=== PATIENT | male | born 1940 | race Caucasian/White ===

== ENCOUNTER → 2018-08-10 08:47 | Outpatient (CLI) | payer MEDICARE, OTHER, SELFPAY ==
[2018-08-10 10:27] LABS: Hematocrit 44.3 % (40-54); Hemoglobin 14.5 g/dl (13.0-16.5); Mean Corp Hgb Conc 32.7 g/gl (32-36); Mean Corpuscular Hgb 30.7 pg (27.0-32.0); Mean Corpuscular Volume 93.9 fL (80-94); Mean Platelet Vol. 11.6 fl (6.2-12.0); Platelet Count 255 K/mm3 (150-450); RBC Distribution Width CV 13.2 % (11.6-14.6); RBC Distribution Width SD 45.5 fl (35.1-43.9); Red Blood Count 4.72 M/mm3 (4.6-6.2); White Blood Count 6.3 K/mm3 (4.4-11.0)
[2018-08-10 10:29] LABS: Scan Indicated on CBC? Y/N NO
[2018-08-10 10:49] LABS: ALB/GLOB Ratio 1.2 RATIO (0.9-2.4); AST(SGOT) 23 U/L (15-37); Alanine Aminotransfer ALT/SGPT 35 U/L (16-61); Albumin, Serum 3.8 g/dL (3.2-5.0); Alkaline Phosphatase 99 U/L (45-117); Anion Gap 7 (5-15); BUN 13 mg/dL (7-18); BUN/Creat Ratio 12.7 RATIO (10-20); Calcium,Total 8.6 mg/dL (8.5-10.1); Chloride 107 mmol/L (98-107); Cholesterol 107 mg/dL (200); Creatinine, Serum 1.02 mg/dL (0.70-1.30); EST Glomerular Filtration Rate 75 mL/min (>60); Est Glom Filt Rate - Afr Amer 91 mL/min (>60); Globulin 3.3 g/dL (2.2-4.2); Glucose 85 mg/dL (74-106); High Density Lipoprotein 38 mg/dL; PSA,Total- Diagnostic 6.04 ng/mL (0.0-4.0); Protein, Total 7.1 g/dL (6.4-8.2); Sodium Level 140 mmol/L (136-145); Triglycerides 98 mg/dL; Very Low Density Lipoprotein 20 mg/dL (5-40)
== END ==
PROVIDERS: Family Provider Family Medicine; PCP Family Medicine; Visit Provider Family Medicine
DX: I10 Essential (primary) hypertension (principal); E78.00 Pure hypercholesterolemia, unspecified; N40.1 Benign prostatic hyperplasia with lower urinary tract symptoms
CPT/HCPCS: 36415; 80053; 80061; 84153; 85027

== ENCOUNTER → 2019-02-16 10:47 | Outpatient (CLI) | payer MEDICARE, OTHER, SELFPAY ==
[2019-02-16 13:13] LABS: Thyroid Stim Hormone (TSH) 3.48 uIU/mL (0.358-3.74)
[2019-02-16 13:20] LABS: Vitamin D,25 Hydroxy 32.5 ng/mL (29.95-100.01)
== END ==
PROVIDERS: Family Provider Family Medicine; PCP Family Medicine; Referring Provider Family Medicine; Visit Provider Family Medicine
DX: E55.9 Vitamin D deficiency, unspecified (principal); R94.6 Abnormal results of thyroid function studies
CPT/HCPCS: 36415; 82306; 84439; 84443

== ENCOUNTER → 2019-08-17 09:41 | Outpatient (CLI) | payer MEDICARE, OTHER, SELFPAY ==
[2019-08-17 12:47] LABS: T4 Free Direct 0.94 ng/dL (0.76-1.46); Thyroid Stim Hormone (TSH) 4.65 uIU/mL (0.358-3.74)
[2019-08-17 13:00] LABS: Vitamin D,25 Hydroxy 50.6 ng/mL (29.95-100.01)
== END ==
PROVIDERS: Family Provider Family Medicine; PCP Family Medicine; Referring Provider Family Medicine; Visit Provider Family Medicine
DX: R79.89 Other specified abnormal findings of blood chemistry (principal); E55.9 Vitamin D deficiency, unspecified; I10 Essential (primary) hypertension
CPT/HCPCS: 36415; 82306; 84439; 84443

== ENCOUNTER → 2020-05-08 09:05 | Outpatient (CLI) | payer MEDICARE, OTHER, SELFPAY ==
[2020-05-08 13:23] LABS: Vitamin D,25 Hydroxy 70.6 ng/mL
[2020-05-08 13:32] LABS: Microalbumin,Random Urine 18.2 mg/L (NO RANGE EST.)
[2020-05-08 13:44] LABS: ALB/GLOB Ratio 1.1 RATIO (0.9-2.4); AST(SGOT) 23 U/L (15-37); Alanine Aminotransfer ALT/SGPT 24 U/L (16-61); Albumin, Serum 3.9 g/dL (3.2-5.0); Alkaline Phosphatase 90 U/L (45-117); Anion Gap 7 (5-15); BUN 12 mg/dL (7-18); BUN/Creat Ratio 13.6 RATIO (10-20); Calcium,Total 8.5 mg/dL (8.5-10.1); Chloride 106 mmol/L (98-107); Cholesterol 130 mg/dL (200); Creatinine, Serum 0.88 mg/dL (0.70-1.30); EST Glomerular Filtration Rate 88 mL/min (>60); Est Glom Filt Rate - Afr Amer 106 mL/min (>60); Globulin 3.4 g/dL (2.2-4.2); Glucose 101 mg/dL (74-106); High Density Lipoprotein 44 mg/dL; Potassium 3.8 mmol/L (3.5-5.1); Protein, Total 7.3 g/dL (6.4-8.2); Sodium Level 138 mmol/L (136-145); Thyroid Stim Hormone (TSH) 3.42 uIU/mL (0.358-3.74); Triglycerides 107 mg/dL; Very Low Density Lipoprotein 21 mg/dL (5-40)
== END ==
PROVIDERS: PCP Family Medicine; Visit Provider Family Medicine
DX: I10 Essential (primary) hypertension (principal); R79.89 Other specified abnormal findings of blood chemistry; E55.9 Vitamin D deficiency, unspecified; N40.1 Benign prostatic hyperplasia with lower urinary tract symptoms
CPT/HCPCS: 36415; 80053; 80061; 82043; 82306; 84153; 84443

== ENCOUNTER → 2020-07-17 11:35 | Outpatient (CLI) | payer MEDICARE, OTHER, SELFPAY ==
[2020-07-17 16:04] LABS: Anion Gap 6 (5-15); BUN 15 mg/dL (7-18); BUN/Creat Ratio 15.4 RATIO (10-20); Chloride 106 mmol/L (98-107); Creatinine, Serum 0.97 mg/dL (0.70-1.30); EST Glomerular Filtration Rate 79 mL/min (>60); Est Glom Filt Rate - Afr Amer 95 mL/min (>60); Glucose 89 mg/dL (74-106); Sodium Level 137 mmol/L (136-145); Thyroid Stim Hormone (TSH) 1.88 uIU/mL (0.358-3.74)
== END ==
PROVIDERS: PCP Family Medicine; Referring Provider Family Medicine; Visit Provider Family Medicine
DX: I10 Essential (primary) hypertension (principal); E03.9 Hypothyroidism, unspecified
CPT/HCPCS: 36415; 80048; 84443

== ENCOUNTER → 2020-08-03 08:40 | Outpatient (CLI) | payer MEDICARE, OTHER, SELFPAY ==
--- NOTE | 2020-08-03 08:47 | CDU_ITS ---
Reason For Study: Blurry vision Rt. Velocities/BP Lt. Velocities/BP Prox CCA 79.9/10.8 cm/sec. Prox CCA 67.4/16.3 cm/sec. Mid CCA 66.9/17.3 cm/sec. Mid CCA 68.3/17.3 cm/sec. Dist CCA 56.4/16.8 cm/sec. Dist CCA 54.1/13.5 cm/sec. Prox ICA 41.9/14.5 cm/sec. Prox ICA 42.1/13.5 cm/sec. Mid ICA 78.7/30.5 cm/sec. Mid ICA 64.1/17.9 cm/sec. Dist ICA 83.4/31.5 cm/sec. Dist ICA 59.7/19 cm/sec. Rt. ICA/CCA = 1.25. Lt. ICA/CCA = 0.95. Prox ECA 66.3/12.4 cm/sec. Prox ECA 92.7/14.6 cm/sec. Rt. Vert. 50.4/14.5 cm/sec. Lt. Vert. 27/6.9 cm/sec. Right Extracranial There is homogeneous, smooth atherosclerotic plaque noted in the right common carotid artery. There is homogeneous, smooth atherosclerotic plaque noted in the right internal carotid artery. There is intimal thickening but no significant atherosclerotic plaque noted in the right external carotid artery. Antegrade flow is noted in the right vertebral artery. Left Extracranial There is homogeneous, smooth atherosclerotic plaque noted in the left common carotid artery. There is homogeneous, smooth atherosclerotic plaque noted in the left internal carotid artery. There is intimal thickening but no significant atherosclerotic plaque noted in the left external carotid artery. Antegrade flow is noted in the left vertebral artery. Procedure Carotid Duplex 72460. This is a Carotid Duplex examination using B-mode, color flow and specral Doppler. Exam performed in department. Interpretation Summary Mild (<50%) stenosis right extracranial internal carotid. Mild (<50%) stenosis left extracranial internal carotid. Flow within the vertebral arteries is antegrade bilaterally. Ordering Physician: Liban Camacho Referring Physician: Liban Camacho Performed By: Tootie Velásquez RVT
== END ==
PROVIDERS: PCP Family Medicine; Referring Provider Family Medicine; Visit Provider Family Medicine
DX: H53.8 Other visual disturbances (principal); R42 Dizziness and giddiness
CPT/HCPCS: 93880

== ENCOUNTER 2021-05-23 11:34 | Day surgery (SDC) | payer MEDICARE, OTHER, SELFPAY ==
--- NOTE | 2021-05-18 09:21 | EKG12_ITS ---
Test Reason : PREOP Blood Pressure : / mmHG Vent. Rate : 065 BPM Atrial Rate : 065 BPM P-R Int : 198 ms QRS Dur : 098 ms QT Int : 428 ms P-R-T Axes : 017 -36 028 degrees QTc Int : 445 ms Normal sinus rhythm Left axis deviation Abnormal ECG Confirmed by DIMITRI ALEXANDER, KODY ([id number]), aircraft engine specialist SHANE SAGE ([id number]) on 05/21/2021 9:49:30 AM Referred By: Salvador Solitario Confirmed By:OCTAVIO MOSLEY MD
[2021-05-18 10:25] LABS: Hematocrit 43.9 % (40-54); Hemoglobin 14.4 g/dL (13.0-16.5); Mean Corp Hgb Conc 32.8 g/dL (32-36); Mean Corpuscular Hgb 30.7 pg (27.0-32.0); Mean Corpuscular Volume 93.6 fL (80-94); Mean Platelet Vol. 11.2 fl (6.2-12.0); Platelet Count 281 K/mm3 (150-450); RBC Distribution Width CV 12.8 % (11.6-14.6); RBC Distribution Width SD 44.1 fl (35.1-43.9); Red Blood Count 4.69 M/mm3 (4.6-6.2); White Blood Count 7.9 K/mm3 (4.4-11.0)
[2021-05-18 10:37] LABS: International Normalized Ratio 1.2; Prothrombin Time (Protime)PT. 14.1 SECONDS (11.7-14.9)
[2021-05-18 10:38] LABS: Partial Thromboplast Time 32.6 Seconds (24.1-36.2)
[2021-05-18 11:03] LABS: AST(SGOT) 21 U/L (15-37); Alanine Aminotransfer ALT/SGPT 25 U/L (16-61); Albumin, Serum 3.8 g/dL (3.2-5.0); Alkaline Phosphatase 89 U/L (45-117); Anion Gap 8 (5-15); BUN 19 mg/dL (7-18); BUN/Creat Ratio 15.4 RATIO (10-20); Bilirubin, Direct 0.25 mg/dL (0.00-0.30); Calcium,Total 8.7 mg/dL (8.5-10.1); Chloride 107 mmol/L (98-107); Creatinine, Serum 1.23 mg/dL (0.70-1.30); EST Glomerular Filtration Rate 60 mL/min (>60); Est Glom Filt Rate - Afr Amer 72 mL/min (>60); Globulin 3.1 g/dL (2.2-4.2); Glucose 87 mg/dL (74-106); Potassium 3.7 mmol/L (3.5-5.1); Protein, Total 6.9 g/dL (6.4-8.2); Sodium Level 141 mmol/L (136-145); Thyroid Stim Hormone (TSH) 0.92 uIU/mL (0.358-3.74)
[2021-05-23] VITALS (10 sets, daily range): BP systolic 124–153; BP diastolic 70–86; PULSE 65–92; RESP 16–18; TEMP 35.8–36.4; O2SAT 92–98; BMI 31.4
--- NOTE | 2021-05-23 | PROS_PTH ---
PATIENT: Teri VERDIN [place] [facility] [id number] AGE/SX: 81/M ROOM: RE05/23/[address]: Dr. Salvador Solitario MD : 1940 BED: DIS: 05/24/2021 SPEC #: [id number] RECD: 05/23/21 14:56 STATUS: DANUTA HUGHES #: [id number] JENNIFER: 05/23/21 00:[address]: Salvador Solitario DEPT: SURGICAL PATHOLOGY RECD BY: Joe Hammonds ENTERED: 05/24/21 13:29 SP TYPE: TURP OTHR DR: Dr. Rashid Camacho MD Tissues: Prostate, NOS Procedures: Surgery Specimen Level IV HEADER OPERATION: Cysto, TUR prostate, Olymp[employer] PRE-OP DIAGNOSIS: BPH TISSUE SUBMITTED: Prostate tissue MICROSCOPIC DIAGNOSIS Prostate, transurethral resection: Benign nodular hyperplasia, glandular and stromal types. Chronic inflammation. AM:thanh 05/25/2021 MICROSCOPIC DESCRIPTION Slides are reviewed. GROSS DESCRIPTION Received is one container labeled with the patient's name and designated prostate tissue. The specimen consists of multiple irregular fragments of pink-ring, rubbery, soft tissue that in aggregate weigh 22 gm and measure in aggregate 6 x 6 x 2 cm. Molder Helper portions are submitted in ten cassettes. / AM:thanh 05/24/21 TC:3 CPT: 61387
[2021-05-23] MEDS: Lactated Ringers 1,000 ML 100 ML IV ×2 (12:20→14:39)
[2021-05-23] MEDS: Cefazolin 2 GM in 0.9% Normal Saline 100 ML IV (13:27)
--- NOTE | 2021-05-23 13:28 | HP.PCM_ITS ---
HPI - General HPI Narrative Teri VERDIN, is a 81 M who presents for transurethral resection of the prostate he has a very large obstructive prostate. [facility] Medical History (Updated 05/23/21 @ 13:[address] Salvador Solitario MD) Degenerative disc disease Easy bruising Former smoker High cholesterol History of cataract History of echocardiogram Hypertension Prostate disease TIA (transient ischemic attack) Wears dentures Wears glasses Wears hearing aid Home Medications aspirin 81 mg PO DAILY 05/17/21 [History Last Taken Unknown] atorvastatin 20 mg PO QHS 05/17/21 [History Last Taken Unknown] cholecalciferol (vitamin D3) [Vitamin D3] 50 mcg PO DAILY 05/17/21 [History Last Taken Unknown] levothyroxine 75 mcg PO DAILY 05/17/21 [History Last Taken Unknown] lisinopril 20 mg PO BID 05/17/21 [History Last Taken Unknown] vitamin E 200 unit PO DAILY 05/17/21 [History Last Taken Unknown] ciprofloxacin HCl [Cipro] 500 mg PO BID #14 tab 05/23/21 [Rx Last Taken Unknown] Allergy/AdvReac Type Severity Reaction Status Date / Time No Known Allergies Allergy Verified 05/17/21 09:47 Surgical History (Updated 05/17/21 @ 10:08 by Danya Callaway) History of transurethral resection of prostate Social History Smoking Status: Former smoker ROS Constitutional Constitutional: Denies chills, fever(s) or malaise Eyes Eyes: Denies blurry vision or change in vision ENT HEENT: Reports none Cardiovascular Cardiovascular: Denies chest pain or palpitations Respiratory/Chest Respiratory/Chest: Denies cough or shortness of breath with exertion Gastrointestinal Gastrointestinal: Denies abdominal pain, constipation or diarrhea Musculoskeletal Musculoskeletal: Denies back pain, joint stiffness or joint swelling Integumentary Integumentary: Denies dry skin, jaundice, lesions or rash Neurologic Neurologic: Denies confusion, syncope or weakness Psychiatric Psychiatric: Reports none; Denies anxiety or depression Endocrine Endocrinology: Denies excessive sweating, fatigue or flushing Hematologic/Lymphatic Hematologic/Lymphatic: Denies anemia, easy bleeding or easy bruising Vital Signs Vital Signs Vital Signs: 05/23/21 12:13 Temperature 97.1 F L Temperature Source Temporal Pulse Rate 82 Respiratory Rate 16 Respiratory Pattern Normal Blood Pressure 153/83 H Blood Pressure Mean 106 Blood Pressure Source Monitor Blood Pressure Position Semi-Fowlers Blood Pressure Location Left Arm Pulse Ox 97 Oxygen Delivery Method Room Air Weight Weight: 97.8 kg Body Mass Index (BMI) 31.4 Physical Exam Const alert and oriented x3 General Appearance: cooperative HEENT normocephalic, head/scalp atraumatic, EAC's normal and TM's normal bilaterally Eyes PERRL and EOMs intact bilaterally Pupil: sluggish Neck no lymphadenopathy, supple and no JVD General: trachea midline Lymph Lymphatic: no lymphadenopathy noted, lymphedema and lymphadenopathy Resp normal respiratory effort, normal air movement and clear to auscultation bilaterally Cardio regular rate, regular rhythm and peripheral pulses 2+ throughout GI soft to palpation, non-tender and non-distended Extremity normal capillary refill and no clubbing, cyanosis or edema General Extremity: no tenderness to palpation of joints or extremities Skin no rashes or lesions noted General Skin Exam: turgor normal Lesions: no lesions Rashes: no rashes Neuro CN's II-XII intact bilaterally Speech: speech normal Motor Exam: strength 5/5 throughout; Negative for general weakness Psych thought process normal, cooperative and affect normal Appearance: appropriate Results Lab / Micro Data Result Diagrams: 05/18/21 09:32 05/18/21 09:32 Assessment & Plan Assessment/Plan (1) BPH with obstruction/lower urinary tract symptoms: PLAN: Plan to proceed with a TURP
--- NOTE | 2021-05-23 13:29 | PCM.DC ---
Discharge Instructions Diet Discharge Diet: No restrictions Activity Discharge Activity: Return to Normal Activity and May Not Drive (while taking narcotic pain medications.) Dressing / Incision Call your doctor if you observe: Fever of 101 or Higher Follow Up Care Please Follow Up With: Salvador Solitario MD When: Call [phone] for an appointment Test Results: Test results from this visit will be discussed in further detail at your follow-up appointment, if applicable. Discharge Plan Admission Primary Reason for Your Visit: turp Attending Provider: Salvador Solitario Primary Care Provider: Liban Camacho Discharge Orders/Prescriptions Prescriptions: New ciprofloxacin HCl [Cipro] 500 mg tablet 500 mg PO BID Qty: 14 RF: 0 Continued vitamin E 200 unit Capsule 200 unit PO DAILY RF: 0 atorvastatin 20 mg tablet 20 mg PO QHS RF: 0 lisinopril 20 mg Tablet 20 mg PO BID RF: 0 levothyroxine 75 mcg tablet 75 mcg PO DAILY RF: 0 cholecalciferol (vitamin D3) [Vitamin D3] 50 mcg (2,000 unit) Capsule 50 mcg PO DAILY RF: 0 Held aspirin 81 mg Tablet 81 mg PO DAILY RF: 0 Hold Instructions: Resume on 06/06/21. Discontinued tamsulosin 0.4 mg capsule 0.4 mg PO QHS RF: 0 finasteride 5 mg tablet 5 mg PO QHS RF: 0 Referrals / Follow Up: Liban Camacho MD [Primary Care Provider] - Salvador Solitario MD [STAFF PHYSICIAN] - Disposition Disposition (needs filled in before D/C Order can be placed): Home, Self Care
--- NOTE | 2021-05-23 14:24 | OP.PCM_ITS ---
Report of Operation Date of Procedure: 05/23/21 Pre-Operative Diagnosis: BPH with obstruction Post-Operative Diagnosis: Same Surgery/Procedure Performed:: Transurethral section of prostate Description of Surgical Findings:: In the preoperative setting I discussed with the patient how the surgery would be done with expect afterwards. We discussed how a prostate resection is done and we discussed the risk of the surgery including, bleeding, infection, retrograde ejaculation, changes with ejaculation or intercourse,. We discussed the possibility that the resection of the prostate may not alleviate his urinary symptoms. We discussed the small risk of developing scar tissue along the urethral channel and strictures. We also discussed the chance of the prostate could grow back and he may need further surgery or treatment in the future for prostate problems. Patient was taken back to the operating room, timeout procedure was performed, he was identified and marked and placed on the operating room table. He underwent general anesthesia. He was placed in dorsolithotomy position. Penis and testicles were prepped and draped in usual sterile fashion. Went into the bladder using the visual obturator with a resectoscope. Once inside the bladder identified the right and left ureteral orifice. I then identified the prostate and the anatomy of the prostate. I marked out the area of the sphincter and the verumontanum was identified. I then proceeded with the prostate resection first resected the median lobe. And then resected the right lobe of the prostate. Then to resect the left lobe of the prostate. I then resected the apical tissue of the prostate. Made sure that there was no injury to the sphincter or the verumontanum was still intact. At the end of the resection all the chips were Ellik out of the bladder. I then identified the left and right ureteral orifice and these were confirmed to be in good position and effluxing and not injured. The resectoscope was removed, a 22 Citizen [place] catheter was placed into the bladder on continuous irrigation. And the urine was fairly light pink color and draining normally. He was taken back to the PACU in good condition. Surgeon: Salvador Solitario Type of Anesthesia: General Drains: 22 [place] three-way catheter Admit VTE Documentation VTE Present on Admission: No VTE Mechan Device Prophylaxis: SCD's
[2021-05-23] MEDS: 0.9% Normal Saline 1,000 ML 150 ML IV (20:08)
[2021-05-23] MEDS: Ciprofloxacin 400 MG/200 ML BAG 200 MG IV (22:45)
[2021-05-23] MEDS: Atorvastatin Calcium 20 MG Tablet PO (22:51)
[2021-05-23] MEDS: Lisinopril 20 MG Tablet PO (22:51)
[2021-05-24 00:55] VITALS: BMI 31.4
[2021-05-24 01:52] VITALS: PULSE 61; RESP 18; TEMP 36.6; O2SAT 95
[2021-05-24] MEDS: 0.9% Normal Saline 1,000 ML 150 ML IV (04:04)
[2021-05-24 04:05] VITALS: BMI 31.4
[2021-05-24 04:09] VITALS: BP 120/64; PULSE 58; RESP 18; TEMP 36.4; O2SAT 96
[2021-05-24] MEDS: Levothyroxine 75 MCG Tablet PO (04:14)
[2021-05-24 08:08] VITALS: BMI 31.4
[2021-05-24] MEDS: Ciprofloxacin 400 MG/200 ML BAG 200 MG IV (08:24)
[2021-05-24] MEDS: Cholecalciferol (VIT D3) 25 MCG TABLET (1,000 UNITS) 50 MCG PO (08:27)
[2021-05-24] MEDS: Lisinopril 20 MG Tablet PO (08:28)
[2021-05-24 08:39] VITALS: BP 130/74; PULSE 64; RESP 18; TEMP 36.6
== END 2021-05-24 10:00 | disposition home or self-care (01) ==
LOC: SDC 11:35 → AC 11:37 → MS3 05-24 09:19
PROVIDERS: Anesthesiology; PCP Family Medicine; Referring Provider Urology; Visit Provider Urology
PROC: (CPT 52601; principal; 2021-05-23 13:35)
DX: N40.1 Benign prostatic hyperplasia with lower urinary tract symptoms (principal); N13.8 Other obstructive and reflux uropathy; R35.0 Frequency of micturition; R35.1 Nocturia; R39.12 Poor urinary stream; R31.21 Asymptomatic microscopic hematuria; I10 Essential (primary) hypertension; E78.00 Pure hypercholesterolemia, unspecified; R23.3 Spontaneous ecchymoses; Z79.82 Long term (current) use of aspirin; Z79.899 Other long term (current) drug therapy; Z87.891 Personal history of nicotine dependence; Z86.73 Personal history of transient ischemic attack (TIA), and cerebral infarction without residual deficits
CPT/HCPCS: 00914; 52601; 36415; 80048; 80076; 84443; 85027; 85610; 85730; 88305; 93005; 99251; J7030; J7120; G0463; J0744; J2405

== ENCOUNTER → 2021-09-25 10:47 | Outpatient (CLI) | payer MEDICARE, OTHER, SELFPAY ==
[2021-09-25 12:56] LABS: Anion Gap 9 (5-15); BUN 11 mg/dL (7-18); BUN/Creat Ratio 12.7 RATIO (10-20); Calcium,Total 8.8 mg/dL (8.5-10.1); Chloride 104 mmol/L (98-107); Cholesterol 122 mg/dL (200); Creatinine, Serum 0.86 mg/dL (0.70-1.30); EST Glomerular Filtration Rate 90 mL/min (>60); Est Glom Filt Rate - Afr Amer 109 mL/min (>60); Glucose 90 mg/dL (74-106); High Density Lipoprotein 39 mg/dL; Potassium 4.1 mmol/L (3.5-5.1); Sodium Level 136 mmol/L (136-145); Thyroid Stim Hormone (TSH) 1.77 uIU/mL (0.358-3.74); Triglycerides 157 mg/dL; Very Low Density Lipoprotein 31 mg/dL (5-40)
== END ==
PROVIDERS: PCP Family Medicine; Referring Provider Family Medicine; Visit Provider Family Medicine
DX: I10 Essential (primary) hypertension (principal)
CPT/HCPCS: 36415; 80048; 80061; 84443

== ENCOUNTER → 2022-03-25 | Outpatient (CLI) | payer MEDICARE, OTHER, SELFPAY ==
--- NOTE | 2022-03-25 15:52 | STRESSREP ---
Stress Test Report Exercise myocardial perfusion stress test. 82-year-old man with a history of shortness of breath. Stress protocol: Resting KG demonstrates normal sinus rhythm with a rate of 58 bpm normal intervals are noted resting blood pressure is 150/80 mmHg. The patient exercised according to the regular Len protocol for total duration of 4 minutes. The maximum heart rate attained was 154 bpm which was 114% of max impact at heart rate the maximum workload was 7 metabolic equivalents. At rest there were no ST or T wave changes noted to suggest ischemia and at peak exercise upsloping ST changes were noted which did not meet the criteria for ischemia. No clinical angina was noted the test was terminated due to dyspnea. The peak blood pressure was 180/92 mmHg which was normal response to exercise. Myocardial perfusion protocol. 14.3 mCi of technetium 99m sestamibi was injected at rest. The patient exercised according to regular Len protocol for 4 minutes and at peak exercise 44.7 mCi of technetium 99m sestamibi was injected stress images were obtained stress and rest images were reconstructed in comparing the short axis vertical long and horizontal long axis. Gated images were also obtained per Perfusion SPECT analysis: Review of the stress images demonstrate normal cardiac silhouette size. There is a medium size defect noted involving the inferolateral segment on the stress images. The rest of the sears appear to be normally perfused. The resting images demonstrate mild improvement suggesting a mild amount of inferolateral ischemia at this moderate workload. A previous basal inferior infarct cannot be completely excluded. Gated SPECT analysis: The gated ejection fraction is noted to be 65%. Conclusion: Abnormal exercise myocardial perfusion stress test at a moderate workload. Inferolateral ischemia noted. Preserved ejection fraction.
== END | disposition home or self-care (01) ==
LOC: CVS 06:58
PROVIDERS: PCP Family Medicine; Referring Provider Family Medicine; Visit Provider Family Medicine
DX: R94.39 Abnormal result of other cardiovascular function study (principal); R06.02 Shortness of breath; R68.89 Other general symptoms and signs
CPT/HCPCS: 78452; 93017; A9500; A4216

== ENCOUNTER → 2022-04-03 | Outpatient (CLI) | payer MEDICARE, OTHER, SELFPAY ==
--- NOTE | 2022-04-03 14:41 | RAD_ITS ---
STUDY: X-RAY CHEST REASON FOR EXAM: Male, 82 years old. Technologist Notes pt states sob on and off, abnormal stress test, having heart cath placed in 5 days cad TECHNIQUE: XR Chest 2 Views COMPARISON: Prior comparison studies are not available for review at this time. FINDINGS: There is no demonstrated pleural abnormality. Normal size heart. Normal mediastinum and uziel. Normal visualized pulmonary arteries. There is atherosclerotic calcification of the aortic arch with tortuosity. There are diffuse degenerative changes of the visualized thoracic spine. There is degenerative osteoarthritis of the bilateral shoulders. There is no demonstrated abnormality of the visualized soft tissue structures of the upper abdomen. RAD/Chest PA and Lateral IMPRESSION: There are no acute findings. Electronically Signed: Misael Edgar MD at 17:30 EDT ,
[2022-04-03 17:11] LABS: Absolute Lymphocyte Count 1.93 X10^3/uL (0.83-4.51); Absolute Neutrophil Count 3.9 X10^3/uL (2.0-7.7); Basophil# 0.07 X10^3/uL; Eosinophil# 0.34 X10^3/uL; Eosinophils% 4.9 % (0-5); Hematocrit 44.5 % (40-54); Hemoglobin 14.5 g/dL (13.0-16.5); Lymphocyte # 1.93 X10^3/ul (0.83-4.51); Mean Corp Hgb Conc 32.6 g/dL (32-36); Mean Corpuscular Hgb 30.5 pg (27.0-32.0); Mean Corpuscular Volume 93.7 fL (80-94); Mean Platelet Vol. 11.8 fl (6.2-12.0); Monocyte# 0.67 X10^3/uL; Monocyte% 9.7 % (0-10); NRBC Flagged by Analyzer 0 % (0-5); Neutrophil # 3.87 X10^3/uL (2.7-7.7); Neutrophil % 56.1 % (47-70); Platelet Count 253 K/mm3 (150-450); Red Blood Count 4.75 M/mm3 (4.6-6.2); White Blood Count 6.9 K/mm3 (4.4-11.0)
[2022-04-03 17:35] LABS: Anion Gap 7 (5-15); BUN 16 mg/dL (7-18); BUN/Creat Ratio 17.4 RATIO (10-20); Calcium,Total 8.5 mg/dL (8.5-10.1); Chloride 106 mmol/L (98-107); Creatinine, Serum 0.92 mg/dL (0.70-1.30); EST Glomerular Filtration Rate 83 mL/min (>60); Est Glom Filt Rate - Afr Amer 101 mL/min (>60); Glucose 85 mg/dL (74-106); Potassium 3.9 mmol/L (3.5-5.1); Sodium Level 139 mmol/L (136-145)
== END | disposition home or self-care (01) ==
LOC: RAD 14:27
PROVIDERS: PCP Family Medicine; Referring Provider Internal Medicine Cardiovascular Disease; Visit Provider Internal Medicine Cardiovascular Disease
DX: R94.39 Abnormal result of other cardiovascular function study (principal); I10 Essential (primary) hypertension; E78.5 Hyperlipidemia, unspecified
CPT/HCPCS: 36415; 71046; 80048; 85025

== ENCOUNTER 2022-04-08 12:55 | Observation (INO) | payer MEDICARE, OTHER, SELFPAY ==
[2022-04-05 08:22] VITALS: BMI 32.1
[2022-04-08] VITALS (12 sets, daily range): BP systolic 115–157; BP diastolic 68–89; PULSE 53–74; RESP 14–20; TEMP 35.9–36.8; O2SAT 94–100
--- NOTE | 2022-04-08 11:44 | CL.D_ITS ---
Patient Name: Teri VERDIN Study Date: 04/08/2022 Performing: Rishi Cisneros MD Ht: 70.07 inches 178 cm : 1940 Wt: 224.87 lbs 102 kg Age: 82 Gender: male BSA: 2.2 PROCEDURE(S) PERFORMED DC01-(14961)LHC/COR/LV CLINICAL PROFILE AND INDICATIONS Indications: Suspected CAD Heart Failure: None Stress/Imaging Date: 03/25/22Stress Test with SPECT MPI: Positive Low Risk CONCLUSIONS Moderately severe disease noted involving the mid left anterior descending artery involving a septal fourdrinier machine tender. Moderate disease in the circumflex artery. Mild disease noted in the right coronary art gumaro RECOMMENDATIONS Referred for immediate PCI DESCRIPTION OF PROCEDURE The patient arrived to the procedure lab. The risks and benefits of the procedure as well as a full d escription of our services here and current unavailability of surgical backup were fully explained to the patient and/or their significant other prior to the catheterization. The Timeout was completed, verifying the correct patient and procedure. The patient's procedural site was prepped and draped in the usual fashion. Local anesthetic was given subcutaneously to right radial region with Lidocaine 2% . Local anesthetic was given subcutaneously to right groin region with Lidocaine 2%. Using a modified Seldinger technique, arterial access was obtained via the right radial artery, a 6Fr sheath was inse rted., arterial access was obtained via the right femoral artery, a 5Fr sheath was inserted. Left Co ronary Artery selective angiography was performed in multiple views using a 6 Fr. JL4 catheter. Right Coronary Artery selective angiography was then performed in multiple views using a 6 Fr. JR 4 catheter. Left Ventriculography was performed in ALEJO projection using a 6 Fr. Pigtail catheter. LV to AO pullback pressures were then recorded. CORONARY ANGIOGRAPHY DOMINANCE: Right Dominant LEFT HEART ASSESSMENT Left Ventricular Ejection Fraction: by LV Gram 60 % Normal LV wall motion Normal Left Ventricular systolic function LEFT MAIN: Mild calcification, No significant disease noted LEFT ANTERIOR DESCENDING ARTERY: MID LAD: 75 % Stenosis DIAGONAL 1: Proximal - Mild luminal irregularities CIRCUMFLEX ARTERY: Moderate luminal irregularities up to 50% RIGHT CORONARY ARTERY: Mild luminal irregularities less than 30% COMPLICATIONS PROCEDURE MEDICATIONS Fentanyl 50 mcg IV Versed 1 mg IV Baby Aspirin (81mg) 1 Tabs PO 04/08/2022 09:13:32 Brilinta 180 mg PO @ 04/08/2022 11:30:31 Heparin given IA 04/08/2022 10:54:03 Verapamil 2.5mg, Ntg 100mcgs, 3000 units of Heparin given IA 04/08/2022 10:54:03 SUMMARY OF HEMODYNAMIC DATA Time AIR REST ECG 09:25:28 Art 136/70 (95) 10:43:38 AO 97/69 (83) SA 11:06:34 AO 107/65 (82) 11:11:54 LV 125/14, 24 11:31:32 LV 129/13, 23 11:31:38 LV 124/16, 26 11:32:14 LVp 135/10, 28 11:32:23 AOp 138/62 (99) 11:32:28 Signed By Rishi Cisneros MD On 04/08/2022 11:43:41 Rishi Cisneros MD
--- NOTE | 2022-04-08 12:37 | PCIREPORT_ITS ---
PCI Cardiac Cath Report PCI Report: PCI report 1 successful PCI of mid LAD 75% with predilatation followed by placement of kiley g-eluting stent 3 x 18 mmDES/Orsiro-Mercer, postdilated with NC Emerge balloon NC balloon post stent 0% and maintenance of pre and post FIORELLA-3 flow 2. Selective right common femoral artery angiography 3. Hemostasis will be maintained with manual pressure. Consent; Risk and benefit of the procedure explained in detail to the patient elected to proceed informed consent obtained Preprocedure diagnosis; 82-year-old patient underwent cardiac catheterization today by his primary medical pathology teacher Dr. Cisneros Angiographic films reviewed noted patient had moderately severe disease in involving the mid LAD as well as the septal cut off sawyer He had a moderate disease in the circumflex mild disease noted in the right coronary with LV function preserved. LV systolic function is preserved. Interventional equipment; 1 6 Jordanian JL 4 guide catheter 2. 0.014 run-through extra floppy 180 cm straight wire 3. 0.035 x 150 cm angle Glidewire 4. 0.035 to 60 cm J exchange wire 5. Drug-eluting stent 3 x 18 mm/RUSS-Orsiro Mercer 6. 3.5 x 12 mm NC balloon Anticoagulation use in the Tier Lift Truck Operator; Patient was given aspirin Brilinta 180 mg He was given heparin total of 7000 units of heparin. Procedure in detail; Under fluoroscopic guidance we will proceed with 6 Jordanian JR4 guide advanced ascending aorta cannulated the left main without difficulty Angiographic view for intervention obtained in KAZAKH and ALEJO cranial and caudal views Then we proceed with a guide wire which is run-through guide across the lesion in the mid LAD without difficulty This is followed by balloon dilatation using 2 x 12 mm balloon followed by placement of the drug-eluting stent and followed by postdilatation with excellent result and no complication in the Tier Lift Truck Operator. Selective angiographic view of right common femoral artery obtained. Hemostasis will be maintained with manual pressure once ACT level is acceptable less than 170 this will be done here in the Tier Lift Truck Operator area. Recommendation; 1. Patient to continue on DAPT with Brilinta 90 mg twice daily in addition to low-dose aspirin 2. Patient to follow-up with the primary medical pathology teacher Dr. Cisneros for continuation of cardiac care 3. Patient is scheduled to undergo cardiac rehab phase 1 program. Finding in the Tier Lift Truck Operator has been discussed with the family daughter and as well as the patient Nirav Pyle MD,FACC,[facility]
--- NOTE | 2022-04-08 13:00 | EKG12_ITS ---
Test Reason : AM EKG Blood Pressure : / mmHG Vent. Rate : 058 BPM Atrial Rate : 058 BPM P-R Int : 228 ms QRS Dur : 092 ms QT Int : 480 ms P-R-T Axes : 047 -38 035 degrees QTc Int : 471 ms Sinus bradycardia with 1st degree A-V block Left axis deviation Abnormal ECG Confirmed by LEELEE ALEXANDER, JAZMÍN ([id number]), advertising editor SHANE SAGE ([id number]) on 04/10/2022 8:55:03 AM Referred By: Rishi Cisneros Confirmed By:JAZMÍN MCKOY MD
--- NOTE | 2022-04-08 15:34 | CRPHASE1_ITS ---
Patient Communication PHII Cardiac Rehab Discussed with Patient:: Yes Guide to Cardiac Rehab Given to Patient:: Yes Cardiac Rehab Facility Choice List Given to Patient:: Yes - may want [facility] Choice [facility] CR PHII:: Communication Given to CR Choice Program Other:: Communication Given to CR Parasitologist:: Nirav Pyle Refer Phase II Cardiac Rehab:: Yes Sessions:: 36 sessions - 3 days/wk, 12 weeks Cardiac Rehabilitation Info Cardiac Rehabilitation Program Information: Cardiac Rehabilitation is important for patients like you who are recovering from a heart problem. Cardiac rehabilitation programs are recognized as integral to the continued care of the patient with coronary heart disease. The cardiac rehabilitation program is designed to optimize a patient's physical, psychological, and social functioning. Health acute care certified nursing assistant work in cardiac rehabilitation programs and assist you with getting the treatme nts you need to get stronger and healthier - like exercise, healthy eating habits, and medications. Cardiac rehabilitation has been show to help people with heart problems live longer and have better life enjoyment than people who do not go to cardiac rehabilitation. Please contact the Cardiac Rehabilitation Program at [facility] at in two weeks if you have not heard from them.
--- NOTE | 2022-04-08 15:35 | CRPH1.INSTRU ---
General Education CAD and cardiac anatomy and function:: Patient communicates acknowledgment Explanation of diagnoses and procedures:: Patient communicates acknowledgment Sign/Symptoms of MA:: Patient communicates acknowledgment Antiplatelet therapy: Patient communicates acknowledgment Smoking Patient Nicotine/Smoking Risk Factors Are:: Non-smoker Recommendations Include:: Previous smoker; encourage continued cessation Dyslipidemia Patient Dyslipidemia Risk Factors Are:: Total Cholesterol, Triglycerides, HDL, LDL Recommendations Include:: Lipid profile provided, Reviewed NCEP/ATP guidelines, Therapeutic Lifestyle Change dietary guidelines Dyslipidemia Response Code:: Patient communicates acknowledgment Overweight/Obesity Patient Overweight/Obesity Risk Factors Are:: Obesity - > or = 30 Recommendations Include:: Weight loss of 5-10%, Reduced calorie diet, Exercise 5-7 times/week Overweight/Obesity:: Patient communicates acknowledgment Hypertension Recommendations Include:: Maintain BP <130/85, DASH dietary guidelines, Decrease/maintain normal body weight, Moderation of ETOH Hypertension:: Patient communicates acknowledgment Diabetes Patient Diabetes Risk Factors Are:: No documented hx of diabetes Metabolic Syndrome Patient Metabolic Syndrome Risk Factors Are [3 of 5]:: Fasting blood sugar > 100 mg/dL, Waist circumference > 35 [female] or 40 [male], High triglyceride >150, Hypertension, Low HDL <40 [male] or < 50 [female] Recommendations Include:: Reinforce compliance to risk factor modifications Metabolic Syndrome Response Code:: Patient communicates acknowledgment Sedentary Patient Sedentary Risk Factors Are:: Lack of regular exercise Recommendations Include:: Aerobic exercise 5-7 times/week for 20-30 minutes continuously, Benefits of regular exercise, Discussed home walking program, Monitored Outpatient Cardiac Rehab Sedentary Response Code:: Patient communicates acknowledgment Stress Recommendations Include:: Identification of stressors, and assessment of coping skills, Stress management techniques Stress Response Code:: Patient communicates acknowledgment
[2022-04-08] MEDS: 0.9% Normal Saline 1,000 ML 75 ML IV (16:58)
[2022-04-08] MEDS: Atorvastatin Calcium 20 MG Tablet PO (20:47)
[2022-04-08] MEDS: Lisinopril 20 MG Tablet PO (20:47)
[2022-04-09 03:00] VITALS: PULSE 52
[2022-04-09 03:23] VITALS: BP 136/63; PULSE 62; RESP 18; TEMP 36.4; O2SAT 96
[2022-04-09] MEDS: Levothyroxine 75 MCG Tablet PO (05:17)
[2022-04-09 06:46] LABS: Hemoglobin 14.4 g/dL (13.0-16.5); Mean Corpuscular Hgb 30.6 pg (27.0-32.0); Mean Corpuscular Volume 95.5 fL (80-94); Mean Platelet Vol. 11.3 fl (6.2-12.0); Platelet Count 240 K/mm3 (150-450); RBC Distribution Width SD 45.5 fl (35.1-43.9); Red Blood Count 4.71 M/mm3 (4.6-6.2); White Blood Count 8.9 K/mm3 (4.4-11.0)
[2022-04-09 07:13] LABS: ALB/GLOB Ratio 1.1 RATIO (0.9-2.4); AST(SGOT) 24 U/L (15-37); Alanine Aminotransfer ALT/SGPT 27 U/L (16-61); Albumin, Serum 3.5 g/dL (3.2-5.0); Alkaline Phosphatase 86 U/L (45-117); Anion Gap 7 (5-15); BUN 16 mg/dL (7-18); BUN/Creat Ratio 17.3 RATIO (10-20); Calcium,Total 8.5 mg/dL (8.5-10.1); Chloride 108 mmol/L (98-107); Creatinine, Serum 0.92 mg/dL (0.70-1.30); EST Glomerular Filtration Rate 83 mL/min (>60); Est Glom Filt Rate - Afr Amer 101 mL/min (>60); Estimated Creatinine Clearance 62.82 ml/min; Globulin 3.1 g/dL (2.2-4.2); Glucose 83 mg/dL (74-106); Potassium 3.8 mmol/L (3.5-5.1); Protein, Total 6.6 g/dL (6.4-8.2); Sodium Level 138 mmol/L (136-145)
[2022-04-09 07:26] VITALS: O2SAT 96
--- NOTE | 2022-04-09 09:04 | PCM.PN.CARD ---
Subjective Subjective Seen and evaluated. Appears to be doing quite well. No complaints. Objective Data Vital Signs: Vital Signs Temp Pulse Resp BP Pulse Ox 97.5 F L 62 18 136/63 H 96 04/09/22 03:23 04/09/22 03:23 04/09/22 03:23 04/09/22 03:23 04/09/22 07:26 Oxygen Delivery Method Room Air Weight: 224 lb Body Mass Index (BMI) 32.1 Intake & Output: Intake and Output for Last 24 Hours 04/07/22 04/08/22 04/09/22 23:59 23:59 23:59 Intake Total 400 / 450 670 / 670 Output Total 450 / 450 Balance -50 / 0 670 / 670 Lab / Micro Data Result Diagrams: 04/09/22 05:35 04/09/22 05:35 Labs: Laboratory Results - last 24 hr 04/09/22 05:35: WBC 8.9, RBC 4.71, Hgb 14.4, Hct 45.0, MCV 95.5 H, MCH 30.6, MCHC 32.0, RDW Std Deviation 45.5 H, RDW Coeff of Sherin 13.0, Plt Count 240, MPV 11.3 04/09/22 05:35: Sodium 138, Potassium 3.8, Chloride 108 H, Carbon Dioxide 23.0, Anion Gap 7, BUN 16, Creatinine 0.92, Estim Creat Clear Calc 62.82, Est GFR (MDRD) Af Amer 101, Est GFR (MDRD) Non-Af 83, BUN/Creatinine Ratio 17.3, Glucose 83, Calcium 8.5, Total Bilirubin 1.20 H, AST 24, ALT 27, Alkaline Phosphatase 86, Total Protein 6.6, Albumin 3.5, Globulin 3.1, Albumin/Globulin Ratio 1.1 Cardiology Labs/Tests 04/09/22 05:35: WBC 8.9, RBC 4.71, Hgb 14.4, Hct 45.0, MCV 95.5 H, MCH 30.6, MCHC 32.0, Plt Count 240, MPV 11.3 04/09/22 05:35: Sodium 138, Potassium 3.8, Chloride 108 H, Carbon Dioxide 23.0, Anion Gap 7, BUN 16, Creatinine 0.92, Est GFR (MDRD) Af Amer 101, Est GFR (MDRD) Non-Af 83, BUN/Creatinine Ratio 17.3, Glucose 83, Calcium 8.5, Total Bilirubin 1.20 H Rhythm: EKG: ECHO: Stress Test: Cardiac Cath: PCI: CT Surgery: Holter monitor: EPS: PPM: CXR: Chest CT Scan: Physical Exam Const alert, oriented x3 and no apparent distress General Appearance: cooperative HEENT hearing grossly normal bilaterally Head and Scalp: atraumatic Eyes EOMs intact bilaterally Neck General: normal visual inspection Chest inspection of chest normal and palpation of chest normal Resp normal respiratory effort Auscultation: clear to auscultation bilaterally Cardio regular rate, regular rhythm, S1 normal heart sound and S2 normal heart sound Jugular Venous Distention: JVD GI normal to inspection, nondistended, normoactive bowel sounds Extremity normal capillary refill and no pedal edema Peripheral Pulses: Yes pulses 2+ throughout and femoral pulses present Skin no rashes or lesions noted Neuro oriented x3 and CN's II-XII intact bilaterally Psych Appearance: grossly normal and appropriate Assessment & Plan Assessment/Plan (1) History of coronary artery stent placement: PLAN: The patient is status post angioplasty and stenting of the mid left anterior descending artery with good results. The plan is to continue him on the current medical therapy and for him to start cardiac rehabilitation. He will be followed up in the office. Plan is for discharge later today.
--- NOTE | 2022-04-09 09:07 | PCM.DC ---
Discharge Instructions Follow Up Care Test Results: Test results from this visit will be discussed in further detail at your follow-up appointment, if applicable. Discharge Plan Admission Admit Date/Time: 04/08/22 12:55 Attending Provider: Rishi Cisneros Primary Care Provider: Liban Camacho Discharge Orders/Prescriptions Prescriptions: New Brilinta 90 mg Tablet 90 mg PO BID Qty: 180 RF: 3 Continued nitroglycerin 0.3 mg tablet, sublingual 0.3 mg sublingual Q5-15M PRN (Reason: chest pain) RF: 0 fluticasone propionate 50 mcg/actuation spray,suspension 2 spray intranasal DAILY RF: 0 vitamin E 200 unit Capsule 200 unit PO DAILY RF: 0 atorvastatin 20 mg tablet 20 mg PO QHS RF: 0 lisinopril 20 mg Tablet 20 mg PO BID RF: 0 levothyroxine 75 mcg tablet 75 mcg PO DAILY RF: 0 aspirin 81 mg Tablet 81 mg PO DAILY RF: 0 Hold Instructions: Resume on 06/06/21. cholecalciferol (vitamin D3) [Vitamin D3] 50 mcg (2,000 unit) Capsule 50 mcg PO DAILY RF: 0 Referrals / Follow Up: Liban Camacho MD [Primary Care Provider] - Disposition Disposition (needs filled in before D/C Order can be placed): Home, Self Care
--- NOTE | 2022-04-09 09:27 | CASEMGMT ---
Addendum entered by Tootie Hutchins 04/09/22 09:28: Per Kevin [facility] pharmacist, pt's monthly cost for Brilinta is $47 and month free card to be applied. Pt updated on all, voices understanding. Mine ARRIAGA CM Original Note: Pt to be sent home on Brilinta at discharge and med e-scribed to [facility] retail pharmacy. Call to [facility] and they will call this BART JONES back with coverage/co-pay and then apply Brilinta month free trial card. Mine ARRIAGA CM
--- NOTE | 2022-04-09 10:00 | EKG12_ITS ---
Test Reason : Blood Pressure : / mmHG Vent. Rate : 058 BPM Atrial Rate : 058 BPM P-R Int : 232 ms QRS Dur : 092 ms QT Int : 474 ms P-R-T Axes : 054 -40 005 degrees QTc Int : 465 ms Sinus bradycardia with 1st degree A-V block Left axis deviation Abnormal ECG Confirmed by LEELEE ALEXANDER, JAZMÍN ([id number]), editorial intern SHANE SAGE ([id number]) on 04/10/2022 8:55:55 AM Referred By: Rishi Cisneros Confirmed By:JAZMÍN MCKOY MD
[2022-04-09 10:03] VITALS: BP 134/74; PULSE 67; RESP 16; TEMP 36.1; O2SAT 94
[2022-04-09] MEDS: Lisinopril 20 MG Tablet PO (10:09)
[2022-04-09] MEDS: TICAGRELOR 90 MG TABLET PO (10:09)
[2022-04-09] MEDS: Aspirin E.C. 81 MG Tablet PO (10:09)
--- NOTE | 2022-04-09 10:43 | PHA.DC.MC ---
Pharmacy Service has performed discharge medication reconciliation and counseling for this patient. 1. TICAGRELOR 90MG PO BID The patient's discharge medication list was reviewed for discrepancies and discrepancies were resolved. Home Medications aspirin 81 mg PO DAILY 05/17/21 atorvastatin 20 mg PO QHS 05/17/21 cholecalciferol (vitamin D3) [Vitamin D3] 50 mcg PO DAILY 05/17/21 levothyroxine 75 mcg PO DAILY 05/17/21 lisinopril 20 mg PO BID 05/17/21 vitamin E 200 unit PO DAILY 05/17/21 fluticasone propionate 50 mcg/actuation nasal spray,suspension 2 spray INTRANASAL DAILY 03/29/22 nitroglycerin 0.3 mg sublingual tablet 0.3 mg SUBLINGUAL Q5-15M PRN tab 04/03/22 ticagrelor [Brilinta] 90 mg PO BID #180 tab 04/09/22 The patient was counseled on the following discharge medications and changes in medications for homegoing were reviewed. The Reason for Use, instructions for use, and potential side effects were reviewed for all new medications. The patient's questions regarding all of their medications were answered. The patient was able to verbally demonstrate an understanding of their discharge medications.
== END 2022-04-09 09:07 | disposition home or self-care (01) ==
LOC: PCU 15:33
PROVIDERS: Internal Medicine Interventional Cardiology; Admitting Provider Internal Medicine Cardiovascular Disease; PCP Family Medicine; Referring Provider Internal Medicine Cardiovascular Disease; Visit Provider Internal Medicine Cardiovascular Disease
DX: I25.10 Atherosclerotic heart disease of native coronary artery without angina pectoris (principal); I10 Essential (primary) hypertension; E78.5 Hyperlipidemia, unspecified; Z79.899 Other long term (current) drug therapy; Z79.82 Long term (current) use of aspirin; Z79.890 Hormone replacement therapy; E03.9 Hypothyroidism, unspecified; Z79.51 Long term (current) use of inhaled steroids; Z87.891 Personal history of nicotine dependence; N40.1 Benign prostatic hyperplasia with lower urinary tract symptoms; N13.8 Other obstructive and reflux uropathy; E66.9 Obesity, unspecified; R94.39 Abnormal result of other cardiovascular function study
CPT/HCPCS: 36415; 80053; 85027; 92928; 93005; 93458; 96360; 96361; 99152; 99153; 99218; C1874; J7030; Q9967; C1725; C1769; C1887; C1894; C9600; G0378

== ENCOUNTER → 2022-05-20 | Outpatient (CLI) | payer MEDICARE, OTHER, SELFPAY ==
[2022-05-20 11:41] LABS: Absolute Neutrophil Count 5.1 X10^3/uL (2.0-7.7); Basophil# 0.05 X10^3/uL; Basophil% 0.7 % (0-1); Eosinophil# 0.21 X10^3/uL; Eosinophils% 2.9 % (0-5); Hematocrit 44.3 % (40-54); Hemoglobin 14.8 g/dL (13.0-16.5); Lymphocyte % 17.7 % (19-41); Mean Corp Hgb Conc 33.4 g/dL (32-36); Mean Corpuscular Hgb 30.9 pg (27.0-32.0); Mean Corpuscular Volume 92.5 fL (80-94); Mean Platelet Vol. 10.6 fl (6.2-12.0); Monocyte# 0.67 X10^3/uL; Monocyte% 9.1 % (0-10); NRBC Flagged by Analyzer 0 % (0-5); Neutrophil # 5.08 X10^3/uL (2.7-7.7); Neutrophil % 69.1 % (47-70); Platelet Count 260 K/mm3 (150-450); RBC Distribution Width SD 43.7 fl (35.1-43.9); Red Blood Count 4.79 M/mm3 (4.6-6.2); White Blood Count 7.4 K/mm3 (4.4-11.0)
[2022-05-20 12:18] LABS: Anion Gap 5 (5-15); BNP,B-Type NATRIURETIC PEPTIDE 43.5 pg/mL (0-100); BUN 12 mg/dL (7-18); BUN/Creat Ratio 11.8 RATIO (10-20); Calcium,Total 8.9 mg/dL (8.5-10.1); Chloride 108 mmol/L (98-107); Creatinine, Serum 1.02 mg/dL (0.70-1.30); EST Glomerular Filtration Rate 74 mL/min (>60); Est Glom Filt Rate - Afr Amer 90 mL/min (>60); Glucose 95 mg/dL (74-106); Potassium 3.7 mmol/L (3.5-5.1); Sodium Level 139 mmol/L (136-145)
== END | disposition home or self-care (01) ==
LOC: LAB 11:10
PROVIDERS: PCP Family Medicine; Visit Provider Nurse Practitioner Gerontology
DX: R06.00 Dyspnea, unspecified (principal); R53.83 Other fatigue
CPT/HCPCS: 36415; 80048; 83880; 85025

== ENCOUNTER → 2022-09-30 | Outpatient (CLI) | payer MEDICARE, OTHER, SELFPAY ==
[2022-09-30 12:17] LABS: Hematocrit 46.6 % (40-54); Hemoglobin 15.2 g/dL (13.0-16.5); Mean Corp Hgb Conc 32.6 g/dL (32-36); Mean Corpuscular Hgb 30.4 pg (27.0-32.0); Mean Corpuscular Volume 93.2 fL (80-94); Mean Platelet Vol. 11.4 fl (6.2-12.0); Platelet Count 309 K/mm3 (150-450); RBC Distribution Width CV 13.1 % (11.6-14.6); RBC Distribution Width SD 44.5 fl (35.1-43.9); White Blood Count 8.8 K/mm3 (4.4-11.0)
[2022-09-30 12:55] LABS: ALB/GLOB Ratio 1.2 RATIO (0.9-2.4); AST(SGOT) 27 U/L (15-37); Alanine Aminotransfer ALT/SGPT 30 U/L (16-61); Albumin, Serum 3.7 g/dL (3.2-5.0); Alkaline Phosphatase 108 U/L (45-117); Anion Gap 6 (5-15); BUN 13 mg/dL (7-18); BUN/Creat Ratio 12.1 RATIO (10-20); Calcium,Total 8.6 mg/dL (8.5-10.1); Chloride 107 mmol/L (98-107); Cholesterol 130 mg/dL (200); Creatinine, Serum 1.07 mg/dL (0.70-1.30); EST Glomerular Filtration Rate 70 mL/min (>60); Est Glom Filt Rate - Afr Amer 85 mL/min (>60); Glucose 93 mg/dL (74-106); High Density Lipoprotein 41 mg/dL; Potassium 4.1 mmol/L (3.5-5.1); Protein, Total 6.7 g/dL (6.4-8.2); Sodium Level 139 mmol/L (136-145); Thyroid Stim Hormone (TSH) 1.81 uIU/mL (0.358-3.74); Triglycerides 158 mg/dL; Very Low Density Lipoprotein 32 mg/dL (5-40)
[2022-09-30 12:57] LABS: Vitamin D,25 Hydroxy 42.6 ng/mL
== END | disposition home or self-care (01) ==
LOC: MFPLAB 10:12
PROVIDERS: PCP Family Medicine; Visit Provider Family Medicine
DX: I25.10 Atherosclerotic heart disease of native coronary artery without angina pectoris (principal); E55.9 Vitamin D deficiency, unspecified; E03.9 Hypothyroidism, unspecified
CPT/HCPCS: 36415; 80053; 80061; 82306; 84439; 84443; 85027

== ENCOUNTER → 2023-10-02 | Outpatient (CLI) | payer MEDICARE, OTHER, SELFPAY ==
[2023-10-02 12:30] LABS: Vitamin D,25 Hydroxy 67.3 ng/mL
[2023-10-02 12:40] LABS: Anion Gap 5 (5-15); BUN 16 mg/dL (7-18); BUN/Creat Ratio 15.1 RATIO (10-20); Calcium,Total 8.9 mg/dL (8.5-10.1); Chloride 102 mmol/L (98-107); Creatinine, Serum 1.06 mg/dL (0.70-1.30); EST Glomerular Filtration Rate 71 mL/min (>60); Est Glom Filt Rate - Afr Amer 86 mL/min (>60); Glucose 93 mg/dL (74-106); Potassium 3.6 mmol/L (3.5-5.1); Sodium Level 133 mmol/L (136-145); T4 Free Direct 1.16 ng/dL (0.76-1.46); Thyroid Stim Hormone (TSH) 1.78 uIU/mL (0.358-3.74)
== END | disposition home or self-care (01) ==
LOC: MFPLAB 09:57
PROVIDERS: PCP Family Medicine; Visit Provider Family Medicine
DX: E55.9 Vitamin D deficiency, unspecified (principal); E03.9 Hypothyroidism, unspecified; I10 Essential (primary) hypertension
CPT/HCPCS: 36415; 80048; 82306; 84439; 84443

== ENCOUNTER 2024-01-04 10:48 | Emergency (ER) | payer MEDICARE, OTHER, SELFPAY ==
[2024-01-04 10:48] VITALS: BP 158/89; PULSE 74; RESP 14; TEMP 36.5; O2SAT 100; BMI 31.7
[2024-01-04] MEDS: Morphine 4 MG/ML Syringe IV (11:22)
[2024-01-04] MEDS: Ondansetron 4 MG/2 ML Vial IV (11:22)
--- NOTE | 2024-01-04 11:26 | ED.VIS.BACK ---
HPI History of Present Illness Chief Complaint: Back Detail of Chief Complaint: Back pain radiating posteriorly with numbness right lower extremity Informant: patient Onset/Context/Timing Onset: Weeks Context: Sudden Onset Injury: - (Not applicable) Timing: Continuous and Waxes and wanes Quality: Dull Location: Lumbar, Buttock and Right Leg Current Severity: Mild Maximum Severity: Severe Worsened by: improves with Movement and Bending Relieved by: Nothing Associated Symptoms Associated Symptoms: Numbness, Tingling, Radiation to Left Leg and - (Patient had dental work November and December. Patient states he had root canal done. There was no infection.); Negative for Fever, Abdominal Pain, Dysuria, Unable to Ambulate, Unable to Transfer, Urinary Retention, Urinary Incontinence, Constipation or Fecal Incontinence Narrative Narrative: Patient is an elderly 83-year-old male with history of degenerative disc disease who presents with low back pain that radiates to his right buttocks posteriorly down his entire right lower extremity with numbness in his toes. He denies foot drop. He has not walked up and down any steps recently. This started several weeks ago. He denies bowel bladder dysfunction. Denies saddle paresthesia or anesthesia. He denies fever, chills night sweats. He does report increased pain with movement. He reports difficulty ambulating because of pain. There is no history of trauma. He denies dysuria, frequency, urgency or hematuria. He denies flank pain. He denies history of renal or ureterolithiasis. He denies joint swelling. 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 Degenerative disc disease Easy bruising Essential hypertension Former smoker History of cataract Hypothyroidism Obesity Prostate disease TIA (transient ischemic attack) Wears dentures Wears glasses Wears hearing aid Home Medications aspirin 81 mg tablet 81 mg PO DAILY heart 05/17/21 [History Last Taken 04/08/22] cholecalciferol (vitamin D3) 50 mcg (2,000 unit) capsule (Vitamin D3) 50 mcg PO DAILY supplement 05/17/21 [History Last Taken Unknown] levothyroxine 75 mcg tablet 75 mcg PO DAILY thyroid 05/17/21 [History Last Taken 04/08/22] vitamin E 200 unit capsule 200 unit PO DAILY supplement 05/17/21 [History Last Taken Unknown] nitroglycerin 0.3 mg sublingual tablet 0.3 mg sublingual Q5-15M PRN chest pain 04/03/22 [History Last Taken Unknown] fluticasone propionate 50 mcg/actuation nasal spray,suspension 2 spray intranasal DAILY PRN allergy symptoms 08/05/22 [History Last Taken Unknown] lisinopril 20 mg tablet 20 mg PO BID bp 08/05/22 [History Last Taken Unknown] hydrochlorothiazide 25 mg tablet 25 mg PO DAILY #90 tabs 11/17/23 [Rx Last Taken Unknown] amlodipine 5 mg tablet mg 01/04/24 [History Last Taken 01/04/24] fenofibrate nanocrystallized 145 mg tablet mg PO 01/04/24 [History Last Taken 01/04/24] hydrocodone-acetaminophen 5-325mg 5mg-325mg 1 tab PO Q6H PRN PRN Pain 3 days #10 TABLETS 01/04/24 [Rx Last Taken Unknown] prednisone 20 mg tablet 60 mg (3 x 20 mg) PO DAILY #15 TABLETS 01/04/24 [Rx Last Taken Unknown] Allergy/AdvReac Type Severity Reaction Status Date / Time No Known Allergies Allergy Verified 01/04/24 10:49 Family History Mother Hypertension Father Alzheimer's disease Brother Lung cancer Brother Hypertension Pacemaker Sister Hypertension Sister Hypertension Sister Hypertension Surgical History History of bilateral cataract extraction (2011) History of coronary artery stent placement (04/08/22) History of tonsillectomy History of transurethral resection of prostate Social History (Updated 01/04/24 @ 11:[address] Igor Anderson MD) household members: spouse Smoking Status: Former smoker alcohol intake: never substance use type: does not use caffeine: No ROS ROS ED Constitutional Constitutional ED: Denies chills, fever(s), subjective or sweats Eyes Eyes: Denies blurry vision, change in vision or diplopia ENT ENT ED: Denies ear pain or rhinorrhea Cardiovascular Cardiovascular: Denies chest pain, orthopnea, palpitations or paroxysmal nocturnal dyspnea Respiratory/Chest Respiratory/Chest: Denies dyspnea, dyspnea on exertion, orthopnea or paroxysmal nocturnal dyspnea Gastrointestinal Gastrointestinal: Reports abdominal pain; Denies nausea or vomiting Genitourinary Genitourinary ED: Denies dysuria, hematuria or urinary frequency Musculoskeletal Musculoskeletal: Reports back pain; Denies arthralgias, myalgias or neck pain Integumentary Denies rash Neurologic Neurologic: Reports paresthesias; Denies headache(s) or weakness Psychiatric Psychiatric: Denies anxiety or depression Endocrine Endocrinology: Denies cold intolerance or heat intolerance Hematologic/Lymphatic Hematologic/Lymphatic: Denies easy bleeding or easy bruising EXAM Physical Exam Const Vital Signs: 01/04/24 10:48 Temperature 97.7 F L Temperature Source Temporal Pulse Rate 74 Respiratory Rate 14 Blood Pressure 158/89 H Blood Pressure Mean 112 Pulse Ox 100 Oxygen Delivery Method Room Air Positive well nourished and well developed Constitutional Narrative: Patient appears uncomfortable. General Appearance ED: well developed; Negative for NAD or pallor HEENT Reports moist mucous membranes HEENT Narrative: Head is atraumatic normocephalic. Ears normal. Nares patent. Eyes PERRL and EOMs intact bilaterally General Eye ED: Negative for pale conjunctiva or scleral icterus Neck no lymphadenopathy, supple and no JVD Resp normal respiratory effort and clear to auscultation bilaterally Cardio regular rate, regular rhythm, S1 normal heart sound, S2 normal heart sound and no murmurs GI normal to inspection, nondistended, normoactive bowel sounds, soft to palpation, non-tender, non-distended and no masses GI Narrative: There was no palpable or pulsatile mass. There is no abdominal bruit. Narrative: There is no inguinal lymphadenopathy. Back/Spine normal to inspection and no thoracic nor lumbar tenderness General Back: Negative for CVA tenderness Cervical Spine: Negative for cervical spine tenderness Thoracic Spine / Upper Back: paraspinal muscle tenderness Lumbar Spine / Lower Back: straight leg raise positive right at 40 degrees; Negative for ROM limited Extremity normal to inspection and no clubbing, cyanosis or edema Extremity Narrative: DP and PT pulse are 2+ and symmetric. Neuro oriented x3 and No no sensory deficits noted Neuro Narrative: Patient has abnormal sensation L5-S1 dermatome. Ankle reflex is diminished compared to the left and the patellar reflexes. EHL is intact. Gait was observed and normal. He is able to walk on his heels and toes. He is able to perform 1 legged squat right and left. He does have pain center that radiates down his leg at 30 degrees. He has increased pain with bowstring test. Negative crossover test. Sensorium / Orientation: alert Motor Exam: strength 5/5 throughout Deep Tendon Reflexes: Rt Patellar (L4): 3+, Lt Patellar (L4): 3+, Rt Ankle (S1): 1+ and Lt Ankle (S1): 3+ Deep Tendon Reflexes Back: Rt Patellar (L4): 3+, Lt Patellar (L4): 3+, Rt Ankle (S1): 1+ and Lt Ankle (S1): 3+ Plantar Reflex: Downgoing: bilateral (There is no clonus noted.) Psych mental status grossly normal Skin no rashes or lesions noted and no wounds General Skin Exam: Negative for jaundice or pallor MDM MDM MDM Narrative Medical decision making narrative: Patient having recent dental work will obtain blood work to assess for infection. He does not have point tenderness to palpation over the lumbar region nor is he on anticoagulant to suggest a spontaneous epidural hematoma. Suspect patient has sciatica. He does have diminished deep tendon reflex at the ankle. Left white count is elevated or inflammatory markers are significantly elevated will perform MRI to assess for possible infection otherwise will treat symptomatically and refer to orthospine for outpatient follow-up. Review of records indicates patient is not on an anticoagulant. History & Record Review Additional record(s) reviewed:: Prior ED visit and Prior labs Lab Data Attestation: I reviewed the patient's lab results. Lab results narrative: CBC is normal. Basic metabolic panel reveals slight elevation of glucose of 114. Sed rate is normal, 2. With symptoms 2 weeks no point tenderness no white count or elevated ESR doubt infectious cause. Labs: Laboratory Results - last 24 hr 01/04/24 11:20 WBC 6.8 RBC 4.70 Hgb 14.5 Hct 42.4 MCV 90.2 MCH 30.9 MCHC 34.2 RDW Std Deviation 41.8 RDW Coeff of Sherin 12.7 Plt Count 334 MPV 10.2 Immature Gran % (Auto) 0.600 Neut % (Auto) 66.0 Lymph % (Auto) 20.9 Faulkner % (Auto) 9.0 Eos % (Auto) 2.2 Baso % (Auto) 1.3 H Absolute Neuts (auto) 4.5 Absolute Lymphs (auto) 1.42 Nucleated RBC % 0 ESR 2 Sodium 133 L Potassium 3.7 Chloride 103 Carbon Dioxide 26.0 Anion Gap 4 L BUN 17 Creatinine 1.12 Estim Creat Clear Calc 58.26 Est GFR (MDRD) Af Amer 80 Est GFR (MDRD) Non-Af 66 BUN/Creatinine Ratio 15.2 Glucose 114 H Calcium 8.9 Management Discussion w/another healthcare provider: [employer] (Spoke with Dr. Hull who is on-call for spine. Agrees with treatment plan. He would like patient to call office tomorrow and will get attempt to get him in tomorrow otherwise early this coming week.) Discharge Plan Triage Chief Complaint: Back ED Provider: Igor Anderson Dx/Rx/DC Orders Clinical Impression: Hyperlipidemia, Hypothyroidism, Atherosclerotic heart disease of [place] coronary artery without angina pectoris, Low back pain with right-sided sciatica, Essential hypertension, Decreased right ankle reflex, Obesity Instructions: ED Sciatica Prescriptions: New hydrocodone-acetaminophen [hydrocodone-acetaminophen] 5-325 mg tablet 1 tab PO Q6H PRN PRN (Reason: Pain) 3 Days Qty: 10 0RF prednisone 20 mg tablet 60 mg PO DAILY Qty: 15 0RF No Action nitroglycerin 0.3 mg tablet, sublingual 0.3 mg sublingual Q5-15M PRN (Reason: chest pain) fluticasone propionate 50 mcg/actuation spray,suspension 2 spray intranasal DAILY PRN (Reason: allergy symptoms) Rx Instructions: administer into each nostril lisinopril 20 mg tablet 20 mg PO BID vitamin E 200 unit Capsule 200 unit PO DAILY levothyroxine 75 mcg tablet 75 mcg PO DAILY aspirin 81 mg Tablet 81 mg PO DAILY Hold Instructions: Resume on 06/06/21. cholecalciferol (vitamin D3) [Vitamin D3] 50 mcg (2,000 unit) Capsule 50 mcg PO DAILY amlodipine 5 mg tablet Patient Comments: TAKE 1 TABLET BY MOUTH ONCE DAILY fenofibrate nanocrystallized 145 mg tablet PO Patient Comments: TAKE 1 TABLET BY MOUTH ONCE DAILY hydrochlorothiazide 25 mg tablet 25 mg PO DAILY Qty: 90 3RF Primary Care Provider: Liban Camacho Referrals: Liban Camacho MD [Primary Care Provider] - Qasim Hull DO [Med Staff - Active Staff] - As soon as possible Disposition Disposition: Home, Self Care
[2024-01-04 11:43] LABS: Absolute Lymphocyte Count 1.42 X10^3/uL (0.83-4.51); Absolute Neutrophil Count 4.5 X10^3/uL (2.0-7.7); Basophil# 0.09 X10^3/uL; Basophil% 1.3 % (0-1); Eosinophil# 0.15 X10^3/uL; Eosinophils% 2.2 % (0-5); Hematocrit 42.4 % (40-54); Hemoglobin 14.5 g/dL (13.0-16.5); Lymphocyte # 1.42 X10^3/ul (0.83-4.51); Lymphocyte % 20.9 % (19-41); Mean Corp Hgb Conc 34.2 g/dL (32-36); Mean Corpuscular Hgb 30.9 pg (27.0-32.0); Mean Corpuscular Volume 90.2 fL (80-94); Mean Platelet Vol. 10.2 fl (6.2-12.0); Monocyte# 0.61 X10^3/uL; NRBC Flagged by Analyzer 0 % (0-5); Neutrophil # 4.47 X10^3/uL (2.7-7.7); Platelet Count 334 K/mm3 (150-450); RBC Distribution Width CV 12.7 % (11.6-14.6); RBC Distribution Width SD 41.8 fl (35.1-43.9); White Blood Count 6.8 K/mm3 (4.4-11.0)
[2024-01-04 11:49] LABS: Anion Gap 4 (5-15); BUN 17 mg/dL (7-18); BUN/Creat Ratio 15.2 RATIO (10-20); Calcium,Total 8.9 mg/dL (8.5-10.1); Chloride 103 mmol/L (98-107); Creatinine, Serum 1.12 mg/dL (0.70-1.30); EST Glomerular Filtration Rate 66 mL/min (>60); Est Glom Filt Rate - Afr Amer 80 mL/min (>60); Estimated Creatinine Clearance 58.26 ml/min; Glucose 114 mg/dL (74-106); Potassium 3.7 mmol/L (3.5-5.1); Sodium Level 133 mmol/L (136-145)
[2024-01-04 11:54] LABS: Erythrocyte Sedimentation Rate 2 mm/hr (0-20)
[2024-01-04 12:33] VITALS: BP 129/77; PULSE 62; RESP 15; TEMP 36.4; O2SAT 98
== END 2024-01-04 13:11 | disposition home or self-care (01) ==
PROVIDERS: Emergency Provider Emergency Medicine; PCP Family Medicine; Visit Provider Emergency Medicine
DX: E78.5 Hyperlipidemia, unspecified (principal); E03.9 Hypothyroidism, unspecified; I25.10 Atherosclerotic heart disease of native coronary artery without angina pectoris; M54.41 Lumbago with sciatica, right side; I10 Essential (primary) hypertension; E66.9 Obesity, unspecified; Z79.82 Long term (current) use of aspirin; Z79.899 Other long term (current) drug therapy; Z86.73 Personal history of transient ischemic attack (TIA), and cerebral infarction without residual deficits; Z87.891 Personal history of nicotine dependence
CPT/HCPCS: 80048; 85025; 85652; 96374; 96375; 99283; A4216; J2405

== ENCOUNTER 2024-03-01 05:24 | Inpatient (IN) | payer MEDICARE, OTHER, SELFPAY ==
--- NOTE | 2024-02-24 12:02 | EKG12_ITS ---
Test Reason : PRE-OP Blood Pressure : / mmHG Vent. Rate : 071 BPM Atrial Rate : 071 BPM P-R Int : 228 ms QRS Dur : 094 ms QT Int : 410 ms P-R-T Axes : 052 -44 027 degrees QTc Int : 445 ms Sinus rhythm with 1st degree A-V block Left axis deviation Abnormal ECG Confirmed by DIMITRI ALEXANDER, KODY ([id number]), research editor SHANE SAGE ([id number]) on 03/01/2024 1:30:18 PM Referred By: Iraj Tucker Confirmed By:OCTAVIO MOSLEY MD
[2024-02-24 13:25] LABS: Anion Gap 5 (5-15); BUN 16 mg/dL (7-18); Calcium,Total 8.8 mg/dL (8.5-10.1); Chloride 108 mmol/L (98-107); Creatinine, Serum 1.14 mg/dL (0.70-1.30); EST Glomerular Filtration Rate 65 mL/min (>60); Est Glom Filt Rate - Afr Amer 79 mL/min (>60); Glucose 86 mg/dL (74-106); Potassium 3.9 mmol/L (3.5-5.1); Sodium Level 138 mmol/L (136-145)
[2024-02-24 13:45] LABS: Magnesium 2.3 mg/dL (1.6-2.6); Thyroid Stim Hormone (TSH) 2.26 uIU/mL (0.358-3.74)
[2024-02-24 14:04] LABS: HIV - WCH Non-Reactive (Nonreactive); Hepatitis B Surface Antibody Non-Reactive; Hepatitis C Antibody Non-Reactive (Nonreactive)
[2024-02-25 06:09] LABS: Hepatitis A AB, Total Positive (Negative)
[2024-03-01] VITALS (13 sets, daily range): BP systolic 99–138; BP diastolic 46–83; PULSE 84–108; RESP 16–18; TEMP 36.1–36.7; O2SAT 90–100; BMI 31.9
[2024-03-01] MEDS: Acetaminophen 500 MG Tablet 1000 MG PO ×3 (06:14→22:00)
[2024-03-01] MEDS: Lactated Ringers 1,000 ML 15 ML IV ×4 (06:23→14:26)
[2024-03-01] MEDS: Magnesium 1 GM over 15 mins IV (06:24)
--- NOTE | 2024-03-01 06:30 | RAD_ITS ---
PROCEDURE: Anterior and posterior fusion at the L2-L5 level. DATE OF EXAMINATION: March 01, 2024. INDICATION: Male, 84 years old. Lumbar fusion. FLUOROSCOPY TIME (if supplied): (2 minutes and 46 seconds) minutes/seconds. 104 mGy. 18 images were submitted. RAD/Lumbar Spine 2 or 3 Views IMPRESSION: Intraoperative imaging provided for L2-L5 posterior fusion and prosthetic disc placement. Electronically Signed: Alejandro Domingo MD at 13:25 EDT ,
[2024-03-01 06:33] LABS: Bedside Glucose 74 mg/dL (74-106)
--- NOTE | 2024-03-01 07:18 | PCM.HP.BLA ---
History and Physical Date of Admission: 03/01/24 MR#: [id number] Acct: [id number] Name: Teri VERDIN Rep #: [id number] : 1940 Provider: Dr. Iraj Tucker MD Age/Sex: 84/M [place] [facility] [place]: Signed Intake Vital Signs 02/10/2414:59 Height 5 ft 10 in Intake Visit Reasons: lumbar spine Accompanied by: , daughter Allergies [id number]-[id number] Reductase Inhibitor Allergy (Severe, Verified 02/25/24 12:45) Pain in joints Medications cholecalciferol (vitamin D3) 50 mcg (2,000 unit) capsule (Vitamin D3) 50 mcg PO DAILY supplement 05/17/21 [History Confirmed 02/25/24] levothyroxine 75 mcg tablet 75 mcg PO DAILY thyroid 05/17/21 [History Confirmed 02/25/24] vitamin E 200 unit capsule 200 unit PO DAILY supplement 05/17/21 [History Confirmed 02/25/24] fluticasone propionate 50 mcg/actuation nasal spray,suspension 2 spray intranasal DAILY PRN allergy symptoms 08/05/22 [History Confirmed 02/25/24] lisinopril 20 mg tablet 20 mg PO BID bp 08/05/22 [History Confirmed 02/25/24] amlodipine 5 mg tablet 5 mg PO DAILY BP 01/04/24 [History Confirmed 02/25/24] fenofibrate nanocrystallized 145 mg tablet 145 mg PO DAILY CHOLESTEROL 01/04/24 [History Confirmed 02/25/24] hydrocodone-acetaminophen 5-325mg 5mg-325mg 1 tab PO Q6H PRN PRN Pain 3 days #10 TABLETS 01/04/24 [Rx Confirmed 02/25/24] coenzyme Q10 100 mg capsule 100 mg PO DAILY SUPPLEMENT 01/13/24 [History Confirmed 02/25/24] acetaminophen 650 mg tablet,extended release (8 Hour Pain Reliever) 1,300 mg PO Q8H PRN pain 02/23/24 [History Confirmed 02/25/24] aspirin 81 mg capsule 81 mg PO DAILY BLOOD THINNER 02/23/24 [History Confirmed 02/25/24] PFSH Medical History Arthritis Atherosclerotic heart disease of [place] coronary artery without angina pectoris Back pain BPH with obstruction/lower urinary tract symptoms Cardiology follow-up encounter Degenerative disc disease Easy bruising Essential hypertension Former smoker High cholesterol History of cataract History of pain when walking History of steroid therapy History of stress test Hypothyroidism Loss of hearing Obesity Prostate disease Thyroid disease TIA (transient ischemic attack) Wears dentures Wears glasses Wears hearing aid Surgical History History of bilateral cataract extraction (2011) History of cardiac catheterization History of coronary artery stent placement (04/08/22) History of tonsillectomy History of transurethral resection of prostate Family History Mother HypertensionFather Alzheimer's diseaseBrother Lung cancerBrother Hypertension PacemakerSister HypertensionSister HypertensionSister Hypertension Social History household members: spouse Smoking Status: Former smoker alcohol intake: never substance use type: does not use caffeine: No HPI lumbar spine Details: This documentation accurately reflects the service provided and the decisions made by me, Dr. Iraj Tucker MD 02/25/24 1242. Part of today?s visit was documented by Anu MENDOZA , acting as scribe. Teri VERDIN is a 84 year old M here today for a Pre-0p. D.O.S 03/01/24 Procedure he is getting done is a Anterior and Posterior L2-L5 Fusion. Patient signed the Surgery Consent and was given the drinks and soap. Patient states his pain is about the same from last visit. Patient did stop his low dose aspirin on 02/21/24. Main continues to have severe low back pain radiating down to right lower extremity. His epidural injection last month did not seem to give him relief. Following is his previous history. 02/12/24: Teri VERDIN is a 84 year old M here today for Lumbar spine. Patient states that he saw Dr Petit yesterday and then a month ago and that is when they did the Epidural injection. Patient states after the injection he was numb from the sides down for about 2 hours and he wasn't able to leave Dr Petit office until he was able to move and walk. Patient states that the injection didn't help his back pain. Patient is taking Hydrocodone. Patient isn't using ice or heat. Patient states the pain is about the same. Patient states the numbness and tingling are about the same. Patient states his toes are still numb. Main continues to have low back pain right buttock pain and radiation of pain into the lateral thigh and lateral leg on the right side. He denies any left-sided symptoms. He underwent epidural injection about a month ago but this did not give him any relief beyond a day or 2. He says that her back pain and buttock pain are worse than the leg pain. He says that he is no longer able to do the activities that he routinely did in the past and his symptoms are affecting his quality of life. Following his his previous history. 01/13/24: Teri VERDIN is a 83 year old M here today for lumbar spine pain. Patient rates his pain as 10/10 today. He states the lumbar spine pain as been bothering him for over a month now. Patient denies any specific injury that caused the pain to start. Patient does get pain, numbness and tingling down the right leg into his calf and foot and toes. He does note he has recently noticed his left toes have been a little numb as well. Patient states everything makes his pain worse. Patient was seen in [facility] ER on January 03. Patient was then referred to [facility] where he did have an MRI done. Patient was prescribed hydrocodone-acetaminophen as well as Prednisone. Patient states these pain medications have not given him much relief. He states he has had some back problems when he was in his 40s but most of the pain was in the front of the legs. He denies any physical therapy or injections at all. Leonard is here for second opinion after seeing Dr. Hull. He was given an opinion of surgical intervention, which the patient did not feel keen on pursuing with. He says that he has had on and off low back pain for many years but this significantly worsened about 6 weeks ago. He says that he did not have any obvious injury but he was cutting wood which he normally does about 6 weeks ago which seem to aggravate his pain. His pain starts in the right paraspinal region in the buttock region going into the posterolateral thigh posterior lateral leg and down into the dorsum of the foot into the second to the fourth toes. He denies any left-sided symptoms. He is unable to walk even short distances such as half a block as he has to find a place to sit down. He has not had any recent physical therapy or epidural injections. He did have oral prednisone in the ER which did not seem to give him persistent relief. Ortho Exam General General: Yes no acute distress Neurologic: Yes alert and Yes oriented x3 Spine SPINE TESTING CERVICAL THORACIC LUMBAR Musculoskeletal Strength 0=absent - 5=normal Details: Examination of the back shows midline and right paraspinal tenderness. Neurologic evaluation of lower extremity shows 5 x 5 power in all muscle except for left ankle dorsiflexion which is graded 4+ today. Passive straight leg raise test is positive on the right. Coding Level of Care Code Off vis,est,level 3 Diagnoses Spinal stenosis of lumbar region with neurogenic claudication M48.062 Spondylolisthesis, lumbar region M43.16 Lumbar disc disease with radiculopathy M51.16 Time Spent (min) 25 Assessment and Plan Assessment and Plan (1) Spinal stenosis of lumbar region with neurogenic claudication: Status: Acute (2) Spondylolisthesis, lumbar region: Status: Acute (3) Lumbar disc disease with radiculopathy: Status: Acute Plan I again reviewed his x-rays and his MRI done last recently. 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 He also has L4-5 right paracentral disc herniation with inferior migration going near the L5 foramen. I explained to him the imaging findings in detail. Explained to him that his longstanding low back pain as well as claudication is arising from the significant stenosis at L3-4 L4-5 which is complicated by the instability at L3-4. His more recent 2-month right lower extremity severe radicular pain is likely from the acute disc herniation with inferior migration at L4-5 on the right. I explained to him options of treatment which include continued nonoperative treat measures versus surgery. Over the last 2 months he says that he has not gotten any significant relief from the nonsurgical treatment including 1 epidural injection. His symptoms are affecting his quality of life. He has severe difficulty walking even short distances now. He says that his axial back and buttock pain is worse than the leg pain. He wishes to move forward surgical intervention. Surgical options were discussed in detail. L2-5 anterior and posterior fusion with direct and indirect decompression was discussed in detail. All risk benefits and alternatives were discussed in detail. The risks include but are not limited to infection, bleeding, injury to nerves and vessels, foot drop, persistent pain, persistent radiculopathy, persistent weakness and numbness, DVT, pulmonary embolism, pneumonia, atelectasis, cardiopulmonary event, pseudoarthrosis, hardware failure, adjacent segment degeneration, need for further surgery. Patient's age, medical comorbidities make him a high risk for surgery. He is however fairly active for his age and would like to return to his baseline activity level. Patient was in agreement. Consent was signed.
[2024-03-01] MEDS: Cefazolin 2 GM in 0.9% Normal Saline (100mL Bag) 100 ML IV ×2 (07:30→16:12)
[2024-03-01] MEDS: Ropivacaine 0.5% 30 ML Vial (13:11)
--- NOTE | 2024-03-01 13:27 | OP.PCM_ITS ---
Report of Operation Date of Procedure: 03/01/24 Description of Surgical Findings:: Preoperative diagnosis: [] spondylolisthesis, [] disc degeneration with foraminal stenosis Postoperative diagnosis: Same Name of procedures [] oblique lumbar interbody fusion (OLIF), minimally invasive [] sided approach, lateral decubitus: ? [] anterolateral spinal fusion 81047 ? [] anterolateral fusion 69841/51 ? [] Insertion of cage 73270 ? [] Insertion of cage 18933/51 ? Bone graft aspirate vertebral body ? Allograft cancellous chips Attending Surgeon: Dr. Iraj Tucker Co-surgeon: [] Estimated blood loss: [] mL Anesthesia: General Complications: None Indications: Patient is a []-year-old pleasant []who has had a long history of low back pain and []. Xrays & MRI revealed []. After undergoing a prolonged period of nonoperative treatment, the patient elected to undergo surgical decompression & fusion. All surgical options were discussed with the patient including anterior and posterior approaches. All risks and benefits associated with the procedure were explained to the patient. The risks include but are not limited to infection, bleeding, injury to nerves and vessels including major vessels like IVC and aorta, persistent paresthesia, persistent pain, dural tear, need for further procedures, adjacent segment degeneration, pseudoarthrosis, hardware failure, retrograde ejaculation, paralytic ileus, etc. Procedure: The patient was identified in the preoperative holding suite using Unique patient identifiers. Skin was marked, consent was reviewed, and all questions were answered. The patient was then brought back to the operative room. A surgical timeout was performed to make sure correct procedure was being done on the correct patient and all operative room staff were on the same page. General endotracheal anesthesia was then given to the patient. Talamantes catheter was inserted. The patient was then carefully positioned in [] lateral decubitus position with the [] side up on a regular OR table. Axillary roll was placed and all bony prominences were well- padded. Hip positioners were placed in the posterior buttocks and anterior sternal area. The surgical area was prepped and draped in usual fashion. Preoperative antibiotic was injected IV as preoperative antibiotic. A final timeout was then again done just before starting the procedure. A 2 inch incision oblique was taken in the [] lower quadrant of the abdomen 2 fingerbreadths away from the iliac crest and the lower ribs. Sharp dissection with Bovie was carried out up to the fascia covering the external oblique. The external oblique, internal oblique and transversus abdominis muscles were split along the muscle fibers and retroperitoneal space was entered. Sponge sticks were utilized to move the bowel and peritoneum deq-nf-inw-way and psoas muscle was exposed staying within the retroperitoneal plane. [employer] retractor system was positioned and the retractor blade was applied onto the psoas. The interval between psoas and [] was developed and appropriate retractors were placed. Once adequate interval was cleared, a disc space was identified and a marker x-ray was taken. This identified the [] disc level. The prepsoas interval was then traced inferiorly. Annulotomy was done with a long handled knife. Pituitary was used to remove disc material. Curettes were used to prepare the endplates. Disc space spreaders were utilized to distract and increase the disc height. Near complete discectomy was performed. Trials of serially increasing sizes were used. A Jamshidi needle was used to aspirate bone marrow from the vertebral body and this aspirate was mixed with the allograft bone chips. A Depuy [place] cage of size of the 18 x [] mm with 15 degrees lordosis was packed with corticocancellous allograft bone chips mixed with bone marrow aspirate. This was inserted into the [] disc space. The retractors were then repositioned to expose the [] disc and the procedure was repeated with complete discectomy and endplate preparation. Smaller disc distractors were also used to bluntly perform a contralateral annulotomy at the [] levels. Cage size was 18 x [] mm at []. AP and lateral C-arm pictures were taken to confirm good position of the cage. Some bone chips were also packed around the cages. Screw with washer was placed into the lower [] body with a washer partially covering the cage at[]. Hemostasis was confirmed. The retractor blades were removed. Closure was done in layers with a continuous strand of # 1 Vicryl in all muscle layers. 2-0 Vicryl was used for subcutaneous tissue and 4-0 for Monocryl for the skin. Steri-Strips were applied and 4 x 4 gauze and Tegaderm were applied.
--- NOTE | 2024-03-01 13:27 | PCM.OPRPT ---
Report of Operation Date of Procedure: 03/01/24 Description of Surgical Findings:: Preoperative diagnosis: L3-4 spondylolisthesis, L2-5 disc degeneration, stenosis with neurogenic claudication, radiculopathy Postoperative diagnosis: Same Name of procedures L2-5 oblique lumbar interbody fusion (OLIF), minimally invasive left sided approach, lateral decubitus: ? L2-3 anterolateral spinal fusion 39318 ? L3-4 anterolateral fusion 34600/51 . L4-5 anterolateral fusion 02439/51 ? L2-3 insertion of cage 08536 ? L3-4 insertion of cage 21980/51 . L3-4 insertion of cage 65675/51 ? Bone graft aspirate left iliac crest, separate incision ? Allograft cancellous chips Attending Surgeon: Dr. Iraj Tucker Estimated blood loss: 100 mL for entire surgery Anesthesia: General Complications: None Indications: Patient is a 84-year-old pleasant gentleman who has had a long history of low back pain and difficulty walking distances, now severely worsened with right lower extremity severe radicular pain and worsening neurogenic claudication. Xrays & MRI revealed L3-4 spondylolisthesis with dynamic instability, L2-5 disc degeneration with stenosis. After undergoing a prolonged period of nonoperative treatment, the patient elected to undergo surgical decompression & fusion. All surgical options were discussed with the patient including anterior and posterior approaches. All risks and benefits associated with the procedure were explained to the patient. The risks include but are not limited to infection, bleeding, injury to nerves and vessels including major vessels like IVC and aorta, persistent paresthesia, persistent pain, dural tear, need for further procedures, adjacent segment degeneration, pseudoarthrosis, hardware failure, retrograde ejaculation, paralytic ileus, etc. Procedure: The patient was identified in the preoperative holding suite using Unique patient identifiers. Skin was marked, consent was reviewed, and all questions were answered. The patient was then brought back to the operative room. A surgical timeout was performed to make sure correct procedure was being done on the correct patient and all operative room staff were on the same page. General endotracheal anesthesia was then given to the patient. Talamantes catheter was inserted. The patient was then carefully positioned in right lateral decubitus position with the left side up on a regular OR table. Axillary roll was placed and all bony prominences were well- padded. Hip positioners were placed in the posterior buttocks and anterior sternal area. The surgical area was prepped and draped in usual fashion. Preoperative antibiotic was injected IV as preoperative antibiotic. A final timeout was then again done just before starting the procedure. A 2 inch incision oblique was taken in the left lower quadrant of the abdomen 2 fingerbreadths away from the iliac crest and the lower ribs. Sharp dissection with Bovie was carried out up to the fascia covering the external oblique. The external oblique, internal oblique and transversus abdominis muscles were split along the muscle fibers and retroperitoneal space was entered. Sponge sticks were utilized to move the bowel and peritoneum mjt-xb-cph-way and psoas muscle was exposed staying within the retroperitoneal plane. Pictorious retractor system was positioned and the retractor blade was applied onto the psoas. The interval between psoas and midline structures was developed and appropriate retractors were placed. Once adequate interval was cleared, a disc space was identified and a marker x-ray was taken. This identified the L3-4 disc level. The prepsoas interval was then traced inferiorly to expose the L4-5 disc. Annulotomy was done with a long handled knife starting at L4-5. Pituitary was used to remove disc material. Curettes were used to prepare the endplates. Disc space spreaders were utilized to distract and increase the disc height. Near complete discectomy was performed. Trials of serially increasing sizes were used. A Jamshidi needle was used to aspirate bone marrow from the left iliac crest through a separate incision and this aspirate was mixed with the allograft bone chips. A Depuy [place] cage of size of the 18 x 55 x 14 mm with 15 degrees lordosis was packed with corticocancellous allograft bone chips mixed with bone marrow aspirate. This was inserted into the L4-5 disc space. The retractors were then repositioned to expose the L3-4 and L2-3 disc and the procedure was repeated with complete discectomy and endplate preparation. Smaller disc distractors were also used to bluntly perform a contralateral annulotomy at all the levels. Cage size was 18 x 55 x 14 mm at L3-4 and 18 x 55 x 12 mm at L2-3. AP and lateral C-arm pictures were taken to confirm good position of the cage. Some bone chips were also packed around the cages. Screw with washer was placed into the lower L4 body with a washer partially covering the cage at L4-5. Hemostasis was confirmed. The retractor blades were removed. Closure was done in layers with a continuous strand of # 1 Vicryl in all muscle layers. 2-0 Vicryl was used for subcutaneous tissue and 4-0 for Monocryl for the skin. Steri-Strips were applied and 4 x 4 gauze and Tegaderm were applied. Admit VTE Documentation VTE Mechan Device Prophylaxis: SCD's Procedures Musculoskeletal 20xxx-29xxx: Other Procedure See Report
--- NOTE | 2024-03-01 13:42 | OP.PCM_ITS ---
Report of Operation Date of Procedure: 03/01/24 Description of Surgical Findings:: Preoperative diagnosis: L3-4 spondylolisthesis, L2-5 disc degeneration, stenosis with neurogenic claudication Postoperative diagnosis: Same Name of procedures: L2-5 posterior percutaneous pedicle screw instrumented fusion, cement augmentation, prone: ? L2-3 posterior spinal fusion 34523 ? L2-5 posterior pedicle screw instrumentation 20588 ? L3-4 posterior fusion 79322/51 ? L4-5 posterior fusion 51 ? Allograft cancellous chips Attending Surgeon: Dr. Iraj Tucker Asst surgeon: Dr. Jeremias Wilkes Estimated blood loss: 100 mL (total for entire case) Anesthesia: General Complications: None Description of procedure: After the anterior procedure was complete, the patient was then turned supine. The patient was then transferred to Sam table in prone position. Back was prepped and draped in usual fashion. C-arm AP view was then taken. C-arm was positioned in a way that L2 was centralized and superior endplate of was parallel to the beam. Spinous process was centered between the pedicles. Midline was marked with skin marker and lateral borders of the pedicles were also marked. Skin marker was also utilized to dena transversely across the middle of the pedicles at L2. 2 transverse paramedian incisions of 1 inch were placed. The fascia was incised vertically. Finger dissection was utilized to palpate the transverse process and facet joint. Viper Prime screws with towers were inserted and docked onto the transverse processes. This was then slowly moved medially to reach the superior articular process of L2. This was then confirmed on C-arm and then a mallet was utilized to drive the trocar into the pedicle going up to the medial wall of the pedicle on AP view. This was performed both sides. C-arm lateral view confirmed that the tip of the trocar was in the vertebral body, and the screw was advanced into the pedicle and vertebral body. This was repeated similarly at L4 and L5 bilaterally. Screw sizes were 7 x 55 mm at all levels. Decision was made to perform cement augmentation as the purchase of the screws was not satisfactory. Cement was mixed and [employer] screw instrumentation system was utilized to place cannulas into the cannulated portion of the screws and inject cement under fluoroscopy. About 1 to 2 cc per pedicle was injected and confirmed on C-arm to be in good position without any obvious extravasation. 100 mm precontoured titanium 5.5 mm lordotic daren on Both sides were then passed through the screw extensions and reduced down to the screws with the help of Depuy Viper instrumentation system on both sides. AP and lateral view of the C-arm showed good positioning of the screws and cages. Final tightening with the torque screwdriver was then completed. Abi was utilized to roughen the facet joint at L2-5 on the left side. Cancellous allograft bone chips mixed with bone marrow aspirate were then placed over this decorticated area. Hemostasis was achieved. Closure was done in layers with 0 Vicryls for the fascia, 2-0 Vicryls for the subcutaneous tissue, and Monocryl for the skin. Dermabond was applied. Dressings were applied covered with Tegaderm. The patient was then turned supine onto a hospital bed. The patient was extubated and taken to PACU in stable condition. The patient tolerated the procedure well and no complications occurred. Depuy [place] cage & Viper Prime minimally invasive pedicle screw instrumentation system was utilized in this case. No dural tear was identified intraoperatively. I was present for the entirety of the case and performed the surgery. Admit VTE Documentation VTE Mechan Device Prophylaxis: SCD's Procedures Musculoskeletal 20xxx-29xxx: Other Procedure See Report
--- NOTE | 2024-03-01 15:13 | PCM.CONS.GEN ---
Assessment & Plan Assessment/Plan (1) Spondylolisthesis, lumbar region: (2) Spinal stenosis of lumbar region with neurogenic claudication: (3) Lumbar disc disease with radiculopathy: (4) Low back pain: QUALIFIERS: Back pain laterality: unspecified Chronicity: unspecified Sciatica presence: unspecified whether sciatica present Qualified Code(s): M54.50 - Low back pain, unspecified (5) Hyperlipidemia: QUALIFIERS: Hyperlipidemia type: unspecified Qualified Code(s): E78.5 - Hyperlipidemia, unspecified (6) History of coronary artery stent placement: (7) Essential hypertension: (8) Hypothyroidism: QUALIFIERS: Hypothyroidism type: unspecified Qualified Code(s): E03.9 - Hypothyroidism, unspecified PLAN: Plan 1. History of spinal stenosis with spondylolisthesis of lumbar region with neurogenic claudication and degenerative disc disease with osteoarthritis who recently underwent anterior and posterior L2-L5 fusion by Dr. Iraj Tucker of ortho-spine with patient postoperative day #0 with hospitalist service consulted for postoperative medical management - Noted. Continue supportive care. Leukocytosis of 20.1 likely due to acute stress response from recent surgery but will check UA C&S. 2. Essential hypertension - Resume current management plus give as needed IV hydralazine for systolic blood pressure greater than 160 mmHg. 3. Hyperlipidemia; with listed intolerance to statins causing pain in joints - Check lipid profile. 4. Hypothyroidism - Resume Synthroid and check TSH. 5. Obesity; with BMI of 32 this admission - Weight loss will be recommended. 6. CAD; status post stent (2021) - Noted. 7. History of BPH; status post TURP - Noted. 8. DVT prophylaxis - As per ortho-spine team. Total time: Approximately 35 minutes. HPI Consult Data Date of Consult: 03/01/24 HPI Narrative Reason for Consultation: Medical management HPI Narrative: Teri VERDIN, is a 84 M with a past medical history of essential hypertension, hyperlipidemia, hypothyroidism, obesity; with BMI of 32 this admission, coronary artery disease; status post stent (2021), history of BPH; status post TURP and history of spinal stenosis with spondylolisthesis of lumbar region with neurogenic claudication and degenerative disc disease with osteoarthritis who recently underwent anterior and posterior L2-L5 fusion by Dr. Iraj Tucker of ortho-spine with patient postoperative day #0 with hospitalist service consulted for postoperative medical management. Patient appears clinically stable and he denies new complaints with pain that is not currently well controlled but he has since been treated with IV morphine. He denies associated fever, chills, nausea or vomiting. His family was present at the bedside and helped to augment the history. Thank you for allowing us to participate in the care of your patient. [facility] Medical History Arthritis Atherosclerotic heart disease of [place] coronary artery without angina pectoris Back pain BPH with obstruction/lower urinary tract symptoms Cardiology follow-up encounter Degenerative disc disease Easy bruising Essential hypertension Former smoker High cholesterol History of cataract History of pain when walking History of steroid therapy History of stress test Hypothyroidism Loss of hearing Obesity Prostate disease Thyroid disease TIA (transient ischemic attack) Wears dentures Wears glasses Wears hearing aid Home Medications cholecalciferol (vitamin D3) 50 mcg (2,000 unit) capsule (Vitamin D3) 50 mcg PO DAILY supplement 05/17/21 [History Last Taken 02/29/24] levothyroxine 75 mcg tablet 75 mcg PO DAILY thyroid 05/17/21 [History Last Taken 03/01/24 04:00] vitamin E 200 unit capsule 200 unit PO DAILY supplement 05/17/21 [History Last Taken 02/29/24 08:00] fluticasone propionate 50 mcg/actuation nasal spray,suspension 2 spray intranasal DAILY PRN allergy symptoms 08/05/22 [History Last Taken 02/29/24 22:00] lisinopril 20 mg tablet 20 mg PO BID bp 08/05/22 [History Last Taken 03/01/24 04:00] amlodipine 5 mg tablet 5 mg PO DAILY BP 01/04/24 [History Last Taken 03/01/24 04:00] fenofibrate nanocrystallized 145 mg tablet 145 mg PO DAILY CHOLESTEROL 01/04/24 [History Last Taken 02/29/24 22:00] hydrocodone-acetaminophen 5-325mg 5mg-325mg 1 tab PO Q6H PRN PRN Pain 3 days #10 TABLETS 01/04/24 [Rx Last Taken 02/29/24 21:00] coenzyme Q10 100 mg capsule 100 mg PO DAILY SUPPLEMENT 01/13/24 [History Last Taken 02/29/24 20:04] acetaminophen 650 mg tablet,extended release (8 Hour Pain Reliever) 1,300 mg PO Q8H PRN pain 02/23/24 [History Last Taken 02/29/24 23:02] aspirin 81 mg capsule 81 mg PO DAILY BLOOD THINNER 02/23/24 [History Last Taken 02/21/24] Allergy/AdvReac Type Severity Reaction Status Date / Time [id number] Reductase Allergy Severe Pain in Verified 03/01/24 06:01 Inhibitor joints Family History Mother Hypertension Father Alzheimer's disease Brother Lung cancer Brother Hypertension Pacemaker Sister Hypertension Sister Hypertension Sister Hypertension Surgical History History of bilateral cataract extraction (2011) History of cardiac catheterization History of coronary artery stent placement (04/08/22) History of tonsillectomy History of transurethral resection of prostate Social History household members: spouse Smoking Status: Former smoker alcohol intake: never substance use type: does not use caffeine: No ROS ROS Narrative Review of systems: General: Patient denies fevers or chills. HENT: Denies headache, denies stuffy nose, denies sore throat EYES: Denies changes in vision or discharge from eyes. Resp: Denies cough, denies shortness of breath Cardiac: Denies chest pain, palpitations or heart racing. GI: Denies abdominal pain, denies changes in bowel, denies nausea or vomiting. : Denies changes in urination Extremity: Denies swelling Musculoskeletal: Feels somewhat generally weak and unwell with persistent back pain as per HPI. Neuro: Patient denies headache, paresthesias or focal neurologic weakness. Heme: Denies any bleeding or bruising Skin: Denies rashes Psychiatric: No complaints voiced related uncontrolled depression or anxiety. Endocrine: No polyuria, polydipsia or polyphagia. The rest of the 14 point ROS was negative except for positives in HPI. Physical Exam Const alert, oriented x3, no apparent distress, average body habitus and healthy appearing General Appearance: cooperative HEENT normocephalic, head/scalp atraumatic, hearing grossly normal bilaterally and moist oral mucous membranes Eyes PERRL and EOMs intact bilaterally Neck no lymphadenopathy and supple Resp normal respiratory effort, no retractions, no use of accessory muscles and clear to auscultation bilaterally Cardio regular rate and regular rhythm GI normal to inspection, nondistended, normoactive bowel sounds, soft to palpation, non-tender and non-distended Extremity normal to inspection Skin Skin Narrative: Patient has no evidence of rash, jaundice or abscess. Neuro oriented x3, CN's II-XII intact bilaterally, moves all extremities, no focal motor deficits and no sensory deficits noted Sensorium / Orientation: awake, alert, oriented to person, oriented to place and oriented to time Speech: speech normal Psych affect normal Medical Records Data Attestation: I reviewed the patient's medical records Lab / Micro Data Attestation: I reviewed the patient's lab results. 03/01/24 16:28 03/01/24 16:28 Labs: Laboratory Results - last 24 hr 03/01/24 06:00: POC Glucose 74 Imaging Radiology Impression Lumbar Spine X-Ray 03/01/24 06:30 IMPRESSION: Intraoperative imaging provided for L2-L5 posterior fusion and prosthetic disc placement. Electronically Signed: Alejandro Domingo MD at 13:25 EDT , Charges/Coding Visit Charges Office Visits / Consults: 23160 IP Consult L2
[2024-03-01] MEDS: Morphine 2 MG/ML Syringe IV (15:50)
[2024-03-01 16:39] LABS: Absolute Lymphocyte Count 0.79 X10^3/uL (0.83-4.51); Absolute Neutrophil Count 18.1 X10^3/uL (2.0-7.7); Basophil# 0.03 X10^3/uL; Basophil% 0.1 % (0-1); Eosinophil# 0.02 X10^3/uL; Eosinophils% 0.1 % (0-5); Hematocrit 40.8 % (40-54); Hemoglobin 13.2 g/dL (13.0-16.5); Lymphocyte # 0.79 X10^3/ul (0.83-4.51); Lymphocyte % 3.9 % (19-41); Mean Corp Hgb Conc 32.4 g/dL (32-36); Mean Corpuscular Hgb 31.4 pg (27.0-32.0); Mean Corpuscular Volume 96.9 fL (80-94); Mean Platelet Vol. 9.9 fl (6.2-12.0); Monocyte# 1.08 X10^3/uL; Monocyte% 5.4 % (0-10); NRBC Flagged by Analyzer 0 % (0-5); Neutrophil # 18.05 X10^3/uL (2.7-7.7); Neutrophil % 89.8 % (47-70); Platelet Count 345 K/mm3 (150-450); RBC Distribution Width CV 13.3 % (11.6-14.6); RBC Distribution Width SD 47.8 fl (35.1-43.9); Red Blood Count 4.21 M/mm3 (4.6-6.2); White Blood Count 20.1 K/mm3 (4.4-11.0)
[2024-03-01 17:01] LABS: Anion Gap 12 (5-15); BUN 20 mg/dL (7-18); BUN/Creat Ratio 12.1 RATIO (10-20); Calcium,Total 8.5 mg/dL (8.5-10.1); Chloride 105 mmol/L (98-107); Creatinine, Serum 1.65 mg/dL (0.70-1.30); EST Glomerular Filtration Rate 42 mL/min (>60); Est Glom Filt Rate - Afr Amer 51 mL/min (>60); Estimated Creatinine Clearance 37.83 ml/min; Glucose 206 mg/dL (74-106); Potassium 3.9 mmol/L (3.5-5.1); Sodium Level 137 mmol/L (136-145)
[2024-03-01 17:26] LABS: Thyroid Stim Hormone (TSH) 2.97 uIU/mL (0.358-3.74)
[2024-03-01] MEDS: Methocarbamol 500 MG Tablet 1000 MG PO ×2 (17:33→22:00)
[2024-03-01] MEDS: Ketorolac 15 MG/ML Vial IV (17:33)
[2024-03-01] MEDS: Senna/Docusate Sodium 1 Tablet 2 TABLET PO (22:00)
[2024-03-01] MEDS: Lisinopril 20 MG Tablet PO (22:00)
[2024-03-02] MEDS: Cefazolin 2 GM in 0.9% Normal Saline (100mL Bag) 100 ML IV (00:18)
[2024-03-02] MEDS: Ketorolac 15 MG/ML Vial IV ×2 (00:19→06:14)
[2024-03-02 02:36] VITALS: BP 120/75; PULSE 91; RESP 18; TEMP 36.8; O2SAT 94
[2024-03-02 03:07] LABS: Color, Urine Yellow (Yellow); Glucose, Dipstick Normal (Normal); Ketone-Dipstick 15 mg/dl (Negative); Leukocyte Esterase-Dipstick 500 /ul (Negative); Nitrite-Dipstick Negative (Negative); Occult Blood-Urine 250 /ul (Negative); Protein-Dipstick 30 mg/dl (Negative); Specific Gravity, Urine 1.025 (1.002-1.030); Urine Bilirubin Dipstick Negative (Negative); Urine Clarity Clear (Clear); Urine Urobilinogen Normal (Normal)
[2024-03-02 03:36] LABS: Bacteria 4+ /hpf (None Seen); Fine Granular Cast- Urine 5-10 SEEN /lpf (0-5); Hyaline Cast 10-25 SEEN /lpf (0-5); Mucous, Urine 1+ /hpf (<or=2+); Red Blood Cells-Urine 25-50 SEEN /hpf (0-5); Squamous Epithelial Cells - UA 10-25 SEEN /hpf (0-5); White Blood Cells 50-100 SEEN /hpf (0-5)
[2024-03-02 06:10] VITALS: BP 120/71; PULSE 89; RESP 16; TEMP 36.3; O2SAT 94
[2024-03-02] MEDS: Levothyroxine 75 MCG Tablet PO (06:14)
[2024-03-02] MEDS: Acetaminophen 500 MG Tablet 1000 MG PO ×3 (06:14→22:04)
[2024-03-02 06:22] LABS: Hematocrit 34.8 % (40-54); Hemoglobin 11.2 g/dL (13.0-16.5); Mean Corp Hgb Conc 32.2 g/dL (32-36); Mean Corpuscular Hgb 31.3 pg (27.0-32.0); Mean Corpuscular Volume 97.2 fL (80-94); Mean Platelet Vol. 10.8 fl (6.2-12.0); Platelet Count 271 K/mm3 (150-450); RBC Distribution Width CV 13.9 % (11.6-14.6); RBC Distribution Width SD 49.5 fl (35.1-43.9); Red Blood Count 3.58 M/mm3 (4.6-6.2); White Blood Count 11.4 K/mm3 (4.4-11.0)
[2024-03-02 06:53] LABS: Anion Gap 9 (5-15); BUN 28 mg/dL (7-18); BUN/Creat Ratio 14.7 RATIO (10-20); Calcium,Total 8.2 mg/dL (8.5-10.1); Chloride 103 mmol/L (98-107); Cholesterol 148 mg/dL (200); Creatinine, Serum 1.91 mg/dL (0.70-1.30); EST Glomerular Filtration Rate 36 mL/min (>60); Est Glom Filt Rate - Afr Amer 43 mL/min (>60); Estimated Creatinine Clearance 32.68 ml/min; Glucose 126 mg/dL (74-106); High Density Lipoprotein 36 mg/dL; Potassium 4.5 mmol/L (3.5-5.1); Sodium Level 134 mmol/L (136-145); Triglycerides 141 mg/dL; Very Low Density Lipoprotein 28 mg/dL (5-40)
--- NOTE | 2024-03-02 07:32 | PCM.PN.HOSP ---
Reason for Visit Reason for Visit: Diagnoses Hypothyroidism, unspecified (03/01/24) Hyperlipidemia, unspecified (03/01/24) Hypo-osmolality and hyponatremia (03/01/24) Essential (primary) hypertension (03/01/24) Spondylolisthesis, lumbar region (03/01/24) Spinal stenosis, lumbar region with neurogenic claudication (03/01/24) Intervertebral disc disorders with radiculopathy, lumbar region (03/01/24) Low back pain, unspecified (03/01/24) Encounter for other preprocedural examination (03/01/24) Presence of coronary angioplasty implant and graft (03/01/24) Subjective Subjective Patient is an 84-year-old gentleman who underwent anterior and posterior L2-L5 fusion by Dr. Iraj Tucker on 03/01/2024. The hospitalist service was consulted to assist with management of patient medical comorbidities Objective Data Objective Data Vital Signs: Vital Signs Temp Pulse Resp BP Pulse Ox O2 Del Method O2 Flow Rate 97.3 F L 89 16 120/71 94 Room Air 1 03/02/24 06:10 03/02/24 06:10 03/02/24 06:10 03/02/24 06:10 03/02/24 06:10 03/02/24 06:10 03/01/24 21:55 Oxygen Flow Rate (L/min) 1 Oxygen Delivery Method Room Air Weight: 98.248 kg Body Mass Index (BMI) 31.9 Intake & Output: Intake and Output for Last 24 Hours 02/29/24 03/01/24 03/02/24 23:59 23:59 23:59 Intake Total 3722 / 4122 1010 / 1010 Output Total 300 / 300 250 / 250 Balance 3422 / 3822 760 / 760 Lab / Micro Data 03/02/24 05:27 03/02/24 05:27 Labs: Laboratory Results - last 24 hr 03/01/24 16:28: WBC 20.1 H, RBC 4.21 L, Hgb 13.2, Hct 40.8, MCV 96.9 H, MCH 31.4, MCHC 32.4, RDW Std Deviation 47.8 H, RDW Coeff of Sherin 13.3, Plt Count 345, MPV 9.9, Immature Gran % (Auto) 0.700, Neut % (Auto) 89.8 H, Lymph % (Auto) 3.9 L, [place] % (Auto) 5.4, Eos % (Auto) 0.1, Baso % (Auto) 0.1, Absolute Neuts (auto) 18.1 H, Absolute Lymphs (auto) 0.79 L, Nucleated RBC % 0, Sodium 137, Potassium 3.9, Chloride 105, Carbon Dioxide 20.0 L, Anion Gap 12, BUN 20 H, Creatinine 1.65 H, Estim Creat Clear Calc 37.83, Est GFR (MDRD) Af Amer 51 L, Est GFR (MDRD) Non-Af 42 L, BUN/Creatinine Ratio 12.1, Glucose 206 H, Calcium 8.5, TSH 2.97 03/02/24 03:00: Urine Color Yellow, Urine Clarity Clear, Urine pH 5.0, Ur Specific [place] 1.025, Urine Protein 30 H, Urine Glucose (UA) Normal, Urine Ketones 15 H, Urine Occult Blood 250 H, Urine Nitrite Negative, Urine Bilirubin Negative, Urine Urobilinogen Normal, Ur Leukocyte Esterase 500 H, Urine RBC 25-50 SEEN, Urine WBC 50-100 SEEN, Ur Squamous Epith Cells 10-25 SEEN, Urine Bacteria 4+, Hyaline Casts 10-25 SEEN, Fine Granular Casts 5-10 SEEN, Urine Mucus 1+ 03/02/24 05:27: WBC 11.4 H, RBC 3.58 L, Hgb 11.2 L, Hct 34.8 L, MCV 97.2 H, MCH 31.3, MCHC 32.2, RDW Std Deviation 49.5 H, RDW Coeff of Sherin 13.9, Plt Count 271, MPV 10.8, Sodium 134 L, Potassium 4.5, Chloride 103, Carbon Dioxide 22.0, Anion Gap 9, BUN 28 H, Creatinine 1.91 H, Estim Creat Clear Calc 32.68, Est GFR (MDRD) Af Amer 43 L, Est GFR (MDRD) Non-Af 36 L, BUN/Creatinine Ratio 14.7, Glucose 126 H, Calcium 8.2 L, Triglycerides 141, Cholesterol 148, LDL Cholesterol 84, VLDL Cholesterol 28, HDL Cholesterol 36 L Micro: Microbiology 02/24/24 12:26 Swab (Method) Nasal Screen MRSA/MSSA - Final Radiography Diagnostic Testing: Radiology Impression Lumbar Spine X-Ray 04/29/24 06:30 IMPRESSION: Intraoperative imaging provided for L2-L5 posterior fusion and prosthetic disc placement. Electronically Signed: Alejandro Domingo MD at 13:25 EDT , Physical Exam Narrative GENERAL: cooperative HEENT: Atraumatic; normocephalic EYES; Anicteric, Normal Conjunctiva NECK; supple, normal thyroid, RESPIRATORY: Diminished to auscultation CARDIOVASCULAR: Regular S1 S2, GI: soft, normoactive bowel sounds, : No Renal angle tenderness; EXTREMITIES: No edema, no clubbing, MUSCULOSKELETAL: no muscle wasting NEURO: Awake; no lateralizing signs. SKIN: No Rash PSYCH; Flat affect Assessment & Plan Assessment/Plan (1) Spondylolisthesis, lumbar region: PLAN: Plan Patient is an 84-year-old gentleman who underwent anterior and posterior L2-L5 fusion by Dr. Iraj Tucker on 03/01/2024. The hospitalist service was consulted to assist with management of patient medical comorbidities 1. Status post anterior and posterior L2-L5 fusion -by Dr. Iraj Tucker on 03/01/2024. Postoperative orders regarding pain management PT OT deferred to primary service 2. Hypertension - Blood pressure controlled, home medications except for lisinopril continued with dose adjustment as needed 3. Hypothyroidism - Patient is on levothyroxine home dose continued 4. Coronary artery disease ? With previous PCI patient is on aspirin 5. Class I obesity with BMI of 32 ? Weight loss advised 6. Dyslipidemia ? Per history patient apparently did not tolerate statins in the past 7. Acute urinary retention ? Patient was straight cathed x 1 subsequently started on Flomax 9. Acute kidney injury ? Creatinine from 02/24/2024 was 1.14, creatinine on admission was 1.65 did go up to 1.91 started on IV fluids subsequent monitoring of electrolytes ordered. Also discontinue potential nephrotoxic medications including lisinopril 10. Anemia - Secondary to chronic disorder monitoring H&H and transfuse if patient becomes symptomatic or hemoglobin falls below 7 11. DVT prophylaxis ? Will defer to primary Time spent in the patient's overall evaluation,decision-making process, review of diagnostic data, adjustment of management, discussion with other providers, nursing nursing and ancillary staff involved in patient's care documentation, 50 Minutes Charges/Coding Visit Charges Inpatient E&M: 70136 Subs Hosp L3
[2024-03-02 08:17] VITALS: BP 123/70; PULSE 68; RESP 18; TEMP 36.8; O2SAT 93
[2024-03-02] MEDS: 0.9% Normal Saline (1000mL) 1,000 ML 150 ML IV ×2 (10:12→17:48)
[2024-03-02] MEDS: Cholecalciferol (VIT D3) 25 MCG TABLET (1,000 UNITS) 50 MCG PO (10:14)
[2024-03-02] MEDS: Methocarbamol 500 MG Tablet 1000 MG PO ×4 (10:14→22:04)
[2024-03-02] MEDS: Senna/Docusate Sodium 1 Tablet 2 TABLET PO ×2 (10:15→22:04)
[2024-03-02] MEDS: Vitamin E 400 UNITS Capsule PO (10:15)
[2024-03-02] MEDS: amLODIPine 5 MG Tablet PO (10:16)
[2024-03-02] MEDS: oxyCODONE 5 MG Tablet PO ×3 (10:29→22:04)
--- NOTE | 2024-03-02 10:39 | PN.ORTHO_ITS ---
Subjective Subjective Postop day 1 status post L2-5 fusion. Patient in bed. Pain decently controlled. Complains of back pain. Denies any abdominal or leg pain. Preoperative leg symptoms are resolved. No flatus yet. Had 1 straight cath blue line trimmer. Not voided yet. Not seen PT yet. Attempted standing at bedside last night. Objective Data Objective Data Vital Signs: Vital Signs Temp Pulse Resp BP Pulse Ox O2 Del Method O2 Flow Rate 98.2 F 68 18 123/70 H 93 Room Air 1 03/02/24 08:17 03/02/24 08:17 03/02/24 08:17 03/02/24 08:17 03/02/24 08:17 03/02/24 08:19 03/01/24 21:55 Oxygen Flow Rate (L/min) 1 Oxygen Delivery Method Room Air Weight: 216 lb 9.6 oz Body Mass Index (BMI) 31.9 Intake & Output: Intake and Output for Last 24 Hours 02/29/24 03/01/24 03/02/24 23:59 23:59 23:59 Intake Total 3722 / 4122 1010 / 1010 Output Total 300 / 300 250 / 250 Balance 3422 / 3822 760 / 760 Lab / Micro Data 03/02/24 05:27 03/02/24 05:27 Labs: Laboratory Results - last 24 hr 03/01/24 16:28: WBC 20.1 H, RBC 4.21 L, Hgb 13.2, Hct 40.8, MCV 96.9 H, MCH 31.4, MCHC 32.4, RDW Std Deviation 47.8 H, RDW Coeff of Sherin 13.3, Plt Count 345, MPV 9.9, Immature Gran % (Auto) 0.700, Neut % (Auto) 89.8 H, Lymph % (Auto) 3.9 L, [place] % (Auto) 5.4, Eos % (Auto) 0.1, Baso % (Auto) 0.1, Absolute Neuts (auto) 18.1 H, Absolute Lymphs (auto) 0.79 L, Nucleated RBC % 0, Sodium 137, Potassium 3.9, Chloride 105, Carbon Dioxide 20.0 L, Anion Gap 12, BUN 20 H, Creatinine 1.65 H, Estim Creat Clear Calc 37.83, Est GFR (MDRD) Af Amer 51 L, Est GFR (MDRD) Non-Af 42 L, BUN/Creatinine Ratio 12.1, Glucose 206 H, Calcium 8.5, TSH 2.97 03/02/24 03:00: Urine Color Yellow, Urine Clarity Clear, Urine pH 5.0, Ur Specific [place] 1.025, Urine Protein 30 H, Urine Glucose (UA) Normal, Urine Ketones 15 H, Urine Occult Blood 250 H, Urine Nitrite Negative, Urine Bilirubin Negative, Urine Urobilinogen Normal, Ur Leukocyte Esterase 500 H, Urine RBC 25- 50 SEEN, Urine WBC 50-100 SEEN, Ur Squamous Epith Cells 10-25 SEEN, Urine Bacteria 4+, Hyaline Casts 10-25 SEEN, Fine Granular Casts 5-10 SEEN, Urine Mucus 1+ 03/02/24 05:27: WBC 11.4 H, RBC 3.58 L, Hgb 11.2 L, Hct 34.8 L, MCV 97.2 H, MCH 31.3, MCHC 32.2, RDW Std Deviation 49.5 H, RDW Coeff of Sherin 13.9, Plt Count 271, MPV 10.8, Sodium 134 L, Potassium 4.5, Chloride 103, Carbon Dioxide 22.0, Anion Gap 9, BUN 28 H, Creatinine 1.91 H, Estim Creat Clear Calc 32.68, Est GFR (MDRD) Af Amer 43 L, Est GFR (MDRD) Non-Af 36 L, BUN/Creatinine Ratio 14.7, Glucose 126 H, Calcium 8.2 L, Triglycerides 141, Cholesterol 148, LDL Cholesterol 84, VLDL Cholesterol 28, HDL Cholesterol 36 L Micro: Microbiology 02/24/24 12:26 Swab (Method) Nasal Screen MRSA/MSSA - Final Radiography Diagnostic Testing: Radiology Impression Lumbar Spine X-Ray 03/01/24 06:30 IMPRESSION: Intraoperative imaging provided for L2-L5 posterior fusion and prosthetic disc placement. Electronically Signed: Alejandro Domingo MD at 13:25 EDT , Physical Exam Narrative Dressing CDI. Neurologically stable, baseline right foot weakness. Assessment & Plan Assessment/Plan (1) Status post lumbar spinal fusion: PLAN: Plan Postop day 1 status post L2-5 fusion. PT OT mobilization. Clear diet until passes flatus. Encourage multiple times out of bed mobility. Will obtain upright x-rays today. Discharge pending PT OT and bowel mobility.
--- NOTE | 2024-03-02 10:40 | RAD_ITS ---
STUDY: X-RAY - LUMBAR SPINE REASON FOR EXAM: Male, 84 years old. s/p lumbar fusion -- pls do upright AP Lat TECHNIQUE: 2 view(s) of the lumbar spine were obtained. COMPARISON: Comparison is made with prior study dated January 13, 2024. FINDINGS: The patient is status post interpedicular screw and daren fixation at the L2-L3 L3-L4 and L4-L5 levels with prosthetic disc placement. RAD/Lumbar Spine 2 or 3 Views IMPRESSION: Status post interpedicular screw and daren fixation at the L2-L3, L3-L4 and L4-L5 levels. Electronically Signed: Alejandro Domingo MD at 12:40 EDT ,
--- NOTE | 2024-03-02 11:25 | CASEMGMT ---
BART JONES Assessment: Face to Face with pt for initial transition planning/care coordination assessment. RN ROBERT introduced self and role at [facility], pt voices understanding and consents to assessment. Pt laying in bed in no distress, pt sitting at bedside. Pt agreeable to answer questions with in the room. Pt is A&O x4 and answers all questions appropriately at this time. Care providers, pharmacy, and demographics verified/updated. Admitting Dx: S/P Lumbar Fusion PCP: Janice Specialists: Freddie Tucker; Blayne, Logistics Solution Manager Preferred Pharmacy: [facility] Insurance: Medicare Primary, [place] secondary Prescription Benefit: yes LNOK: Val - , Tosin Ge - daughter Living Arrangements: Pt lives with in a ranch house with 2 steps to enter with no hand rails. Independent with ADLs and IADLs. Pt denies concerns with going home. Transportation: Pt drives self and denies concerns with transportation. Pt able to drive until pt can drive self again. DME: Shower bench HHC/SNF: Denies Hx of. Pt states no concerns with going home at time of dc. Pt states no further concerns/needs. CM to follow. Advised pt to ask CM if any further question/concerns/needs arise, voices understanding. Pt Goal: Home Plan: TBD pending therapy edwin Esparza RN, CM
[2024-03-02 13:54] VITALS: BP 129/60; PULSE 71; RESP 18; TEMP 36.7; O2SAT 93
[2024-03-02] MEDS: Bisacodyl 5 MG Tablet PO (14:04)
[2024-03-02] MEDS: 0.9% Saline Lock 10 ML Syringe IV (14:05)
--- NOTE | 2024-03-02 15:50 | CASEMGMT ---
Faxed order for [facility]FO to [facility]. Provided pt with a copy of order and instructed to call [facility] to schedule an appointment. Added to discharge plan. Pt verbalized understanding. Provided pt with verbal list of local in network providers for [facility], pt selected [facility].
[2024-03-02 17:39] VITALS: BP 125/72; PULSE 78; RESP 18; TEMP 36.1; O2SAT 94
[2024-03-02 21:55] VITALS: BP 134/76; PULSE 86; RESP 18; TEMP 37.1; O2SAT 94
[2024-03-03] MEDS: 0.9% Normal Saline (1000mL) 1,000 ML 150 ML IV ×2 (00:15→06:20)
[2024-03-03] MEDS: Morphine 2 MG/ML Syringe IV (00:33)
[2024-03-03 04:25] VITALS: BP 126/79; PULSE 88; RESP 20; TEMP 36.6; O2SAT 93
[2024-03-03] MEDS: oxyCODONE 5 MG Tablet PO (04:34)
[2024-03-03] MEDS: Levothyroxine 75 MCG Tablet PO (06:20)
[2024-03-03] MEDS: Acetaminophen 500 MG Tablet 1000 MG PO ×2 (06:20→13:26)
[2024-03-03 06:38] LABS: Absolute Lymphocyte Count 0.64 X10^3/uL (0.83-4.51); Absolute Neutrophil Count 10.5 X10^3/uL (2.0-7.7); Basophil# 0.01 X10^3/uL; Basophil% 0.1 % (0-1); Hemoglobin 10.7 g/dL (13.0-16.5); Lymphocyte # 0.64 X10^3/ul (0.83-4.51); Lymphocyte % 5.3 % (19-41); Mean Corp Hgb Conc 32.4 g/dL (32-36); Mean Corpuscular Hgb 31.4 pg (27.0-32.0); Mean Corpuscular Volume 96.8 fL (80-94); Monocyte# 0.87 X10^3/uL; Monocyte% 7.2 % (0-10); NRBC Flagged by Analyzer 0 % (0-5); Platelet Count 222 K/mm3 (150-450); RBC Distribution Width SD 49.6 fl (35.1-43.9); Red Blood Count 3.41 M/mm3 (4.6-6.2); White Blood Count 12.1 K/mm3 (4.4-11.0)
[2024-03-03 07:06] LABS: Anion Gap 5 (5-15); BUN 28 mg/dL (7-18); BUN/Creat Ratio 23.7 RATIO (10-20); Calcium,Total 8.3 mg/dL (8.5-10.1); Chloride 102 mmol/L (98-107); Creatinine, Serum 1.18 mg/dL (0.70-1.30); EST Glomerular Filtration Rate 62 mL/min (>60); Est Glom Filt Rate - Afr Amer 75 mL/min (>60); Glucose 109 mg/dL (74-106); Magnesium 2.3 mg/dL (1.6-2.6); Phosphorus 2.1 mg/dL (2.5-4.9); Sodium Level 131 mmol/L (136-145)
--- NOTE | 2024-03-03 07:45 | PN.HOSP_ITS ---
Reason for Visit Reason for Visit: Diagnoses Hypothyroidism, unspecified (03/01/24) Hyperlipidemia, unspecified (03/01/24) Hypo-osmolality and hyponatremia (03/01/24) Essential (primary) hypertension (03/01/24) Spondylolisthesis, lumbar region (03/01/24) Spinal stenosis, lumbar region with neurogenic claudication (03/01/24) Intervertebral disc disorders with radiculopathy, lumbar region (03/01/24) Low back pain, unspecified (03/01/24) Encounter for other preprocedural examination (03/01/24) Presence of coronary angioplasty implant and graft (03/01/24) Arthrodesis status (03/01/24) Subjective Subjective Patient seen had a relatively uneventful night. Objective Data Objective Data Vital Signs: Vital Signs Temp Pulse Resp BP Pulse Ox O2 Del Method O2 Flow Rate 97.8 F 88 20 H 126/79 H 93 Nasal Cannula 2 03/03/24 04:25 03/03/24 04:25 03/03/24 04:25 03/03/24 04:25 03/03/24 04:25 03/03/24 04:38 03/03/24 04:38 Oxygen Flow Rate (L/min) 2 Oxygen Delivery Method Nasal Cannula Weight: 98.248 kg Body Mass Index (BMI) 31.9 Intake & Output: Intake and Output for Last 24 Hours 03/01/24 03/02/24 03/03/24 23:59 23:59 23:59 Intake Total 3722 / 4122 3194.75 / 3194.75 2680.0 / 2680.0 Output Total 300 / 300 550 / 550 350 / 350 Balance 3422 / 3822 2644.75 / 2644.75 2330.0 / 2330.0 Lab / Micro Data 03/03/24 05:56 03/03/24 05:56 Labs: Laboratory Results - last 24 hr 03/03/24 05:56: WBC 12.1 H, RBC 3.41 L, Hgb 10.7 L, Hct 33.0 L, MCV 96.8 H, MCH 31.4, MCHC 32.4, RDW Std Deviation 49.6 H, RDW Coeff of Sherin 14.0, Plt Count 222, MPV 11.0, Immature Gran % (Auto) 0.400, Neut % (Auto) 87.0 H, Lymph % (Auto) 5.3 L, [place] % (Auto) 7.2, Eos % (Auto) 0.0, Baso % (Auto) 0.1, Absolute Neuts (auto) 10.5 H, Absolute Lymphs (auto) 0.64 L, Nucleated RBC % 0, Sodium 131 L, Potassium 4.0, Chloride 102, Carbon Dioxide 24.0, Anion Gap 5, BUN 28 H, Creatinine 1.18, Estim Creat Clear Calc 52.90, Est GFR (MDRD) Af Amer 75, Est GFR (MDRD) Non-Af 62, BUN/Creatinine Ratio 23.7 H, Glucose 109 H, Calcium 8.3 L, Phosphorus 2.1 L, Magnesium 2.3 Micro: Microbiology 02/24/24 12:26 Swab (Method) Nasal Screen MRSA/MSSA - Final Radiography Diagnostic Testing: Radiology Impression Lumbar Spine X-Ray 03/02/24 10:40 IMPRESSION: Status post interpedicular screw and daren fixation at the L2-L3, L3-L4 and L4-L5 levels. Electronically Signed: Alejandro Domingo MD at 12:40 EDT , Physical Exam Narrative GENERAL: cooperative HEENT: Atraumatic; normocephalic EYES; Anicteric, Normal Conjunctiva NECK; supple, normal thyroid, RESPIRATORY: Diminished to auscultation CARDIOVASCULAR: Regular S1 S2, GI: soft, normoactive bowel sounds, : No Renal angle tenderness; EXTREMITIES: No edema, no clubbing, MUSCULOSKELETAL: no muscle wasting NEURO: Awake; no lateralizing signs. SKIN: No Rash PSYCH; Flat affect Assessment & Plan Assessment/Plan (1) Spondylolisthesis, lumbar region: PLAN: Plan Patient is an 84-year-old gentleman who underwent anterior and posterior L2-L5 fusion by Dr. Iraj Tucker on 03/01/2024. The hospitalist service was consulted to assist with management of patient medical comorbidities 1. Status post anterior and posterior L2-L5 fusion -by Dr. Iraj Tucker on 03/01/2024. Postoperative orders regarding pain management PT OT deferred to primary service ? 03/03/2024 patient pain remains controlled 2. Hypertension - Blood pressure controlled, home medications except for lisinopril continued with dose adjustment as needed 3. Hypothyroidism - Patient is on levothyroxine home dose continued 4. Coronary artery disease ? With previous PCI patient is on aspirin 5. Class I obesity with BMI of 32 ? Weight loss advised 6. Dyslipidemia ? Per history patient apparently did not tolerate statins in the past 7. Acute urinary retention ? Patient was straight cathed x 1 subsequently started on Flomax 9. Acute kidney injury ? Creatinine from 02/24/2024 was 1.14, creatinine on admission was 1.65 did go up to 1.91 started on IV fluids subsequent monitoring of electrolytes ordered. Also discontinue potential nephrotoxic medications including lisinopril 10. Anemia - Secondary to chronic disorder monitoring H&H and transfuse if patient becomes symptomatic or hemoglobin falls below 7 11. DVT prophylaxis ? Will defer to primary Time spent in the patient's overall evaluation,decision-making process, review of diagnostic data, adjustment of management, discussion with other providers, nursing nursing and ancillary staff involved in patient's care documentation, 35 Minutes Charges/Coding Visit Charges Inpatient E&M: 32894 Subs Hosp L2
[2024-03-03] MEDS: Senna/Docusate Sodium 1 Tablet 2 TABLET PO (08:21)
[2024-03-03] MEDS: Morphine 4 MG/ML Syringe IV (08:21)
[2024-03-03] MEDS: Methocarbamol 500 MG Tablet 1000 MG PO ×2 (08:23→13:26)
[2024-03-03] MEDS: Cholecalciferol (VIT D3) 25 MCG TABLET (1,000 UNITS) 50 MCG PO (08:23)
[2024-03-03] MEDS: Vitamin E 400 UNITS Capsule PO (08:23)
[2024-03-03] MEDS: amLODIPine 5 MG Tablet PO (08:23)
[2024-03-03] MEDS: Bisacodyl 5 MG Tablet PO (08:27)
[2024-03-03 09:03] VITALS: O2SAT 91
--- NOTE | 2024-03-03 09:28 | PN.ORTHO_ITS ---
Subjective Subjective Postop day 2 status post L2-5 fusion. Patient had bad. Pain well-controlled. Mentions that had significant pain th rough the night but was better than first night. Passed flatus and tolerated solid breakfast this morning. Preoperative radicular symptoms have resolved, with residual numbness and weakness in the right foot. Objective Data Objective Data Vital Signs: Vital Signs Temp Pulse Resp BP Pulse Ox O2 Del Method O2 Flow Rate 97.8 F 88 20 H 126/79 H 93 Nasal Cannula 2 03/03/24 04:25 03/03/24 04:25 03/03/24 04:25 03/03/24 04:25 03/03/24 04:25 03/03/24 08:11 03/03/24 08:11 Oxygen Flow Rate (L/min) 2 Oxygen Delivery Method Nasal Cannula Weight: 216 lb 9.6 oz Body Mass Index (BMI) 31.9 Intake & Output: Intake and Output for Last 24 Hours 03/01/24 03/02/24 03/03/24 23:59 23:59 23:59 Intake Total 3722 / 4122 3194.75 / 3194.75 2680.0 / 2680.0 Output Total 300 / 300 550 / 550 350 / 350 Balance 3422 / 3822 2644.75 / 2644.75 2330.0 / 2330.0 Lab / Micro Data 03/03/24 05:56 03/03/24 05:56 Labs: Laboratory Results - last 24 hr 03/03/24 05:56: WBC 12.1 H, RBC 3.41 L, Hgb 10.7 L, Hct 33.0 L, MCV 96.8 H, MCH 31.4, MCHC 32.4, RDW Std Deviation 49.6 H, RDW Coeff of Sherin 14.0, Plt Count 222, MPV 11.0, Immature Gran % (Auto) 0.400, Neut % (Auto) 87.0 H, Lymph % (Auto) 5.3 L, [place] % (Auto) 7.2, Eos % (Auto) 0.0, Baso % (Auto) 0.1, Absolute Neuts (auto) 10.5 H, Absolute Lymphs (auto) 0.64 L, Nucleated RBC % 0, Sodium 131 L, Potassium 4.0, Chloride 102, Carbon Dioxide 24.0, Anion Gap 5, BUN 28 H, Creatinine 1.18, Estim Creat Clear Calc 52.90, Est GFR (MDRD) Af Amer 75, Est GFR (MDRD) Non-Af 62, BUN/Creatinine Ratio 23.7 H, Glucose 109 H, Calcium 8.3 L, Phosphorus 2.1 L, Magnesium 2.3 Micro: Microbiology 02/24/24 12:26 Swab (Method) Nasal Screen MRSA/MSSA - Final Radiography Diagnostic Testing: Radiology Impression Lumbar Spine X-Ray 03/02/24 10:40 IMPRESSION: Status post interpedicular screw and daren fixation at the L2-L3, L3-L4 and L4-L5 levels. Electronically Signed: Alejandro Domingo MD at 12:40 EDT , Physical Exam Narrative Dressing?CDI. Abdomen soft, nontender. Neurologic evaluation lower extremity shows 5 x 5 power in all muscle groups, except right EHL and right ankle dorsiflexion which are both grade 1/2. Denies any paresthesias. Sensory exam shows only mild numbness in the right L5 dermatome compared to other dermatomes and other side. Assessment & Plan Assessment/Plan (1) Status post lumbar spinal fusion: PLAN: Plan Postop day 2 status post L2-5 fusion. Spoke at length yesterday with patient and family, and also this morning with the patient regarding the right foot weakness. He had some baseline weakness in the right foot, but this has now been worse to grade 1 or 2 in both ankle dorsiflexion and EHL. Due to this right foot drop, I recommended foot drop splint, preferably dynamic if possible. Prescription for this was made. Foot drop splint will help with safety to avoid tripping. Encouraged active attempts at ankle and toe dorsiflexion frequently. May benefit from electrical stimulation or other modalities by PT. For the weakness, I would recommend observation. I will continue to keep fol low-up for this. Patient is now passing gas and tolerating solid diet. Okay to discharge home today. Patient will see me back in 2 weeks follow-up.
[2024-03-03 10:00] VITALS: BP 102/62; PULSE 88; RESP 15; TEMP 36.6; O2SAT 93
--- NOTE | 2024-03-03 12:43 | CASEMGMT ---
Addendum entered by Isaiah Miranda 03/03/24 13:21: Per Dr Tucker, pt does not need any OP therapy scheduled at this time unless [facility] therapy recommends HHC after evaluating pt. Otherwise, Dr Tucker states he will set up OP therapy @ the 2-week f/u appt. BART JONES spoke w/Payton in therapy who states no HHC or OP therapy recommended by [facility]ION[facility] Ying, at this time. BART JONES to room. and another family member @ bedside. They were made aware of above. They voice understanding and deny having any discharge needs/concerns. Original Note: BART JONES NOTE: FWW taken fro [employer] supply and provided to pt. Consignment form signed by pt, original given to pt, and copy sent to [employer] along w/script for FWW via [employer]. Rah LEHMAN RN, CM
[2024-03-03 12:55] VITALS: BP 113/63; PULSE 87; RESP 18; TEMP 36.7; O2SAT 93
--- NOTE | 2024-03-03 14:38 | PHA.DC.MR.R ---
Pharmacy [facility] Med Reconciliation Pharmacy Service has performed discharge medication reconciliation for this patient. Medication education papers prepared, patient discharged when counseling was attempted. The patient's discharge medication list was reviewed for discrepancies and discrepancies were resolved. Medications at Discharge Home Medications cholecalciferol (vitamin D3) 50 mcg (2,000 unit) capsule (Vitamin D3) 50 mcg PO DAILY supplement 05/17/21 levothyroxine 75 mcg tablet 75 mcg PO DAILY thyroid 05/17/21 vitamin E 200 unit capsule 200 unit PO DAILY supplement 05/17/21 fluticasone propionate 50 mcg/actuation nasal spray,suspension 2 spray intranasal DAILY PRN allergy symptoms 08/05/22 lisinopril 20 mg tablet 20 mg PO BID bp 08/05/22 amlodipine 5 mg tablet 5 mg PO DAILY BP 01/04/24 fenofibrate nanocrystallized 145 mg tablet 145 mg PO DAILY CHOLESTEROL 01/04/24 coenzyme Q10 100 mg capsule 100 mg PO DAILY SUPPLEMENT 01/13/24 aspirin 81 mg capsule 81 mg PO DAILY BLOOD THINNER 02/23/24 acetaminophen 500 mg tablet 500 mg PO Q6H 7 days #28 tabs 03/03/24 bisacodyl 5 mg tablet,delayed release 5 mg PO DAILY PRN constipation 2 days #2 tabs 03/03/24 methocarbamol 500 mg tablet 1,000 mg (2 x 500 mg) PO Q8H PRN pain/spasms 7 days #42 tabs 03/03/24 oxycodone 5 mg tablet 2.5 - 5 mg (0.5 - 1 x 5 mg) PO Q6H PRN pain 7 days #28 tabs 03/03/24 sennosides 8.6 mg-docusate sodium 50 mg tablet (Stool Softener-Stimulant Laxative) 2 tab PO BID PRN constipation 7 days #28 tabs 03/03/24
== END 2024-03-03 13:30 | disposition home or self-care (01) | DRG 454 ==
LOC: ACINP 05:25 → MS3 14:34
PROVIDERS: Anesthesiology; Internal Medicine; Admitting Provider Orthopaedic Surgery Orthopaedic Surgery of the Spine; PCP Family Medicine; Referring Provider Orthopaedic Surgery Orthopaedic Surgery of the Spine; Visit Provider Internal Medicine
PROC: 0SG10A0 Fusion of 2 or more Lumbar Vertebral Joints with Interbody Fusion Device, Anterior Approach, Anterior Column, Open Approach (ICD-10-PCS; principal; 2024-03-01 07:00)
DX: M43.16 Spondylolisthesis, lumbar region (principal); N17.9 Acute kidney failure, unspecified; D63.8 Anemia in other chronic diseases classified elsewhere; E03.9 Hypothyroidism, unspecified; I10 Essential (primary) hypertension; M48.062 Spinal stenosis, lumbar region with neurogenic claudication; I25.10 Atherosclerotic heart disease of native coronary artery without angina pectoris; E78.00 Pure hypercholesterolemia, unspecified; M51.16 Intervertebral disc disorders with radiculopathy, lumbar region; M21.371 Foot drop, right foot; Z68.32 Body mass index [BMI] 32.0-32.9, adult; X58.XXXA Exposure to other specified factors, initial encounter; E66.9 Obesity, unspecified; R33.8 Other retention of urine; Z95.5 Presence of coronary angioplasty implant and graft; Z79.82 Long term (current) use of aspirin; Z79.899 Other long term (current) drug therapy; Z86.73 Personal history of transient ischemic attack (TIA), and cerebral infarction without residual deficits; Z87.891 Personal history of nicotine dependence
CPT/HCPCS: 36415; 72100; 76000; 80048; 80061; 81001; 82962; 83735; 84100; 84443; 85025; 85027; 86703; 86706; 86708; 86803; 87081; 93005; 94668; 97162; 97166; 97530; C1713; J7030; J7120; A4216; J2405; J3475

== ENCOUNTER → 2024-09-13 | Outpatient (CLI) | payer MEDICARE, OTHER, SELFPAY ==
--- NOTE | 2024-09-13 14:13 | MRI_ITS ---
STUDY: MRI LUMBAR SPINE WITHOUT CONTRAST REASON FOR EXAM: Male, 84 years old. Right partial foot drop TECHNIQUE: Standardized fat and water weighted pulse sequences were obtained in the sagittal and axial planes. COMPARISON: Lumbar spine radiographs 09/03/2024. FINDINGS: T10-T11: (Sagittal only). Normal endplates. Normal disc height and morphology. Normal central canal and the partially included portions of the bilateral intervertebral neuroforamina. T11-T12: (Sagittal only). Normal endplates. Normal disc height. Mild ventral extradural defect due to posterior bulging annulus. Normal central canal and bilateral intervertebral neuroforamina. T12-L1: Normal endplates. Normal disc height, hydration and morphology. Normal bilateral facet joints. Normal central canal and bilateral lateral recesses. Normal bilateral intervertebral neural foramina. Normal lumbar lordosis. There is no substantial scoliosis. Normal conus medullaris that terminates at the lower T12 vertebral body level. L1-2: Normal endplates. Normal disc height, hydration and morphology. Normal bilateral facet joints. Normal central canal and bilateral lateral recesses. Normal bilateral intervertebral neural foramina. Small bilateral renal cysts are visible at this level. L2-3: Disc implant inside the disc space. Old central compression fracture of the upper L3 vertebral body. L2 pedicular screws causing signal distortion artifacts on the facet joints. No significant facet arthropathy. Normal central canal and bilateral lateral recesses. Normal bilateral intervertebral neuroforamina. L3-4: Disc implant inside the disc space. L4 pedicular screws and daren causing signal distortion artifacts on the facet joints. No significant facet arthropathy. Moderate central canal stenosis with an AP canal diameter of 7 mm. Mild stenosis of the bilateral lateral recesses. Mild stenosis of the bilateral intervertebral neuroforamina. L4-5: Disc implant inside the disc space. Pedicular screws and daren causing signal distortion artifacts. No significant facet arthropathy. Normal central canal and bilateral lateral recesses. Mild stenosis of right intervertebral neuroforamen. Normal left intervertebral neuroforamen. L5-S1: Normal endplates. Pronounced disc space height narrowing. Mild asymmetric degenerative facet arthropathy. Normal central canal and bilateral lateral recesses. Right L5 pedicular screw causing signal obliteration of the right intervertebral neuroforamen. Mild stenosis of the left intervertebral neuroforamen. Normal visualized sacral ala. Normal visualized paraspinous soft tissue structures. MRI/Spine Lumbar (Routine) IMPRESSION: 1. Moderate central canal stenosis at L3-L4 disc space level with an AP canal diameter 7 mm, mild stenosis of the bilateral lateral recesses and mild stenosis of the bilateral intervertebral neuroforamina. 2. Mild stenosis of the right L4-L5 intervertebral neuroforamen. 3. Mild stenosis of the left L5-S1 intervertebral neuroforamen and right L5 pedicular screw causing signal obliteration of the right L5-S1 intervertebral neuroforamen. 4. No MRI evidence of lumbar extruded disc fragment. Electronically Signed: Werner Velasco MD at 13:58 EST ,
== END | disposition home or self-care (01) ==
PROVIDERS: PCP Family Medicine; Referring Provider Orthopaedic Surgery Orthopaedic Surgery of the Spine; Visit Provider Orthopaedic Surgery Orthopaedic Surgery of the Spine
DX: M21.371 Foot drop, right foot (principal)
CPT/HCPCS: 72148

== ENCOUNTER → 2024-10-20 | Outpatient (CLI) | payer MEDICARE, OTHER, SELFPAY ==
[2024-10-20 10:15] LABS: Hematocrit 44.9 % (40-54); Hemoglobin 14.1 g/dL (13.0-16.5); Mean Corp Hgb Conc 31.4 g/dL (32-36); Mean Corpuscular Hgb 29.8 pg (27.0-32.0); Mean Corpuscular Volume 94.9 fL (80-94); Mean Platelet Vol. 11.6 fl (6.2-12.0); Platelet Count 347 K/mm3 (150-450); RBC Distribution Width CV 13.1 % (11.6-14.6); Red Blood Count 4.73 M/mm3 (4.6-6.2); White Blood Count 6.3 K/mm3 (4.4-11.0)
[2024-10-20 11:15] LABS: ALB/GLOB Ratio 1.1 RATIO (0.9-2.4); AST(SGOT) 23 U/L (15-37); Alanine Aminotransfer ALT/SGPT 25 U/L (16-61); Albumin, Serum 3.9 g/dL (3.2-5.0); Alkaline Phosphatase 80 U/L (45-117); Anion Gap 5 (5-15); BUN 17 mg/dL (7-18); Calcium,Total 8.8 mg/dL (8.5-10.1); Chloride 108 mmol/L (98-107); Cholesterol 175 mg/dL (200); Creatinine, Serum 1.21 mg/dL (0.70-1.30); EST Glomerular Filtration Rate 61 mL/min (>60); Est Glom Filt Rate - Afr Amer 73 mL/min (>60); Globulin 3.4 g/dL (2.2-4.2); Glucose 88 mg/dL (74-106); High Density Lipoprotein 52 mg/dL; Protein, Total 7.3 g/dL (6.4-8.2); Sodium Level 139 mmol/L (136-145); Triglycerides 83 mg/dL; Very Low Density Lipoprotein 17 mg/dL (5-40)
== END | disposition home or self-care (01) ==
LOC: MFPLAB 09:02
PROVIDERS: PCP Family Medicine; Referring Provider Family Medicine; Visit Provider Family Medicine
DX: E78.00 Pure hypercholesterolemia, unspecified (principal); I10 Essential (primary) hypertension; E03.9 Hypothyroidism, unspecified; E55.9 Vitamin D deficiency, unspecified
CPT/HCPCS: 36415; 80053; 80061; 82306; 84443; 85027

== ENCOUNTER → 2024-12-02 | Outpatient (CLI) | payer MEDICARE, OTHER, SELFPAY ==
--- NOTE | 2024-12-02 13:21 | CT_ITS ---
PROCEDURE: SPINE LUMBAR WITHOUT CONTRAST REASON FOR EXAM: Right leg pain. Prior low back surgery. TECHNIQUE: Lumbar spine CT without contrast. COMPARISON: None. FINDINGS: Vertebrae: Prior vertebroplasty of the L2 and L4 lumbar vertebrae. Alignment: No spondylolisthesis. L1-2: Vertebroplasty of the L2 vertebra with minimal loss of height of the superior endplate. L2-3: Vertebroplasty of the L2 vertebrae. The patient is status post fusion with inter pedicular screw fixation. Prosthetic disc is placed. L3-4: Status post prosthetic disc placement. Facet joint osteoarthritis and hypertrophy. Moderate degree of bilateral neural foraminal stenosis worse on the right side. L4-5: Prior intrapedicular screw fixation and daren fixation. Prostatic disc. Prior vertebroplasty. Bilateral neural foraminal stenosis. L5-S1: Prior fusion. Prior vertebroplasty. Prosthetic disc placement. Sacrum: Visualized upper sacrum and SI joints are unremarkable. Atherosclerotic calcification of the abdominal aorta. CT/Spine Lumbar without Contrast IMPRESSION: Prior fusion at the L2-L3, L4-L5 and L5-S1 levels with prosthetic disc placemen t. Vertebroplasty at the L2-L4 and L5 bilateral neural foraminal stenosis at the L3-L4 and L4-L5 level. One or more dose reduction techniques were used (e.g., Automated exposure contr ol, adjustment of the mA and/or kV according to patient size, use of iterative reconstruction technique). Reading Location: [place] [id number]
== END | disposition home or self-care (01) ==
PROVIDERS: PCP Family Medicine; Referring Provider Orthopaedic Surgery Orthopaedic Surgery of the Spine; Visit Provider Orthopaedic Surgery Orthopaedic Surgery of the Spine
DX: M21.371 Foot drop, right foot (principal); M48.062 Spinal stenosis, lumbar region with neurogenic claudication; Z98.1 Arthrodesis status
CPT/HCPCS: 72131

== ENCOUNTER 2024-12-08 13:50 | Observation (INO) | payer MEDICARE, OTHER, SELFPAY ==
--- NOTE | 2024-11-29 16:12 | PAT.ANE_ITS ---
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
--- NOTE | 2024-11-29 16:12 | PAT.ANESEVAL ---
Pre-Assessment Diagnosis/Proposed Procedure Planned Operative Procedure(s): LUMBAR LAMINECTOMY DECOMPRESSION RIGHT L4-5 Anesthesia History Anesthesia History - systems support officer: Anesthesia History - systems support officer Hx Hospitalization No 11/29/24 11:26 Any Problems With Anesthesia No 11/29/24 11:26 Cholinesterase deficiency No 11/29/24 11:26 You/Your Family Experience No 11/29/24 11:26 fever (hyperthermia) with Relationship Recent Exposure to Contagious No 03/01/24 06:07 Disease Does patient have nerve No 11/29/24 11:26 stimulator Patient instructed to have device shut off --Does patient have Pacemaker or ICD? When Was Last Pacemaker Check QUESTION #4 FULL TEXT: You/Your Family Experience fever (hyperthermia) with Anesthesia Last Oral Intake Last Oral intake: Last Oral Intake NPO since Meds taken in AM with sips of water? Meds patient instructed to take am of surgery PONV PONV - systems support officer: PONV - systems support officer Female No 11/29/24 11:26 HX of Motion Sickness No 11/29/24 11:26 HX of N/V After Surgery No 11/29/24 11:26 Non-Smoker Yes 11/29/24 11:26 Duration of Surgery greater Yes 11/29/24 11:26 than 60 minutes Number of Risk Factors 2 11/29/24 11:26 PONV Score Moderate Risk 11/29/24 11:26 Height & Weight Height & Weight: Anesthesia: Height & Weight Height 5 ft 9 in 05/10/24 09:20 Respiratory Assessment Respiratory Assessment - systems support officer: Respiratory Tract Infection Hx - systems support officer Hx Respiratory Tract Infection No 11/29/24 11:26 STOP Sleep Apnea STOP Sleep Apnea - systems support officer: STOP Sleep Apnea - systems support officer Hx Hypertension Yes: CONTROLLED WITH MEDS 11/29/24 11:26 Hx Sleep Apnea No 11/29/24 11:26 CPAP BIPAP Do you snore loudly (louder No 11/29/24 11:26 than talking or can be heard Do you often feel tired/ No 11/29/24 11:26 fatigued/ sleepy during daytime? Has anyone observed you stop No 11/29/24 11:26 breathing during sleep? STOP Results Negative 11/29/24 11:26 QUESTION #5 FULL TEXT : Do you snore loudly (louder than talking or can be heard through closed doors)? Tobacco Use History Tobacco Use History - systems support officer: Tobacco Use History - systems support officer Tobacco Use Smoking Status Former smoker 11/29/24 11:26 Hx Tobacco Use No 11/29/24 11:26 Years Smoking Packs Smoked per Day Smoking Cessation Date was No - quit smoking greater 11/29/24 11:26 within the last 15 years than 15 years ago Hx Smoking Cessation Date 05/17/06 11/29/24 11:26 Hx Smoking Cessation No 11/29/24 11:26 Counseling Hematologic Medial History Hematologic Hx - systems support officer: Hematologic Medical Hx - rn clinical documentation Hx of Blood Transfusion No 11/29/24 11:26 Hx of Transfusion in last 3 No 11/29/24 11:26 Months Date of Last Transfusion (if within last 3 months) Ever experience any problems No 11/29/24 11:26 with transfusion(s)? Specify any problems Hx of Preganancy in last 3 N/A 11/29/24 11:26 Months Nurse Filling Out Transfusion DSCHRIBER 11/29/24 11:26 & Questions: Date: 11/29/24 11/29/24 11:26 Time: 11:28 11/29/24 11:26 Patient unable to answer at this time (ie. confused, unrespo /Reproduction History /Reproductive History - systems support officer: /Reproductive Hx- systems support officer Hx Now No 11/29/24 11:26 Gestational Age (in weeks): EDC: Hx Hx Para Hx Section SAB No 11/29/24 11:26 PFSH Medical History (Updated 11/29/24 @ 11:34 by Carin Tamayo) Thyroid disease Arthritis High cholesterol Back pain History of pain when walking History of stress test Cardiology follow-up encounter Atherosclerotic heart disease of [place] coronary artery without angina pectoris Obesity Hypothyroidism Essential hypertension BPH with obstruction/lower urinary tract symptoms Wears hearing aid Wears glasses Wears dentures Prostate disease Easy bruising Degenerative disc disease Former smoker History of cataract Home Medications ?Medication ?Instructions ?Recorded ?Last Taken ?Type cholecalciferol (vitamin D3) 50 50 mcg PO DAILY supplement 05/17/21 02/29/24 History mcg (2,000 unit) capsule (Vitamin D3) levothyroxine 75 mcg tablet 75 mcg PO DAILY thyroid 05/17/21 03/01/24 04:00 History vitamin E 200 unit capsule 200 unit PO DAILY supplement 05/17/21 02/29/24 08:00 History fluticasone propionate 50 2 spray intranasal DAILY PRN 08/05/22 02/29/24 22:00 History mcg/actuation nasal allergy symptoms spray,suspension lisinopril 20 mg tablet 20 mg PO BID bp 08/05/22 03/01/24 04:00 History amlodipine 5 mg tablet 5 mg PO DAILY BP 01/04/24 03/01/24 04:00 History fenofibrate nanocrystallized 145 145 mg PO DAILY CHOLESTEROL 01/04/24 02/29/24 22:00 History mg tablet coenzyme Q10 100 mg capsule 100 mg PO DAILY SUPPLEMENT 01/13/24 02/29/24 20:04 History aspirin 81 mg capsule 81 mg PO DAILY BLOOD THINNER 02/23/24 02/21/24 History Allergy/AdvReac Type Severity Reaction Status Date / Time [id number] Reductase Allergy Severe Pain in Verified 11/29/24 11:22 Inhibitor joints Family History Mother Hypertension Father Alzheimer's disease Brother Lung cancer Brother Hypertension Pacemaker Sister Hypertension Sister Hypertension Sister Hypertension Surgical History (Updated 11/29/24 @ 11:34 by Carin Tamayo) History of lumbar fusion History of cardiac catheterization History of coronary artery stent placement (04/08/22) History of bilateral cataract extraction (2011) History of tonsillectomy History of transurethral resection of prostate Social History household members: spouse Smoking Status: Former smoker alcohol intake: never substance use type: does not use caffeine: No Audit: Pertinent Findings Pertinent Findings EKG Perinent findings: NSR with first degree A-V block Stress test pertinent findings: infero-lateral ischemia with preserved EF Heart catheterization pertinent findings: moderate LAD disease. Stent placed in 2021. Consult pertinent findings: No apparent new symptoms Recommendation Anesthesia Recommendation Anesthesia recommendation: OPTIMIZED for anesthesia
[2024-12-01 12:50] LABS: HIV - WCH Non-Reactive (Nonreactive); Hepatitis B Surface Antibody Non-Reactive; Hepatitis C Antibody Non-Reactive (Nonreactive)
[2024-12-01 21:37] LABS: Magnesium 2.5 mg/dL (1.6-2.6)
[2024-12-02 06:34] LABS: Hepatitis A AB, Total Positive (Negative)
[2024-12-08] VITALS (12 sets, daily range): BP systolic 110–141; BP diastolic 57–78; PULSE 52–69; RESP 13–18; TEMP 36.2–37.1; O2SAT 92–100; BMI 32.2
--- NOTE | 2024-12-08 09:58 | PCM.PRE.AN2 ---
ASA Classification* ASA Classification ASA Classification: 3 Assessment & Plan Anesthesia* Anesthesia Assessment Anesthesia Assessment: Discussed sedation and/or anesthesia options, risks, benefits, and alternatives with patient/parents/legal guardian/POA. Questions invited. The patient/parents/legal guardian/POA seems to understand and agrees to proceed with anesthesia plan. Reviewed the physical assessment, medical history, allergy history and patient home medications list prior to surgery/procedure/anesthetic and documented any changes. Performed airway and anesthesia risk assessments. Anesthesia Type Anesthesia Type: General Anesthesia Focused Assessment* Airway Assessment Mouth opens: >3 cm Mallampati Score: II Focused Labs Anesthesia Preop lab: CBC WBC 6.3 K/mm3 (4.4-11.0) 10/20/24 09:04 10/20/24 RBC 4.73 M/mm3 (4.6-6.2) 10/20/24 09:04 10/20/24 Hgb 14.1 g/dL (13.0-16.5) 10/20/24 09:04 10/20/24 Hct 44.9 % (40-54) 10/20/24 09:04 10/20/24 Plt Count 347 K/mm3 (150-450) 10/20/24 09:04 10/20/24 CHEMISTRY Potassium 4.0 mmol/L (3.5-5.1) 10/20/24 09:04 10/20/24 Sodium 139 mmol/L (136-145) 10/20/24 09:04 10/20/24 Magnesium 2.5 mg/dL (1.6-2.6) 12/01/24 11:28 12/01/24 Phosphorus 2.1 mg/dL (2.5-4.9) L 03/03/24 05:56 03/03/24 BUN 17 mg/dL (7-18) 10/20/24 09:04 10/20/24 Creatinine 1.21 mg/dL (0.70-1.30) 10/20/24 09:04 10/20/24 Glucose 88 mg/dL (74-106) 10/20/24 09:04 10/20/24 POC Glucose 74 mg/dL (74-106) 03/01/24 06:00 03/01/24 TSH 3.080 uIU/mL (0.358-3.740) 10/20/24 09:04 10/20/24 COAG PT 14.1 SECONDS (11.7-14.9) 05/18/21 09:32 05/18/21 Pre-Assessment Diagnosis/Proposed Procedure Planned Operative Procedure(s): LUMBAR LAMINECTOMY DECOMPRESSION RIGHT L4-5 Anesthesia History 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 When Was Last Pacemaker Check QUESTION #4 FULL TEXT: You/Your Family Experience fever (hyperthermia) with Anesthesia Last Oral Intake Last Oral intake: Last Oral Intake NPO since Meds taken in AM with sips of water? 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 Has anyone observed you stop No 11/29/24 11:26 breathing during sleep? STOP Results Negative 11/29/24 11:26 QUESTION #5 FULL TEXT : Do you snore loudly (louder than talking or can be heard through closed doors)? 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 Specify any problems Hx of Preganancy in last 3 N/A 11/29/24 11:26 Months Nurse Filling Out Transfusion DSCHRIBER 11/29/24 11:26 & Questions: Date: 11/29/24 11/29/24 11:26 Time: 11:28 11/29/24 11:26 Patient unable to answer at this time (ie. 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 Hx Now No 11/29/24 11:26 Gestational Age (in weeks): EDC: Hx Hx Para Hx Section SAB No 11/29/24 11:26 Active Medications Active Medications: Current Medications Generic Name Dose Route Start Last Admin Trade Name Freq PRN Reason Stop Dose Admin Acetaminophen 1,000 mg 12/08/24 12:30 Acetaminophen 500 Mg Tablet PO 12/08/24 12:31 X1 ONE Cefazolin Sodium 2 gm/ N/A 20 mls @ 400 mls/hr 12/08/24 12:30 IV 12/08/24 12:32 PREOP ONE Tranexamic Acid 1,000 mg/ 110 mls @ 440 mls/hr 12/08/24 12:30 Sodium Chloride IV 12/08/24 12:44 X1 ONE Tranexamic Acid 1,000 mg/ 110 mls @ 440 mls/hr 12/08/24 12:30 Sodium Chloride IV 12/08/24 12:44 X1 ONE Magnesium Sulfate 1 gm/ 102 mls @ 408 mls/hr 12/08/24 12:30 Dextrose IV 12/08/24 12:44 X1 ONE Insulin Human Lispro 1 - 6 unit 12/08/24 12:30 Insulin Lispro 100 Unit/Ml Insuln.Pen SC 12/08/24 18:00 Q4H PRN PRN BG>/= 180, SEE PROTOCOL Protocol PFSH Medical History Thyroid disease Arthritis High cholesterol Back pain History of pain when walking History of stress test Cardiology follow-up encounter Atherosclerotic heart disease of [place] coronary artery without angina pectoris Obesity Hypothyroidism Essential hypertension BPH with obstruction/lower urinary tract symptoms Wears hearing aid Wears glasses Wears dentures Prostate disease Easy bruising Degenerative disc disease Former smoker History of cataract Home Medications ?Medication ?Instructions ?Recorded ?Last Taken ?Type cholecalciferol (vitamin D3) 50 50 mcg PO DAILY supplement 05/17/21 02/29/24 History mcg (2,000 unit) capsule (Vitamin D3) levothyroxine 75 mcg tablet 75 mcg PO DAILY thyroid 05/17/21 03/01/24 04:00 History vitamin E 200 unit capsule 200 unit PO DAILY supplement 05/17/21 02/29/24 08:00 History fluticasone propionate 50 2 spray intranasal DAILY PRN 08/05/22 02/29/24 22:00 History mcg/actuation nasal allergy symptoms spray,suspension lisinopril 20 mg tablet 20 mg PO BID bp 08/05/22 03/01/24 04:00 History amlodipine 5 mg tablet 5 mg PO DAILY BP 01/04/24 03/01/24 04:00 History fenofibrate nanocrystallized 145 145 mg PO DAILY CHOLESTEROL 01/04/24 02/29/24 22:00 History mg tablet coenzyme Q10 100 mg capsule 100 mg PO DAILY SUPPLEMENT 01/13/24 02/29/24 20:04 History aspirin 81 mg capsule 81 mg PO DAILY BLOOD THINNER 02/23/24 02/21/24 History Allergy/AdvReac Type Severity Reaction Status Date / Time [id number] Reductase Allergy Severe Pain in Verified 12/01/24 10:23 Inhibitor joints Family History Mother Hypertension Father Alzheimer's disease Brother Lung cancer Brother Hypertension Pacemaker Sister Hypertension Sister Hypertension Sister Hypertension Surgical History History of lumbar fusion History of cardiac catheterization History of coronary artery stent placement (04/08/22) History of bilateral cataract extraction (2011) History of tonsillectomy History of transurethral resection of prostate Social History household members: spouse Smoking Status: Former smoker alcohol intake: never substance use type: does not use caffeine: No Review of Systems (Anesthesia) ROS Narrative System reviewed and no additional complaints, except as documented.
[2024-12-08] MEDS: Acetaminophen 500 MG Tablet 1000 MG PO (10:25)
[2024-12-08] MEDS: 0.9% Normal Saline (1000mL) 1,000 ML 15 ML IV (10:25)
[2024-12-08] MEDS: Magnesium 1 GM over 15 mins IV (10:25)
--- NOTE | 2024-12-08 10:54 | PCM.HP.BLA ---
History and Physical Date of Admission: 12/08/24 MR#: [id number] Acct: [id number] Name: Teri VERDIN Rep #: [id number] : 1940 Provider: Dr. Iraj Tucker MD Age/Sex: 84/M Location: [facility] [place] Status: Signed Intake Vital Signs 05/10/2409:20 12/01/2509:22 Height 5 ft 9 in 5 ft 9 in Weight: 220 lb 4 oz BMI 32.5 Intake Visit Reasons: lumbar spine Chief Complaint: Lumbar spine pre-op Accompanied by: and Daughter Is patient in pain?: Yes Pain scale (1-10): 1 Allergies Fothxka-CAH-TtB Reductase Inhibitor Allergy (Severe, Verified 12/01/24 10:23) Pain in joints Medications ?Medication ?Instructions ?Recorded ?Confirmed ?Type cholecalciferol (vitamin D3) 50 50 mcg PO DAILY supplement 05/17/21 12/01/24 History mcg (2,000 unit) capsule (Vitamin D3) levothyroxine 75 mcg tablet 75 mcg PO DAILY thyroid 05/17/21 12/01/24 History vitamin E 200 unit capsule 200 unit PO DAILY supplement 05/17/21 12/01/24 History fluticasone propionate 50 2 spray intranasal DAILY PRN 08/05/22 12/01/24 History mcg/actuation nasal allergy symptoms spray,suspension lisinopril 20 mg tablet 20 mg PO BID bp 08/05/22 12/01/24 History amlodipine 5 mg tablet 5 mg PO DAILY BP 01/04/24 12/01/24 History fenofibrate nanocrystallized 145 145 mg PO DAILY CHOLESTEROL 01/04/24 12/01/24 History mg tablet coenzyme Q10 100 mg capsule 100 mg PO DAILY SUPPLEMENT 01/13/24 12/01/24 History aspirin 81 mg capsule 81 mg PO DAILY BLOOD THINNER 02/23/24 12/01/24 History Have you fallen in the past year?: No PFSH Medical History Thyroid disease Arthritis High cholesterol Back pain History of pain when walking History of stress test Cardiology follow-up encounter Atherosclerotic heart disease of [place] coronary artery without angina pectoris Obesity Hypothyroidism Essential hypertension BPH with obstruction/lower urinary tract symptoms Wears hearing aid Wears glasses Wears dentures Prostate disease Easy bruising Degenerative disc disease Former smoker History of cataract Surgical History History of lumbar fusion History of cardiac catheterization History of coronary artery stent placement (04/08/22) History of bilateral cataract extraction (2011) History of tonsillectomy History of transurethral resection of prostate Family History Mother HypertensionFather Alzheimer's diseaseBrother Lung cancerBrother Hypertension PacemakerSister HypertensionSister HypertensionSister Hypertension Social History household members: spouse Smoking Status: Former smoker alcohol intake: never substance use type: does not use caffeine: No HPI lumbar spine Details: This documentation accurately reflects the service provided and the decisions made by me, Dr. Iraj Tucker MD 12/01/24 1020. Part of today?s visit was documented by Kesha Han ATC, acting as scribe. Teir VERDIN is a 84 year old M here today for pre-op lumbar laminectomy decompression right L4-5 DOS 12/08/2024. Patient rates his pain a /10. Patient states his pain and symptoms have not changed since he was last seen. Patient denies any recent injections. Patient takes baby aspirin for a prior stent placement. No other blood thinners. HPI from 09/24/24: Teri VERDIN is a 84 year old M here today for MRI review of his lumbar spine. He denies any changes. He is still having swelling in the right leg. He continues to use his cane to ambulate. HPI from 09/03/24: Teri VERDIN is a 84 year old M here today for 6 month s/p L2-5 posterior percutaneous pedicle screw instrumented fusion, cement augmentation, prone DOS 03/01/2024. Patient states he is feeling good. Patient states he has pain but its a different pain. Patient does have numbness and pain in his right foot that goes up to his knee and some times he has it is his hip. Right foot is still swollen he thinks its a little worse. Patient right leg is also swollen. Patient hasn't been using the foot drop splint. Patient is still walking with a cane. Says that his right foot strength at improved. He does a home exercise program at home. Ortho Exam General General: Yes no acute distress Neurologic: Yes alert and Yes oriented x3 Spine SPINE TESTING CERVICAL THORACIC LUMBAR Musculoskeletal Strength 0=absent - 5=normal Details: Examination of the back and belly show incisions well-healed 4 paramedian. Neurologic exam of the lower extremity shows 5 x 5 power normal shows except for right ankle tibialis anterior is grade 4-, EHL is grade 1, peroneals is grade 4-, gastrosoleus is 5 x 5. Lower extremity edema, appears equal. Patient says that he is not able to move the toes on his right foot. Normal sensations across all dermatomes. Coding Level of Care Code Off vis,est,level 4 Diagnoses Right foot drop M21.371 Status post lumbar spinal fusion Z98.1 Lumbar radiculopathy M54.16 Time Spent (min) 35 Assessment and Plan Assessment and Plan (1) Right foot drop: Status: Acute (2) Status post lumbar spinal fusion: Status: Acute (3) Lumbar radiculopathy: Status: Acute Orders: Orders Spine Lumbar without Contrast Today M21.371 - Foot drop, right foot, M48.062 - Spinal stenosis, lumbar region with neurogenic claudication, Z98.1 - Arthrodesis status Plan Again reviewed prior imaging today with the patient. The MRI shows stable L2-5 fusion. Stenosis at the operative levels is much improved from preoperative MRI. Residual right lateral recess stenosis at L4-5 noticed, which is improved from preoperative MRI. Again discussed treatment options with the patient. Continue nonoperative treat measures versus surgical laminotomy decompression of the right L5 nerve are discussed again. Patient feels that he is plateaued and continues to have tingling numbness that worsens with walking. I recommend L4-5 right laminotomy and lateral recess decompression of the right L5 nerve root. Recommended that the patient will get a lumbar spine CT scan prior to his surgery next week. Discussed laminotomy procedure in detail and restrictions after. Reviewed the benefits and risks of surgery. Risks of surgery include bleeding, infection, pneumonia, DVT, pulmonary embolism, atelectasis, gait abnormality, persistent pain, stretch injuries, chance for future surgeries. Patient understands and agrees to proceed with surgery. Discussed post surgery restrictions such as no bending, lifting, or twisting. Answered all questions that he had today in preparation for surgery. Consent was signed. Patient is in agreement.
--- NOTE | 2024-12-08 11:15 | RAD_ITS ---
PROCEDURE: Fluoroscopy less than 1 hour REASON FOR EXAM: Laminectomy, posterior decompression TECHNIQUE: Single fluoroscopic image was submitted. Fluoroscopy time was 3.1 seconds. Peak skin radiation dose was 2.2 mGy. COMPARISON: 12/02/2024 FINDINGS: See impression RAD/Spine 1 View Any Level IMPRESSION: Posterior spinal fusion hardware at L2, L4 and L5 with superimposed vertebropla sty changes. Multilevel disc spacers are present. Reading Location: [facility]
[2024-12-08] MEDS: Cefazolin 2 GM in Syringe 10 ML IV ×2 (11:50→21:02)
[2024-12-08] MEDS: TRANEXAMIC ACID 1,000 MG in 0.9% Normal Saline (100mL Bag) 100 ML 440 MG IV ×2 (11:51→13:15)
[2024-12-08 12:06] LABS: Bedside Glucose 67 mg/dL (74-106)
[2024-12-08] MEDS: Dexamethasone IV Preserv Free 10 MG/ML VIAL OPERA.SITE (13:07)
[2024-12-08] MEDS: Ropivacaine 0.5% 30 ML Vial (13:25)
--- NOTE | 2024-12-08 14:04 | PCM.OPRPT ---
Procedures Musculoskeletal [id number]: Other Procedure See Report Operative Report (Standard) Operative Information Date of Procedure: 12/08/24 Pre-Operative Diagnosis: L4-5 right lateral recess stenosis, prior fusion Post-Operative Diagnosis: Same Surgery/Procedure Performed: L4-5 right hemilaminectomy, facetectomy firestopper technician: Yes Talent Development Coordinator: Keyanna Hendricks Tasks completed by anesthesiologist assistant certified: Closing, Removing tissue, Hemostasis: Electrocautery and Retracting Type of Anesthesia: General RN Documented Start/Stop Times: Operation Date: 12/08/24 12:15 Case Time Into Pre-Op 12/08/24 10:04 Out of Pre-Op 12/08/24 11:44 Anesthesia Start 12/08/24 11:49 Into Room 12/08/24 11:49 Procedure Start 12/08/24 12:13 Procedure End 12/08/24 13:45 Anesthesia End 12/08/24 13:50 Out of Room 12/08/24 13:50 Procedure Start Time: 12:13 Procedure Stop Time: 13:45 Select all DRAINS/GRAFTS/IMPLANTS that apply: None Estimated Blood Loss: 30 cc Specimen collected: No Description of surgery: Preoperative diagnosis: L4-5 right lateral recess stenosis, right partial foot drop Postoperative diagnosis: Same Name of procedure: L4-5 right hemilaminectomy, facetectomy CPT 38102 Attending Surgeon: Dr. Iraj Tucker Estimated blood loss: 30 mL Anesthesia: General Indications: Patient is a 84-year-old gentleman who is 9 months status post L2-5 fusion with Right partial foot drop which improved initially but has now plateaued. Weakness and numbness seem to increase with walking. Imaging showed L2-5 fusion stable with right L4-5 lateral recess stenosis. All options of treatment were discussed which included continued nonoperative treatment measures like rest physical therapy. After prolonged nonsurgical treatment, patient requested surgical intervention for laminectomy. All risks and benefits associated with the procedure were explained to the patient. The risks include but are not limited to infection, bleeding, injury to nerves and vessels, persistent paresthesia, incidental dural tear, recurrent disc herniation, spinal instability and need for fusion or other procedures in future, persistent pain, persistent weakness and numbness, etc. Procedure: The patient was identified in the preoperative holding suite using Unique patient identifiers. Skin was marked, consent was reviewed, and all questions were answered. The patient was then brought back to the operative room. A surgical timeout was performed to make sure correct procedure was being done on the correct patient and all operative room staff were on the same page. General endotracheal anesthesia was then given to the patient. The patient was then turned prone onto a Sam table over a Stanislav frame. The back was prepped and draped in usual fashion. Preoperative antibiotic was given. A final timeout was then again done just before starting the procedure. An incision was then carried out approximately 1 inch length in the midline using the prior paramedian incisional scar for guidance for the level. Bovie was utilized to dissect through the subcutaneous tissue up to the fascia. The fascia was bovied at the spinous process. Subperiosteal dissection was carried out along the right side of the spinous process and the lamina. Lateral edge of the pars was also identified. A Sirena was then placed under the inferior edge of the lamina and a C-arm lateral view was repeated. The level was confirmed to be the L4-5 interspace. A Thomason retractor of appropriate depth was then placed to provide retraction throughout the remainder of the surgery.[employer] bone scalpel was then utilized to first create a score along the area of the hemilaminectomy. The bone scalpel was then advanced to perform the cuts along this score. The lamina and medial inferior articular process was then removed with the help of Brian. The flavum was utilized to protect the dura and superior articular process was carefully from the flavum. Partial medial facetectomy was performed to provide adequate lateral recess decompression. Superior portion of L5 lamina was also removed with help of Jl to expose the right L5 nerve root going into the foramen. All of the flavum was eventually removed. A wide decompression to expose the right L5 nerve root all the way starting from its shoulder to mid foraminal region was well decompressed and the nerve root was found to be free of any tenderness. Irrisept was kept in the wound for 1 minute and then rinsed with saline. 10 mg of preservative-free dexamethasone was then sprinkled over the dura and traversing nerve roots bilaterally. A small piece of Gelfoam was then placed over the bony window. Bur was utilized to decorticate right facet joints at L3-4 and L4-5 and morselized pieces of autologous lamina and facet were placed on these decorticated facet joints. Posterior instrumentation was not exposed. The Thomason retractor was then removed. And closure was done in layers, 0 Vicryl for the deep fascia, 2-0 Vicryl for subcutaneous tissue, and 4-0 Monocryl for the skin. The deep fascial layer was closed in a watertight fashion with interrupted 0 Vicryl augmented with strata fix. The skin closure was done with matty. Mepilex dressing was then placed over the wound covered with Tegaderm. The patient was then turned supine onto a hospital bed. The patient was extubated and taken to PACU in stable condition. The patient tolerated the procedure well and no complications occurred. Estimated blood loss for the entire surgery was 30 mL. No instrumentation was utilized in this case. No dural tear occurred in this case. I was present for the entirety of the case and performed the surgery myself. Surgical Findings: See operative note Complications Complications: No
--- NOTE | 2024-12-08 14:28 | PCM.POST.ANE ---
Anesthesia: Postop Eval I Current Vital Signs Temperature: 97.8 F Pulse Rate: 61 Blood Pressure: 121/57 Respiratory Rate: 16 Pulse Ox: 97 Oxygen Delivery Method: Nasal Cannula Oxygen Flow Rate (L/min): 4 Assessment Airway patent: Yes Spontaneous unlabored respirations: Yes nausea: No Vomiting: No Anesthesia Complication: No Fluid Hydration Crystalloid volume administer (ml): 500 Total IV fluid infused: 500 Progress Note Anesthesia document: Postop Eval 1 completed: Yes
--- NOTE | 2024-12-08 14:29 | PCM.POSTANE2 ---
Anesthesia Postop Eval I Sum Postop Eval Completion status Anesthesia document: Postop Eval 1 completed: Yes Anesthesia Postop Eval I Summary Anesthesia Postop Eval I Summary: Anesthesia Postop Eval I: Assessment Summary Airway patent Yes 12/08/24 14:29 Spontaneous unlabored Yes 12/08/24 14:29 respirations Mental status nausea No 12/08/24 14:29 Vomiting No 12/08/24 14:29 Anesthesia Postop Eval I: Fluid Summary Crystalloid volume administer 500 12/08/24 14:29 (ml) Colloids volume administered ( ml) Blood Product volume administered (ml) Total IV fluid infused 500 12/08/24 14:29 Anesthesia Postop Eval I: Summary Notes Anesthesia Complication No 12/08/24 14:29 Anesthesia Complication Comment: Post-operative progress note Anesthesia: Postop Eval II Evaluation Mental status: Awake Pain Level: 3 nausea: No Vomiting: No
--- NOTE | 2024-12-08 17:41 | PCM.PN.HOSP ---
Reason for Visit Reason for Visit: Diagnoses Encounter for other preprocedural examination (12/08/24) Subjective Subjective 84-year-old male history of hypertension, coronary artery disease with PCI, hypothyroidism presented [facility] 12/08/2024 for L4-5 right hemilaminectomy and facetectomy with Dr. Tucker. Hospitalist consulted for postop medical management. Patient evaluated at bedside with family members present, overall feeling well with no chest pain or shortness of breath, no nausea and is eating without difficulty, no difficulty swallowing. No new or acute complaints Objective Data Objective Data Vital Signs: Vital Signs Temp Pulse Resp BP Pulse Ox O2 Del Method O2 Flow Rate 98.7 F 54 L 18 130/77 H 100 Nasal Cannula 4 12/08/24 15:39 12/08/24 15:39 12/08/24 15:39 12/08/24 15:39 12/08/24 15:39 12/08/24 15:39 12/08/24 15:39 Oxygen Flow Rate (L/min) 4 Oxygen Delivery Method Nasal Cannula Weight: 99 kg Body Mass Index (BMI) 32.2 Intake & Output: Intake and Output for Last 24 Hours 12/06/24 12/07/24 12/08/24 23:59 23:59 23:59 Intake Total 1342 / 1342 Balance 1342 / 1342 Lab / Micro Data Labs: Laboratory Results - last 24 hr 12/08/24 10:24: POC Glucose 67 L Micro: Microbiology 12/01/24 11:27 Swab (Method) Nasal Screen MRSA/MSSA - Final Physical Exam Narrative General: Alert, no apparent distress HEENT: Atraumatic, normocephalic Eyes: extraocular movements grossly intact Neck: Supple Respiratory: normal respiratory effort GI: nondistended Extremities: Moving all extremities Neuro: No overt focal neurological deficits Psych: Cooperative Assessment & Plan Assessment/Plan (1) Essential hypertension: PLAN: Plan #Hypertension -Patient to resume his lisinopril and amlodipine #Hypothyroidism -Continue Synthroid #CAD -w/ hx of PCI -Continue aspirin when cleared to do so by primary -Continue fenofibrate -Not on statin due to pain in joints # 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 Tucker 12/08/24 -PT/OT -Management per primary #DVT ppx: At the discretion of primary Any Lindsay MD Time spent in the patient's overall evaluation, decision-making process, review of diagnostic data, adjustment of management, discussion with other providers, nursing and ancillary staff involved in patient's care documentation, 22 Minutes Charges/Coding Visit Charges Office Visits / Consults: 94741 OV L3 Est 20min
[2024-12-08] MEDS: HYDROcodone Bitartrate/Apap 5/325 Tablet PO (17:56)
[2024-12-08] MEDS: Methocarbamol 500 MG Tablet 1000 MG PO ×2 (17:58→21:06)
[2024-12-08] MEDS: 0.9% Saline Lock 10 ML Syringe IV (21:03)
[2024-12-08] MEDS: Ketorolac 15 MG/ML Vial IV (21:04)
[2024-12-08] MEDS: Senna/Docusate Sodium 1 Tablet 2 TABLET PO (21:05)
[2024-12-08] MEDS: Lisinopril 20 MG Tablet PO (21:05)
[2024-12-09 02:55] VITALS: BP 125/74; PULSE 61; RESP 20; TEMP 36.5; O2SAT 93
[2024-12-09 03:20] VITALS: BMI 32.2
[2024-12-09] MEDS: 0.9% Saline Lock 10 ML Syringe IV ×2 (03:24→06:26)
[2024-12-09] MEDS: Cefazolin 2 GM in Syringe 10 ML IV (03:25)
[2024-12-09 06:02] VITALS: BMI 32.2
[2024-12-09 06:03] VITALS: BP 116/74; PULSE 62; RESP 18; TEMP 36.5; O2SAT 94
[2024-12-09] MEDS: Levothyroxine 75 MCG Tablet PO (06:07)
[2024-12-09] MEDS: Ketorolac 15 MG/ML Vial IV (06:24)
[2024-12-09 06:56] LABS: Hematocrit 38.7 % (40-54); Hemoglobin 12.5 g/dL (13.0-16.5); Mean Corp Hgb Conc 32.3 g/dL (32-36); Mean Corpuscular Hgb 29.8 pg (27.0-32.0); Mean Corpuscular Volume 92.4 fL (80-94); Mean Platelet Vol. 11.2 fl (6.2-12.0); Platelet Count 306 K/mm3 (150-450); RBC Distribution Width CV 13.3 % (11.6-14.6); Red Blood Count 4.19 M/mm3 (4.6-6.2); White Blood Count 9.5 K/mm3 (4.4-11.0)
[2024-12-09 07:40] LABS: Anion Gap 8 (5-15); BUN 21 mg/dL (7-18); BUN/Creat Ratio 14.1 RATIO (10-20); Calcium,Total 8.7 mg/dL (8.5-10.1); Chloride 105 mmol/L (98-107); Creatinine, Serum 1.49 mg/dL (0.70-1.30); EST Glomerular Filtration Rate 48 mL/min (>60); Est Glom Filt Rate - Afr Amer 58 mL/min (>60); Estimated Creatinine Clearance 42.05 ml/min; Glucose 127 mg/dL (74-106); Potassium 4.4 mmol/L (3.5-5.1); Sodium Level 136 mmol/L (136-145)
--- NOTE | 2024-12-09 07:57 | PCM.PN.ORT ---
Subjective Subjective Patient is postop day 1 L4-5 right laminectomy. He is doing well postoperatively with his pain well-managed. Says that he has been up multiple times to walk as well as to go to the bathroom. seen with Dr. Tucker. Objective Data Objective Data Vital Signs: Vital Signs Temp Pulse Resp BP Pulse Ox O2 Del Method O2 Flow Rate 97.7 F L 62 18 116/74 94 Room Air 4 12/09/24 06:03 12/09/24 06:03 12/09/24 06:03 12/09/24 06:03 12/09/24 06:03 12/09/24 06:03 12/08/24 15:39 Oxygen Flow Rate (L/min) 4 Oxygen Delivery Method Room Air Weight: 218 lb 4.122 oz Body Mass Index (BMI) 32.2 Intake & Output: Intake and Output for Last 24 Hours 12/07/24 12/08/24 12/09/24 23:59 23:59 23:59 Intake Total 2061 Balance 2061 Lab / Micro Data 12/09/24 05:56 12/09/24 05:56 Labs: Laboratory Results - last 24 hr 12/08/24 10:24: POC Glucose 67 L 12/09/24 05:56: WBC 9.5, RBC 4.19 L, Hgb 12.5 L, Hct 38.7 L, MCV 92.4, MCH 29.8, MCHC 32.3, RDW Std Deviation 45.0 H, RDW Coeff of Sherin 13.3, Plt Count 306, MPV 11.2, Sodium 136, Potassium 4.4, Chloride 105, Carbon Dioxide 23.0, Anion Gap 8, BUN 21 H, Creatinine 1.49 H, Estim Creat Clear Calc 42.05, Est GFR (MDRD) Af Amer 58 L, Est GFR (MDRD) Non-Af 48 L, BUN/Creatinine Ratio 14.1, Glucose 127 H, Calcium 8.7 Micro: Microbiology 12/01/24 11:27 Swab (Method) Nasal Screen MRSA/MSSA - Final Radiography Diagnostic Testing: Radiology Impression Spine X-Ray 12/08/24 11:15 IMPRESSION: Posterior spinal fusion hardware at L2, L4 and L5 with superimposed vertebroplasty changes. Multilevel disc spacers are present. Reading Location: [facility] Physical Exam Narrative Neurological exam of the lower extremities shows 5 x 5 power normal shows except for right ankle tibialis anterior is grade 4-, EHL is grade 1, peroneals is grade 4-. Physical exam and of the back shows midline surgical incision covered with silver foam dressing. Const alert, oriented x3 and no apparent distress Assessment & Plan Assessment/Plan (1) Status post laminectomy: PLAN: Plan Patient is postop day 1 L4-5 right laminectomy. He has been up and has walked multiple times. Continues to have right sided foot drop. Cleared by PT/OT. Ready for home discharge. Home meds include hydrocodone/acetaminophen, methocarbamol, and senna. Follow up in clinic in 2 weeks.
[2024-12-09 08:09] VITALS: BP 134/88; PULSE 66; RESP 16; TEMP 36.4; O2SAT 99
[2024-12-09] MEDS: Fenofibrate 145 MG Tablet PO (08:25)
[2024-12-09] MEDS: Methocarbamol 500 MG Tablet 1000 MG PO ×2 (10:09→13:14)
[2024-12-09] MEDS: amLODIPine 5 MG Tablet PO (10:09)
[2024-12-09] MEDS: Meloxicam 15 MG Tablet PO (10:09)
[2024-12-09] MEDS: Lisinopril 20 MG Tablet PO (10:10)
[2024-12-09] MEDS: Senna/Docusate Sodium 1 Tablet 2 TABLET PO (10:10)
[2024-12-09 10:20] VITALS: O2SAT 95
--- NOTE | 2024-12-09 12:08 | CASEMGMT ---
BART JONES Assessment: Face to Face with pt for initial transition planning/care coordination assessment. BART JONES introduced self and role at [facility], pt voices understanding and consents to assessment. Pt is A&O x4 and answers all questions appropriately at this time. Pt sitting up in chair in no distress. came into room during assessment. Care providers, pharmacy, and demographics verified/updated. Admitting Dx:lumbar laminectomy Strata Score: 1 PCP:Janice Specialists:Garrett, ortho; Blayne, cardio; Kassi,uro Preferred Pharmacy: [facility] Retail Insurance: [employer] Insurance Prescription Benefit: yes LNOK: [place], ; Tosin Ge, dtr Living Arrangements: Pt lives with in a single story home with 2 steps to enter with a rail. Pt reports he was I prior to surgery and denies concerns at home. Transportation: Pt drives self and denies concerns with transportation. Pt family will transport him until he can drive again. DME:ext tub bench, cane, FWW, raised toilet seat HHC/SNF: Denies hx of Pt states no concerns with going home at time of dc. Pt states no further concerns/needs. CM to follow. Advised pt to ask CM if any further questions/concerns/needs arise, voices understanding. Pt Goal: Home Plan: Home Melquiades ARRIAGA CM
[2024-12-09 12:16] VITALS: BP 111/62; PULSE 61; RESP 18; TEMP 36.5; O2SAT 97
[2024-12-09 12:19] VITALS: BMI 32.2
--- NOTE | 2024-12-09 13:10 | PN_ITS ---
Subjective Subjective Patient seen and examined. He was sitting comfortably in his chair. He felt well and had no active complaints. Review of systems otherwise negative. He has remained hemodynamically stable. Creatinine is 1.49 today. Baseline on 10/20/2024 was 1.2. Objective Data Objective Data Vital Signs: Vital Signs Temp Pulse Resp BP Pulse Ox O2 Del Method O2 Flow Rate 97.7 F L 61 18 111/62 97 Room Air 4 12/09/24 12:16 12/09/24 12:16 12/09/24 12:16 12/09/24 12:16 12/09/24 12:16 12/09/24 12:16 12/08/24 15:39 Oxygen Flow Rate (L/min) 4 Oxygen Delivery Method Room Air Weight: 218 lb 4.122 oz Body Mass Index (BMI) 32.2 Intake & Output: Intake and Output for Last 24 Hours 12/07/24 12/08/24 12/09/24 23:59 23:59 23:59 Intake Total 2061 20 / 20 Output Total 700 / 700 Balance 2061 -680 / -680 Lab / Micro Data 12/09/24 05:56 12/09/24 05:56 Labs: Laboratory Results - last 24 hr 12/09/24 05:56: WBC 9.5, RBC 4.19 L, Hgb 12.5 L, Hct 38.7 L, MCV 92.4, MCH 29.8, MCHC 32.3, RDW Std Deviation 45.0 H, RDW Coeff of Sherin 13.3, Plt Count 306, MPV 11.2, Sodium 136, Potassium 4.4, Chloride 105, Carbon Dioxide 23.0, Anion Gap 8, BUN 21 H, Creatinine 1.49 H, Estim Creat Clear Calc 42.05, Est GFR (MDRD) Af Amer 58 L, Est GFR (MDRD) Non-Af 48 L, BUN/Creatinine Ratio 14.1, Glucose 127 H, Calcium 8.7 Micro: Microbiology 12/01/24 11:27 Swab (Method) Nasal Screen MRSA/MSSA - Final Radiography Diagnostic Testing: Radiology Impression Spine X-Ray 12/08/24 11:15 IMPRESSION: Posterior spinal fusion hardware at L2, L4 and L5 with superimposed vertebroplasty changes. Multilevel disc spacers are present. Reading Location: [facility] Physical Exam Const alert, oriented x3, no apparent distress and well nourished General Appearance: cooperative and well developed HEENT normocephalic, head/scalp atraumatic, moist oral mucous membranes and oropharynx normal Eyes PERRL and EOMs intact bilaterally Neck no lymphadenopathy and supple Lymph Lymphatic: no lymphadenopathy noted and no lymphedema noted Resp normal respiratory effort, normal air movement and clear to auscultation bilaterally Cardio regular rate, regular rhythm, S1 normal heart sound, S2 normal heart sound and no murmurs GI normal to inspection, nondistended, normoactive bowel sounds, soft to palpation, non-tender and non-distended Extremity normal capillary refill, no clubbing, cyanosis or edema and no calf tenderness General Extremity: no tenderness to palpation of joints or extremities Skin Skin Narrative: Intact dressing over lower spine at site of surgery. Neuro CN's II-XII intact bilaterally, no focal motor deficits and no sensory deficits noted Motor Exam: strength 5/5 throughout and general weakness Psych thought process normal, cooperative and affect normal Appearance: appropriate Assessment & Plan Assessment/Plan (1) Status post laminectomy: PLAN: Plan #Hypertension: On lisinopril and amlodipine #CAD s/p PCI: On aspirin. This was held prior to surgery and to resume when okay with primary service. On fenofibrate. #Hypothyroidism: On Synthroid #Spinal stenosis s/p laminectomy and facetectomy * Had L4-L5 hemilaminectomy and facetectomy by Dr. Del Cid * Management as per orthopedic surgery. PT OT on board. * Incentive spirometry. Fall precautions. * DVT prophylaxis: As per primary service. Charges/Coding Visit Charges Inpatient E&M: 01890 Subs Hosp L2
[2024-12-09 15:35] VITALS: BP 120/72; PULSE 59; RESP 18; TEMP 36.4; O2SAT 95
== END 2024-12-09 15:59 | disposition home or self-care (01) ==
LOC: MS3 17:43 → SDC 12-09 09:41 → MS3 12-09 09:41
PROVIDERS: Student in an Organized Health Care Education/Training Program; Admitting Provider Orthopaedic Surgery Orthopaedic Surgery of the Spine; PCP Family Medicine; Referring Provider Orthopaedic Surgery Orthopaedic Surgery of the Spine; Visit Provider Orthopaedic Surgery Orthopaedic Surgery of the Spine
PROC: (CPT 63030; principal; 2024-12-08 11:45)
DX: M48.061 Spinal stenosis, lumbar region without neurogenic claudication (principal); E78.00 Pure hypercholesterolemia, unspecified; I10 Essential (primary) hypertension; M54.16 Radiculopathy, lumbar region; I25.10 Atherosclerotic heart disease of native coronary artery without angina pectoris; Z79.82 Long term (current) use of aspirin; Z87.891 Personal history of nicotine dependence; Z98.1 Arthrodesis status; Z79.899 Other long term (current) drug therapy; E03.9 Hypothyroidism, unspecified; Z79.890 Hormone replacement therapy; M21.371 Foot drop, right foot
CPT/HCPCS: 63047; 00630; 36415; 72020; 76000; 80048; 82962; 83735; 85027; 86703; 86706; 86708; 86803; 86850; 86900; 86901; 87081; 94668; 96374; 96375; 96376; 97162; 97530; 99221; A4216; G0378; J2405; J3475

== ENCOUNTER 2025-06-27 13:39 | Inpatient (IN) | payer MEDICARE, OTHER, SELFPAY ==
[2025-06-27] VITALS (13 sets, daily range): BP systolic 129–153; BP diastolic 73–91; PULSE 63–75; RESP 14–23; TEMP 36.4–36.9; O2SAT 91–95; BMI 31.6; BMI 31.3
--- NOTE | 2025-06-27 14:42 | RAD_ITS ---
PROCEDURE: CHEST 1 VIEW (PORTABLE) 06/27/2025 REASON FOR EXAM: CHEST PAIN TECHNIQUE: Frontal view of the chest. COMPARISON: Chest x-ray study dated 04/03/2022. FINDINGS: Hardware: None Heart: Heart size and configuration within normal limits. Mediastinum: Mediastinal silhouette is unremarkable. Trachea is midline. Arteriosclerotic vascular disease of the aorta is noted. Pulmonary vasculature is within normal limits. Lungs: Lungs are expanded and clear without evidence of atelectasis, consolidation, effusion, pneumothorax or pneumonia. Bones: Diffuse osteopenia of the bony thorax is noted. Arthritic changes are seen involving both shoulders. Degenerative changes of the thoracic spine are noted. Other: Soft tissues are grossly unremarkable. RAD/Chest 1 View (Portable) IMPRESSION: No acute cardiopulmonary process is identified radiographically. Reading Location: [id number]
--- NOTE | 2025-06-27 14:42 | EKG12_ITS ---
Test Reason : EKG CHANGES Blood Pressure : */* mmHG Vent. Rate : 71 BPM Atrial Rate : 71 BPM P-R Int : 238 ms QRS Dur : 94 ms QT Int : 442 ms P-R-T Axes : 41 -43 -6 degrees QTcB Int : 480 ms Sinus rhythm with 1st degree A-V block Left axis deviation Nonspecific T wave abnormality QTcB >= 480 msec Abnormal ECG Confirmed by NIHARIKA MARQUES ([id number]), food expeditor SHANE SAGE ([id number]) on 06/28/2025 1:05:46 PM Referred By: Confirmed By: NIHARIKA MARQUES
--- NOTE | 2025-06-27 14:48 | EDS_ITS ---
HPI History of Present Illness Chief Complaint: Syncope Informant: patient, spouse/S.O. and family Narrative Narrative: Presents to the ED from cardiology office with new EKG findings. History of coronary disease stenting April 2022 to the mid LAD followed by Dr. Cisneros. Reports since noted exertional dyspnea dizziness and nausea. No chest tightness. Friday similar symptoms however in the garden where he had a syncopal episode. He has been feeling symptomatic throughout the weekend. No cough. No recent travel surgery or immobilizations. No history of PE or DVT. He takes baby aspirin at night none taken today. Hypertension hyperlipidemia. Denies diabetes. Remote tobacco. Similar symptoms that led to his cath and stent. Secondary to this he was referred down the ED. No stress test since his heart cath. No additional cath since his original cath. Prior similar symptoms: Yes PFSH PFSH Medical History Thyroid disease Arthritis High cholesterol Back pain History of pain when walking History of stress test Cardiology follow-up encounter Atherosclerotic heart disease of mechoopda coronary artery without angina pectoris Obesity Hypothyroidism Essential hypertension BPH with obstruction/lower urinary tract symptoms Wears hearing aid Wears glasses Wears dentures Prostate disease Easy bruising Degenerative disc disease Former smoker History of cataract Home Medications ?Medication ?Instructions ?Recorded ?Last Taken ?Type cholecalciferol (vitamin D3) 50 50 mcg PO DAILY supple ment 05/17/21 06/27/25 History mcg (2,000 unit) capsule (Vitamin D3) levothyroxine 75 mcg tablet 75 mcg PO DAILY thyroid 06/26/25 History vitamin E 200 unit capsule 200 unit PO DAILY supplemen t 05/17/21 06/27/25 History fluticasone propionate 50 2 spray intranasal DAILY PRN 08/05/22 12/07/24 History mcg/actuation nasal allergy symptoms spray,suspension lisinopril 20 mg tablet 20 mg PO BID bp 08/05/22 History amlodipine 5 mg tablet 5 mg PO DAILY BP 01/04/24 History fenofibrate nanocrystallized 145 145 mg PO DAILY ROSY STEROL 01/04/24 06/26/25 History mg tablet coenzyme Q10 100 mg capsule 100 mg PO DAILY SUPPLEMENT 01/13/24 06/27/25 History aspirin 81 mg capsule 81 mg PO DAILY BLOOD THINNER 02/23/24 06/26/25 History Allergy/AdvReac Type Severity Reaction Status Date / Time [id number] Reductase Allergy Severe Pain in Verified 06/27/25 12:48 Inhibitor joints Family History Mother Hypertension Father Alzheimer's disease Brother Lung cancer Brother Hypertension Pacemaker Sister Hypertension Sister Hypertension Sister Hypertension Surgical History History of lumbar fusion History of cardiac catheterization History of coronary artery stent placement (04/08/22) History of bilateral cataract extraction (2011) History of tonsillectomy History of transurethral resection of prostate Social History household members: spouse Smoking Status: Former smoker alcohol intake: never substance use type: does not use caffeine: No ROS ROS ED Constitutional Constitutional ED: Denies chills, fever(s) or sweats ENT ENT ED: Denies sore throat Cardiovascular Cardiovascular: Denies chest pain, leg edema, palpitations or racing heartbeat Respiratory/Chest Respiratory/Chest: Reports dyspnea, dyspnea on exertion and other Details: Dizzy ; Denies cough Gastrointestinal Gastrointestinal: Denies abdominal pain, diarrhea, nausea or vomiting Genitourinary Genitourinary ED: Denies dysuria, hematuria or urinary frequency Musculoskeletal Musculoskeletal: Denies back pain, extremity pain or neck pain Integumentary Denies rash or wounds Neurologic Neurologic: Denies headache(s), paresthesias or weakness EXAM Physical Exam Const Vital Signs: 06/27/25 13:40 06/27/25 14:39 06/27/25 14:42 Temperature 97.8 F Temperature Source Temporal Pulse Rate 66 64 Respiratory Rate 20 H 22 H Respiratory Effort Blood Pressure 134/91 H 133/90 H Blood Pressure Mean 105 104 Pulse Ox 94 95 Oxygen Delivery Method Room Air Room Air Room Air 06/27/25 14:45 06/27/25 15:00 06/27/25 16:00 Temperature Temperature Source Pulse Rate 69 63 Respiratory Rate 16 14 Respiratory Effort Short of Breath Blood Pressure 130/73 H 135/82 H Blood Pressure Mean 92 99 Pulse Ox 94 93 Oxygen Delivery Method Room Air Room Air 06/27/25 17:00 06/27/25 18:00 06/27/25 18:58 Temperature Temperature Source Pulse Rate 66 69 63 Respiratory Rate 21 H 16 23 H Respiratory Effort Blood Pressure 129/83 H 143/82 H 143/83 H Blood Pressure Mean 98 102 103 Pulse Ox 91 93 94 Oxygen Delivery Method Room Air Room Air Room Air Positive well nourished and well developed General Appearance ED: well developed and NAD HEENT Reports moist mucous membranes normocephalic and atraumatic Eyes General Eye ED: Yes normal appearance of both eyes Neck full ROM Chest Wall Chest: Negative for tenderness Resp normal respiratory effort and normal air movement Effort and Inspection: symmetric chest movement; Negative for respiratory distress Cardio regular rate, regular rhythm and no murmurs Peripheral Pulses: pulses 2+ throughout GI normal to inspection, nondistended, normoactive bowel sounds and non-tender Palpation: Negative for guarding or rebound tenderness present Extremity normal to inspection Extremity Narrative: Minimal lower extremity edema. General Extremety ED: Yes edema; Negative for tenderness General Extremity: edema Neuro oriented x3 and no sensory deficits noted Sensorium / Orientation: awake and alert Skin no rashes or lesions noted and no wounds MDM MDM MDM Narrative Medical decision making narrative: Interventions / MDM: Differential diagnosis: Bilateral pulmonary embolism, hypoxia, history of coronary disease. Diagnosis considered but do not suspect: N/A My EKG interpretation: Sinus rate of 71, no ST changes. T wave versions V1-V4 along with inferior leads III and aVF. Compared to February 2024 new changes. Imaging independently reviewed and interpreted by myself: 1 view chest x-ray: No acute process. CT angiogram chest: Bilateral pulmonary embolism right greater than left. External documents reviewed: N/A Test considered but not ordered:N/A ED course: Patient exertional symptoms no EKG changes similar to his symptoms that led to his stenting in 2021. Aspirin ordered cardiac workup. With exertional dyspnea I will add a D-dimer. 1644: Chest x-ray 1 view negative. Initial troponin 48. D-dimer 3.27. Patient sent for CT angiogram of the chest. 1899: Repeat troponin down to 36. My interpretation of CT of the Concern for bilateral PEs right greater than left. No clear heart strain. Awaiting final read from radiology. Exertional symptoms with syncopal episode Friday. He ambulated apartment when he returned he dropped on 85%. With rest oxygen comes up. Started on heparin drip. Awaiting final read and will discuss with medicine team for admission. 192: Discussed with radiologist bilateral PE reports mild strain with ratio. Heparin drip was started and running. Will discuss with hospitalist for admission. Re-evaluation: stable Disposition discussed with patient/family/significant other: Patient and family Case discussed with consulting clinician: Hospitalist This note was generated with Roll[employer] software. It may contain incorrect words, spelling, and punctuation that were not noted in checking the note before signing. Lab Data Attestation: I reviewed the patient's lab results. Labs: Laboratory Results - last 24 hr 06/27/25 06/27/25 14:58 16:55 WBC 8.3 RBC 4.65 Hgb 14.3 Hct 42.7 MCV 91.8 MCH 30.8 MCHC 33.5 RDW Std Deviation 44.9 H RDW Coeff of Sherin 13.3 Plt Count 284 MPV 10.7 Immature Gran % (Auto) 0.700 Neut % (Auto) 70.0 Lymph % (Auto) 19.0 [place] % (Auto) 8.3 Eos % (Auto) 1.3 Baso % (Auto) 0.7 Absolute Neuts (auto) 5.8 Absolute Lymphs (auto) 1.58 Nucleated RBC % 0 PT 13.8 INR 1.0 APTT 31.3 D-Dimer Quant (PE/DVT) 3.27 H* Sodium 138 Potassium 4.4 Chloride 104 Carbon Dioxide 21.8 Anion Gap 12 BUN 14 Creatinine 1.18 Estim Creat Clear Calc 51.64 Est GFR (MDRD) Non-Af 60 BUN/Creatinine Ratio 11.8 Glucose 90 Calcium 9.2 Troponin T High Sens 48 H Troponin T Hi Sens 2 Hr 36 H Radiography Diagnostic Testing: Clinical Impression(s) from Imaging Studies Chest X-Ray 06/27/25 14:42 IMPRESSION: No acute cardiopulmonary process is identified radiographically. Reading Location: [id number] Chest CTA 06/27/25 16:45 IMPRESSION: 1. Extensive bilateral central pulmonary emboli. Associated right heart strain. 2. No pulmonary consolidation/edema or pleural effusions. Moderate emphysema. 3. Ancillary findings as described above. Findings communicated via telephone with provider Taiwo Lauren 06/27/2025 at 6:20 p.m. RADIO REPAIRER. Reading Location: [facility] Discharge Plan Triage Chief Complaint: Syncope ED Provider: Taiwo Lauren Dx/Rx/DC Orders Clinical Impression: Pulmonary embolism, bilateral, Hypoxia, Syncope, History of CAD (coronary artery disease) Prescriptions: No Action fluticasone propionate 50 mcg/actuation spray,suspension 2 spray intranasal DAILY PRN (Reason: allergy symptoms) Rx Instructions: administer into each nostril lisinopril 20 mg tablet 20 mg PO BID coenzyme Q10 100 mg capsule 100 mg PO DAILY vitamin E 200 unit Capsule 200 unit PO DAILY levothyroxine 75 mcg tablet 75 mcg PO DAILY cholecalciferol (vitamin D3) [Vitamin D3] 50 mcg (2,000 unit) Capsule 50 mcg PO DAILY aspirin 81 mg capsule 81 mg PO DAILY amlodipine 5 mg tablet 5 mg PO DAILY Patient Comments: TAKE 1 TABLET BY MOUTH ONCE DAILY fenofibrate nanocrystallized 145 mg tablet 145 mg PO DAILY Patient Comments: TAKE 1 TABLET BY MOUTH ONCE DAILY Primary Care Provider: Rashid Camacho Referrals: Rashid Camacho MD [Primary Care Provider] - Print Language: Khmer Disposition Disposition: Acute Care Hospital [facility] [place]
[2025-06-27 15:20] LABS: Hematocrit 42.7 % (40-54); Hemoglobin 14.3 g/dL (13.0-16.5); Immature Granulocytes Count 0.060 X10^3/uL (0.0-0.0); Mean Corp Hgb Conc 33.5 g/dL (32-36); Mean Corpuscular Volume 91.8 fL (80-94); Mean Platelet Vol. 10.7 fl (6.2-12.0); NRBC Flagged by Analyzer 0 % (0-5); Platelet Count 284 K/mm3 (150-450); RBC Distribution Width CV 13.3 % (11.6-14.6); RBC Distribution Width SD 44.9 fl (35.1-43.9); Red Blood Count 4.65 M/mm3 (4.6-6.2); White Blood Count 8.3 K/mm3 (4.4-11.0)
[2025-06-27 15:49] LABS: Troponin T High Sensitivity 48 ng/L (<=22)
[2025-06-27 15:52] LABS: Prothrombin Time (Protime)PT. 13.8 SECONDS (11.7-14.9)
[2025-06-27 15:53] LABS: Partial Thromboplast Time 31.3 Seconds (24.1-36.2)
[2025-06-27 16:03] LABS: Anion Gap 12 (5-15); BUN 14 mg/dL (4-19); BUN/Creat Ratio 11.8 RATIO (10-20); Calcium,Total 9.2 mg/dL (7.6-11.0); Carbon Dioxide 21.8 mmol/L (21.0-32.0); Chloride 104 mmol/L (98-108); Estimated Creatinine Clearance 51.64 ml/min (50-250); Glucose 90 mg/dL (70-99); Potassium 4.4 mmol/L (3.3-5.1)
[2025-06-27 16:36] LABS: D-Dimer Quantitative (DVT/PE) 3.27 FEU/ug/m (0.27-0.49)
--- NOTE | 2025-06-27 16:37 | ED.RN ---
dr. MIGUEL in a code blue. This RN gave him critical d. dimer, verbal order given for CTA chest.
--- NOTE | 2025-06-27 16:45 | CT_ITS ---
PROCEDURE: CTA CHEST W/WO CONTRAST 06/27/2025 REASON FOR EXAM: ELEVATED D DIMER TECHNIQUE: CTA CHEST W/WO CONTRAST Multiplanar Sagittal and Coronal images were obtained. 3D post processing was performed. CONTRAST: Isovue 370 VOLUME: 100 mL One or more dose reduction techniques were used (e.g., Automated exposure control, adjustment of the mA and/or kV according to patient size, use of iterative reconstruction technique). RADIATION DOSE SUMMARY: DLP: 480.61 mGycm COMPARISON: None. FINDINGS: PULMONARY VESSELS: Extensive bilateral acute pulmonary emboli beginning at the central-lobar pulmonary arterial branches diffusely. No saddle PE. Main pulmonary trunk is normal in caliber. There is flattening of the intraventricular septum and elevated RV/LV diameter ratio compatible with right heart strain. HEART: Normal in size. No pericardial effusion. Mild coronary artery calcifications. MEDIASTINUM: Unremarkable. No lymphadenopathy. THORACIC AORTA: Tortuous but normal in caliber. Mild atherosclerotic disease. LUNGS/PLEURA: No focal airspace consolidation or findings of pulmonary infarct. No pneumothorax or pleural effusions. Moderate bilateral upper lobe predominant subpleural and centrilobular emphysema. No suspicious focal nodules. Central airways are patent. UPPER ABDOMEN: Small circumscribed hypodense lesion in the right hepatic lobe measuring up to 2 cm, most likely a benign cyst or hemangioma but incompletely characterized. BONES: Mild multilevel degenerative changes of the thoracic spine. CT/CTA Chest W/WO Contrast IMPRESSION: 1. Extensive bilateral central pulmonary emboli. Associated right heart strain . 2. No pulmonary consolidation/edema or pleural effusions. Moderate emphysema. 3. Ancillary findings as described above. Findings communicated via telephone with provider Taiwo Lauren 06/27/2025 at 6:20 p. m. TECHNICIAN [employer]QUIPMENT. Reading Location: [id number]
[2025-06-27 17:40] LABS: Troponin T High Sens 2 HR 36 ng/L (<=22)
[2025-06-27] MEDS: Heparin Injection (Vial) 5,000 UNIT/ML VIAL 4000 UNIT IV (19:23)
[2025-06-27] MEDS: HEPARIN/D5w 25,000 UNITS 25,000 UNITS/250 ML IV.SOLN. 11.6 UNITS CONT INF (19:23)
--- NOTE | 2025-06-27 19:42 | HP.PCM_ITS ---
HPI - General General Date of Admission: 06/27/25 Date of Service: 06/27/25 Chief Complaint: Exertional shortness of breath HPI Narrative Teri VERDIN, is a 85 M who presents to the emergency room with chief complaint of exertional shortness of breath. Onset of symptoms began last when he was doing yard work and felt short of breath. He was seen earlier today for follow-up by cardiology and due to his worsening symptoms of exertional shortness of breath with near syncope he was sent to the emergency room for urgent evaluation. Patient denies any chest pain, nausea vomiting or diarrhea, however, he has become more short of breath and just walking across the room. Laboratory studies show white blood cell count of 8.3, hemoglobin 14.3, hematocrit 42.7, platelets 284, sodium 138, potassium 4.4, chloride 104, bicarb 21, BUN 14, creatinine 1.18, glucose 90, troponin 48, 36, D-dimer 3.27. A CT angiogram revealed extensive bilateral central pulmonary emboli. Patient was placed on heparin in the emergency department. It was noted that he became hypoxic when he walked in the emergency room as well. He will be admitted to progressive care unit. Patient has expressed wish to be remain full code at this time. We will obtain echocardiogram in the morning and consider discharge plan with appropriate anticoagulation therapy and/or oxygen. [facility] Medical History Thyroid disease Arthritis High cholesterol Back pain History of pain when walking History of stress test Cardiology follow-up encounter Atherosclerotic heart disease of [place] coronary artery without angina pectoris Obesity Hypothyroidism Essential hypertension BPH with obstruction/lower urinary tract symptoms Wears hearing aid Wears glasses Wears dentures Prostate disease Easy bruising Degenerative disc disease Former smoker History of cataract Home Medications ?Medication ?Instructions ?Recorded ?Last Taken ?Type cholecalciferol (vitamin D3) 50 50 mcg PO DAILY supple ment 05/17/21 06/27/25 History mcg (2,000 unit) capsule (Vitamin D3) levothyroxine 75 mcg tablet 75 mcg PO DAILY thyroid 06/26/25 History vitamin E 200 unit capsule 200 unit PO DAILY supplemen t 05/17/21 06/27/25 History fluticasone propionate 50 2 spray intranasal DAILY PRN 08/05/22 12/07/24 History mcg/actuation nasal allergy symptoms spray,suspension lisinopril 20 mg tablet 20 mg PO BID bp 08/05/22 History amlodipine 5 mg tablet 5 mg PO DAILY BP 01/04/24 History fenofibrate nanocrystallized 145 145 mg PO DAILY ROSY STEROL 01/04/24 06/26/25 History mg tablet coenzyme Q10 100 mg capsule 100 mg PO DAILY SUPPLEMENT 01/13/24 06/27/25 History aspirin 81 mg capsule 81 mg PO DAILY BLOOD THINNER 02/23/24 06/26/25 History Allergy/AdvReac Type Severity Reaction Status Date / Time Iofvxyy-SAV-[id number] Reductase Allergy Severe Pain in Verified 06/27/25 12:48 Inhibitor joints Family History Mother Hypertension Father Alzheimer's disease Brother Lung cancer Brother Hypertension Pacemaker Sister Hypertension Sister Hypertension Sister Hypertension Surgical History History of lumbar fusion History of cardiac catheterization History of coronary artery stent placement (04/08/22) History of bilateral cataract extraction (2011) History of tonsillectomy History of transurethral resection of prostate Social History household members: spouse Smoking Status: Former smoker alcohol intake: never substance use type: does not use caffeine: No ROS Constitutional Constitutional: Denies chills or fever(s) Eyes Eyes: Denies blurry vision ENT HEENT: Denies abnormal hearing Cardiovascular Cardiovascular: Denies chest pain Respiratory/Chest Respiratory/Chest: Reports shortness of breath with exertion Gastrointestinal Gastrointestinal: Denies abdominal pain Genitourinary Genitourinary: Denies dysuria Musculoskeletal Musculoskeletal: Denies extremity pain Integumentary Integumentary: Denies dry skin Neurologic Neurologic: Denies abnormal gait or abnormal speech Psychiatric Psychiatric: Denies anxiety Vital Signs Vital Signs Vital Signs: 06/27/25 13:40 06/27/25 14:39 06/27/25 14:42 Temperature 97.8 F Temperature Source Temporal Pulse Rate 66 64 Respiratory Rate 20 H 22 H Respiratory Effort Blood Pressure 134/91 H 133/90 H Blood Pressure Mean 105 104 Pulse Ox 94 95 Oxygen Delivery Method Room Air Room Air Room Air 06/27/25 14:45 06/27/25 15:00 06/27/25 16:00 Temperature Temperature Source Pulse Rate 69 63 Respiratory Rate 16 14 Respiratory Effort Short of Breath Blood Pressure 130/73 H 135/82 H Blood Pressure Mean 92 99 Pulse Ox 94 93 Oxygen Delivery Method Room Air Room Air 06/27/25 17:00 06/27/25 18:00 06/27/25 18:58 Temperature Temperature Source Pulse Rate 66 69 63 Respiratory Rate 21 H 16 23 H Respiratory Effort Blood Pressure 129/83 H 143/82 H 143/83 H Blood Pressure Mean 98 102 103 Pulse Ox 91 93 94 Oxygen Delivery Method Room Air Room Air Room Air Weight Weight: 214 lb Body Mass Index (BMI) 31.6 Physical Exam Const alert and oriented x3 General Appearance: cooperative and well developed HEENT normocephalic and head/scalp atraumatic Eyes PERRL Neck no lymphadenopathy Lymph Lymphatic: no lymphadenopathy noted Resp normal respiratory effort, normal air movement and clear to auscultation bilaterally Cardio regular rate, regular rhythm, S1 normal heart sound and S2 normal heart sound GI normal to inspection, nondistended, normoactive bowel sounds Extremity normal capillary refill General Extremity: Negative for edema Skin General Skin Exam: no breakdown Neuro no focal motor deficits and no sensory deficits noted Psych thought process normal, cooperative and affect normal Results Lab / Micro Data 06/27/25 14:58 06/27/25 14:58 Labs: Laboratory Results - last 24 hr 06/27/25 14:58: WBC 8.3, RBC 4.65, Hgb 14.3, Hct 42.7, MCV 91.8, MCH 30.8, MCHC 33.5, RDW Std Deviation 44.9 H, RDW Coeff of Sherin 13.3, Plt Count 284, MPV 10.7, Immature Gran % (Auto) 0.700, Neut % (Auto) 70.0, Lymph % (Auto) 19.0, [place] % (Auto) 8.3, Eos % (Auto) 1.3, Baso % (Auto) 0.7, Absolute Neuts (auto) 5.8, Absolute Lymphs (auto) 1.58, Nucleated RBC % 0, PT 13.8, INR 1.0, APTT 31.3, D- Dimer Quant (PE/DVT) 3.27 H*, Sodium 138, Potassium 4.4, Chloride 104, Carbon Dioxide 21.8, Anion Gap 12, BUN 14, Creatinine 1.18, Estim Creat Clear Calc 51.64, Est GFR (MDRD) Non-Af 60, BUN/Creatinine Ratio 11.8, Glucose 90, Calcium 9.2, Troponin T High Sens 48 H 06/27/25 16:55: Troponin T Hi Sens 2 Hr 36 H Imaging Radiology Impression Chest X-Ray 06/27/25 14:42 IMPRESSION: No acute cardiopulmonary process is identified radiographically. Reading Location: [facility] Chest CTA 06/27/25 16:45 IMPRESSION: 1. Extensive bilateral central pulmonary emboli. Associated right heart strain. 2. No pulmonary consolidation/edema or pleural effusions. Moderate emphysema. 3. Ancillary findings as described above. Findings communicated via telephone with provider Taiwo Lauren 06/27/2025 at 6:20 p.m. ORDER TAKERS [employer]PER[employer]OR. Reading Location: [facility] Assessment & Plan Assessment/Plan (1) History of CAD (coronary artery disease): (2) Hypoxia: (3) Pulmonary embolism, bilateral: (4) Hypothyroidism: QUALIFIERS: Hypothyroidism type: unspecified Qualified Code(s): E 03.9 - Hypothyroidism, unspecified (5) Hyperlipidemia: QUALIFIERS: Hyperlipidemia type: unspecified Qualified Code(s): E 78.5 - Hyperlipidemia, unspecified (6) Essential hypertension: PLAN: Plan 1 exertional shortness of breath secondary to bilateral pulmonary emboli?admit patient to progressive care unit, maintain full CODE STATUS we will continue heparin by weight per protocol and order echocardiogram in the morning. Will need to plan for anticoagulation for home-going treatment and/or oxygen therapy if needed. 2. Hypothyroidism?maintain Synthroid dose and check TSH level 3. Hyperlipidemia?maintain current therapy and check FLP 4. Hypertension?controlled we will continue current home medications 5. CODE STATUS?full discussed with patient Charges/Coding Visit Charges Inpatient E&M: 08105 Init Hosp L2
[2025-06-27 19:43] LABS: Hematocrit 40.2 % (40-54); Hemoglobin 13.5 g/dL (13.0-16.5); Immature Granulocytes Count 0.040 X10^3/uL (0.0-0.0); Mean Corp Hgb Conc 33.6 g/dL (32-36); Mean Corpuscular Volume 91.0 fL (80-94); Mean Platelet Vol. 11.1 fl (6.2-12.0); NRBC Flagged by Analyzer 0 % (0-5); Platelet Count 279 K/mm3 (150-450); RBC Distribution Width CV 13.2 % (11.6-14.6); RBC Distribution Width SD 44.1 fl (35.1-43.9); Red Blood Count 4.42 M/mm3 (4.6-6.2); White Blood Count 8.7 K/mm3 (4.4-11.0)
[2025-06-27 19:50] LABS: Troponin T High Sens 4 HR 38 ng/L (<=22)
[2025-06-27 19:59] LABS: Prothrombin Time (Protime)PT. 13.8 SECONDS (11.7-14.9)
[2025-06-27 20:00] LABS: Partial Thromboplast Time 31.1 Seconds (24.1-36.2)
--- OUTSIDE RECORDS SUMMARY | 2025-06-27 21:37 | XMS RPT_ITS | CCD ---
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 Liban Camacho Primary Care Provider [phone] Dr. Liban Camacho Referring Provider Dr. Liban Camacho Other Provider Dr. Rishi Cisneros Attending Provider [phone] Елена Grier Attending Provider Unavailable BlayneDr. Rishi nix Referring Provider [phone] Rishi Cisneros Other Provider Dr. Nirav Pyle Attending Provider Dr. Rishi Cisneros Admit Provider Dr. Anastacio Merino Attending Provider [phone] [place] PHOTOGRAPHIC PROCESS SCREEN MAKERFRANK-C Hannah Attending Provider Dr. Liban Camacho Primary Care Provider [phone] Dr. Liban Camacho Referring Provider CHRIS Aguila NP Attending Provider Dr. Rashid Camacho Primary Care Provider [phone] Dr. Rashid Camacho Referring Provider [phone] Dr. Iraj Tucker Attending Provider Dr. Rishi Cisneros Attending Provider [phone] Miguel Angel Talbot Attending Provider [phone] Dr. Serjio Flores Referring Provider Dr. Iraj Tucker Admit Provider Dr. Iraj Tucker Referring Provider [phone] Iraj Tucker Other Provider Kunz, Dr. Minaya Attending Provider Unavail able Kunz, Dr. Minaya Other Provider Unavailabl cielo Lizarraga, Dr. Minaya Attending Provider Unavailable Kittocielo, Dr. Minaya Other Provider Unavailable Ranney, Christopher Primary Care Unavailable Ranney, Christopher Referring Unavailable Tucker, Iraj Attending Unavailable Ranney, Christopher Primary Care Unavailable Blayne, Rishi Attending Unavailable Ranney, Christopher Primary Care Unavailable Ranney, Christopher Referring Unavailable Keyanna Hendricks Attending Unavailable Ranney, Christopher Primary Care Unavailable Blayne, La Russell Attending Unavailable Tucker, Iraj Attending Unavailable Ranney, Christopher Primary Care Unavailable Ranney, Christopher Referring Unavailable Ranney, Christopher Primary Care Unavailable Ranney, Christopher Referring Unavailable Tucker, Iraj Attending Unavailable Ranney, Christopher Primary Care Unavailable Ranney, Christopher Referring Unavailable Hannah Aguila Attending Unavailable Fatimah Goff Consulting Unavailable Tucker, Iraj Attending Unavailable Tucker, Iraj Admitting Unavailable Tucker, Iraj Referring Unavailable Ranney, Christopher Primary Care Unavailable Tucker, Iraj Attending Unavailable Tucker, Iraj Referring Unavailable Ranney, Christopher Primary Care Unavailable Ranney, Christopher Primary Care Unavailable Tucker, Iraj Attending Unavailable Ranney, Christopher Referring Unavailable Tucker, Iraj Attending Unavailable Tucker, Iraj Referring Unavailable Ranney, Christopher Primary Care Unavailable Ranney, Christopher Primary Care Unavailable Ranney, Christopher Referring Unavailable Ranney, Christopher Attending Unavailable Tucker, Iraj Attending Unavailable Ranney, Christopher Primary Care Unavailable Ranney, Christopher Referring Unavailable Ranney, Christopher Primary Care Unavailable Ranney, Christopher Referring Unavailable Hannah Aguila Attending Unavailable Ranney, Christopher Primary Care Unavailable Ranney, Christopher Referring Unavailable Tucker, Iraj Attending Unavailable Ranney, Christopher Primary Care Unavailable Ranney, Christopher Referring Unavailable Tucker, Iraj Attending Unavailable Ranney, Christopher Primary Care Unavailable Blayne, Rishi Attending Unavailable Tucker, Iraj Attending Unavailable Tucker, Iraj Consulting Unavailable Tucker, Iraj Referring Unavailable Ranney, Christopher Primary Care Unavailable Tucker, Iraj Admitting Unavailable Tucker, Iraj Referring Unavailable Ranney, Christopher Primary Care Unavailable Any Lindsay Attending Unavailable Lindsay, Any Consulting Unavailable Tucker, Iraj Consulting Unavailable Fatimah Goff Consulting Unavailable Iraj Tucker Referring Unavailable [facility] Unavailable Keyanna Hendricks Attending Unavailable Iraj Tucker Admitting Unavailable Iraj Tucker Consulting Unavailable Fatimah Goff Attending Unavailable [facility] Primary Care Unavailable Rishi Cisneros Attending Unavailable [facility] Primary Care Unavailable Rishi Cisneros Attending Unavailable Allergies Allergy Classification Reported Allergen(s) Allergy Type Date of Onset Reaction(s) Facility (3 sources) hydroCHLOROthiazide Drug Allergy 04-03-20 22 low sodium [facility] Work Phone: (1 source) Oxrimci-Csm-Ucd Reductase Inhibitor Allergy to substance 03-01-20 24 Pain in joints [facility] (1 source) Lcrvvzw-Lfr-Uai Reductase Inhibitor Drug allergy (disorder) 03-10-20 25 [facility] Repository Medications Current Medications Medication Drug Class(es) Dates Sig (Normalized) Sig (Original) acetaminophen 500 mg oral tablet (2 sources) Start: 03-03-2024 take 500 mg by mouth every six hours Acetaminophen Active 500 MG PO EVERY 6 HOURS 28 7 March 03, 2024 12:00am Start: 02-23-2024 End: 03-03-2024 Acetaminophen (8 Hour Pain R eliever) 650 mg tablet extended release Discontinued 1300 MG PO Q8H February 23, 2024 12:00am March 03, 2024 11:40am amLODIPine 5 mg oral tablet (2 sources) Dihydropyridine Calcium Channel Radha Start: 01-04-2024 take 5 mg by mouth once daily Amlodipine Active 5 MG PO DAILY January 04, 2024 1:00am Start: 01-04-2024 Amlodipine Act frank MG January 04, 2024 12:00am aspirin 81 mg oral tablet (7 sources) Platelet Aggregation Inhibitor, Nonsteroidal Anti-inflammatory Drug Start: 02-23-2024 take 81 mg by mouth once daily Aspirin Active 81 MG PO DAILY February 23, 2024 12:00am Start: 05-17-2021 take 81 mg by mouth once daily Aspirin Active 81 MG PO DAILY May 16, 2021 11:00pm bisacodyl 5 mg delayed release oral tablet (1 source) Stimulant Laxative Start: 03-03-2024 take 5 mg by mouth once daily Bisacodyl Active 5 MG PO DAILY 2 2 March 03, 2024 11:41am Stop taking once returns to normal bowel movement frequency or if diarrhea occurs cholecalciferol 0.05 mg oral capsule (7 sources) Vitamin D Start: 05-17-2021 take 1 capsule by mouth once daily Cholecalciferol (Vitamin D3) (Vitamin D3) 50 mcg (2,000 unit) Capsule Active 50 MCG PO DAILY May 17, 2021 12:00am docusate sodium 50 mg / sennosides, penitentiary 8.6 mg oral tablet (1 source) Start: 03-03-2024 take 2 tablets by mouth twice daily Sennosides-Docusate Sodium (Stool Softener-Stimulant Laxat) 8.6-50 mg Tablet Active 2 TABLET PO TWICE A DAY 30 05March 03, 2024 11:44am fenofibrate 145 mg oral tablet (2 sources) Peroxisome Proliferator Receptor alpha Agonist Start: 01-04-2024 take 145 mg by mouth once daily Fenofibrate Nanocrystallized Active 145 MG PO DAILY January 04, 2024 1:00am Start: 01-04-2024 Fenofibrate Na nocrystallized Active MG PO January 04, 2024 12:00am fluticasone propionate 0.05 mg/actuat metered dose nasal spray (9 sources) Corticosteroid Start: 03-29-2022 End: 08-05-2022 take 1 spray(s) nasal route once daily Fluticasone Propionate Active 2 SPRAY INTRANASAL DAILY August 05, 2022 9:25am administer into each nostril levothyroxine sodium 0.075 mg oral tablet (7 sources) l-Thyroxine Start: 05-17-2021 take 75 ug by mouth once daily Levothyroxine Active 75 MCG PO DAILY May 17, 2021 12:00am lisinopril 20 mg oral tablet (14 sources) Angiotensin Converting Enzyme Inhibitor Start: 08-05-2022 take 20 mg by mouth twice daily Lisinopril Active 20 MG PO TWICE A DAY August 05, 2022 9:26am Start: 05-20-2022 End: 08-05-2022 take 20 mg by mouth once daily Lisinopril Discontinued 20 MG PO DAILY May 20, 2022 10:57am August 05, 2022 9:26am Start: 05-17-2021 End: 05-20-2022 take 20 mg by mouth twice daily Lisinopril Discontinued 20 MG PO TWICE A DAY May 17, 2021 12:00am May 20, 2022 10:58am methocarbamol 500 mg oral tablet (1 source) Muscle Relaxant Start: 03-03-2024 take 1000 mg by mouth every eight hours Methocarbamol Active 1000 MG PO Q8H 42 March 03, 2024 11:43am oxyCODONE hydrochloride 5 mg oral tablet (1 source) Opioid Agonist Start: 03-03-2024 take 2.5-5 mg by mouth every six hours Oxycodone Active 2.5 - 5 MG PO EVERY 6 HOURS 28 March 03, 2024 ubidecarenone 100 mg oral capsule (1 source) Start: 01-13-2024 Coenzyme Q10 A ctive 100 MG PO DAILY January 13, 2024 12:00am vitamin e 90 mg oral capsule (7 sources) Start: 05-17-2021 take 200 [IU] by mouth once daily Vitamin E Active 200 UNIT PO DAILY May 17, 2021 12:00am Completed/Discontinued Medications Medication Drug Class(es) Dates Sig (Normalized) Sig (Original) acetaminophen 325 mg / HYDROcodone bitartrate 5 mg oral tablet (2 sources) Opioid Agonist Start: 01-04-20 End: 03-03-20 take 1 tablet by mouth every six hours as needed Hydrocodone-Acetaminop hen Discontinued 1 TABLET PO EVERY 6 HOURS NEEDED 10 January 04, 2024 March 03, 2024 11:41am atorvastatin 20 mg oral tablet (7 sources) HMG-CoA Reductase Inhibitor Start: 05-17-20 End: 01-04-20 24 take 20 mg by mouth at bedtime Atorvastatin Discontinued 20 MG PO AT BEDTIME May 17, 2021 12:00am January 04, 2024 12:28pm ciprofloxacin 500 mg oral tablet (7 sources) Quinolone Antimicrobial Start: 05-23-20 End: 03-29-20 22 take 1 tablet by mouth twice daily Ciprofloxacin Hcl (Cipro) 500 mg tablet Discontinued 500 MG PO TWICE A DAY May 23, 2021 12:00am March 29, 2022 10:00am finasteride 5 mg oral tablet (7 sources) 5-alpha Reductase Inhibitor Start: 05-17-20 21 End: 07-21-20 21 take 5 mg by mouth at bedtime Finasteride Discontinued 5 MG PO AT BEDTIME May 17, 2021 12:00am May 23, 2021 1:25pm hydroCHLOROthiazide 25 mg oral tablet (4 sources) Thiazide Diuretic Start: 09-02-20 End: 02-23-20 take 25 mg by mouth once daily Hydrochlorothiazide Discontinued 25 MG PO DAILY November 17, 2023 11:35am February 23, 2024 1:56pm nitroglycerin 0.3 mg sublingual tablet (6 sources) Nitrate Vasodilator Start: 04-03-20 End: 01-13-20 Nitroglycerin Discontinued 0.3 MG SL every 5 to 15 minutes April 03, 2022 12:00am January 13, 2024 9:31am predniSONE 20 mg oral tablet (2 sources) Start: 01-04-20 End: 01-13-20 take 60 mg by mouth once daily Prednisone Discontinued 60 MG PO DAILY January 04, 2024 1:00am January 13, 2024 9:31am tamsulosin hydrochloride 0.4 mg oral capsule (7 sources) alpha-Adrenergic Radha Start: 05-17-20 End: 05-23-20 take 0.4 mg by mouth at bedtime Tamsulosin Discontinued 0.4 MG PO AT BEDTIME May 17, 2021 12:00am May 23, 2021 1:25pm ticagrelor 90 mg oral tablet (5 sources) Start: 04-09-20 End: 09-02-20 take 1 tablet by mouth twice daily Ticagrelor (Brilinta) 90 mg Tablet Discontinued 90 MG PO TWICE A DAY 180 April 09, 2022 12:00am September 02, 2023 9:26am vitamin b6 100 mg oral tablet (6 sources) Start: 03-29-20 End: 04-03-20 take 100 mg by mouth once daily Pyridoxine (Vitamin B6) Discontinued 100 MG PO DAILY March 29, 2022 12:00am April 03, 2022 1:33pm Problems Active Problems Problem Classification Problem Date Documented Da te Episodic/Chronic Acquired foot deformities (1 source) Foot drop, right foot; Translations: [Foot drop, right foot] Onset: 12-20-2024 Episodic Conditions associated with dizziness or vertigo (6 sources) Dizziness; Translations: [Dizziness and giddiness] 04-03-2022 Episodic Coronary atherosclerosis and other heart disease (6 sources) Coronary atherosclerosis; Translations: [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] 01-04-2024 Chronic Disorders of lipid metabolism (13 sources) Hyperlipidemia; Translations: [Hyperlipidemia, unspecified] Onset: 11-16-2024 Chronic Essential hypertension (13 sources) Essential hypertension; Translations: [Essential (primary) hypertension] Onset: 12-12-2024 Chronic Hyperplasia of prostate (7 sources) Benign prostatic hypertrophy with outflow obstruction; Translations: [Benign prostatic hyperplasia with lower urinary tract symptoms] 03-29-2022 Chronic Malaise and fatigue (8 sources) Fatigue; Translations: [Other fatigue] Episodic Nausea and vomiting (6 sources) Nausea; Translations: [Nausea] 04-03-2022 Episodic Other acquired deformities (1 source) Lumbar spondylolisthesis; Translations: [Spondylolisthesis, lumbar region] 01-13-2024 Episodic Other acquired deformities (4 sources) Spondylolisthesis, lumbar region; Translations: [Acquired spondylolisthesis] 01-13-2024 Episodic Other connective tissue disease (1 source) History of lumbar fusion; Translations: [Arthrodesis status] 03-02-2024 Episodic Other connective tissue disease (2 sources) Arthrodesis status; Translations: [Arthrodesis status] Onset: 03-10-2025 03-03-2024 Episodic Other lower respiratory disease (4 sources) Dyspnea; Translations: [Dyspnea, unspecified] 05-20-2022 Episodic Other lower respiratory disease (1 source) Dyspnea, unspecified; Translations: [Other respiratory abnormalities] Episodic Other nervous system disorders (2 sources) Ankle reflex reduced; Translations: [Abnormal reflex] 01-04-2024 Episodic Other nutritional; endocrine; and metabolic disorders (6 sources) Obesity; Translations: [Obesity, unspecified] 01-04-2024 Chronic Other screening for suspected conditions (not mental disorders or infectious disease) (9 sources) Cardiovascular stress test abnormal; Translations: [Abnormal result of other cardiovascular function study] Episodic Residual codes; unclassified (1 source) Other specified postprocedural states; Translations: [Other specified postprocedural states] Onset: 12-12-2024 Episodic Spondylosis; intervertebral disc disorders; other back problems (15 sources) Lumbago co-occurrent with right-side sciatica; Translations: [Lumbago with sciatica, right side] Onset: 12-01-2024 01-04-2024 Episodic Thyroid disorders (7 sources) Hypothyroidism; Translations: [Hypothyroidism, unspecified] 01-04-2024 Chronic Past or Other Problems Problem Classification Problem Date Documented Da te Episodic/Chronic Coronary atherosclerosis and other heart disease (5 sources) Presence of coronary angioplasty implant and graft; Translations: [Percutaneous transluminal coronary angioplasty status] Onset: 04-08-2022 Episodic Results Test Name Value Interpretation Reference Range Facility Lumbar Spine 2 or 3 Viewson 03-10-2025 Lumbar Spine 2 or 3 Views [facility] [address] [place], [place] [id number] Lumbar Spine 2 or 3 Views MR#: [id number] Acct: [id number] Name: Teri VERDIN Rep #: [id number] : 1940 M 85 From: Boom Elliott MD PCP: Dr. Rashid Camacho MD Status: DEP AMB Study: Lumbar Spine 2 or 3 Views Date of Exam: Exam# [id number] Ordering Dr: Keyanna Hendricks PROCEDURE: LUMBAR SPINE 2 OR 3 VIEWS 03/10/2025 REASON FOR EXAM: S/P FUSION ONE YEAR FOLLOW UP TECHNIQUE: 2 view(s) of the lumbar spine COMPARISON: 09/03/2024 FINDINGS: There is again note of intervertebral disc spacers L2-3, L3-4 and L4-5 with left lateral fixation screw at L4 and posterior fixation with bilateral transpedicular screws and vertebroplasties L2, L4 and L5 with bilateral longitudinal tae fixation appears intact and anatomic. No acute/recent appearing fracture or malalignment. Aortoiliac atherosclerotic calcification again noted. RAD/Lumbar Spine 2 or 3 Views IMPRESSION: Postsurgical changes as above appear intact. Reading Location: [facility] CC: TIFFANIE Orozco; Dr. Rashid Camacho MD Dress Cap Maker: Signed Normal [facility] Orthopedic Visit Reporton Orthopedic Visit Report [facility] [place] [address] OFFICE VISIT Date of Service: 03/10/25 MR#: [id number] Acct: [id number] Name: Teri VERIDN Rep #: [id number] : 1940 Provider: TIFFANIE Orozco Age/Sex: 85/M Location: [facility] [place].ANDREINA Status: Signed Intake Vital Signs 05/10/24 09:20 12/08/24 15:39 02/08/25 09:45 03/10/25 09:55 Height 5 ft 9 in 5 ft 9 in 5 ft 9 in 5 ft 9 in Weight: 222 lb 220 lb BMI 32.8 32.5 BP 147/85 H Blood Pressure Location Lt brachial Position Sitting Respiration 18 Pulse 62 Pulse Source Monitor Pulse Oximetry (%) 95 Intake Visit Reasons: lumbar spine Chief Complaint: Lumbar spine post-op 3 month Accompanied by: Is patient in pain?: Yes Pain scale (1-10): 1 Allergies [id number] Reductase Inhibitor Allergy (Severe, Verified 03/10/25 09:59) Pain in joints Medications ???Medication ???Instructions ???Recorded ???Confirmed ???Type cholecalciferol (vitamin D3) 50 50 mcg PO DAILY supplement 1 03/10/25 History mcg (2,000 unit) capsule (Vitamin D3) levothyroxine 75 mcg tablet 75 mcg PO DAILY thyroid 05/17/21 0 03/10/25 History vitamin E 200 unit capsule 200 unit PO DAILY supplement 05/1703/10/25 History fluticasone propionate 50 2 spray intranasal DAILY PRN 08/0503/10/25 History mcg/actuation nasal allergy symptoms spray,suspension lisinopril 20 mg tablet 20 mg PO BID bp 08/05/22 03/10/25 History amlodipine 5 mg tablet 5 mg PO DAILY BP 01/04/24 03/10/25 History fenofibrate nanocrystallized 145 145 mg PO DAILY CHOLESTEROL 03/10/25 History mg tablet coenzyme Q10 100 mg capsule 100 mg PO DAILY SUPPLEMENT 4 03/10/25 History aspirin 81 mg capsule 81 mg PO DAILY BLOOD THINNER 02/2203/10/25 History Have you fallen in the past year?: No PFSH Medical History Thyroid disease Arthritis High cholesterol Back pain History of pain when walking History of stress test Cardiology follow-up encounter 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 Obesity Hypothyroidism Essential hypertension BPH with obstruction/lower urinary tract symptoms Wears hearing aid Wears glasses Wears dentures Prostate disease Easy bruising Degenerative disc disease Former smoker History of cataract Surgical History History of lumbar fusion History of cardiac catheterization History of coronary artery stent placement (04/08/22) History of bilateral cataract extraction (2011) History of tonsillectomy History of transurethral resection of prostate Family History Mother Hypertension Father Alzheimer's disease Brother Lung cancer Brother Hypertension Pacemaker Sister Hypertension Sister Hypertension Sister Hypertension Social History household members: spouse Smoking Status: Former smoker alcohol intake: never substance use type: does not use caffeine: No HPI lumbar spine Details: This documentation accurately reflects the service provided and the decisions made by me, TIFFANIE Orozco 03/10/25 0955. Part of today???s visit was documented by Tonya Mireles MA, acting as scribe. Teri VERDIN is a 85 year old M here today for lumbar spine 3 month post op L4-5 right hemilaminectomy, facetectomy,. Date of surgery was December 08, 2024. Patient states that his right leg is still numb, and having a little bit of pain. He finished physical therapy in [place]. Patient thinks that the physical therapy helped his balance. The patient says that his right-sided symptoms prior to surgery have returned. The patient continues to have a partial dropfoot on the right ankle. Recall the patient had L3-S1 fusion with cement augmentation in February 2024. Ortho Exam General General: Yes no acute distress Neurologic: Yes alert and Yes oriented x3 Spine SPINE TESTING CERVICAL THORACIC LUMBAR Musculoskeletal Strength 0=absent - 5=normal Details: Neurological exam of the lower extremities shows right 4+ dorsiflexion, all other muscles 5x5 power. Normal sensations across all dermatomes. Physical examination of the back and belly shows well- healed incisions. Coding Level of Care Code Off vis,est,level 3 Diagnoses Status post laminectomy Z98.890 Status post lumbar spinal fusion Z98.1 Assessment and Plan Assessment and Plan (1) Status post laminectomy: Status: Acute (2) Status post lumbar spinal fusion: Status: Acute Orders: Orders Lumbar Spine 2 or 3 Vie (more content not included)... Normal [facility] Cardiology Visit Reporton Cardiology Visit Report [facility] [address] [place] [address] OFFICE VISIT Date of Service: 02/08/25 MR#: [id number] Acct: [id number] Name: Teri VERDIN Rep #: [id number] : 1940 Provider: CHRIS anderson Age/Sex: 85/M Location: [facility] Status: Signed HPI HPI History of Present Illness Details: This is an 85-year-old male who presents to the office today for a cardiovascular follow-up visit. He was previously seen for complaints of hypotension after exertion, and shortness of breath with exertion. He had some dizziness. No angel syncopal episodes, presyncope, palpitations, or chest pain. As part of his evaluation, he underwent an exercise stress test where he exercised to 7 metabolic equivalents and was noted to have inferolateral ischemia. Interestingly enough he did have a normal blood pressure response to exercise. He underwent a cardiac catheterization on 04/08/2022 which demonstrated moderately severe disease noted involving the mid left anterior descending artery involving a septal director payment, moderate disease in the circumflex artery, and mild disease noted in the right coronary artery. He underwent PCI/RUSS to his mid LAD. He did have a carotid ultrasound in 2019 demonstrating less than 50% stenosis bilaterally. He has a history of hypertension, and hyperlipidemia. From a cardiac standpoint, the patient is doing well. He denies any palpitations, chest pain, pressure or heaviness. He denies SOB, Orthopnea, and PND. He does not have bleeding issues; no blood in urine, stool, or nosebleeds. He denies any decrease in energy level, myalgias, or claudication. He does not have edema, or sudden weight gain. He denies lightheadedness, dizziness, syncopal or near syncopal episodes, and headaches. He states his blood pressure at home prior to the appointment was 133/72. 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 Feeder Required: No Is patient in pain?: No Allergies Gdkfdjr-XCY-NcI Reductase Inhibitor Allergy (Severe, Verified 02/08/25 10:19) Pain in joints Medications ???Medication ???Instructions ???Recorded ???Confirmed ???Type cholecalciferol (vitamin D3) 50 50 mcg PO DAILY supplement 1 02/08/25 History mcg (2,000 unit) capsule (Vitamin D3) levothyroxine 75 mcg tablet 75 mcg PO DAILY thyroid 05/17/21 0 02/08/25 History vitamin E 200 unit capsule 200 unit PO DAILY supplement 05/1702/08/25 History fluticasone propionate 50 2 spray intranasal DAILY PRN 08/0502/08/25 History mcg/actuation nasal allergy symptoms spray,suspension lisinopril 20 mg tablet 20 mg PO BID bp 08/05/22 02/08/25 History amlodipine 5 mg tablet 5 mg PO DAILY BP 01/04/24 02/08/25 History fenofibrate nanocrystallized 145 145 mg PO DAILY CHOLESTEROL 02/08/25 History mg tablet coenzyme Q10 100 mg capsule 100 mg PO DAILY SUPPLEMENT 4 02/08/25 History aspirin 81 mg capsule 81 mg PO DAILY BLOOD THINNER 02/2202/08/25 History Have you fallen in the past year?: No PFSH Medical History Thyroid disease Arthritis High cholesterol Back pain History of pain when walking History of stress test Cardiology follow-up encounter 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 Obesity Hypothyroidism Essential hypertension BPH with obstruction/lower urinary tract symptoms Wears hearing aid Wears glasses Wears dentures Prostate disease Easy bruising Degenerative disc disease Former smoker History of cataract Surgical History History of lumbar fusion History of cardiac catheterization History of coronary artery stent placement (04/08/22) History of bilateral cataract extraction (2011) History of tonsillectomy History of transurethral resection of prostate Family History (Reviewed 02/08/25 @ 10:18 by Hannah Aguila PHOTOGRAPHIC PROCESS SCREEN MAKER, PHOTOGRAPHIC PROCESS SCREEN MAKER-C) Mother Hypertension Father Alzheimer's disease Brother Lung cancer Brother Hypertension Pacemaker Sister Hypertension Sister Hypertension Sister Hypertension Social History household members: spouse Smoking Status: Former smoker alcohol intake: never substance use type: does not use caffeine: No ROS Const Const: Negative for fatigue, weakness, headache(s) or frequent falls Eyes Eyes: Negative for blurry vision ENT ENT: Negative (more content not included)... Normal [facility] Orthopedic Visit Reporton Orthopedic Visit Report [facility] [address] [place] [address] OFFICE VISIT Date of Service: 12/24/24 MR#: [id number] Acct: [id number] Name: Teri VERDIN Rep #: [id number] : 1940 Provider: Dr. Iraj Tucker MD Age/Sex: 84/M Location: [facility] [place].ANDREINA Status: Signed Intake Vital Signs 05/10/24 09:20 12/08/24 15:39 Height 5 ft 9 in 5 ft 9 in Intake Visit Reasons: lumbar spine Chief Complaint: Lumbar spine post-op Allergies Nrswvhi-KFE-BdW Reductase Inhibitor Allergy (Severe, Verified 12/24/24 14:35) Pain in joints Medications ???Medication ???Instructions ???Recorded ???Confirmed ???Type cholecalciferol (vitamin D3) 50 50 mcg PO DAILY supplement 1 12/24/24 History mcg (2,000 unit) capsule (Vitamin D3) levothyroxine 75 mcg tablet 75 mcg PO DAILY thyroid 05/17/21 0 12/24/24 History vitamin E 200 unit capsule 200 unit PO DAILY supplement 05/1712/24/24 History fluticasone propionate 50 2 spray intranasal DAILY PRN 08/0512/24/24 History mcg/actuation nasal allergy symptoms spray,suspension lisinopril 20 mg tablet 20 mg PO BID bp 08/05/22 12/24/24 History amlodipine 5 mg tablet 5 mg PO DAILY BP 01/04/24 12/24/24 History fenofibrate nanocrystallized 145 145 mg PO DAILY CHOLESTEROL 12/24/24 History mg tablet coenzyme Q10 100 mg capsule 100 mg PO DAILY SUPPLEMENT 4 12/24/24 History aspirin 81 mg capsule 81 mg PO DAILY BLOOD THINNER 02/2212/24/24 History Have you fallen in the past year?: Yes PFSH Medical History Thyroid disease Arthritis High cholesterol Back pain History of pain when walking History of stress test Cardiology follow-up encounter 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 Obesity Hypothyroidism Essential hypertension BPH with obstruction/lower urinary tract symptoms Wears hearing aid Wears glasses Wears dentures Prostate disease Easy bruising Degenerative disc disease Former smoker History of cataract Surgical History History of lumbar fusion History of cardiac catheterization History of coronary artery stent placement (04/08/22) History of bilateral cataract extraction (2011) History of tonsillectomy History of transurethral resection of prostate Family History Mother Hypertension Father Alzheimer's disease Brother Lung cancer Brother Hypertension Pacemaker Sister Hypertension Sister Hypertension Sister Hypertension Social History household members: spouse Smoking Status: Former smoker alcohol intake: never substance use type: does not use caffeine: No HPI lumbar spine Details: This documentation accurately reflects the service provided and the decisions made by me, Dr. Iraj Tucker MD 12/24/24 0943. Part of today???s visit was documented by Nayeli RUBY, acting as scribe. Teri VERDIN is a 84 year old M here today for 2 weeks post-op, L4-5 right hemilaminectomy, facetectomy, dos: 12/08/24. Patient states that he is doing well but is having some pain in his right hip and anterior thigh which he did have before surgery but it feels more muscular than his nerves. He is no longer taking the hydrocodone-acetamino phen and is out of the muscle relaxer. Since then he hasn't been taking anything for pain. Denies any changes in his right leg and foot. He does say that he has some right sided leg pain. Ortho Exam General General: Yes no acute distress Neurologic: Yes alert and Yes oriented x3 Spine SPINE TESTING CERVICAL THORACIC LUMBAR Musculoskeletal Strength 0=absent - 5=normal Details: Neurological exam of the lower extremities shows right 4+ dorsiflexion, all other muscles 5x5 power. Normal sensations across all dermatomes. Physical examination of the back shows well healed midline incision. Ro were removed. Coding Level of Care Code Global Post Op Diagnoses Status post laminectomy Z98.890 Right foot drop M21.371 Status post lumbar spinal fusion Z98.1 Assessment and Plan Assessment and Plan (1) Status post laminectomy: Status: Acute (2) Right foot drop: Status: Acute (3) Status post lumbar spinal fusion: Status: Acute Orders: Referrals Physical Therapy Referral Z98.890 - Other specified postprocedural states Plan Patient is 2 week postop L4-5 right laminectomy. He will start outpatient physical therapy. He will follow up for a three month follow up. Encouraged the patient to only do light bending, lifting, and twisting. He had some issues with urinary retention at the hospital w (more content not included)... Normal [facility] Basic Metabolic Profile (BMP )on 12-09-2024 BUN/CRE 14.1 RATIO Normal 10-20 [facility] Comment on above: Performed By: #### L 100.0500, L500.2500 #### [facility] [address] [place], [address] CA,Total 8.7 mg/dL Normal 8.5-10.1 [facility] Comment on above: Performed By: #### L 100.0500, L500.2500 #### [facility] [address] [place], [address] Chloride [Moles/Vol] 105 mmol/L Normal 98-107 [facility] Comment on above: Performed By: #### L 100.0500, L500.2500 #### [facility] [address] [place], [address] CO2 [Moles/Vol] 23.0 mmol/L Normal 21.0-32.0 [facility] Comment on above: Performed By: #### L 100.0500, L500.2500 #### [facility] [address] [place], [address] Creatinine [Mass/Vol] 1.49 mg/dL High 0.70-1.30 [facility] Comment on above: Result Comment: The validity of the calculated GFR GFRAA in patients over 70 years has not been determined. Clinical correlation is essential. Performed By: #### L 100.0500, L500.2500 #### [facility] [address] [place], [address] ECRCL 42.05 ml/min Normal [facility] Comment on above: Performed By: #### L 100.0500, L500.2500 #### [facility] [address] [place], [address] EST GFR - AA 58 mL/min Low >60 [facility] Comment on above: Result Comment: Afri can Swazi GFR Calc Performed By: #### L 100.0500, L500.2500 #### [facility] [address] [place], [address] GAP 8 Normal 5-15 [facility] Comment on above: Performed By: #### L 100.0500, L500.2500 #### [facility] [address] [place], [address] GFR/1.73 sq M.predicted among non-blacks MDRD (S/P/Bld) [Vol rate/Area] 48 mL/min/{1.73_m2} Low >60 [facility] Comment on above: Result Comment: Non- GFR Calc Performed By: #### L 100.0500, L500.2500 #### [facility] [address] [place], [address] Glucose [Mass/Vol] 127 mg/dL High 74-106 [facility] Comment on above: Result Comment: Fast ing Glucose result greater than or equal to 126 mg/dL suggests DIABETES MELLITUS per A.D.A. criteria. Performed By: #### L 100.0500, L500.2500 #### [facility] [address] [place], [address] Potassium [Moles/Vol] 4.4 mmol/L Normal 3.5-5.1 [facility] Comment on above: Performed By: #### L 100.0500, L500.2500 #### [facility] [address] [place], [address] Sodium [Moles/Vol] 136 mmol/L Normal 136-145 [facility] Comment on above: Performed By: #### L 100.0500, L500.2500 #### [facility] [address] [place], [address] Urea nitrogen [Mass/Vol] 21 mg/dL High 7-18 [facility] Comment on above: Performed By: #### L 100.0500, L500.2500 #### [facility] [address] [place], [address] CBC-Complete Blood Cnt No Di ffon 12-09-2024 Erythrocyte distribution width (RBC) [Ratio] 13.3 % Normal 11.6-14.6 [facility] Comment on above: Performed By: #### L 100.0500, L500.2500 #### [facility] [address] [place], [address] Hematocrit (Bld) [Volume fraction] 38.7 % Low 40-54 [facility] Comment on above: Performed By: #### L 100.0500, L500.2500 #### [facility] [address] [place], [address] Hemoglobin (Bld) [Mass/Vol] 12.5 g/dL Low 13.0-16.5 [facility] Comment on above: Performed By: #### L 100.0500, L500.2500 #### [facility] [address] [place], [address] MCH (RBC) [Entitic mass] 29.8 pg Normal 27.0-32.0 [facility] Comment on above: Performed By: #### L 100.0500, L500.2500 #### [facility] [address] [place], [address] MCHC (RBC) [Mass/Vol] 32.3 g/dL Normal 32-36 [facility] Comment on above: Performed By: #### L 100.0500, L500.2500 #### [facility] [address] [place], [address] MCV (RBC) [Entitic vol] 92.4 fL Normal 80-94 [facility] Comment on above: Performed By: #### L 100.0500, L500.2500 #### [facility] [address] [place], [address] Platelet mean volume (Bld) [Entitic vol] 11.2 fL Normal 6.2-12.0 [facility] Comment on above: Performed By: #### L 100.0500, L500.2500 #### [facility] [address] [place], [address] Platelets (Bld) [#/Vol] 306 10*3/uL Normal 150-450 [facility] Comment on above: Performed By: #### L 100.0500, L500.2500 #### [facility] [address] [place], [address] RBC (Bld) [#/Vol] 4.19 10*6/uL Low 4.6-6.2 [facility] Comment on above: Performed By: #### L 100.0500, L500.2500 #### [facility] [address] [place], [address] RDW SD 45.0 fl High 35.1-43.9 [facility] Comment on above: Performed By: #### L 100.0500, L500.2500 #### [facility] [address] [place], [address] WBC (Bld) [#/Vol] 9.5 10*3/uL Normal 4.4-11.0 [facility] Comment on above: Performed By: #### L 100.0500, L500.2500 #### [facility] [address] [place], [address] Bedside Glucoseon 12-08-2024 FINGERSTICK GLU 67 mg/dL Low 74-106 [facility] Comment on above: Result Comment: ABIODUN JOHN OF PATIENT CARE PER NURSING PROTOCOL Performed By: #### L 501.080 ####[facility] [address] [place], [address] MR/POSTOP.ANEon 12-08-2024 MR/POSTOP.[facility] Medical Records Department [address] [place] [address] Anesthesia Postop Eval I 12/08/24 1428 MR#: [id number] Acct: [id number] Name: Teri VERDIN Rep #: [id number] : 1940 84 From: Serjio Flores MD PCP: Dr. Rashid Camacho MD Status:REG SDC Y Race: C Location: [place] [address] Anesthesia: Postop Eval I Current Vital Signs Temperature: 97.8 F Pulse Rate: 61 Blood Pressure: 121/57 Respiratory Rate: 16 Pulse Ox: 97 Oxygen Delivery Method: Nasal Cannula Oxygen Flow Rate (L/min): 4 Assessment Airway patent: Yes Spontaneous unlabored respirations: Yes nausea: No Vomiting: No Anesthesia Complication: No Fluid Hydration Crystalloid volume administer (ml): 500 Total IV fluid infused: 500 Progress Note Anesthesia document: Postop Eval 1 completed: Yes 12/08/24 142 Date Serjio Flores MD Cosigner Signature: Date CC: Signed Normal [facility] MR/[id number] 12-08-2024 [facility] Medical Records Department [address] [place] [address] Anesthesia Postop Eval II 12/08/24 1429 MR#: [id number] Acct: [id number] Name: Teri VERDIN Rep #: [id number] : 1940 84 From: Serjio Flores MD PCP: Dr. Rashid Camacho MD Status:REG [facility] Y Race: C Location: [place] [address] Anesthesia Postop Eval I Sum Postop Eval Completion status Anesthesia document: Postop Eval 1 completed: Yes Anesthesia Postop Eval I Summary Anesthesia Postop Eval I Summary: Anesthesia Postop Eval I: Assessment Summary Airway patent Yes 12/08/24 14:29 Spontaneous unlabored Yes 12/08/24 14:29 respirations Mental status nausea No 12/08/24 14:29 Vomiting No 12/08/24 14:29 Anesthesia Postop Eval I: Fluid Summary Crystalloid volume administer 500 12/08/24 14:29 (ml) Colloids volume administered ( ml) Blood Product volume administered (ml) Total IV fluid infused 500 12/08/24 14:29 Anesthesia Postop Eval I: Summary Notes Anesthesia Complication No 12/08/24 14:29 Anesthesia Complication Comment: Post-operative progress note Anesthesia: Postop Eval II Evaluation Mental status: Awake Pain Level: 3 nausea: No Vomiting: No 12/08/24 1429 Date Serjio Gonzalez Signature: Date CC: Signed Normal [facility] Operative Reporton 5 Operative Report [facility] Medical Records Department [address] [place] [address] Operative Report 12/08/24 1404 MR#: [id number] Acct: [id number] Name: LAMBERTTeriFLYNN Rep #: [id number] : 1940 84 From: Iraj Tucker MD PCP: Dr. 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, prior fusion Post-Operative Diagnosis: Same Surgery/Procedure Performed: L4-5 right hemilaminectomy, facetectomy handle rounder operator: Yes Preschool Assistant Teacher: Keyanna Hendricks Tasks completed by benefits assistant: Closing, Removing tissue, Hemostasis: Electrocautery and Retracting Type of Anesthesia: General RN Documented Start/Stop Times: Operation Date: 12/08/24 12:15 Case Time Into Pre-Op 12/08/24 10:04 Out of Pre-Op 12/08/24 11:44 Anesthesia Start 12/08/24 11:49 Into Room 12/08/24 11:49 Procedure Start 12/08/24 12:13 Procedure End 12/08/24 13:45 Anesthesia End 12/08/24 13:50 Out of Room 12/08/24 13:50 Procedure Start Time: 12:13 Procedure Stop Time: 13:45 Select all DRAINS/GRAFTS/IMPLANT S that apply: None Estimated Blood Loss: 30 cc Specimen collected: No Description of surgery: Preoperative diagnosis: 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 Iraj Tucker Estimated blood loss: 30 mL Anesthesia: General Indications: Patient is a 84-year-old gentleman who is 9 months status post L2-5 fusion with Right partial foot drop which improved initially but has now plateaued. Weakness and numbness seem to increase with walking. Imaging showed L2-5 fusion stable with right L4-5 lateral recess stenosis. All options of treatment were discussed which included continued nonoperative treatment measures like rest physical therapy. After prolonged nonsurgical treatment, patient requested surgical intervention for laminectomy. All risks and benefits associated with the procedure were explained to the patient. The risks include but are not limited to infection, bleeding, injury to nerves and vessels, persistent paresthesia, incidental dural tear, recurrent disc herniation, spinal instability and need for fusion or other procedures in future, persistent pain, persistent weakness and numbness, etc. Procedure: The patient was identified in the preoperative holding suite using Unique patient identifiers. Skin was marked, consent was reviewed, and all questions were answered. The patient was then brought back to the operative room. A surgical timeout was performed to make sure correct procedure was being done on the correct patient and all operative room staff were on the same page. General endotracheal anesthesia was then given to the patient. The patient was then turned prone onto a Sam table over a Stanislav frame. The back was prepped and draped in usual fashion. Preoperative antibiotic was given. A final timeout was then again done just before starting the procedure. An incision was then carried out approximately 1 inch length in the midline using the prior paramedian incisional scar for guidance for the level. Bovie was utilized to dissect through the subcutaneous tissue up to the fascia. The fascia was bovied at the spinous process. Subperiosteal dissection was carried out along the right side of the spinous process and the lamina. Lateral edge of the pars was also identified. A [place] was then placed under the inferior edge of the lamina and a C-arm lateral view was repeated. The level was confirmed to be the L4-5 interspace. A Thomason retractor of appropriate depth was then placed to provide retraction throughout the remainder of the surgery.[employer] bone scalpel was then utilized to first create a score along the area of the hemilaminectomy. The bone scalpel was then advanced to perform the cuts along this score. The lamina and medial inferior articular process was then removed with the help of Brian. The flavum was utilized to protect the dura and superior articular process was carefully from the flavum. Partial medial facetectomy was performed to provide adequate lateral recess decompression. Superior portion of L5 lamina was also removed with help of Jl to expose the right L5 nerve root going into the foramen. All of the flavum was eventually removed. A wide decompression to expose the right L5 nerve root all the way starting from its shoulder to mid foraminal region was well decompressed and the nerve root was found to be free of any tenderness. Irrisept was kept in the wound for 1 minute and then rinsed with saline. 10 mg of pres (more content not included)... Normal [facility] Spine 1 View Any Levelon Spine 1 View Any Level [facility] Imaging Services [address] [place] [address] Spine 1 View Any Level MR#: [id number] Acct: [id number] Name: Teri VERDIN Rep #: [id number] : 1940 M 84 From: Boom Turner PCP: Dr. Rashid Camacho MD Status: ADM JONE Study: Spine 1 View Any Level Date of Exam: 12/08/24 Exam# [id number] Ordering Dr: Iraj Tucker MD PROCEDURE: Fluoroscopy less than 1 hour REASON FOR EXAM: Laminectomy, posterior decompression TECHNIQUE: Single fluoroscopic image was submitted. Fluoroscopy time was 3.1 seconds. Peak skin radiation dose was 2.2 mGy. COMPARISON: 12/02/2024 FINDINGS: See impression RAD/Spine 1 View Any Level IMPRESSION: Posterior spinal fusion hardware at L2, L4 and L5 with superimposed vertebroplasty changes. Multilevel disc spacers are present. Reading Location: [facility] CC: Dr. Iraj Tucker MD; Dr. Rashid Camacho MD Dress Cap Maker: Signed Normal [facility] Hepatitis A AB, Totalon 11-05 HEPATITIS A,TOT Positive Abnormal Negative [facility] Comment on above: Result Comment: Comm ent: The HAV total antibody assay detects both IgG and IgM but does not differentiate between them. A negative result suggests susceptibility to infection. A positive result could be due to vaccination, previously resolved infection or active infection. Testing for HAV IgM should be performed if active HAV infection is suspected. [facility] offers profiles that will automatically reflex positive HAV total antibody results to IgM (e.g., panel #[id number] HAV Antibody w/ Rfx). Performed at: [address] [id number] New Accounts Clerk: Jay Sandy PhD, Phone: [phone] Performed By: #### L 3890.6200, L501.5200, L3890.6005, L3890.6300, M100.651, BTSPAT, L3100.0300 ####[facility] [address] [facility] [place], [address] MRSA/SAID NASAL SCREENon MRSA+SAID SCRN Reason for Exam: Surgery MRSA MRSA Negative S. AUREUS S. aureus Negative Normal [facility] Comment on above: Performed By: #### L 3890.6200, L501.5200, L3890.6005, L3890.6300, M100.651, BTSPAT, L3100.0300 ####[facility] [address] [facility] [place], [address] Spine Lumbar without Contras ton 12-02-2024 Spine Lumbar without Contrast [facility] Imaging Services [address] [place] [address] Spine Lumbar without Contrast MR#: [id number] Acct: [id number] Name: Teri VERDIN Rep #: [id number] : 1940 M 84 From: Alejandro alejo MD PCP: Dr. Rashid Camacho MD Status: REG CLI Study: Spine Lumbar without Contrast Date of Exam: Exam# [id number] Ordering Dr: Iraj Tucker MD PROCEDURE: SPINE LUMBAR WITHOUT CONTRAST REASON FOR EXAM: Right leg pain. Prior low back surgery. TECHNIQUE: Lumbar spine CT without contrast. COMPARISON: None. FINDINGS: Vertebrae: Prior vertebroplasty of the L2 and L4 lumbar vertebrae. Alignment: No spondylolisthesis. L1-2: Vertebroplasty of the L2 vertebra with minimal loss of height of the superior endplate. L2-3: Vertebroplasty of the L2 vertebrae. The patient is status post fusion with inter pedicular screw fixation. Prosthetic disc is placed. L3-4: Status post prosthetic disc placement. Facet joint osteoarthritis and hypertrophy. Moderate degree of bilateral neural foraminal stenosis worse on the right side. L4-5: Prior intrapedicular screw fixation and tae fixation. Prostatic disc. Prior vertebroplasty. Bilateral neural foraminal stenosis. L5-S1: Prior fusion. Prior vertebroplasty. Prosthetic disc placement. Sacrum: Visualized upper sacrum and SI joints are unremarkable. Atherosclerotic calcification of the abdominal aorta. CT/Spine Lumbar without Contrast IMPRESSION: Prior fusion at the L2-L3, L4-L5 and L5-S1 levels with prosthetic disc placement. Vertebroplasty at the L2-L4 and L5 bilateral neural foraminal stenosis at the L3-L4 and L4-L5 level. One or more dose reduction techniques were used (e.g., Automated exposure control, adjustment of the mA and/or kV according to patient size, use of iterative reconstruction technique). Reading Location: [facility] CC: Dr. Iraj Tucker MD; Dr. Rashid Camacho MD Dress Cap Maker: Signed Normal [facility] HIV - WCHon 12-01-2024 HIV Non-Reactive Normal Nonreactive [facility] Comment on above: Order Comment: Reaso n for Exam: PREOP Performed By: #### L 3890.6200, L501.5200, L3890.6005, L3890.6300, M100.651, BTSPAT, L3100.0300 #### [facility] [address] [place], [place], [address] Hepatitis B Surface Antibody on 12-01-2024 HEP B Surf Ab Non-Reactive Normal [facility] Comment on above: Order Comment: Reaso n for Exam: PREOP Result Comment: Non Reactive: Inconsistent with immunity less than <10 mIU/mL Reactive: Consistent with immunity greater than or equal to 10 mIU/mL Performed By: #### L 3890.6200, L501.5200, L3890.6005, L3890.6300, M100.651, BTSPAT, L3100.0300 ####[facility] [address] [place], [place], [address] Hepatitis C Antibodyon 12-01 Hepatitis C AB Non-Reactive Normal Nonreactive [facility] Comment on above: Order Comment: Reaso n for Exam: PREOP Result Comment: Non Reactive: < 0.8 Equivocal: >/= 0.8 to < 1.0 Reactive: >/= 1.0 The CDC requires that a reactive/equivocal HCV antibody result be sent out for confirmation. HCV Quant by PCR testing. Performed By: #### L 3890.6200, L501.5200, L3890.6005, L3890.6300, M100.651, BTSPAT, L3100.0300 ####[facility] [address] [place], [place], [address] Magnesiumon 12-01-2024 Magnesium [Mass/Vol] 2.5 mg/dL Normal 1.6-2.6 [facility] Comment on above: Performed By: #### L 3890.6200, L501.5200, L3890.6005, L3890.6300, M100.651, BTSPAT, L3100.0300 ####[facility] [address] [place], [place], [address] Orthopedic Visit Reporton Orthopedic Visit Report [facility] [address] [place] [address] [address] [place], [place] [address] OFFICE VISIT Date of Service: 12/01/24 MR#: [id number] Acct: [id number] Name: Teri VERDIN Rep #: [id number] : 1940 Provider: Dr. Iraj Tucker MD Age/Sex: 84/M Location: [facility] [place].ANDREINA Status: Signed Intake Vital Signs 05/10/24 09:20 12/01/24 10:22 Height 5 ft 9 in 5 ft 9 in Weight: 220 lb 4 oz BMI 32.5 Intake Visit Reasons: lumbar spine Chief Complaint: Lumbar spine pre-op Accompanied by: and Daughter Is patient in pain?: Yes Pain scale (1-10): 1 Allergies Zcbzrxg-CXE-TrI Reductase Inhibitor Allergy (Severe, Verified 12/01/24 10:23) Pain in joints Medications ???Medication ???Instructions ???Recorded ???Confirmed ???Type cholecalciferol (vitamin D3) 50 50 mcg PO DAILY supplement 05/17/21 12/01/24 History mcg (2,000 unit) capsule (Vitamin D3) levothyroxine 75 mcg tablet 75 mcg PO DAILY thyroid 05/17/21 12/01/24 History vitamin E 200 unit capsule 200 unit PO DAILY supplement 05/17/21 12/01/24 History fluticasone propionate 50 2 spray intranasal DAILY PRN 08/05/22 12/01/24 History mcg/actuation nasal allergy symptoms spray,suspension lisinopril 20 mg tablet 20 mg PO BID bp 08/05/22 12/01/24 History amlodipine 5 mg tablet 5 mg PO DAILY BP 01/04/24 12/01/24 History fenofibrate nanocrystallized 145 145 mg PO DAILY CHOLESTEROL 01/04/24 12/01/24 History mg tablet coenzyme Q10 100 mg capsule 100 mg PO DAILY SUPPLEMENT 01/13/24 12/01/24 History aspirin 81 mg capsule 81 mg PO DAILY BLOOD THINNER 02/23/24 12/01/24 History Have you fallen in the past year?: No PFSH Medical History Thyroid disease Arthritis High cholesterol Back pain History of pain when walking History of stress test Cardiology follow-up encounter 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 Obesity Hypothyroidism Essential hypertension BPH with obstruction/lower urinary tract symptoms Wears hearing aid Wears glasses Wears dentures Prostate disease Easy bruising Degenerative disc disease Former smoker History of cataract Surgical History History of lumbar fusion History of cardiac catheterization History of coronary artery stent placement (04/08/22) History of bilateral cataract extraction (2011) History of tonsillectomy History of transurethral resection of prostate Family History Mother Hypertension Father Alzheimer's disease Brother Lung cancer Brother Hypertension Pacemaker Sister Hypertension Sister Hypertension Sister Hypertension Social History household members: spouse Smoking Status: Former smoker alcohol intake: never substance use type: does not use caffeine: No HPI lumbar spine Details: This documentation accurately reflects the service provided and the decisions made by me, Dr. Iraj Tucker MD 12/01/24 1020. Part of today???s visit was documented by Kesha Han ATC, acting as scribe. Teri VERDIN is a 84 year old M here today for pre-op lumbar laminectomy decompression right L4-5 DOS 12/08/2024. Patient rates his pain a /10. Patient states his pain and symptoms have not changed since he was last seen. Patient denies any recent injections. Patient takes baby aspirin for a prior stent placement. No other blood thinners. HPI from 09/24/24: Teri VERDIN is a 84 year old M here today for MRI review of his lumbar spine. He denies any changes. He is still having swelling in the right leg. He continues to use his cane to ambulate. HPI from 09/03/24: Teri VERDIN is a 84 year old M here today for 6 month s/p L2-5 posterior percutaneous pedicle screw instrumented fusion, cement augmentation, prone DOS 03/01/2024. Patient states he is feeling good. Patient states he has pain but its a different pain. Patient does have numbness and pain in his right foot that goes up to his knee and some times he has it is his hip. Right foot is still swollen he thinks its a little worse. Patient right leg is also swollen. Patient hasn't been using the foot drop splint. Patient is still walking with a cane. Says that his right foot strength at improved. He does a home exercise program at home. Ortho Exam General General: Yes no acute distress Neurologic: Yes alert and Yes oriented x3 Spine SPINE TESTING CERVICAL THORACIC LUMBAR Musculoskeletal Strength 0=absent - 5=normal Details: Examination of the back and belly show incisions well-healed 4 paramedian. Neurologic exam of the lower extremity shows 5 x 5 power normal shows except for right ankle tibialis anterior is grade 4 (more content not included)... Normal [facility] Type AND Screen - PAT ONLYon 12-01-2024 ABO and Rh group Nom (Bld) Blood group A Rh(D) positive Normal [facility] Comment on above: Order Comment: Surge ry Date: 12/08/24Reason for Laboratory Test [id number] LAMINECTOMY L4-5 RIGHT Performed By: #### L 3890.6200, L501.5200, L3890.6005, L3890.6300, M100.651, BTSPAT, L3100.0300 ####[facility] [address] [facility] [place], [address] MR/PAT.[facility] 11-29-2024 MR/PAT.[facility] Medical Records Department [address] [place] [address] PAT - Anesthesia 11/29/24 1612 MR#: [id number] Acct: [id number] Name: Teri VERDIN Rep #: [id number] : 1940 84 From: Thad Amador MD PCP: Dr. Rashid Camacho MD Status:PRE [facility] [place] Y Race: C Location: [facility] Pre-Assessment Diagnosis/Proposed Procedure Planned Operative Procedure(s): LUMBAR LAMINECTOMY DECOMPRESSION RIGHT L4-5 Anesthesia History Anesthesia History - diagnostic imaging manager: Anesthesia History - diagnostic imaging manager Hx Hospitalization No 11/29/24 11:26 Any Problems With Anesthesia No 11/29/24 11:26 Cholinesterase deficiency No 11/29/24 11:26 You/Your Family Experience No 11/29/24 11:26 fever (hyperthermia) with Relationship Recent Exposure to Contagious No 03/01/24 06:07 Disease Does patient have nerve No 11/29/24 11:26 stimulator Patient instructed to have device shut off --Does patient have Pacemaker or ICD? When Was Last Pacemaker Check QUESTION #4 FULL TEXT: You/Your Family Experience fever (hyperthermia) with Anesthesia Last Oral Intake Last Oral intake: Last Oral Intake NPO since Meds taken in AM with sips of water? Meds patient instructed to take am of surgery PONV PONV - diagnostic imaging manager: PONV - diagnostic imaging manager Female No 11/29/24 11:26 HX of Motion Sickness No 11/29/24 11:26 HX of N/V After Surgery No 11/29/24 11:26 Non-Smoker Yes 11/29/24 11:26 Duration of Surgery greater Yes 11/29/24 11:26 than 60 minutes Number of Risk Factors 2 11/29/24 11:26 PONV Score Moderate Risk 11/29/24 11:26 Height Weight Height Weight: Anesthesia: Height Weight Height 5 ft 9 in 05/10/24 09:20 Respiratory Assessment Respiratory Assessment - diagnostic imaging manager: Respiratory Tract Infection Hx - diagnostic imaging manager Hx Respiratory Tract Infection No 11/29/24 11:26 STOP Sleep Apnea STOP Sleep Apnea - diagnostic imaging manager: STOP Sleep Apnea - diagnostic imaging manager Hx Hypertension Yes: CONTROLLED WITH MEDS 11/29/24 11:26 Hx Sleep Apnea No 11/29/24 11:26 CPAP BIPAP Do you snore loudly (louder No 11/29/24 11:26 than talking or can be heard Do you often feel tired/ No 11/29/24 11:26 fatigued/ sleepy during daytime? Has anyone observed you stop No 11/29/24 11:26 breathing during sleep? STOP Results Negative 11/29/24 11:26 QUESTION #5 FULL TEXT : Do you snore loudly (louder than talking or can be heard through closed doors)? Tobacco Use History Tobacco Use History - diagnostic imaging manager: Tobacco Use History - diagnostic imaging manager Tobacco Use Smoking Status Former smoker 11/29/24 11:26 Hx Tobacco Use No 11/29/24 11:26 Years Smoking Packs Smoked per Day Smoking Cessation Date was No - quit smoking greater 11/29/24 11:26 within the last 15 years than 15 years ago Hx Smoking Cessation Date 05/17/06 11/29/24 11:26 Hx Smoking Cessation No 11/29/24 11:26 Counseling Hematologic Medial History Hematologic Hx - diagnostic imaging manager: Hematologic Medical Hx - vmware administrator Hx of Blood Transfusion No 11/29/24 11:26 Hx of Transfusion in last 3 No 11/29/24 11:26 Months Date of Last Transfusion (if within last 3 months) Ever experience any problems No 11/29/24 11:26 with transfusion(s)? Specify any problems Hx of Preganancy in last 3 N/A 11/29/24 11:26 Months Nurse Filling Out Transfusion DSCHRIBER 11/29/24 11:26 Questions: Date: 11/29/24 11/29/24 11:26 Time: 11:11/29/24 11:26 Patient unable to answer at this time (ie. 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 Normal [facility] Vitamin D,25 Hydroxyon 10-21 Vitamin D 25-OH 37.0 ng/mL Normal [facility] Comment on above: Order Comment: Order Date: 07/20/24Order Info: [id number] - VITD25 Result Comment: Marylu min D 25(OH) Status Range Deficiency <20 ng/mL (50nmol/L) Insufficiency 20 - 30 ng/mL (50 - 75 nmol/L) Sufficiency 30 - 100 ng/mL (75 - 250 nmol/L) Toxicity >100 ng/mL (>250 nmol/L) Performed By: #### L 100.0500, L501.9520, L506.1000, L500.4050 ####[facility] [address] [place], [address] CBC-Complete Blood Cnt No Di ffon 10-20-2024 Erythrocyte distribution width (RBC) [Ratio] 13.1 % Normal 11.6-14.6 [facility] Comment on above: Order Comment: Order Date: 07/20/24Order Info: [id number] - CBCComments: E Performed By: #### L 100.0500, L501.9520, L506.1000, L500.4050 ####[facility] [address] [place], [address] Hematocrit (Bld) [Volume fraction] 44.9 % Normal 40-54 [facility] Comment on above: Order Comment: Order Date: 07/20/24Order Info: [id number] - CBCComments: E Performed By: #### L 100.0500, L501.9520, L506.1000, L500.4050 ####[facility] [address] [place], [address] Hemoglobin (Bld) [Mass/Vol] 14.1 g/dL Normal 13.0-16.5 [facility] Comment on above: Order Comment: Order Date: 07/20/24Order Info: [id number] - CBCComments: E Performed By: #### L 100.0500, L501.9520, L506.1000, L500.4050 ####[facility] [address] [place], [address] MCH (RBC) [Entitic mass] 29.8 pg Normal 27.0-32.0 [facility] Comment on above: Order Comment: Order Date: 07/20/24Order Info: [id number] - CBCComments: E Performed By: #### L 100.0500, L501.9520, L506.1000, L500.4050 ####[facility] [address] [place], [address] MCHC (RBC) [Mass/Vol] 31.4 g/dL Low 32-36 [facility] Comment on above: Order Comment: Order Date: 07/20/24Order Info: [id number] - CBCComments: E Performed By: #### L 100.0500, L501.9520, L506.1000, L500.4050 ####[facility] [address] [place], [address] MCV (RBC) [Entitic vol] 94.9 fL High 80-94 [facility] Comment on above: Order Comment: Order Date: 07/20/24Order Info: [id number] - CBCComments: E Performed By: #### L 100.0500, L501.9520, L506.1000, L500.4050 ####[facility] [address] [place], [address] Platelet mean volume (Bld) [Entitic vol] 11.6 fL Normal 6.2-12.0 [facility] Comment on above: Order Comment: Order Date: 07/20/24Order Info: [id number] - CBCComments: E Performed By: #### L 100.0500, L501.9520, L506.1000, L500.4050 ####[facility] [address] [place], [address] Platelets (Bld) [#/Vol] 347 10*3/uL Normal 150-450 [facility] Comment on above: Order Comment: Order Date: 07/20/24Order Info: [id number] - CBCComments: E Performed By: #### L 100.0500, L501.9520, L506.1000, L500.4050 ####[facility] [address] [place], [address] RBC (Bld) [#/Vol] 4.73 10*6/uL Normal 4.6-6.2 [facility] Comment on above: Order Comment: Order Date: 07/20/24Order Info: [id number] - CBCComments: E Performed By: #### L 100.0500, L501.9520, L506.1000, L500.4050 ####[facility] [address] [place], [address] RDW SD 46.0 fl High 35.1-43.9 [facility] Comment on above: Order Comment: Order Date: 07/20/24Order Info: [id number] - CBCComments: E Performed By: #### L 100.0500, L501.9520, L506.1000, L500.4050 ####[facility] [address] [place], [address] WBC (Bld) [#/Vol] 6.3 10*3/uL Normal 4.4-11.0 [facility] Comment on above: Order Comment: Order Date: 07/20/24Order Info: [id number] - CBCComments: E Performed By: #### L 100.0500, L501.9520, L506.1000, L500.4050 ####[facility] [address] [place], [address] Comprehensive Metabolic Prof ilon 10-20-2024 Albumin [Mass/Vol] 3.9 g/dL Normal 3.2-5.0 [facility] Comment on above: Order Comment: Order Date: 12/02/23Order Info: [id number] - BMPOrder Date: 07/20/24Order Info: [id number] - CMPOrder Info: [id number] - LIPIDOrder Info: [id number] - TSH Performed By: #### L 100.0500, L501.9520, L506.1000, L500.4050 ####[facility] [address] [place], [address] Albumin/Globulin [Mass ratio] 1.1 {ratio} Normal 0.9-2.4 [facility] Comment on above: Order Comment: Order Date: 12/02/23Order Info: [id number] - BMPOrder Date: 07/20/24Order Info: [id number] - CMPOrder Info: [id number] - LIPIDOrder Info: [id number] - TSH Performed By: #### L 100.0500, L501.9520, L506.1000, L500.4050 ####[facility] [address] [place], [address] ALK P 80 U/L Normal 45-117 [facility] Comment on above: Order Comment: Order Date: 12/02/23Order Info: [id number] - BMPOrder Date: 07/20/24Order Info: [id number] - CMPOrder Info: [id number] - LIPIDOrder Info: [id number] - TSH Performed By: #### L 100.0500, L501.9520, L506.1000, L500.4050 ####[facility] [address] [place], [address] ALT [Catalytic activity/Vol] 25 U/L Normal 16-61 [facility] Comment on above: Order Comment: Order Date: 12/02/23Order Info: [id number] - BMPOrder Date: 07/20/24Order Info: [id number] - CMPOrder Info: [id number] - LIPIDOrder Info: [id number] - TSH Performed By: #### L 100.0500, L501.9520, L506.1000, L500.4050 ####[facility] [address] [place], [address] AST [Catalytic activity/Vol] 23 U/L Normal 15-37 [facility] Comment on above: Order Comment: Order Date: 12/02/23Order Info: [id number] - BMPOrder Date: 07/20/24Order Info: [id number] - CMPOrder Info: [id number] - LIPIDOrder Info: [id number] - TSH Performed By: #### L 100.0500, L501.9520, L506.1000, L500.4050 ####[facility] [address] [place], [address] Bilirubin [Mass/Vol] 0.50 mg/dL Normal 0.20-1.00 [facility] Comment on above: Order Comment: Order Date: 12/02/23Order Info: 666-1 - BMPOrder Date: 07/20/24Order Info: [id number] - CMPOrder Info: [id number] - LIPIDOrder Info: [id number] - TSH Result Comment: For patients on eltrombopag therapy, use of Dimension Flushing TBIL is not recommended. Performed By: #### L 100.0500, L501.9520, L506.1000, L500.4050 ####[facility] [address] [place], [address] BUN/CRE 14.0 RATIO Normal 10-20 [facility] Comment on above: Order Comment: Order Date: 12/02/23Order Info: 666- - BMPOrder Date: 07/20/24Order Info: 07-1 - CMPOrder Info: [id number] - LIPIDOrder Info: [id number] - TSH Performed By: #### L 100.0500, L501.9520, L506.1000, L500.4050 ####[facility] [address] [place], [address] CA,Total 8.8 mg/dL Normal 8.5-10.1 [facility] Comment on above: Order Comment: Order Date: 12/02/23Order Info: 666- - BMPOrder Date: 07/20/24Order Info: [id number] - CMPOrder Info: [id number] - LIPIDOrder Info: [id number] - TSH Performed By: #### L 100.0500, L501.9520, L506.1000, L500.4050 ####[facility] [address] [place], [address] Chloride [Moles/Vol] 108 mmol/L High 98-107 [facility] Comment on above: Order Comment: Order Date: 12/02/23Order Info: 666-1 - BMPOrder Date: 07/20/24Order Info: [id number] - CMPOrder Info: [id number] - LIPIDOrder Info: [id number] - TSH Performed By: #### L 100.0500, L501.9520, L506.1000, L500.4050 ####[facility] [address] [place], [address] CO2 [Moles/Vol] 26.0 mmol/L Normal 21.0-32.0 [facility] Comment on above: Order Comment: Order Date: 12/02/23Order Info: [id number] - BMPOrder Date: 07/20/24Order Info: [id number] - CMPOrder Info: [id number] - LIPIDOrder Info: 6-3 - TSH Performed By: #### L 100.0500, L501.9520, L506.1000, L500.4050 ####[facility] [address] [place], [address] Creatinine [Mass/Vol] 1.21 mg/dL Normal 0.70-1.30 [facility] Comment on above: Order Comment: Order Date: 12/02/23Order Info: 666- - BMPOrder Date: 07/20/24Order Info: [id number] - CMPOrder Info: [id number] - LIPIDOrder Info: [id number] - TSH Result Comment: The validity of the calculated GFR GFRAA in patients over 70 years has not been determined. Clinical correlation is essential. Performed By: #### L 100.0500, L501.9520, L506.1000, L500.4050 ####[facility] [address] [place], [address] EST GFR - AA 73 mL/min Normal >60 [facility] Comment on above: Order Comment: Order Date: 12/02/23Order Info: 666- - BMPOrder Date: 07/20/24Order Info: [id number] - CMPOrder Info: [id number] - LIPIDOrder Info: [id number] - TSH Result Comment: Afri can Swazi GFR Calc Performed By: #### L 100.0500, L501.9520, L506.1000, L500.4050 ####[facility] [address] [place], [address] GAP 5 Normal 5-15 [facility] Comment on above: Order Comment: Order Date: 12/02/23Order Info: 666- - BMPOrder Date: 07/20/24Order Info: 785-1 - CMPOrder Info: [id number] - LIPIDOrder Info: [id number] - TSH Performed By: #### L 100.0500, L501.9520, L506.1000, L500.4050 ####[facility] [address] [place], [address] GFR/1.73 sq M.predicted among non-blacks MDRD (S/P/Bld) [Vol rate/Area] 61 mL/min/{1.73_m2} Normal >60 [facility] Comment on above: Order Comment: Order Date: 12/02/23Order Info: [id number] - BMPOrder Date: 07/20/24Order Info: [id number] - CMPOrder Info: [id number] - LIPIDOrder Info: [id number] - TSH Result Comment: Non- GFR Calc Performed By: #### L 100.0500, L501.9520, L506.1000, L500.4050 ####[facility] [address] [place], [address] Globulin (S) [Mass/Vol] 3.4 g/dL Normal 2.2-4.2 [facility] Comment on above: Order Comment: Order Date: 12/02/23Order Info: 666- - BMPOrder Date: 07/20/24Order Info: 785-1 - CMPOrder Info: [id number] - LIPIDOrder Info: [id number] - TSH Performed By: #### L 100.0500, L501.9520, L506.1000, L500.4050 ####[facility] [address] [place], [address] Glucose [Mass/Vol] 88 mg/dL Normal 74-106 [facility] Comment on above: Order Comment: Order Date: 12/02/23Order Info: 666- - BMPOrder Date: 07/20/24Order Info: 86-1 - CMPOrder Info: [id number] - LIPIDOrder Info: [id number] - TSH Performed By: #### L 100.0500, L501.9520, L506.1000, L500.4050 ####[facility] [address] [place], [address] Potassium [Moles/Vol] 4.0 mmol/L Normal 3.5-5.1 [facility] Comment on above: Order Comment: Order Date: 12/02/23Order Info: 666- - BMPOrder Date: 07/20/24Order Info: 785-1 - CMPOrder Info: [id number] - LIPIDOrder Info: [id number] - TSH Performed By: #### L 100.0500, L501.9520, L506.1000, L500.4050 ####[facility] [address] [place], [address] Sodium [Moles/Vol] 139 mmol/L Normal 136-145 [facility] Comment on above: Order Comment: Order Date: 12/02/23Order Info: 666- - BMPOrder Date: 07/20/24Order Info: [id number] - CMPOrder Info: [id number] - LIPIDOrder Info: [id number] - TSH Performed By: #### L 100.0500, L501.9520, L506.1000, L500.4050 ####[facility] [address] [place], [address] T PROT 7.3 g/dL Normal 6.4-8.2 [facility] Comment on above: Order Comment: Order Date: 12/02/23Order Info: 666- - BMPOrder Date: 07/20/24Order Info: 785- - CMPOrder Info: [id number] - LIPIDOrder Info: [id number] - TSH Performed By: #### L 100.0500, L501.9520, L506.1000, L500.4050 ####[facility] [address] [place], [address] Urea nitrogen [Mass/Vol] 17 mg/dL Normal 05-20 [facility] Comment on above: Order Comment: Order Date: 12/02/23Order Info: 666- - BMPOrder Date: 07/20/24Order Info: [id number] - CMPOrder Info: [id number] - LIPIDOrder Info: 3 - TSH Performed By: #### L 100.0500, L501.9520, L506.1000, L500.4050 ####[facility] [address] [place], [address] Lipid Profileon 10-20-2024 Cholesterol [Mass/Vol] 175 mg/dL Normal 200 [facility] Comment on above: Order Comment: Order Date: 12/02/23Order Info: [id number] - BMPOrder Date: 07/20/24Order Info: [id number] - CMPOrder Info: [id number] - LIPIDOrder Info: [id number] - TSH Result Comment: <200 mg/dL Desirable 200-240 mg/dL Borderline >240 mg/dL High Risk Performed By: #### L 500.4100 ####[facility] [address] [place], [address] Cholesterol in HDL [Mass/Vol] 52 mg/dL Normal [facility] Comment on above: Order Comment: Order Date: 12/02/23Order Info: 666-11 - BMPOrder Date: 07/20/24Order Info: [id number] - CMPOrder Info: [id number] - LIPIDOrder Info: [id number] - TSH Result Comment: The drugs N-Acetylcysteine and Metamizole may falsely depress this assay. Reference Range HDL <40 mg/dL Low HDL Cholesterol HDL >or= 60 mg/dL High HDL Cholesterol Performed By: #### L 500.4100 ####[facility] [address] [place], [address] Cholesterol in LDL [Mass/Vol] 106 mg/dL Normal 0-130 [facility] Comment on above: Order Comment: Order Date: 12/02/23Order Info: [id number] - BMPOrder Date: 07/20/24Order Info: [id number] - CMPOrder Info: [id number] - LIPIDOrder Info: [id number] - TSH Performed By: #### L 500.4100 ####[facility] [address] [place], [address] Cholesterol in VLDL [Mass/Vol] 17 mg/dL Normal 5-40 [facility] Comment on above: Order Comment: Order Date: 12/02/23Order Info: 666-1 - BMPOrder Date: 07/20/24Order Info: 07-1 - CMPOrder Info: [id number] - LIPIDOrder Info: [id number] - TSH Performed By: #### L 500.4100 ####[facility] [address] [place], [address] Triglyceride [Mass/Vol] 83 mg/dL Normal [facility] Comment on above: Order Comment: Order Date: 12/02/23Order Info: [id number] - BMPOrder Date: 07/20/24Order Info: [id number] - CMPOrder Info: [id number] - LIPIDOrder Info: [id number] - TSH Result Comment: The drugs N-Acetylcysteine and Metamizole may falsely depress this assay. Serum Triglycerides Reference Interval Normal <150 mg/dL Borderline high 150 - 199 mg/dL High 200 - 499 mg/dL Very High > or = 500 mg/dL Performed By: #### L 500.4100 ####[facility] [address] [place], [address] Thyroid Stim Hormone (TSH)on 10-20-2024 TSH 3.080 uIU/mL Normal 0.358-3.740 [facility] Comment on above: Order Comment: Order Date: 12/02/23Order Info: [id number] - BMPOrder Date: 07/20/24Order Info: [id number] - CMPOrder Info: [id number] - LIPIDOrder Info: [id number] - TSH Performed By: #### L 100.0500, L501.9520, L506.1000, L500.4050 ####[facility] [id number] [place], [address] Orthopedic Visit Reporton Orthopedic Visit Report [facility] [address] [place] [address] OFFICE VISIT Date of Service: 09/24/24 MR#: [id number] Acct: [id number] Name: Teri VERDIN Rep #: [id number] : 1940 Provider: Dr. Iraj Tucker MD Age/Sex: 84/M Location: [facility] [place].ANDRE[facility] Status: Signed Intake Vital Signs 05/10/24 09:20 Height 5 ft 9 in Intake Visit Reasons: LUMBAR SPINE Allergies Jwgxxxt-KDV-HuA Reductase Inhibitor Allergy (Severe, Verified 09/24/24 08:59) Pain in joints Medications ???Medication ???Instructions ???Recorded ???Confirmed ???Type cholecalciferol (vitamin D3) 50 50 mcg PO DAILY supplement 05/17/21 09/24/24 History mcg (2,000 unit) capsule (Vitamin D3) levothyroxine 75 mcg tablet 75 mcg PO DAILY thyroid 05/17/21 09/24/24 History vitamin E 200 unit capsule 200 unit PO DAILY supplement 05/17/21 09/24/24 History fluticasone propionate 50 2 spray intranasal DAILY PRN 08/05/22 09/24/24 History mcg/actuation nasal allergy symptoms spray,suspension lisinopril 20 mg tablet 20 mg PO BID bp 08/05/22 09/24/24 History amlodipine 5 mg tablet 5 mg PO DAILY BP 01/04/24 09/24/24 History fenofibrate nanocrystallized 145 145 mg PO DAILY CHOLESTEROL 01/04/24 09/24/24 History mg tablet coenzyme Q10 100 mg capsule 100 mg PO DAILY SUPPLEMENT 01/13/24 09/24/24 History aspirin 81 mg capsule 81 mg PO DAILY BLOOD THINNER 02/23/24 09/24/24 History acetaminophen 500 mg tablet 500 mg PO Q6H 7 days #28 tabs 03/03/24 09/24/24 Rx bisacodyl 5 mg tablet,delayed 5 mg PO DAILY PRN constipation 2 03/03/24 09/24/24 Rx release days #2 tabs Have you fallen in the past year?: Yes PFSH Medical History Loss of hearing History of steroid therapy Thyroid disease Arthritis High cholesterol Back pain History of pain when walking History of stress test Cardiology follow-up encounter 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 Obesity Hypothyroidism Essential hypertension BPH with obstruction/lower urinary tract symptoms Wears hearing aid Wears glasses Wears dentures Prostate disease Easy bruising Degenerative disc disease TIA (transient ischemic attack) Former smoker History of cataract Surgical History History of cardiac catheterization History of coronary artery stent placement (04/08/22) History of bilateral cataract extraction (2011) History of tonsillectomy History of transurethral resection of prostate Family History Mother Hypertension Father Alzheimer's disease Brother Lung cancer Brother Hypertension Pacemaker Sister Hypertension Sister Hypertension Sister Hypertension Social History household members: spouse Smoking Status: Former smoker alcohol intake: never substance use type: does not use caffeine: No HPI LUMBAR SPINE Details: This documentation accurately reflects the service provided and the decisions made by me, Dr. Iraj Tucker MD 09/24/24 0839. Part of today???s visit was documented by Nayeli RUBY, acting as scribe. Teri VERDIN is a 84 year old M here today for MRI review of his lumbar spine. He denies any changes. He is still having swelling in the right leg. He continues to use his cane to ambulate. HPI from 09/03/24: Teri VERDIN is a 84 year old M here today for 6 month s/p L2-5 posterior percutaneous pedicle screw instrumented fusion, cement augmentation, prone DOS 03/01/2024. Patient states he is feeling good. Patient states he has pain but its a different pain. Patient does have numbness and pain in his right foot that goes up to his knee and some times he has it is his hip. Right foot is still swollen he thinks its a little worse. Patient right leg is also swollen. Patient hasn't been using the foot drop splint. Patient is still walking with a cane. Says that his right foot strength at improved. He does a home exercise program at home. Ortho Exam General General: Yes no acute distress Neurologic: Yes alert and Yes oriented x3 Spine SPINE TESTING CERVICAL THORACIC LUMBAR Musculoskeletal Strength 0=absent - 5=normal Details: Examination of the back and belly show incisions well-healed. Neurologic exam of the lower extremity shows 5 x 5 power normal shows except for right ankle tibialis anterior is grade 4-, EHL is grade 1, peroneals is grade 4-, gastrosoleus is 5 x 5. Lower extremity edema, appears equal. Patient says that he is not able to move the toes on his right foot. Normal sensations across all dermatomes. Coding Level of Care Code Off vis,est,level 4 Diagnoses Right foot drop M21.371 Stat (more content not included)... Normal [facility] Spine Lumbar (Routine)on Spine Lumbar (Routine) [facility] Imaging Services [address] [place], [place] [address] Spine Lumbar (Routine) MR#: [id number] Acct: [id number] Name: Teri VERDIN Rep #: [id number] : 1940 M 84 From: Werner Velasco MD PCP: Dr. Rashid Camacho MD Status: REG CL Study: Spine Lumbar (Routine) Date of Exam: 09/13/24 Exam# [id number] Ordering Dr: Iraj Tucker MD [id number] STUDY: MRI LUMBAR SPINE WITHOUT CONTRAST REASON FOR EXAM: Male, 84 years old. Right partial foot drop TECHNIQUE: Standardized fat and water weighted pulse sequences were obtained in the sagittal and axial planes. COMPARISON: Lumbar spine radiographs 09/03/2024. FINDINGS: T10-T11: (Sagittal only). Normal endplates. Normal disc height and morphology. Normal central canal and the partially included portions of the bilateral intervertebral neuroforamina. T11-T12: (Sagittal only). Normal endplates. Normal disc height. Mild ventral extradural defect due to posterior bulging annulus. Normal central canal and bilateral intervertebral neuroforamina. T12-L1: Normal endplates. Normal disc height, hydration and morphology. Normal bilateral facet joints. Normal central canal and bilateral lateral recesses. Normal bilateral intervertebral neural foramina. Normal lumbar lordosis. There is no substantial scoliosis. Normal conus medullaris that terminates at the lower T12 vertebral body level. L1-2: Normal endplates. Normal disc height, hydration and morphology. Normal bilateral facet joints. Normal central canal and bilateral lateral recesses. Normal bilateral intervertebral neural foramina. Small bilateral renal cysts are visible at this level. L2-3: Disc implant inside the disc space. Old central compression fracture of the upper L3 vertebral body. L2 pedicular screws causing signal distortion artifacts on the facet joints. No significant facet arthropathy. Normal central canal and bilateral lateral recesses. Normal bilateral intervertebral neuroforamina. L3-4: Disc implant inside the disc space. L4 pedicular screws and tae causing signal distortion artifacts on the facet joints. No significant facet arthropathy. Moderate central canal stenosis with an AP canal diameter of 7 mm. Mild stenosis of the bilateral lateral recesses. Mild stenosis of the bilateral intervertebral neuroforamina. L4-5: Disc implant inside the disc space. Pedicular screws and tae causing signal distortion artifacts. No significant facet arthropathy. Normal central canal and bilateral lateral recesses. Mild stenosis of right intervertebral neuroforamen. Normal left intervertebral neuroforamen. L5-S1: Normal endplates. Pronounced disc space height narrowing. Mild asymmetric degenerative facet arthropathy. Normal central canal and bilateral lateral recesses. Right L5 pedicular screw causing signal obliteration of the right intervertebral neuroforamen. Mild stenosis of the left intervertebral neuroforamen. Normal visualized sacral ala. Normal visualized paraspinous soft tissue structures. MRI/Spine Lumbar (Routine) IMPRESSION: 1. Moderate central canal stenosis at L3-L4 disc space level with an AP canal diameter 7 mm, mild stenosis of the bilateral lateral recesses and mild stenosis of the bilateral intervertebral neuroforamina. 2. Mild stenosis of the right L4-L5 intervertebral neuroforamen. 3. Mild stenosis of the left L5-S1 intervertebral neuroforamen and right L5 pedicular screw causing signal obliteration of the right L5-S1 intervertebral neuroforamen. 4. No MRI evidence of lumbar extruded disc fragment. Electronically Signed: Werner Velasco MD at 13:58 EST , CC: Dr. Iraj Tucker MD; Dr. Rashid Camacho MD Dress Cap Maker: Signed Normal [facility] Lumbar Spine 2 or 3 Viewson 09-03-2024 Lumbar Spine 2 or 3 Views [facility] Radiology [address] [place] [address] Lumbar Spine 2 or 3 Views MR#: [id number] Acct: [id number] Name: Teri VERDIN Rep #: [id number] : 1940 M 84 From: [facility] PCP: Dr. Rashid Camacho MD Status: DEP AMB Study: Lumbar Spine 2 or 3 Views Date of Exam: Exam# [id number] Ordering Dr: Keyanna Hendricks [place] [id number] EXAM: XR LUMBOSACRAL SPINE, 2 OR 3 VIEWS CLINICAL INDICATION: s/p fusion -- please do upright AP and LAT TECHNIQUE: Frontal and lateral views of the lumbar spine and sacrum. COMPARISON: 06/03/2024 FINDINGS: VERTEBRAE: No evidence of endplate subsidence or acute fracture. Multilevel facet arthrosis and endplate osteophytosis. Bilateral L2, bilateral L4, bilateral L5 pedicle screws with associated longitudinal connecting rods are again identified. No spondylolisthesis. Preservation of the normal lumbar lordosis. SACRUM/COCCYX: Bilateral SI joint arthrosis. DISC SPACES: Discectomy change involving L2-L3 through L5-S1 is demonstrated unchanged since prior examination. GASTROINTESTINAL TRACT: Normal as visualized. Included bowel gas pattern is non-obstructive. RAD/Lumbar Spine 2 or 3 Views IMPRESSION: Postoperative changes. No acute findings. Electronically Signed: Surjit Mora DO at 22:08 EDT , CC: TIFFANIE Orozco; Dr. Rashid Camacho MD Dress Cap Maker: Signed Normal [facility] Orthopedic Visit Reporton Orthopedic Visit Report [facility] [address] [place] [address] [place] [address] OFFICE VISIT Date of Service: 09/03/24 MR#: [id number] Acct: [id number] Name: Teri VERDIN Rep #: [id number] : 1940 Provider: Dr. Iraj Tucker MD Age/Sex: 84/M Location: [facility] [place] Status: Signed Intake Vital Signs 05/10/24 09:20 Height 5 ft 9 in Intake Visit Reasons: LUMBAR SPINE Chief Complaint: 6 months post-op Accompanied by: Other Family Is patient in pain?: Yes Pain scale (1-10): 2 Allergies Bchkrji-DHV-ChM Reductase Inhibitor Allergy (Severe, Verified 09/03/24 10:10) Pain in joints Medications ???Medication ???Instructions ???Recorded ???Confirmed ???Type cholecalciferol (vitamin D3) 50 50 mcg PO DAILY supplement 05/17/21 09/03/24 History mcg (2,000 unit) capsule (Vitamin D3) levothyroxine 75 mcg tablet 75 mcg PO DAILY thyroid 05/17/21 09/03/24 History vitamin E 200 unit capsule 200 unit PO DAILY supplement 05/17/21 09/03/24 History fluticasone propionate 50 2 spray intranasal DAILY PRN 08/05/22 09/03/24 History mcg/actuation nasal allergy symptoms spray,suspension lisinopril 20 mg tablet 20 mg PO BID bp 08/05/22 09/03/24 History amlodipine 5 mg tablet 5 mg PO DAILY BP 01/04/24 09/03/24 History fenofibrate nanocrystallized 145 145 mg PO DAILY CHOLESTEROL 01/04/24 09/03/24 History mg tablet coenzyme Q10 100 mg capsule 100 mg PO DAILY SUPPLEMENT 01/13/24 09/03/24 History aspirin 81 mg capsule 81 mg PO DAILY BLOOD THINNER 02/23/24 09/03/24 History acetaminophen 500 mg tablet 500 mg PO Q6H 7 days #28 tabs 03/03/24 09/03/24 Rx bisacodyl 5 mg tablet,delayed 5 mg PO DAILY PRN constipation 2 03/03/24 09/03/24 Rx release days #2 tabs Have you fallen in the past year?: Yes PFSH Medical History Loss of hearing History of steroid therapy Thyroid disease Arthritis High cholesterol Back pain History of pain when walking History of stress test Cardiology follow-up encounter 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 Obesity Hypothyroidism Essential hypertension BPH with obstruction/lower urinary tract symptoms Wears hearing aid Wears glasses Wears dentures Prostate disease Easy bruising Degenerative disc disease TIA (transient ischemic attack) Former smoker History of cataract Surgical History History of cardiac catheterization History of coronary artery stent placement (04/08/22) History of bilateral cataract extraction (2011) History of tonsillectomy History of transurethral resection of prostate Family History Mother Hypertension Father Alzheimer's disease Brother Lung cancer Brother Hypertension Pacemaker Sister Hypertension Sister Hypertension Sister Hypertension Social History household members: spouse Smoking Status: Former smoker alcohol intake: never substance use type: does not use caffeine: No HPI LUMBAR SPINE Details: This documentation accurately reflects the service provided and the decisions made by me, Dr. Iraj Tucker MD 09/03/24 1009. Part of today???s visit was documented by [ ], acting as scribe. Teri VERDIN is a 84 year old M here today for 6 month s/p L2-5 posterior percutaneous pedicle screw instrumented fusion, cement augmentation, prone DOS 03/01/2024. Patient states he is feeling good. Patient states he has pain but its a different pain. Patient does have numbness and pain in his right foot that goes up to his knee and some times he has it is his hip. Right foot is still swollen he thinks its a little worse. Patient right leg is also swollen. Patient hasn't been using the foot drop splint. Patient is still walking with a cane. Says that his right foot strength at improved. He does a home exercise program at home. Ortho Exam General General: Yes no acute distress Neurologic: Yes alert and Yes oriented x3 Spine SPINE TESTING CERVICAL THORACIC LUMBAR Musculoskeletal Strength 0=absent - 5=normal Details: Examination of the back and belly show incisions well-healed. Neurologic exam of the lower extremity shows 5 x 5 power normal shows except for right ankle tibialis anterior is grade 4-, EHL is grade 1, peroneals is grade 4-, gastrosoleus is 5 x 5. Lower extremity edema, appears equal. Patient says that he is not able to move the toes on his right foot. Normal sensations across all dermatomes. Coding Level of Care Code Off vis,est,level 4 Diagnoses Status post lumbar spinal fusion Z98.1 Right foot drop M21.371 Time Spent (min) 35 Assessment and Plan Assessme (more content not included)... Normal [facility] Lumbar Spine 2 or 3 Viewson 06-03-2024 Lumbar Spine 2 or 3 Views [facility]iology [address] [place] [address] Lumbar Spine 2 or 3 Views MR#: [id number] Acct: [id number] Name: Teri VERDIN Rep #: [id number] : 1940 M 84 From: Alejandro alejo MD PCP: Dr. Rashid Camacho MD Status: DEP AMB Study: Lumbar Spine 2 or 3 Views Date of Exam: Exam# [id number] Ordering Dr: Iraj Tucker MD [id number] STUDY: X-RAY - LUMBAR SPINE REASON FOR EXAM: Male, 84 years old. Status post fusion -- Please do upright AP lateral TECHNIQUE: 2 view(s) of the lumbar spine were obtained. COMPARISON: Comparison is made with prior study April 19, 2024. FINDINGS: Normal lumbar lordosis. There is no substantial scoliosis. There is a normal alignment of the vertebrae. Status post vertebroplasty of the L2, L4 and L5 vertebrae. Prior interpedicular screw and tae fixation from the L2-L5 level. Intervertebral prostatic discs. There is atherosclerotic calcification of the abdominal aorta without a demonstrated aneurysm. RAD/Lumbar Spine 2 or 3 Views IMPRESSION: Stable examination. Electronically Signed: Alejandro Domingo MD at 12:30 EDT Reading Location ID and State: [facility] / [place] , Service support , CC: Dr. Iraj Tucker MD; Dr. Rashid Camacho MD Dress Cap Maker: Signed Normal [facility] Orthopedic Visit Reporton Orthopedic Visit Report [facility] [address] [place] [address] [address] [place] [address] OFFICE VISIT Date of Service: 06/03/24 MR#: [id number] Acct: [id number] Name: Teri VERDIN Rep #: [id number] : 1940 Provider: Dr. Iraj Tucker MD Age/Sex: 84/M Location: [facility] [place].[facility] Status: Signed Intake Vital Signs 03/01/24 15:30 05/10/24 09:20 Height 5 ft 9 in 5 ft 9 in Intake Visit Reasons: LUMBAR SPINE Chief Complaint: 2 week post-op Allergies Koieutn-ORG-WnS Reductase Inhibitor Allergy (Severe, Verified 06/03/24 10:30) Pain in joints Medications ???Medication ???Instructions ???Recorded ???Confirmed ???Type cholecalciferol (vitamin D3) 50 50 mcg PO DAILY supplement 05/17/21 06/03/24 History mcg (2,000 unit) capsule (Vitamin D3) levothyroxine 75 mcg tablet 75 mcg PO DAILY thyroid 05/17/21 06/03/24 History vitamin E 200 unit capsule 200 unit PO DAILY supplement 05/17/21 06/03/24 History fluticasone propionate 50 2 spray intranasal DAILY PRN 08/05/22 06/03/24 History mcg/actuation nasal allergy symptoms spray,suspension lisinopril 20 mg tablet 20 mg PO BID bp 08/05/22 06/03/24 History amlodipine 5 mg tablet 5 mg PO DAILY BP 01/04/24 06/03/24 History fenofibrate nanocrystallized 145 145 mg PO DAILY CHOLESTEROL 01/04/24 06/03/24 History mg tablet coenzyme Q10 100 mg capsule 100 mg PO DAILY SUPPLEMENT 01/13/24 06/03/24 History aspirin 81 mg capsule 81 mg PO DAILY BLOOD THINNER 02/23/24 06/03/24 History acetaminophen 500 mg tablet 500 mg PO Q6H 7 days #28 tabs 03/03/24 06/03/24 Rx bisacodyl 5 mg tablet,delayed 5 mg PO DAILY PRN constipation 2 03/03/24 06/03/24 Rx release days #2 tabs Have you fallen in the past year?: Yes PFSH Medical History Loss of hearing History of steroid therapy Thyroid disease Arthritis High cholesterol Back pain History of pain when walking History of stress test Cardiology follow-up encounter 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 Obesity Hypothyroidism Essential hypertension BPH with obstruction/lower urinary tract symptoms Wears hearing aid Wears glasses Wears dentures Prostate disease Easy bruising Degenerative disc disease TIA (transient ischemic attack) Former smoker History of cataract Surgical History History of cardiac catheterization History of coronary artery stent placement (04/08/22) History of bilateral cataract extraction (2011) History of tonsillectomy History of transurethral resection of prostate Family History Mother Hypertension Father Alzheimer's disease Brother Lung cancer Brother Hypertension Pacemaker Sister Hypertension Sister Hypertension Sister Hypertension Social History household members: spouse Smoking Status: Former smoker alcohol intake: never substance use type: does not use caffeine: No HPI LUMBAR SPINE Details: This documentation accurately reflects the service provided and the decisions made by me, Dr. Iraj Tucker MD 06/03/24 1027. Part of today???s visit was documented by Nayeli RUBY, acting as scribe. Teri LAMBERT is a 84 year old M here today for s/p L2-5 posterior percutaneous pedicle screw instrumented fusion, cement augmentation, prone DOS 03/01/2024. Patient states that he is doing well. He states that he is still having the weakness and numbness in the right foot along with some swelling. He completed physical therapy about a month ago and is now doing the exercises at home every day. He is now walking with the cane. Main is now 3 months this was above-mentioned surgery. His initial foot drop is improved significantly but only minor improvement compared to last visit. He is able to walk without the foot drop splint at home without any tripping or difficulty with stairs. He does continue to have swelling in his right foot which seems to be gravitational. Ortho Exam General General: Yes no acute distress Neurologic: Yes alert and Yes oriented x3 Spine SPINE TESTING CERVICAL THORACIC LUMBAR Musculoskeletal Strength 0=absent - 5=normal Details: Examination the back and belly show incisions well-healed Neurologic bilateral lower extremity shows 5 x 5 power normal shows except for right ankle tibialis anterior is grade 4-, EHL is grade 1, peroneals is grade 4-, gastrosoleus is 5 x 5. Coding Level of Care Code Global Post Op Diagnoses Status post lumbar spinal fusion Z98.1 Assessment and Plan Assessment and Plan (1) Status post lumbar spinal fusion: Status: Acute Orders: Orders Lumbar Spine 2 or 3 Views Today Z9 (more content not included)... Normal [facility] Cardiology Visit Reporton Cardiology Visit Report [facility] [address] [place] [address] OFFICE VISIT Date of Service: 05/10/24 MR#: [id number] Acct: [id number] Name: Teri VERDIN Rep #: [id number] : 1940 Provider: CHRIS anderson Age/Sex: 84/M [place] [facility] [place] Status: Signed [facility] History of Present Illness Details: This is an 84-year-old male who presents to the office today for a cardiovascular follow-up visit. He was previously seen for complaints of hypotension after exertion, and shortness of breath with exertion. He had some dizziness. No angel syncopal episodes, presyncope, palpitations, or chest pain. As part of his evaluation, he underwent an exercise stress test where he exercised to 7 metabolic equivalents and was noted to have inferolateral ischemia. Interestingly enough he did have a normal blood pressure response to exercise. He underwent a cardiac catheterization on 04/08/2022 which demonstrated moderately severe disease noted involving the mid left anterior descending artery involving a septal director payment, moderate disease in the circumflex artery, and mild disease noted in the right coronary artery. He underwent PCI/RUSS to his mid LAD. He did have a carotid ultrasound in 2019 demonstrating less than 50% stenosis bilaterally. He has a history of hypertension, and hyperlipidemia. From a cardiac standpoint, the patient is doing well. He denies any palpitations, chest pain, pressure or heaviness. He denies SOB, Orthopnea, and PND. He does not have bleeding issues; no blood in urine, stool or nosebleeds. He denies any decrease in energy level, myalgias, or claudication. He does acknowledge right lower extremity edema-he attributes this to his drop foot, and neuropathy. He does wear a brace and is following with Ortho for this. He denies sudden weight gain. He denies dizziness, lightheadedness, syncopal or near syncopal episodes, and headaches. 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 Polish Brush Machine Feeder Required: No Is patient in pain?: No Allergies Qfhqkdp-VUD-NnY Reductase Inhibitor Allergy (Severe, Verified 05/10/24 09:31) Pain in joints Medications ???Medication ???Instructions ???Recorded ???Confirmed ???Type cholecalciferol (vitamin D3) 50 50 mcg PO DAILY supplement 05/17/21 05/10/24 History mcg (2,000 unit) capsule (Vitamin D3) levothyroxine 75 mcg tablet 75 mcg PO DAILY thyroid 05/17/21 05/10/24 History vitamin E 200 unit capsule 200 unit PO DAILY supplement 05/17/21 05/10/24 History fluticasone propionate 50 2 spray intranasal DAILY PRN 08/05/22 05/10/24 History mcg/actuation nasal allergy symptoms spray,suspension lisinopril 20 mg tablet 20 mg PO BID bp 08/05/22 05/10/24 History amlodipine 5 mg tablet 5 mg PO DAILY BP 01/04/24 05/10/24 History fenofibrate nanocrystallized 145 145 mg PO DAILY CHOLESTEROL 01/04/24 05/10/24 History mg tablet coenzyme Q10 100 mg capsule 100 mg PO DAILY SUPPLEMENT 01/13/24 05/10/24 History aspirin 81 mg capsule 81 mg PO DAILY BLOOD THINNER 02/23/24 05/10/24 History acetaminophen 500 mg tablet 500 mg PO Q6H 7 days #28 tabs 03/03/24 05/10/24 Rx bisacodyl 5 mg tablet,delayed 5 mg PO DAILY PRN constipation 2 03/03/24 05/10/24 Rx release days #2 tabs Have you fallen in the past year?: No PFSH Medical History (Reviewed 05/10/24 @ 09:38 by Hannah Aguila PHOTOGRAPHIC PROCESS SCREEN MAKER, PHOTOGRAPHIC PROCESS SCREEN MAKER-C) Loss of hearing History of steroid therapy Thyroid disease Arthritis High cholesterol Back pain History of pain when walking History of stress test Cardiology follow-up encounter 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 Obesity Hypothyroidism Essential hypertension BPH with obstruction/lower urinary tract symptoms Wears hearing aid Wears glasses Wears dentures Prostate disease Easy bruising Degenerative disc disease TIA (transient ischemic attack) Former smoker History of cataract Surgical History (Reviewed 05/10/24 @ 09:38 by Hannah Aguila PHOTOGRAPHIC PROCESS SCREEN MAKER, PHOTOGRAPHIC PROCESS SCREEN MAKER-C) History of cardiac catheterization History of coronary artery stent placement (04/08/22) History of bilateral cataract extraction (2011) History of tonsillectomy History of transurethral resection of prostate Family History (Reviewed 05/10/24 @ 09:38 by Hannah Aguila PHOTOGRAPHIC PROCESS SCREEN MAKER, PHOTOGRAPHIC PROCESS SCREEN MAKER-C) Mother Hypertension Father Alzheimer's disease Brother Lung cancer Brother Hypertension Pacemaker Sister Hypertension Sister Hypertension Sister Hypertension Social History (Reviewed 05/10/24 @ 09: (more content not included)... Normal [facility] Lumbar Spine 2 or 3 Viewson 04-19-2024 Lumbar Spine 2 or 3 Views [facility]iology [address] [place] [address] Lumbar Spine 2 or 3 Views MR#: [id number] Acct: [id number] Name: Teri VERDIN Rep #: [id number] : 1940 M 84 From: Jonathan Titus MD PCP: Dr. Rashid Camacho MD Status: DEP AMB Study: Lumbar Spine 2 or 3 Views Date of Exam: Exam# [id number] Ordering Dr: Iraj Tucker MD [id number] STUDY: X-RAY - LUMBAR SPINE REASON FOR EXAM: Male, 84 years old. Status post fusion. Follow-up. TECHNIQUE: 2 upright view(s) of the lumbar spine were obtained. COMPARISON: March 16, 2024 FINDINGS: Stable osteopenia. Normal lumbar lordosis. No scoliosis. Normal vertebral alignment. Vertebroplasty changes of L1, L4 and L5, unchanged. Posterior fusion from L2 to L5 with intervertebral disc prostheses, unchanged in position or alignment. Normal soft tissues. RAD/Lumbar Spine 2 or 3 Views IMPRESSION: Stable uncomplicated ORIF of lower lumbosacral spine. No acute abnormality. Electronically Signed: Jonathan Titus MD at 14:59 EDT , CC: Dr. Iraj Tucker MD; Dr. Rashid Camacho MD Dress Cap Maker: Signed Normal [facility] Orthopedic Visit Reporton Orthopedic Visit Report [facility] [address] [place] [address] [address] [place] [address] OFFICE VISIT Date of Service: 04/19/24 MR#: [id number] Acct: [id number] Name: Teri VERDIN Rep #: [id number] : 1940 Provider: Dr. Iraj Tucker MD Age/Sex: 84/M Location: [facility] [place].ANDREINA Status: Signed Intake Vital Signs 03/01/24 15:30 Height 5 ft 9 in Intake Visit Reasons: LUMBAR SPINE Accompanied by: Other Family Is patient in pain?: Yes Pain scale (1-10): 1 Allergies [id number]-[id number] Reductase Inhibitor Allergy (Severe, Verified 04/19/24 13:58) Pain in joints Medications ???Medication ???Instructions ???Recorded ???Confirmed ???Type cholecalciferol (vitamin D3) 50 50 mcg PO DAILY supplement 05/17/21 04/19/24 History mcg (2,000 unit) capsule (Vitamin D3) levothyroxine 75 mcg tablet 75 mcg PO DAILY thyroid 05/17/21 04/19/24 History vitamin E 200 unit capsule 200 unit PO DAILY supplement 05/17/21 04/19/24 History fluticasone propionate 50 2 spray intranasal DAILY PRN 08/05/22 04/19/24 History mcg/actuation nasal allergy symptoms spray,suspension lisinopril 20 mg tablet 20 mg PO BID bp 08/05/22 04/19/24 History amlodipine 5 mg tablet 5 mg PO DAILY BP 01/04/24 04/19/24 History fenofibrate nanocrystallized 145 145 mg PO DAILY CHOLESTEROL 01/04/24 04/19/24 History mg tablet coenzyme Q10 100 mg capsule 100 mg PO DAILY SUPPLEMENT 01/13/24 04/19/24 History aspirin 81 mg capsule 81 mg PO DAILY BLOOD THINNER 02/23/24 04/19/24 History acetaminophen 500 mg tablet 500 mg PO Q6H 7 days #28 tabs 03/03/24 04/19/24 Rx bisacodyl 5 mg tablet,delayed 5 mg PO DAILY PRN constipation 2 03/03/24 04/19/24 Rx release days #2 tabs methocarbamol 500 mg tablet 1,000 mg (2 x 500 mg) PO Q8H PRN 03/03/24 04/19/24 Rx pain/spasms 7 days #42 tabs oxycodone 5 mg tablet 2.5 - 5 mg (0.5 - 1 x 5 mg) PO Q6H 03/03/24 04/19/24 Rx PRN pain 7 days #28 tabs sennosides 8.6 mg-docusate sodium 2 tab PO BID PRN constipation 7 03/03/24 04/19/24 Rx 50 mg tablet (Stool days #28 tabs Softener-Stimulant Laxative) PFSH Medical History Loss of hearing History of steroid therapy Thyroid disease Arthritis High cholesterol Back pain History of pain when walking History of stress test Cardiology follow-up encounter 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 Obesity Hypothyroidism Essential hypertension BPH with obstruction/lower urinary tract symptoms Wears hearing aid Wears glasses Wears dentures Prostate disease Easy bruising Degenerative disc disease TIA (transient ischemic attack) Former smoker History of cataract Surgical History History of cardiac catheterization History of coronary artery stent placement (04/08/22) History of bilateral cataract extraction (2011) History of tonsillectomy History of transurethral resection of prostate Family History Mother Hypertension Father Alzheimer's disease Brother Lung cancer Brother Hypertension Pacemaker Sister Hypertension Sister Hypertension Sister Hypertension Social History household members: spouse Smoking Status: Former smoker alcohol intake: never substance use type: does not use caffeine: No HPI LUMBAR SPINE Details: This documentation accurately reflects the service provided and the decisions made by me, Dr. Iraj Tucker MD 04/19/24 0550. Part of today???s visit was documented by Anu MENDOZA, acting as scribe. Teri VERDIN is a 84 year old M here today for s/p L2-5 posterior percutaneous pedicle screw instrumented fusion, cement augmentation, prone DOS 03/01/2024. Patient is still doing good, He is still having weakness and numbness in his right foot and swelling of the foot that goes up the knee. Patient is having some pain and weakness in his right hip. Patient is working with PT about walking with a cane, Patient is using a walker. Main is now 7 weeks out of surgery and is doing much better. He denies any axial pain. He does feel some soreness around the right hip which is getting better. He has been working hard with physical therapy and has had electrical stimulation to help with his right foot drop. He mentions of at least some improvement in his right foot weakness. He has been using a foot drop splint that he bought on [employer]. He mentions of dependent swelling. He still continues to sleep in a recliner as he finds it more comfortable. Ortho Exam General General: Yes no acute distress Neurologic: Yes alert and Yes oriented x3 Spine SPINE TESTING CERVICAL THORACIC LUMBAR Musculos (more content not included)... Normal [facility] Lumbar Spine 2 or 3 Viewson 03-16-2024 Lumbar Spine 2 or 3 Views [facility] [address] [place] [address] Lumbar Spine 2 or 3 Views MR#: [id number] Acct: [id number] Name: Teri VERDIN Rep #: [id number] : 1940 M 84 From: Marquez Obrien MD PCP: Dr. Rashid Camacho MD Status: DEP AMB Study: Lumbar Spine 2 or 3 Views Date of Exam: Exam# [id number] Ordering Dr: Iraj Tucker MD [id number] STUDY: X-RAY - LUMBAR SPINE REASON FOR EXAM: Male, 84 years old. S/p fusion -- Please do upright AP lateral TECHNIQUE: 2 upright view(s) of the lumbar spine were obtained. COMPARISON: March 02, 2024 FINDINGS: Normal lumbar lordosis. There is no substantial scoliosis. There is postoperative change with bilateral pedicle screws and methylmethacrylate at L2, L4, and L5 . There is mild chronic L3 compression fracture. There is hardware in the L2-3, L3-4, and L4-5 disc spaces. There is multilevel endplate spondylosis of the lumbar vertebrae. There is no acute fracture. There is atherosclerotic calcification of the abdominal aorta without a demonstrated aneurysm. RAD/Lumbar Spine 2 or 3 Views IMPRESSION: Degenerative and postoperative change. Electronically Signed: Marquez Obrien MD at 20:48 EDT , CC: Dr. Iraj Tucker MD; Dr. Rashid Camacho MD Dress Cap Maker: Signed Normal [facility] Orthopedic Visit Reporton Orthopedic Visit Report [facility] [address] [place] [address] OFFICE VISIT Date of Service: 03/16/24 MR#: [id number] Acct: [id number] Name: Teri VERDIN Rep #: [id number] : 1940 Provider: Dr. Iraj Tucker MD Age/Sex: 84/M Location: [facility] [place] Status: Signed Intake Vital Signs 02/11/24 14:59 03/01/24 15:30 Height 5 ft 10 in 5 ft 9 in Intake Visit Reasons: lumbar spine Chief Complaint: 2 week post-op Accompanied by: and Daughter Is patient in pain?: Yes Pain scale (1-10): 5 Allergies [id number]-[id number] Reductase Inhibitor Allergy (Severe, Verified 03/16/24 10:33) Pain in joints Medications ???Medication ???Instructions ???Recorded ???Confirmed ???Type cholecalciferol (vitamin D3) 50 50 mcg PO DAILY supplement 05/17/21 03/16/24 History mcg (2,000 unit) capsule (Vitamin D3) levothyroxine 75 mcg tablet 75 mcg PO DAILY thyroid 05/17/21 03/16/24 History vitamin E 200 unit capsule 200 unit PO DAILY supplement 05/17/21 03/16/24 History fluticasone propionate 50 2 spray intranasal DAILY PRN 08/05/22 03/16/24 History mcg/actuation nasal allergy symptoms spray,suspension lisinopril 20 mg tablet 20 mg PO BID bp 08/05/22 03/16/24 History amlodipine 5 mg tablet 5 mg PO DAILY BP 01/04/24 03/16/24 History fenofibrate nanocrystallized 145 145 mg PO DAILY CHOLESTEROL 01/04/24 03/16/24 History mg tablet coenzyme Q10 100 mg capsule 100 mg PO DAILY SUPPLEMENT 01/13/24 03/16/24 History aspirin 81 mg capsule 81 mg PO DAILY BLOOD THINNER 02/23/24 03/16/24 History acetaminophen 500 mg tablet 500 mg PO Q6H 7 days #28 tabs 03/03/24 03/16/24 Rx bisacodyl 5 mg tablet,delayed 5 mg PO DAILY PRN constipation 2 03/03/24 03/16/24 Rx release days #2 tabs methocarbamol 500 mg tablet 1,000 mg (2 x 500 mg) PO Q8H PRN 03/03/24 03/16/24 Rx pain/spasms 7 days #42 tabs oxycodone 5 mg tablet 2.5 - 5 mg (0.5 - 1 x 5 mg) PO Q6H 03/03/24 03/16/24 Rx PRN pain 7 days #28 tabs sennosides 8.6 mg-docusate sodium 2 tab PO BID PRN constipation 7 03/03/24 03/16/24 Rx 50 mg tablet (Stool days #28 tabs Softener-Stimulant Laxative) PFSH Medical History Loss of hearing History of steroid therapy Thyroid disease Arthritis High cholesterol Back pain History of pain when walking History of stress test Cardiology follow-up encounter 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 Obesity Hypothyroidism Essential hypertension BPH with obstruction/lower urinary tract symptoms Wears hearing aid Wears glasses Wears dentures Prostate disease Easy bruising Degenerative disc disease TIA (transient ischemic attack) Former smoker History of cataract Surgical History History of cardiac catheterization History of coronary artery stent placement (04/08/22) History of bilateral cataract extraction (2011) History of tonsillectomy History of transurethral resection of prostate Family History Mother Hypertension Father Alzheimer's disease Brother Lung cancer Brother Hypertension Pacemaker Sister Hypertension Sister Hypertension Sister Hypertension Social History household members: spouse Smoking Status: Former smoker alcohol intake: never substance use type: does not use caffeine: No HPI lumbar spine Details: This documentation accurately reflects the service provided and the decisions made by me, Dr. Iraj Tucker MD 03/16/24 1029. Part of today???s visit was documented by Kesha Han AT[employer], acting as scribe. Teri VERDIN is a 84 year old M here today for s/p L2-5 posterior percutaneous pedicle screw instrumented fusion, cement augmentation, prone DOS 03/01/2024. Patient rates his pain a 5/10 today. Patient and state he did have some bruising but it is looking better. They have not noticed any drainage around the incision area. Patient states he finished the oxycodone pain medication last night and finished the Tylenol prescription the other day. Patient also states he finished the muscle relaxer as well. Main is now 2 weeks status post above-mentioned surgery. He has been walking around the house with a walker. He has had some improvement of his right lower extremity radicular symptoms. He still has numbness and weakness in the right foot. He was unable to get the appointment to get the foot drop splint from the orthotics. He had a fall a day after he went home which caused some increase in his pain. He denies any difficulty with tripping on the right foot. Ortho Exam General General: Yes no acute distress Neurologic: Yes alert and Y (more content not included)... Normal [facility] Absolute lymphocyte countOrd ered By: Rei Lizarraga on 03-03-2024 Lymphocytes Auto (Unsp spec) [#/Vol] 0.64 10*3/uL 0.83-4.51 [facility] Automated lymphocyte count a s percentage of total leukocytesOrdered By: Rei Lizarraga on 03-03-2024 Lymphocytes/100 WBC Auto (Unsp spec) 5.3 % 19-41 [facility] Basophil percentageOrdered B y: eRi Lizarraga on 03-03-2024 Basophil percentage 2.1 mg/dL 2.5-4.9 [facility] Basophils/100 WBC (Bld) 0.1 % 0-1 [facility] Chloride [Moles/Vol] 102 mmol/L 98-107 [facility] Eosinophils/100 WBC (Bld) 0.0 % 0-5 [facility] Glucose [Mass/Vol] 109 mg/dL 74-106 [facility] Comment on above: Fasting Glucose resu lt from 100 to 125 mg/dL suggests IMPAIRED HOMEOSTASIS per A.D.A. criteria. Hemoglobin (Bld) [Mass/Vol] 10.7 g/dL 13.0-16.5 [facility] Monocytes/100 WBC (Bld) 7.2 % 0-10 [facility] Neutrophils (Bld) [#/Vol] 10.5 10*3/uL 2.0-7.7 [facility] Neutrophils/100 WBC (Bld) 87.0 % 47-70 [facility] Potassium [Moles/Vol] 4.0 mmol/L 3.5-5.1 [facility] Sodium [Moles/Vol] 131 mmol/L 136-145 [facility] WBC (Bld) [#/Vol] 12.1 10*3/uL 4.4-11.0 [facility] Determination of erythrocyte mean corpuscular volume (MCV)Ordered By: Rei Lizarraga on 03-03-2024 MCV (RBC) [Entitic vol] 96.8 fL 80-94 [facility] Erythrocyte distribution wid th ratioOrdered By: Rei Lizarraga on 03-03-2024 Erythrocyte distribution width (RBC) [Ratio] 14.0 % 11.6-14.6 [facility] Erythrocyte distribution wid th standard deviationOrdered By: Rei Lizarraga on 03-03-2024 Erythrocyte distribution width (RBC) [Entitic vol] 49.6 fL 35.1-43.9 [facility] Hematocrit Auto (Bld) [Volum e fraction]Ordered By: Rei Lizarraga on 03-03-2024 Hematocrit (Bld) [Volume fraction] 33.0 % 40-54 [facility] Immature granulocytes/100 WB C Auto (Bld)Ordered By: Rei Lizarraga on 03-03-2024 Immature granulocytes/100 WBC (Bld) 0.400 % 0.0-0.9 [facility] Comment on above: IG% - Immature Granu locytes (promyelocytes, myelocytes and metamyelocytes) > 1% indicates that a LEFT SHIFT is Present. Laboratory - Chemistry and C hemistry - challengeOrdered By: Rei Lizarraga on 03-03-2024 CO2 [Moles/Vol] 24.0 mmol/L 21.0-32.0 [facility] Magnesium [Mass/Vol] 2.3 mg/dL 1.6-2.6 [facility] Urea nitrogen/Creatinine [Mass ratio] 23.7 mg/mg 10-20 [facility] Laboratory - Hematology and Cell countsOrdered By: Rei Lizarraga on 03-03-2024 MCH (RBC) [Entitic mass] 31.4 pg 27.0-32.0 [facility] MCHC (RBC) [Mass/Vol] 32.4 g/dL 32-36 [facility] Nucleated RBC/100 WBC (Bld) [Ratio] 0 % 0-5 [facility] Platelet mean volume (Bld) [Entitic vol] 11.0 fL 6.2-12.0 [facility] Platelets (Bld) [#/Vol] 222 10*3/uL 150-450 [facility] No Panel InformationOrdered By: Rei Lizarraga on 03-03-2024 Estimated Creatinine Clearance Calc 52.90 ml/min [facility] Estimated GFR (MDRD) Amer 75 mL/min >60 [facility] Comment on above: GFR Calc Estimated GFR (MDRD) Non-Af Amer 62 mL/min >60 [facility] Comment on above: Non- GFR Calc RBC Auto (Bld) [#/Vol]Ordere d By: Rei Lizarraga on 03-03-2024 RBC (Bld) [#/Vol] 3.41 10*6/uL 4.6-6.2 [facility] Serum or plasma calcium iva urement (mass/volume)Ordered By: Rei Lizarraga on 03-03-2024 Calcium [Mass/Vol] 8.3 mg/dL 8.5-10.1 [facility] Serum or plasma creatinine m easurement (mass/volume)Ordered By: Rei Lizarraga on 03-03-2024 Creatinine [Mass/Vol] 1.18 mg/dL 0.70-1.30 [facility] Comment on above: The validity of the calculated GFR & GFRAA in patients over 70 years has not been determined. Clinical correlation is essential. Serum or plasma urea nitroge n measurement (mass/volume)Ordered By: Rei Lizarraga on 03-03-2024 Urea nitrogen [Mass/Vol] 28 mg/dL 7-18 [facility] Thin prep Papanicolaou smear with manual screeningOrdered By: Rei Lizarraga on 03-03-2024 Thin prep Papanicolaou smear with manual screening 5 5-15 [facility] Basophil percentageOrdered B y: Rei Irwin on 03-02-2024 Cholesterol [Mass/Vol] 148 mg/dL <200 [facility] Comment on above: <200 mg/dL Desirable 200-240 mg/dL Borderline >240 mg/dL High Risk Triglyceride [Mass/Vol] 141 mg/dL <199 [facility] Comment on above: The drugs N-Acetylcy steine and Metamizole may falsely depress this assay.Serum Triglycerides Reference Interval Normal <150 mg/dL Borderline high 150 - 199 mg/dL High 200 - 499 mg/dL Very High > or = 500 mg/dL Basophil percentage 50-100 SEEN /hpf 0-5 [facility] Bilirubin Test strip Ql (U)O rdered By: Rei Irwin on 03-02-2024 Bilirubin Ql (U) Negative Negative [facility] Hyaline casts LM.LPF (Urine sed) [#/Area]Ordered By: Rei Irwin on 03-02-2024 Hyaline casts (Urine sed) [#/Area] 10 /[LPF] 0-5 [facility] Ketones Test strip Ql (U)Ord ered By: Rei Irwin on 03-02-2024 Ketones Ql (U) 15 mg/dl Negative [facility] Laboratory - Chemistry and C hemistry - challengeOrdered By: Rei Irwin on 03-02-2024 Cholesterol in HDL [Mass/Vol] 36 mg/dL >40 [facility] Comment on above: The drugs N-Acetylcy steine and Metamizole may falsely depress this assay. Reference Range HDL <40 mg/dL Low HDL Cholesterol HDL >or= 60 mg/dL High HDL Cholesterol Cholesterol in LDL [Mass/Vol] 84 mg/dL 0-130 [facility] Mucus LM Ql (Urine sed)Order ed By: Rei Irwin on 03-02-2024 Mucus Ql (Urine sed) 1+ /hpf [facility] Nitrite Test strip Ql (U)Ord ered By: Rei Irwin on 03-02-2024 Nitrite Ql (U) Negative Negative [facility] No Panel InformationOrdered By: Rei Irwin on 03-02-2024 VLDL Cholesterol 28 mg/dL 5-40 [facility] Urine RBC 25-50 SEEN /hpf 0-5 [facility] Protein Test strip Ql (U)Ord ered By: Rei Irwin on 03-02-2024 Protein Ql (U) 30 mg/dl Negative [facility] Squamous epithelial cells de tection in urine sediment by light microscopyOrdered By: Rei Irwin on 03-02-2024 Epithelial cells.squamous LM Ql (Urine sed) 10-25 SEEN /hpf 0-5 [facility] Urine blood detectionOrdered By: Rei Irwin on 03-02-2024 RBC Ql (U) 250 /ul Negative [facility] Urine clarityOrdered By: Kem Irwin on 03-02-2024 Clarity (U) Clear Clear [facility] Urine color determinationOrd ered By: Rei Irwin on 03-02-2024 Color (U) Yellow Yellow [facility] Urine glucose detectionOrder ed By: Rei Irwin on 03-02-2024 Glucose Ql (U) Normal mg/dl Normal [facility] Urine leukocyte esterase det ection by dipstickOrdered By: Rei Irwin on 03-02-2024 Leukocyte esterase Test strip Ql (U) 500 /ul Negative [facility] Urine pHOrdered By: Rei smiley on 03-02-2024 pH (U) 5.0 [pH] 5.0 - 8.0 [facility] Urine sediment bacteria coun t by microscopy (number/high power field)Ordered By: Rei Irwin on 03-02-2024 Bacteria LM.HPF (Urine sed) [#/Area] 4 /[HPF] None Seen [facility] Urine sediment fine granular cast count by microscopy (number/low power field)Ordered By: Rei Irwin on 03-02-2024 Fine Granular Casts LM.LPF (Urine sed) [#/Area] 5-10 SEEN /lpf 0-5 [facility] Urine specific gravity measu rementOrdered By: Rei Irwin on 03-02-2024 Specific gravity (U) [Rel density] 1.025 1.002-1.030 [facility] Urine urobilinogen measureme ntOrdered By: Rei Irwin on 03-02-2024 Urobilinogen Ql (U) Normal mg/dl Normal [facility] Serum or plasma thyroid stim ulating hormone (TSH) measurement (units/volume)Ordered By: Rei Irwin on 03-01-2024 TSH Qn 2.97 uIU/mL 0.358-3.74 [facility] Thin prep Papanicolaou smear with manual screeningOrdered By: Iraj Tucker on 03-01-2024 Thin prep Papanicolaou smear with manual screening 74 mg/dL 74-106 [facility] Comment on above: MANAGEMENT OF PATIEN T CARE PER NURSING PROTOCOL HIV 1 and HIV-2 antibody ass ay with HIV-1 p24 antigen detectionOrdered By: Iraj Tucker on 02-24-2024 HIV 1+2 Ab+HIV1 p24 Ag IA Ql Non-Reactive Nonreactive [facility] No Panel InformationOrdered By: Iraj Tucker on 02-24-2024 Hepatitis A Antibody Total Positive Negative [facility] Comment on above: Comment: The HAV tot al antibody assay detects both IgG andIgM but does not differentiate between them. A negativeresult suggests susceptibility to infection. A positiveresult could be due to vaccination, previously resolvedinfection or active infection. Testing for HAV IgM shouldbe performed if active HAV infection is suspected. [facility] profiles that will automatically reflex positive HAVtotal antibody results to IgM (e.g., panel #[id number] HAVAntibody w/ Rfx).Performed at: [address] [id number] Director: Jay Sandy PhD, Phone: [phone] Hepatitis C Antibody Non-Reactive Nonreactive [facility] Comment on above: Non Reactive: < 0.8 Equivocal: >/= 0.8 to < 1.0 Reactive: >/= 1.0The CDC requires that a reactive/equivocal HCV antibody result be sent out for confirmation. HCV Quant by PCR testing. Nasal Screen MRSA/MSSA [facility] Serum hepatitis B virus surf kwadwo antibody IgG detectionOrdered By: Iraj Tucker on 02-24-2024 HBV surface IgG Ql (S) Non-Reactive [facility] Comment on above: Non Reactive: Incons istent with immunity less than <10 mIU/mL Reactive: Consistent with immunity greater than or equal to 10 mIU/mL Absolute lymphocyte countOrd ered By: Igorkedar Anderson on 01-04-2024 Lymphocytes Auto (Unsp spec) [#/Vol] 1.42 10*3/uL 0.83-4.51 [facility] Automated lymphocyte count a s percentage of total leukocytesOrdered By: Igorkedar Anderson on 01-04-2024 Lymphocytes/100 WBC Auto (Unsp spec) 20.9 % 19-41 [facility] Basophil percentageOrdered B y: Igor Anderson on 01-04-2024 Basophils/100 WBC (Bld) 1.3 % 0-1 [facility] Chloride [Moles/Vol] 103 mmol/L 98-107 [facility] Eosinophils/100 WBC (Bld) 2.2 % 0-5 [facility] Glucose [Mass/Vol] 114 mg/dL 74-106 [facility] Comment on above: Fasting Glucose resu lt from 100 to 125 mg/dL suggests IMPAIRED HOMEOSTASIS per A.D.A. criteria. Hemoglobin (Bld) [Mass/Vol] 14.5 g/dL 13.0-16.5 [facility] Monocytes/100 WBC (Bld) 9.0 % 0-10 [facility] Neutrophils (Bld) [#/Vol] 4.5 10*3/uL 2.0-7.7 [facility] Neutrophils/100 WBC (Bld) 66.0 % 47-70 [facility] Potassium [Moles/Vol] 3.7 mmol/L 3.5-5.1 [facility] Sodium [Moles/Vol] 133 mmol/L 136-145 [facility] WBC (Bld) [#/Vol] 6.8 10*3/uL 4.4-11.0 [facility] Determination of erythrocyte mean corpuscular volume (MCV)Ordered By: Igor Anderson on 01-04-2024 MCV (RBC) [Entitic vol] 90.2 fL 80-94 [facility] Erythrocyte distribution wid th ratioOrdered By: Igor Anderson on 01-04-2024 Erythrocyte distribution width (RBC) [Ratio] 12.7 % 11.6-14.6 [facility] Erythrocyte distribution wid th standard deviationOrdered By: [facility] Erythrocyte distribution width (RBC) [Entitic vol] 41.8 fL 35.1-43.9 [facility] Erythrocyte sedimentation ra teOrdered By: [facility] on 01-04-2024 ESR (Bld) [Velocity] 2 mm/h 0-20 [facility] Hematocrit Auto (Bld) [Volum e fraction]Ordered By: Igorkedar Anderson on 01-04-2024 Hematocrit (Bld) [Volume fraction] 42.4 % 40-54 [facility] Immature granulocytes/100 WB C Auto (Bld)Ordered By: [facility] on 01-04-2024 Immature granulocytes/100 WBC (Bld) 0.600 % 0.0-0.9 [facility] Comment on above: IG% - Immature Granu locytes (promyelocytes, myelocytes and metamyelocytes) > 1% indicates that a LEFT SHIFT is Present. Laboratory - Chemistry and C hemistry - challengeOrdered By: Igorkedar Anderson on 01-04-2024 CO2 [Moles/Vol] 26.0 mmol/L 21.0-32.0 [facility] Urea nitrogen/Creatinine [Mass ratio] 15.2 mg/mg 10-20 [facility] Laboratory - Hematology and Cell countsOrdered By: Igorkedar Anderson on 01-04-2024 MCH (RBC) [Entitic mass] 30.9 pg 27.0-32.0 [facility] MCHC (RBC) [Mass/Vol] 34.2 g/dL 32-36 [facility] Nucleated RBC/100 WBC (Bld) [Ratio] 0 % 0-5 [facility] Platelet mean volume (Bld) [Entitic vol] 10.2 fL 6.2-12.0 [facility] Platelets (Bld) [#/Vol] 334 10*3/uL 150-450 [facility] No Panel InformationOrdered By: Igor Anderson on 01-04-2024 Estimated Creatinine Clearance Calc 58.26 ml/min [facility] Estimated GFR (MDRD) Amer 80 mL/min >60 [facility] Comment on above: GFR Calc Estimated GFR (MDRD) Non-Af Amer 66 mL/min >60 [facility] Comment on above: Non- GFR Calc RBC Auto (Bld) [#/Vol]Ordere d By: Igor Anderson on 01-04-2024 RBC (Bld) [#/Vol] 4.70 10*6/uL 4.6-6.2 [facility] Serum or plasma calcium iva urement (mass/volume)Ordered By: Igor Anderson on 01-04-2024 Calcium [Mass/Vol] 8.9 mg/dL 8.5-10.1 [facility] Serum or plasma creatinine m easurement (mass/volume)Ordered By: Igor Anderson on 01-04-2024 Creatinine [Mass/Vol] 1.12 mg/dL 0.70-1.30 [facility] Comment on above: The validity of the calculated GFR & GFRAA in patients over 70 years has not been determined. Clinical correlation is essential. Serum or plasma urea nitroge n measurement (mass/volume)Ordered By: Igor Anderson on 01-04-2024 Urea nitrogen [Mass/Vol] 17 mg/dL 7-18 [facility] Thin prep Papanicolaou smear with manual screeningOrdered By: Igorkedar Anderson on 01-04-2024 Thin prep Papanicolaou smear with manual screening 4 5-15 [facility] Basophil percentageOrdered B y: Liban Camacho on 10-02-2023 Chloride [Moles/Vol] 102 mmol/L 98-107 [facility] Glucose [Mass/Vol] 93 mg/dL 74-106 [facility] Potassium [Moles/Vol] 3.6 mmol/L 3.5-5.1 [facility] Sodium [Moles/Vol] 133 mmol/L 136-145 [facility] Laboratory - Chemistry and C hemistry - challengeOrdered By: Liban Camacho on 10-02-2023 CO2 [Moles/Vol] 26.0 mmol/L 21.0-32.0 [facility] Free T4 [Mass/Vol] 1.16 ng/dL 0.76-1.46 [facility] Urea nitrogen/Creatinine [Mass ratio] 15.1 mg/mg 10-20 [facility] No Panel InformationOrdered By: Liban Camacho on 10-02-2023 Estimated GFR (MDRD) Amer 86 mL/min >60 [facility] Comment on above: GFR Calc Estimated GFR (MDRD) Non-Af Amer 71 mL/min >60 [facility] Comment on above: Non- GFR Calc Thyroid Stimulating Hormone (TSH) 1.78 uIU/mL 0.358-3.74 [facility] Vitamin D 25-Hydroxy 67.3 ng/mL [facility] Comment on above: Vitamin D 25(OH) Sta tus Range Deficiency <20 ng/mL (50nmol/L) Insufficiency 20 - 30 ng/mL (50 - 75 nmol/L) Sufficiency 30 - 100 ng/mL (75 - 250 nmol/L) Toxicity >100 ng/mL (>250 nmol/L) Serum or plasma calcium iva urement (mass/volume)Ordered By: Liban Camacho on 10-02-2023 Calcium [Mass/Vol] 8.9 mg/dL 8.5-10.1 [facility] Serum or plasma creatinine m easurement (mass/volume)Ordered By: Liban Camacho on 10-02-2023 Creatinine [Mass/Vol] 1.06 mg/dL 0.70-1.30 [facility] Comment on above: The validity of the calculated GFR & GFRAA in patients over 70 years has not been determined. Clinical correlation is essential. Serum or plasma urea nitroge n measurement (mass/volume)Ordered By: Liban Camacho on 10-02-2023 Urea nitrogen [Mass/Vol] 16 mg/dL 7-18 [facility] Thin prep Papanicolaou smear with manual screeningOrdered By: Liban Camacho on 10-02-2023 Thin prep Papanicolaou smear with manual screening 5 5-15 [facility] Basophil percentageon 2021 Bilirubin [Mass/Vol] 1.10 mg/dL 0.20-1.00 [facility] Work Phone: Comment on above: For patients on eltr ombopag therapy, use of Dimension Flushing TBIL is not recommended. Chloride [Moles/Vol] 107 mmol/L 98-107 [facility] Work Phone: Cholesterol [Mass/Vol] 130 mg/dL <200 [facility] Work Phone: Comment on above: <200 mg/dL Desirable 200-240 mg/dL Borderline >240 mg/dL High Risk Glucose [Mass/Vol] 93 mg/dL 74-106 [facility] Work Phone: Potassium [Moles/Vol] 4.1 mmol/L 3.5-5.1 [facility] Work Phone: Protein [Mass/Vol] 6.7 g/dL 6.4-8.2 [facility] Work Phone: Sodium [Moles/Vol] 139 mmol/L 136-145 [facility] Work Phone: Triglyceride [Mass/Vol] 158 mg/dL <199 [facility] Work Phone: Comment on above: The drugs N-Acetylcy steine and Metamizole may falsely depress this assay.Serum Triglycerides Reference Interval Normal <150 mg/dL Borderline high 150 - 199 mg/dL High 200 - 499 mg/dL Very High > or = 500 mg/dL WBC (Bld) [#/Vol] 8.8 10*3/uL 4.4-11.0 [facility] Work Phone: Blood erythrocytes count (nu mber/volume)on 09-30-2022 RBC (Bld) [#/Vol] 5.00 10*6/uL 4.6-6.2 [facility] Work Phone: Blood hemoglobin measurement (mass/volume)on 09-30-2022 Hemoglobin (Bld) [Mass/Vol] 15.2 g/dL 13.0-16.5 [facility] Work Phone: [phone] Blood platelet mean volumeon 09-30-2022 Platelet mean volume (Bld) [Entitic vol] 11.4 fL 6.2-12.0 [facility] Work Phone: [phone] Determination of erythrocyte mean corpuscular volume (MCV)on 09-30-2022 MCV (RBC) [Entitic vol] 93.2 fL 80-94 [facility] Work Phone: [phone] Hematocrit Auto (Bld) [Volum e fraction]on 09-30-2022 Hematocrit (Bld) [Volume fraction] 46.6 % 40-54 [facility] Work Phone: [phone] Laboratory - Chemistry and C hemistry - challengeon 09-30-2022 ALP [Catalytic activity/Vol] 108 U/L 45-117 [facility] Work Phone: ALT [Catalytic activity/Vol] 30 U/L 16-61 [facility] Work Phone: CO2 [Moles/Vol] 26.0 mmol/L 21.0-32.0 [facility] Work Phone: Free T4 [Mass/Vol] 1.30 ng/dL 0.76-1.46 [facility] Work Phone: [phone] Globulin (S) [Mass/Vol] 3.0 g/dL 2.2-4.2 [facility] Work Phone: [phone] Urea nitrogen/Creatinine [Mass ratio] 12.1 mg/mg 10-20 [facility] Work Phone: [phone] Laboratory - Hematology and Cell countson 09-30-2022 Erythrocyte distribution width (RBC) [Entitic vol] 44.5 fL 35.1-43.9 [facility] Work Phone: [phone] Erythrocyte distribution width (RBC) [Ratio] 13.1 % 11.6-14.6 [facility] Work Phone: [phone] MCH (RBC) [Entitic mass] 30.4 pg 27.0-32.0 [facility] Work Phone: MCHC Auto (RBC) [Mass/Vol]on 09-30-2022 MCHC (RBC) [Mass/Vol] 32.6 g/dL 32-36 [facility] Work Phone: No Panel Informationon 09-30 Estimated GFR (MDRD) Amer 85 mL/min >60 [facility] Work Phone: Comment on above: GFR Calc Estimated GFR (MDRD) Non-Af Amer 70 mL/min >60 [facility] Work Phone: Comment on above: Non- GFR Calc Thyroid Stimulating Hormone (TSH) 1.81 uIU/mL 0.358-3.74 [facility] Work Phone: Vitamin D 25-Hydroxy 42.6 ng/mL [facility] Work Phone: Comment on above: Vitamin D 25(OH) Sta tus Range Deficiency <20 ng/mL (50nmol/L) Insufficiency 20 - 30 ng/mL (50 - 75 nmol/L) Sufficiency 30 - 100 ng/mL (75 - 250 nmol/L) Toxicity >100 ng/mL (>250 nmol/L) Platelets bldon 09-30-2022 Platelets (Bld) [#/Vol] 309 10*3/uL 150-450 [facility] Work Phone: [phone] Serum or plasma albumin iva urement (mass/volume)on 09-30-2022 Albumin [Mass/Vol] 3.7 g/dL 3.2-5.0 [facility] Work Phone: Serum or plasma albumin/glob ulin mass ratioon 09-30-2022 Albumin/Globulin [Mass ratio] 1.2 {ratio} 0.9-2.4 [facility] Work Phone: Serum or plasma calcium iva urement (mass/volume)on 09-30-2022 Calcium [Mass/Vol] 8.6 mg/dL 8.5-10.1 [facility] Work Phone: Serum or plasma cholesterol in HDL measurement (mass/volume)on 09-30-2022 Cholesterol in HDL [Mass/Vol] 41 mg/dL >40 [facility] Work Phone: [phone] Comment on above: The drugs N-Acetylcy steine and Metamizole may falsely depress this assay. Reference Range HDL <40 mg/dL Low HDL Cholesterol HDL >or= 60 mg/dL High HDL Cholesterol Serum or plasma cholesterol in VLDL measurement (mass/volume)on 09-30-2022 Cholesterol in VLDL [Mass/Vol] 32 mg/dL 5-40 [facility] Work Phone: [phone] Serum or plasma creatinine m easurement (mass/volume)on 09-30-2022 Creatinine [Mass/Vol] 1.07 mg/dL 0.70-1.30 [facility] Work Phone: Comment on above: The validity of the calculated GFR & GFRAA in patients over 70 years has not been determined. Clinical correlation is essential. Serum or plasma low density lipoprotein (LDL) cholesterol measurement (mass/volume)on 09-30-2022 Cholesterol in LDL [Mass/Vol] 57 mg/dL 0-130 [facility] Work Phone: [phone] Serum or plasma urea nitroge n measurement (mass/volume)on 09-30-2022 Urea nitrogen [Mass/Vol] 13 mg/dL 7-18 [facility] Work Phone: [phone] Thin prep Papanicolaou smear with manual screeningon 09-30-2022 Thin prep Papanicolaou smear with manual screening 27 U/L 15-37 [facility] Work Phone: [phone] Thin prep Papanicolaou smear with manual screening 6 5-15 [facility] Work Phone: [phone] Absolute lymphocyte counton 05-20-2022 Lymphocytes Auto (Unsp spec) [#/Vol] 1.30 10*3/uL 0.83-4.51 [facility] Work Phone: [phone] Basophil percentageon 2021 Basophils/100 WBC (Bld) 0.7 % 0-1 [facility] Work Phone: Chloride [Moles/Vol] 108 mmol/L 98-107 [facility] Work Phone: Eosinophils/100 WBC (Bld) 2.9 % 0-5 [facility] Work Phone: Glucose [Mass/Vol] 95 mg/dL 74-106 [facility] Work Phone: Neutrophils (Bld) [#/Vol] 5.1 10*3/uL 2.0-7.7 [facility] Work Phone: Neutrophils/100 WBC (Bld) 69.1 % 47-70 [facility] Work Phone: Potassium [Moles/Vol] 3.7 mmol/L 3.5-5.1 [facility] Work Phone: Sodium [Moles/Vol] 139 mmol/L 136-145 [facility]: WBC (Bld) [#/Vol] 7.4 10*3/uL 4.4-11.0 [facility] Work Phone: Blood erythrocytes count (nu mber/volume)on 05-20-2022 RBC (Bld) [#/Vol] 4.79 10*6/uL 4.6-6.2 [facility] Work [facility]: Blood hemoglobin measurement (mass/volume)on 05-20-2022 Hemoglobin (Bld) [Mass/Vol] 14.8 g/dL 13.0-16.5 [facility] Work Phone: Blood lymphocytes/100 leukoc yteson 05-20-2022 Lymphocytes/100 WBC (Bld) 17.7 % 19-41 [facility] Work Phone: Blood monocytes/100 leukocyt eson 05-20-2022 Monocytes/100 WBC (Bld) 9.1 % 0-10 [facility] Work Phone: Blood platelet mean volumeon 05-20-2022 Platelet mean volume (Bld) [Entitic vol] 10.6 fL 6.2-12.0 [facility] Work Phone: [phone] Determination of erythrocyte mean corpuscular volume (MCV)on 05-20-2022 MCV (RBC) [Entitic vol] 92.5 fL 80-94 [facility] Work Phone: [phone] Hematocrit Auto (Bld) [Volum e fraction]on 05-20-2022 Hematocrit (Bld) [Volume fraction] 44.3 % 40-54 [facility] Work Phone: [phone] Laboratory - Chemistry and C hemistry - challengeon 05-20-2022 CO2 [Moles/Vol] 26.0 mmol/L 21.0-32.0 [facility] Work Phone: [phone] Natriuretic peptide B (Bld) [Mass/Vol] 43.5 pg/mL 0-100 [facility] Work Phone: [phone] Urea nitrogen/Creatinine [Mass ratio] 11.8 mg/mg 10-20 [facility] Work Phone: [phone] Laboratory - Hematology and Cell countson 05-20-2022 Erythrocyte distribution width (RBC) [Entitic vol] 43.7 fL 35.1-43.9 [facility] Work Phone: [phone] Erythrocyte distribution width (RBC) [Ratio] 13.0 % 11.6-14.6 [facility] Work Phone: [phone] Immature granulocytes/100 WBC (Bld) 0.500 % 0.0-0.9 [facility] Work Phone: [phone] Comment on above: IG% - Immature Granu locytes (promyelocytes, myelocytes and metamyelocytes) > 1% indicates that a LEFT SHIFT is Present. MCH (RBC) [Entitic mass] 30.9 pg 27.0-32.0 [facility] Work Phone: [phone] Nucleated RBC/100 WBC (Bld) [Ratio] 0 % 0-5 [facility] Work Phone: [phone] MCHC Auto (RBC) [Mass/Vol]on 05-20-2022 MCHC (RBC) [Mass/Vol] 33.4 g/dL 32-36 [facility] Work Phone: No Panel Informationon 05-20 Estimated GFR (MDRD) Amer 90 mL/min >60 [facility] Work Phone: Comment on above: GFR Calc Estimated GFR (MDRD) Non-Af Amer 74 mL/min >60 [facility] Work Phone: Comment on above: Non- GFR Calc Platelets bldon 05-20-2022 Platelets (Bld) [#/Vol] 260 10*3/uL 150-450 [facility] Work Phone: Serum or plasma calcium iva urement (mass/volume)on 05-20-2022 Calcium [Mass/Vol] 8.9 mg/dL 8.5-10.1 [facility] Work Phone: Serum or plasma creatinine m easurement (mass/volume)on 05-20-2022 Creatinine [Mass/Vol] 1.02 mg/dL 0.70-1.30 [facility] Work Phone: Comment on above: The validity of the calculated GFR & GFRAA in patients over 70 years has not been determined. Clinical correlation is essential. Serum or plasma urea nitroge n measurement (mass/volume)on 05-20-2022 Urea nitrogen [Mass/Vol] 12 mg/dL 7-18 [facility] Work Phone: Thin prep Papanicolaou smear with manual screeningon 05-20-2022 Thin prep Papanicolaou smear with manual screening 5 5-15 [facility] Work Phone: Basophil percentageon 2021 Bilirubin [Mass/Vol] 1.20 mg/dL 0.20-1.00 [facility] Work Phone: Comment on above: For patients on eltr ombopag therapy, use of Dimension [place] TBIL is not recommended. Chloride [Moles/Vol] 108 mmol/L 98-107 [facility] Work Phone: Glucose [Mass/Vol] 83 mg/dL 74-106 [facility] Work Phone: [phone] Potassium [Moles/Vol] 3.8 mmol/L 3.5-5.1 [facility] Work Phone: [phone] Protein [Mass/Vol] 6.6 g/dL 6.4-8.2 [facility] Work Phone: [phone] Sodium [Moles/Vol] 138 mmol/L 136-145 [facility] Work Phone: [phone] WBC (Bld) [#/Vol] 8.9 10*3/uL 4.4-11.0 [facility] Work Phone: [phone] Blood erythrocytes count (nu mber/volume)on 04-09-2022 RBC (Bld) [#/Vol] 4.71 10*6/uL 4.6-6.2 [facility] Work Phone: [phone] Blood hemoglobin measurement (mass/volume)on 04-09-2022 Hemoglobin (Bld) [Mass/Vol] 14.4 g/dL 13.0-16.5 [facility] Work Phone: [phone] Blood platelet mean volumeon 04-09-2022 Platelet mean volume (Bld) [Entitic vol] 11.3 fL 6.2-12.0 [facility] Work Phone: [phone] Determination of erythrocyte mean corpuscular volume (MCV)on 04-09-2022 MCV (RBC) [Entitic vol] 95.5 fL 80-94 [facility] Work Phone: [phone] Hematocrit Auto (Bld) [Volum e fraction]on 04-09-2022 Hematocrit (Bld) [Volume fraction] 45.0 % 40-54 [facility] Work Phone: [phone] Laboratory - Chemistry and C hemistry - challengeon 04-09-2022 ALP [Catalytic activity/Vol] 86 U/L 45-117 [facility] Work Phone: ALT [Catalytic activity/Vol] 27 U/L 16-61 [facility] Work Phone: [phone] CO2 [Moles/Vol] 23.0 mmol/L 21.0-32.0 [facility] Work Phone: Globulin (S) [Mass/Vol] 3.1 g/dL 2.2-4.2 [facility] Work Phone: [phone] Urea nitrogen/Creatinine [Mass ratio] 17.3 mg/mg 10-20 [facility] Work Phone: Laboratory - Hematology and Cell countson 04-09-2022 Erythrocyte distribution width (RBC) [Entitic vol] 45.5 fL 35.1-43.9 [facility] Work Phone: Erythrocyte distribution width (RBC) [Ratio] 13.0 % 11.6-14.6 [facility] Work Phone: [phone] MCH (RBC) [Entitic mass] 30.6 pg 27.0-32.0 [facility] Work Phone: MCHC Auto (RBC) [Mass/Vol]on 04-09-2022 MCHC (RBC) [Mass/Vol] 32.0 g/dL 32-36 [facility] Work Phone: No Panel Informationon 04-09 Estimated Creatinine Clearance Calc 62.82 ml/min [facility] Work Phone: Estimated GFR (MDRD) Amer 101 mL/min >60 [facility] Work Phone: Comment on above: GFR Calc Estimated GFR (MDRD) Non-Af Amer 83 mL/min >60 [facility] Work Phone: Comment on above: Non- GFR Calc Platelets bldon 04-09-2022 Platelets (Bld) [#/Vol] 240 10*3/uL 150-450 [facility] Work Phone: Serum or plasma albumin iva urement (mass/volume)on 04-09-2022 Albumin [Mass/Vol] 3.5 g/dL 3.2-5.0 [facility] Work Phone: Serum or plasma albumin/glob ulin mass ratioon 04-09-2022 Albumin/Globulin [Mass ratio] 1.1 {ratio} 0.9-2.4 [facility] Work Phone: Serum or plasma calcium iva urement (mass/volume)on 04-09-2022 Calcium [Mass/Vol] 8.5 mg/dL 8.5-10.1 [facility] Work Phone: Serum or plasma creatinine m easurement (mass/volume)on 04-09-2022 Creatinine [Mass/Vol] 0.92 mg/dL 0.70-1.30 [facility] Work Phone: Comment on above: The validity of the calculated GFR & GFRAA in patients over 70 years has not been determined. Clinical correlation is essential. Serum or plasma urea nitroge n measurement (mass/volume)on 04-09-2022 Urea nitrogen [Mass/Vol] 16 mg/dL 7-18 [facility] Work Phone: Thin prep Papanicolaou smear with manual screeningon 04-09-2022 Thin prep Papanicolaou smear with manual screening 24 U/L 15-37 [facility] Work Phone: Thin prep Papanicolaou smear with manual screening 7 5-15 [facility] Work Phone: Absolute lymphocyte counton 04-03-2022 Lymphocytes Auto (Unsp spec) [#/Vol] 1.93 10*3/uL 0.83-4.51 [facility] Work Phone: Basophil percentageon 2021 Basophils/100 WBC (Bld) 1.0 % 0-1 [facility] Work Phone: Chloride [Moles/Vol] 106 mmol/L 98-107 [facility] Work Phone: Eosinophils/100 WBC (Bld) 4.9 % 0-5 [facility] Work Phone: Glucose [Mass/Vol] 85 mg/dL 74-106 [facility] Work Phone: Neutrophils (Bld) [#/Vol] 3.9 10*3/uL 2.0-7.7 [facility] Work Phone: Neutrophils/100 WBC (Bld) 56.1 % 47-70 [facility] Work Phone: Potassium [Moles/Vol] 3.9 mmol/L 3.5-5.1 [facility] Work Phone: Sodium [Moles/Vol] 139 mmol/L 136-145 [facility] Work Phone: WBC (Bld) [#/Vol] 6.9 10*3/uL 4.4-11.0 [facility] Work Phone: Blood erythrocytes count (nu mber/volume)on 04-03-2022 RBC (Bld) [#/Vol] 4.75 10*6/uL 4.6-6.2 [facility] Work Phone: Blood hemoglobin measurement (mass/volume)on 04-03-2022 Hemoglobin (Bld) [Mass/Vol] 14.5 g/dL 13.0-16.5 [facility] Work Phone: Blood lymphocytes/100 leukoc yteson 04-03-2022 Lymphocytes/100 WBC (Bld) 28.0 % 19-41 [facility] Work Phone: Blood monocytes/100 leukocyt eson 04-03-2022 Monocytes/100 WBC (Bld) 9.7 % 0-10 [facility] Work Phone: Blood platelet mean volumeon 04-03-2022 Platelet mean volume (Bld) [Entitic vol] 11.8 fL 6.2-12.0 [facility] Work Phone: Determination of erythrocyte mean corpuscular volume (MCV)on 04-03-2022 MCV (RBC) [Entitic vol] 93.7 fL 80-94 [facility] Work Phone: Hematocrit Auto (Bld) [Volum e fraction]on 04-03-2022 Hematocrit (Bld) [Volume fraction] 44.5 % 40-54 [facility] Work Phone: Laboratory - Chemistry and C hemistry - challengeon 04-03-2022 CO2 [Moles/Vol] 26.0 mmol/L 21.0-32.0 [facility] Work Phone: [phone] Urea nitrogen/Creatinine [Mass ratio] 17.4 mg/mg 10-20 [facility] Work Phone: [phone] Laboratory - Hematology and Cell countson 04-03-2022 Erythrocyte distribution width (RBC) [Entitic vol] 45.0 fL 35.1-43.9 [facility] Work Phone: [phone] Erythrocyte distribution width (RBC) [Ratio] 13.0 % 11.6-14.6 [facility] Work Phone: [phone] Immature granulocytes/100 WBC (Bld) 0.300 % 0.0-0.9 [facility] Work Phone: [phone] Comment on above: IG% - Immature Granu locytes (promyelocytes, myelocytes and metamyelocytes) > 1% indicates that a LEFT SHIFT is Present. MCH (RBC) [Entitic mass] 30.5 pg 27.0-32.0 [facility] Work Phone: [phone] Nucleated RBC/100 WBC (Bld) [Ratio] 0 % 0-5 [facility] Work Phone: [phone] MCHC Auto (RBC) [Mass/Vol]on 04-03-2022 MCHC (RBC) [Mass/Vol] 32.6 g/dL 32-36 [facility] Work Phone: [phone] No Panel Informationon 04-03 Estimated GFR (MDRD) Amer 101 mL/min >60 [facility] Work Phone: [phone] Comment on above: GFR Calc Estimated GFR (MDRD) Non-Af Amer 83 mL/min >60 [facility] Work Phone: [phone] Comment on above: Non- GFR Calc Platelets bldon 04-03-2022 Platelets (Bld) [#/Vol] 253 10*3/uL 150-450 [facility] Work Phone: [phone] Serum or plasma calcium iva urement (mass/volume)on 04-03-2022 Calcium [Mass/Vol] 8.5 mg/dL 8.5-10.1 [facility] Work Phone: Serum or plasma creatinine m easurement (mass/volume)on 04-03-2022 Creatinine [Mass/Vol] 0.92 mg/dL 0.70-1.30 [facility] Work Phone: Comment on above: The validity of the calculated GFR & GFRAA in patients over 70 years has not been determined. Clinical correlation is essential. Serum or plasma urea nitroge n measurement (mass/volume)on 04-03-2022 Urea nitrogen [Mass/Vol] 16 mg/dL 7-18 [facility] Work Phone: Thin prep Papanicolaou smear with manual screeningon 04-03-2022 Thin prep Papanicolaou smear with manual screening 7 5-15 [facility] Work Phone: Vital Signs Date Time Vital Sign Value Performing Clinician Faci lity 03-03-2024 12:55-0400 Body temperature 98.1 [degF] Dr. Rashid Camacho Work Phone: [facility] 03-03-2024 12:55-0400 Diastolic blood pressure 63 mm[Hg] Dr. Rashid Camacho Work Phone: [facility] 03-03-2024 12:55-0400 Heart rate 87 /min Dr. Rashid Camacho Work Phone: [facility] 03-03-2024 12:55-0400 Respiratory rate 18 /min Dr. Rashid Camacho Work Phone: [facility] 03-03-2024 12:55-0400 SaO2% (BldA) [Mass fraction] 93 % Dr. Rashid Camacho Work Phone: [facility] 03-03-2024 12:55-0400 Systolic blood pressure 113 mm[Hg] Dr. Rashid Camacho Work Phone: [facility] 03-03-2024 08:11-0400 Inhaled oxygen flow rate 2 L/min Dr. Rashid Camacho Work Phone: [facility] 03-01-2024 15:30-0400 Body height 175.[address] Rashid Camacho Work Phone: [facility] 03-01-2024 15:30-0400 Body mass index (BMI) [Ratio] 31.9 kg/m2 Dr. Rashid Camacho Work Phone: [facility] 03-01-2024 15:30-0400 Body weight 98.[address] Rashid Camacho Work Phone: [facility] 01-13-2024 09:23-0400 Body mass index (BMI) [Ratio] 31.1 kg/m2 Dr. Rashid Camacho Work Phone: [facility] 01-13-2024 09:23-0400 Body weight 98.[address] Rashid Camacho Work Phone: [facility] 01-04-2024 12:33-0500 Body temperature 97.5 [degF] [facility] 01-04-2024 12:33-0500 Diastolic blood pressure 77 mm[Hg] [facility] 01-04-2024 12:33-0500 Heart rate 62 /min [facility] 01-04-2024 12:33-0500 Respiratory rate 15 /min [facility] 01-04-2024 12:33-0500 SaO2% (BldA) [Mass fraction] 98 % [facility] 01-04-2024 12:33-0500 Systolic blood pressure 129 mm[Hg] [facility] 01-04-2024 10:48-0500 Body height 177.8 cm [facility] 01-04-2024 10:48-0500 Body mass index (BMI) [Ratio] 31.7 kg/m2 [facility] 01-04-2024 10:48-0500 Body weight 100.24 kg [facility] 08-05-2022 09:46-0400 Diastolic blood pressure 62 mm[Hg] Dr. Liban Camacho Work Phone: [facility] Work Phone: 08-05-2022 09:46-0400 Systolic blood pressure 115 mm[Hg] Dr. Liban Camacho Work Phone: [facility] Work Phone: 08-05-2022 09:21-0400 Body height 177.[address] Liban Camacho Work Phone: [facility] Work Phone: 08-05-2022 09:21-0400 Body mass index (BMI) [Ratio] 30.9 kg/m2 Dr. Liban Camacho Work Phone: [facility] Work Phone: 08-05-2022 09:21-0400 Body weight 97.[address] Liban Camacho Work Phone: [facility] Work Phone: 08-05-2022 09:21-0400 Heart rate 65 /min Dr. Liban Camacho Work Phone: [facility] Work Phone: 08-05-2022 09:21-0400 Respiratory rate 16 /min Dr. Liban Camacho Work Phone: [facility] Work Phone: 05-20-2022 10:19-0400 Body height 177.[address] Liban Camacho Work Phone: [facility] Work Phone: 05-20-2022 10:19-0400 Body mass index (BMI) [Ratio] 31.2 kg/m2 Dr. Liban Camacho Work Phone: [facility] Work Phone: 05-20-2022 10:19-0400 Body weight 98.[address] Liban Camacho Work Phone: [facility] Work Phone: 05-20-2022 10:19-0400 Diastolic blood pressure 93 mm[Hg] Dr. Liban Camacho Work Phone: [facility] Work Phone: 05-20-2022 10:19-0400 Heart rate 67 /min Dr. Liban Camacho Work Phone: [facility] Work Phone: 05-20-2022 10:19-0400 Respiratory rate 18 /min Dr. Liban Camacho Work Phone: [facility] Work Phone: 05-20-2022 10:19-0400 SaO2% (BldA) [Mass fraction] 97 % Dr. Liban Camacho Work Phone: [facility] Work Phone: 05-20-2022 10:19-0400 Systolic blood pressure 153 mm[Hg] Dr. Liban Camacho Work Phone: [facility] Work Phone: 04-09-2022 10:03-0400 Body temperature 96.9 [degF] Dr. Liban Camacho Work Phone: [facility] Work Phone: 04-09-2022 10:03-0400 Diastolic blood pressure 74 mm[Hg] Dr. Liban Camacho Work Phone: [facility] Work Phone: 04-09-2022 10:03-0400 Heart rate 67 /min Dr. Liban Camacho Work Phone: [facility] Work Phone: 04-09-2022 10:03-0400 Respiratory rate 16 /min Dr. Liban Camacho Work Phone: [facility] Work Phone: 04-09-2022 10:03-0400 SaO2% (BldA) [Mass fraction] 94 % Dr. Liban Camacho Work Phone: [facility] Work Phone: 04-09-2022 10:03-0400 Systolic blood pressure 134 mm[Hg] Dr. Liban Camacho Work Phone: [facility] Work Phone: 04-08-2022 15:39-0400 Heart rate 53 /min Dr. Liban Camacho Work Phone: [facility] Work Phone: 04-08-2022 09:10-0400 Body height 177.[address] Liban Camacho Work Phone: [facility] Work Phone: 04-08-2022 09:10-0400 Body weight 101.[address] Liban Camacho Work Phone: [facility] Work Phone: 04-05-2022 08:22-0400 Body mass index (BMI) [Ratio] 32.1 kg/m2 Dr. Liban Camacho Work Phone: [facility] Work Phone: 04-03-2022 12:30-0400 Body mass index (BMI) [Ratio] 32.1 kg/m2 Dr. Liban Camacho Work Phone: [facility] Work Phone: 04-03-2022 12:30-0400 Body weight 101.[address] Liban Camacho Work Phone: [facility] Work Phone: 04-03-2022 12:30-0400 Diastolic blood pressure 72 mm[Hg] Dr. Liban Camacho Work Phone: [facility] Work Phone: 04-03-2022 12:30-0400 Heart rate 62 /min Dr. Liban Camacho Work Phone: [facility] Work Phone: 04-03-2022 12:30-0400 Respiratory rate 16 /min Dr. Liban Camacho Work Phone: [facility] Work Phone: 04-03-2022 12:30-0400 SaO2% (BldA) [Mass fraction] 94 % Dr. Liban Camacoh Work Phone: [facility] Work Phone: 04-03-2022 12:30-0400 Systolic blood pressure 130 mm[Hg] Dr. Liban Camacho Work Phone: [facility] Work Phone: 04-03-2022 12:30-0400 Body mass index (BMI) [Ratio] 32.1 kg/m2 Dr. Liban Camacho Work Phone: [facility] Work Phone: 04-03-2022 12:30-0400 Body weight 101.[address] Liban Camacho Work Phone: [facility] Work Phone: 04-03-2022 12:30-0400 Diastolic blood pressure 72 mm[Hg] Dr. Liban Camacho Work Phone: [facility] Work Phone: 04-03-2022 12:30-0400 Heart rate 62 /min Dr. Liban Camacho Work Phone: [facility] Work Phone: 04-03-2022 12:30-0400 Respiratory rate 16 /min Dr. Liban Camacho Work Phone: [facility] Work Phone: 04-03-2022 12:30-0400 SaO2% (BldA) [Mass fraction] 94 % Dr. Liban Camacho Work Phone: [facility] Work Phone: 04-03-2022 12:30-0400 Systolic blood pressure 130 mm[Hg] Dr. Liban Camacho Work Phone: [facility] Work Phone: Encounters Encounter Date Encounter Type Care Provider Facility Start: 03-10-2025 End: 03-10-2025 ambulatory Rashid Camacho Facility:[facility] Start: 02-08-2025 End: 02-08-2025 ambulatory Rashid Camacho Facility:[facility] Start: 12-31-2024 Encounter for other preprocedural examination Iraj Tucker [facility] Start: 12-24-2024 End: 12-24-2024 ambulatory Rashid Camacho Facility:[facility] Start: 12-08-2024 End: 12-09-2024 ambulatory Fatimah Goff Facility:[facility] Start: 12-08-2024 ambulatory [facility] Start: 12-01-2024 End: 12-02-2024 ambulatory [facility] Facility:[facility] Start: 10-20-2024 End: 10-20-2024 ambulatory Rashid Camacho Facility:[facility] Start: 09-24-2024 End: 09-24-2024 ambulatory [facility] Start: 09-13-2024 End: 09-13-2024 ambulatory [facility] Facility:[facility] Start: 09-03-2024 End: 09-03-2024 ambulatory Rashid Camacho [facility] Start: 06-03-2024 End: 06-03-2024 ambulatory Rashid Camacho Facility:[facility] Start: 05-10-2024 End: 05-10-2024 ambulatory Rashid Camacho Facility:[facility] Start: 04-19-2024 End: 04-19-2024 ambulatory Rashid Camacho Facility:[facility] Start: 03-16-2024 End: 03-16-2024 ambulatory Rashid Camacho Facility:[facility] Start: 03-03-2024 Non-patient / Non-visit Dr. Candace Camacho Work Phone: [facility] Start: 03-03-2024 Non-patient / Non-visit Dr. Candace Camacho Work Phone: [facility] Work Phone: Start: 03-02-2024 Non-patient / Non-visit Dr. Candace Camacho Work Phone: [facility] Start: 03-02-2024 Non-patient / Non-visit Dr. Candace Camacho Work Phone: [facility] Work Phone: Start: 03-01-2024 Non-patient / Non-visit Dr. Candace Camacho Work Phone: [facility] Work Phone: Start: 03-01-2024 Non-patient / Non-visit Dr. Candace Camacho Work Phone: [facility] Start: 03-01-2024 End: 03-03-2024 Evaluation and management of inpatient Dr. Rashid Camacho Work Phone: [facility]Medical Surgical 3 Work Phone: Start: 02-25-2024 End: 02-25-[address] Rashid Camacho Work Phone: [facility] Work Phone: Start: 02-24-2024 End: 02-24-2024 Non-patient / Non-visit Dr. Rashid Camacho Work Phone: [facility] Work Phone: Start: 02-12-2024 End: 02-12-[address] Rashid Camacho Work Phone: [facility] Work Phone: Start: 01-13-2024 End: 01-13-[address] Rashid Camacho Work Phone: [facility] Work Phone: Start: 01-04-2024 End: 01-04-2024 Emergency department patient visit [facility]Emer[facility] Department Work Phone: Start: 10-02-2023 End: 10-02-2023 Patient encounter procedure [facility] Start: 09-30-2022 End: 09-30-[address] Liban Camacho Work Phone: [facility] Work Phone: Start: 09-30-2022 End: 09-30-[address] Liban Camacho Work Phone: [facility] Start: 08-05-2022 End: 08-05-[address] Liban Camacho Work Phone: [facility] Start: 05-20-2022 End: 05-20-[address] Liban Camacho Work Phone: [facility] Start: 04-09-2022 Non-patient / Non-visit Dr. Candace Camacho Work Phone: [facility] Start: 04-08-2022 End: 04-09-2022 Evaluation and management of inpatient Dr. Liban Camacho Work Phone: [facility]-Progressive Care Unit Start: 04-08-2022 Non-patient / Non-visit Dr. Candace Camacho Work Phone: [facility] Start: 04-03-2022 End: 04-03-[address] Liban Camacho Work Phone: [facility] Start: 04-03-2022 End: 04-03-[address] Liban Camacho Work Phone: [facility] Start: 03-29-2022 Non-patient / Non-visit Dr. Candace Camacho Work Phone: [facility] Start: 03-25-2022 Non-patient / Non-visit Dr. Candace Camacho Work Phone: [facility] Start: 03-25-2022 End: 03-25-[address] Liban Camacho Work Phone: [facility]iov[facility] Procedures Date Procedure Procedure Detail Performing Clinician Start: 03-02-2024 X-ray of lumbar spin e, two or three views Dr. Rashid Camacho Work Phone: Start: 03-01-[address] Iam Camacho Work Phone: Start: 03-01-2024 Fluoroscopic guidance Trevor Camacho Work Phone: Start: 03-01-2024 X-ray of lumbar spin e, two or three views Dr. Rashid Camacho Work Phone: Start: 02-24-2024 Nasal Screen MRSA/MSSA Dr. Rashid Camacho Work Phone: Start: 01-13-2024 X-ray of lumbosacral spine Dr. Rashid Camacho Work Phone: Start: 04-08-2022 History of placement of stent for coronary artery disease History of coronary artery stent placement Dr. Liban Camacho Work Phone: Start: 04-03-2022 Plain chest X-ray Dr. Teri Camacho Work Phone: Start: 03-25-2022 Radionuclide imaging of perfusion of myocardium under exercise stress Dr. Liban Camacho Work Phone: Plan of Treatment Date Care Activity Detail Author Start: 03-05-2024 Blood chemistry [facility] Start: 03-04-2024 Blood chemistry [facility] Start: 03-03-2024 Patient discharge [facility] Start: 03-03-2024 Oxygen therapy [facility] Start: 03-01-2024 Following clinical p athway protocol [facility] Start: 03-01-2024 Referral to occupati onal therapist [facility] Start: 03-01-2024 Admission procedure [facility] Start: 03-01-2024 Application of ice c ollar, cap or bag [facility] Start: 03-01-2024 Application of inter mittent pneumatic compression device [facility] Start: 03-01-2024 Catheterization of vein [facility] Start: 03-01-2024 Following clinical p athway protocol [facility] Start: 03-01-2024 Incentive spirometry [facility] Start: 03-01-2024 Measuring intake and output [facility] Start: 03-01-2024 Neurovascular assessment [facility] Start: 03-01-2024 Patient education [facility] Start: 03-01-2024 Procedure discontinued [facility] Start: 03-01-2024 Provision of activity privileges [facility] Start: 03-01-2024 Taking patient vital signs [facility] Start: 03-01-2024 Consultation [facility] Start: 03-01-2024 Referral to service [facility] Start: 03-01-2024 Verification routine [facility] Start: 03-01-2024 Application of device [facility] Start: 01-13-2024 Patient referral [facility] Work Phone: Start: 01-04-2024 [facility] Start: 04-09-2022 Patient discharge [facility] Work Phone: Start: 04-08-2022 Patient referral [facility] Work Phone: Start: 04-08-2022 Admission procedure [facility] Work Phone: Start: 04-08-2022 Insertion of cathete r into peripheral vein [facility] Work Phone: Start: 04-08-2022 Measuring intake and output [facility] Work Phone: Start: 04-08-2022 Providing care accor ding to standard [facility] Work Phone: Start: 04-08-2022 Cardiac monitoring [facility] Work Phone: Start: 04-08-2022 Cardiac rehabilitation - phase 1 [facility] Work Phone: Start: 04-08-2022 Notification of physician [facility] Work Phone: Start: 04-08-2022 Oxygen therapy [facility] Work Phone: Start: 04-08-2022 Patient discharge [facility] Work Phone: Start: 04-08-2022 Systemic arterial pr essure monitoring [facility] Work Phone: Start: 04-08-2022 Taking patient vital signs [facility] Work Phone: Start: 04-08-2022 Vascular disease risk assessment [facility] Work Phone: Start: 04-08-2022 Vital signs measurements [facility] Work Phone: Start: 04-08-2022 End: 04-08-2022 [facility] Work Phone: Anion gap measurement [facility] Anion gap measurement [facility] BUN/Creatinine ratio [facility] BUN/Creatinine ratio [facility] Calcium [Mass/volume ] in Serum or Plasma [facility] Calcium [Mass/volume ] in Serum or Plasma [facility] Carbon dioxide, tota l [Moles/volume] in Serum or Plasma [facility] Carbon dioxide, tota l [Moles/volume] in Serum or Plasma [facility] Catheterization of left heart [facility] Work Phone: Chloride [Moles/volu me] in Serum or Plasma [facility] Chloride [Moles/volu me] in Serum or Plasma [facility] Creatinine [Moles/vo lume] in Serum or Plasma [facility] Creatinine [Moles/vo lume] in Serum or Plasma [facility] Erythrocyte mean cor puscular volume determination [facility] Erythrocyte mean cor puscular volume determination [facility] Glucose [Mass/volume ] in Serum or Plasma [facility] Glucose [Mass/volume ] in Serum or Plasma [facility] Hematocrit [Volume F raction] of Blood [facility] Hematocrit [Volume F raction] of Blood [facility] Hemoglobin [Mass/volume] in Blood [facility] Hemoglobin [Mass/volume] in Blood [facility] Leukocytes [#/volume] in Blood [facility] Leukocytes [#/volume] in Blood [facility] Mean corpuscular hem oglobin concentration determination [facility] Mean corpuscular hem oglobin concentration determination [facility] Mean corpuscular hem oglobin determination [facility] Mean corpuscular hem oglobin determination [facility] Measurement of renal function [facility] Measurement of renal function [facility] Neutrophil count [facility] Neutrophil count [facility] Neutrophil percent d ifferential count [facility] Neutrophil percent d ifferential count [facility] Patient Education [facility] Work Phone: Patient referral [facility] Work Phone: Platelets [#/volume] in Blood [facility] Platelets [#/volume] in Blood [facility] Potassium [Moles/vol ume] in Serum or Plasma [facility] Potassium [Moles/vol ume] in Serum or Plasma [facility] Red blood cell count [facility] Red blood cell count [facility] Red cell distributio n width determination [facility] Red cell distributio n width determination [facility] Sodium [Moles/volume ] in Serum or Plasma [facility] Sodium [Moles/volume ] in Serum or Plasma [facility] Urea nitrogen [Mass/ volume] in Serum or Plasma [facility] Urea nitrogen [Mass/ volume] in Serum or Plasma [facility] Immunizations Immunization Date Immunization Notes Care Provider Fa [facility] 12-28-2020 Covid ([employer]t [employer] App) Dr. Kaiser Camacho Work Phone: [facility] 12-11-2020 Covid ([employer]t [employer]) Dr. Kaiser Camacho Work Phone: [facility] Payers Date Payer Category Payer Self-pay [id number] 2014 Private Health Insurance [id number] 2004 Medicare [id number] Unknown VA AUTH REQUIR ED SEE NOTE [id number] Unknown [id number] .462 Unknown [id number] [id number] .462 Unknown [id number] 2.16.840.1.317680.3.579.2 .462 Unknown [id number] 2.16.840.1.965434.3.579.2 .462 Unknown [id number] 2.16.840.1.183378.3.579.2 .462 Unknown [id number] 2.16.840.1.810426.3.579.2 .462 Unknown [id number] 2.16.840.1.218781.3.579.2 .462 Unknown [id number] 2.16.840.1.540463.3.579.2 .462 Unknown [id number] 2.16.840.1.290797.3.579.2 .462 Unknown [id number] 2.16.840.1.416436.3.579.2 .462 Unknown [id number] 2.16.840.1.917026.3.579.2 .462 Unknown [id number] 2.16.840.1.189486.3.579.2 .462 Unknown [id number] 2.16.840.1.906280.3.579.2 .462 Unknown [id number] 2.16.840.1.932889.3.579.2 .462 Unknown [id number] 2.16.840.1.585396.3.579.2 .462 Unknown [id number] 2.16.840.1.731006.3.579.2 .462 Unknown [id number] 2.16.840.1.114861.3.579.2 .462 Unknown [id number] 2.16.840.1.720457.3.579.2 .462 Unknown [id number] 2.16.840.1.245602.3.579.2 .462 Unknown [id number] 2.16.840.1.771423.3.579.2 .462 Unknown [id number] 2.16.840.1.603850.3.579.2 .462 Unknown [id number] 2.16.840.1.282174.3.579.2 .462 Unknown [id number] 2.16.840.1.310190.3.579.2 .462 Social History Date Type Detail Facility Start: 05-17-2021 End: 02-23-2024 Tobacco smoking status NMIS Unknown if ever smoked [facility] Start: 1940 Sex Assigned At Male [facility] Medical Equipment Procedure Code Equipment Code Equipment Origin al Text Equipment Identifier Dates Fusion, spine, lumbar, 360 degree, starting in supine position transitioning to prone 100 MM TAE FDA Start: 03-01-2024 Fusion, spine, lumbar, 360 degree, starting in supine position transitioning to prone PUTTY, 5CC STD DBX FDA Start: 03-01-2024 Fusion, spine, lumbar, 360 degree, starting in supine position transitioning to prone SET SCREW FDA Start: 03-01-2024 Fusion, spine, lumbar, 360 degree, starting in supine position transitioning to prone SET SCREW FDA Start: 03-01-2024 Fusion, spine, lumbar, 360 degree, starting in supine position transitioning to prone SET SCREW FDA Start: 03-01-2024 Fusion, spine, lumbar, 360 degree, starting in supine position transitioning to prone SET SCREW FDA Start: 03-01-2024 Fusion, spine, lumbar, 360 degree, starting in supine position transitioning to prone SET SCREW FDA Start: 03-01-2024 Fusion, spine, lumbar, 360 degree, starting in supine position transitioning to prone SET SCREW FDA Start: 03-01-2024 Fusion, spine, lumbar, 360 degree, starting in supine position transitioning to prone TI WASHER FDA Start: 03-01-2024 Fusion, spine, lumbar, 360 degree, starting in supine position transitioning to prone VIPER PRIME 7.0X55MM SCREW FDA Start: 03-01-2024 Fusion, spine, lumbar, 360 degree, starting in supine position transitioning to prone VIPER PRIME 7.0X55MM SCREW FDA Start: 03-01-2024 Fusion, spine, lumbar, 360 degree, starting in supine position transitioning to prone 100 MM TAE FDA Start: 03-01-2024 Fusion, spine, lumbar, 360 degree, starting in supine position transitioning to prone VIPER PRIME 7.0X55MM SCREW FDA Start: 03-01-2024 Fusion, spine, lumbar, 360 degree, starting in supine position transitioning to prone VIPER PRIME 7.0X55MM SCREW FDA Start: 03-01-2024 Fusion, spine, lumbar, 360 degree, starting in supine position transitioning to prone VIPER PRIME 7.0X55MM SCREW FDA Start: 03-01-2024 Fusion, spine, lumbar, 360 degree, starting in supine position transitioning to prone VIPER PRIME 7.0X55MM SCREW FDA Start: 03-01-2024 Fusion, spine, lumbar, 360 degree, starting in supine position transitioning to prone Collagen haemostatic agent, non-antimicrobial ()[id number] FDA Start: 03-01-2024 Fusion, spine, lumbar, 360 degree, starting in supine position transitioning to prone 25 MM SCREW FDA Start: 03-01-2024 Fusion, spine, lumbar, 360 degree, starting in supine position transitioning to prone BONE,30CC CRUSH CANC FDA Start: 03-01-2024 Fusion, spine, lumbar, 360 degree, starting in supine position transitioning to prone BONE,60CC CRUSH CANC FDA Start: 03-01-2024 Fusion, spine, lumbar, 360 degree, starting in supine position transitioning to prone COUGAR LS [id number] CAGE FDA Start: 03-01-2024 Fusion, spine, lumbar, 360 degree, starting in supine position transitioning to prone COUGAR LS [id number] CAGE FDA Start: 03-01-2024 Fusion, spine, lumbar, 360 degree, starting in supine position transitioning to prone COUGAR LS [id number] CAGE FDA Start: 03-01-2024 Fusion, spine, lumbar, 360 degree, starting in supine position transitioning to prone HIGH VISCOSITY SPINAL CEMENT FDA Start: 03-01-2024 ([id number]) Drug-eluting coronary artery stent, bioabsorbable-polym er-coated [id number] FDA Start: 04-08-2022 Goals Date Patient Goal Desired Activity /State Functional Status Date Assessment Result Facility 03-03-2024 Functional status Chair [facility] Work Phone: 04-09-2022 Functional status Ambulates;Bo r;Bathroom Privilege [facility] Work Phone: Mental Status Date Assessment Result Facility 03-03-2024 Cognitive function Voice/Name [facility] Work Phone: 04-09-2022 Cognitive function Voice/Name [facility] Work Phone: Clinical Notes 04-08-2022 to 12-08-2024 Note Date & Type Note Facility 12-08-2024 Note [facility] Medical Records Department [address] [place] [address] History Physical Exam 12/08/24 1054 MR#: [id number] Acct: [id number] Name: Teri VERDIN Rep #: [id number] : 1940 84 From: Iraj Tucker MD PCP: Dr. Rashid Camacho MD Status:[facility] Location: [place] [address] History and Physical Date of Admission: 12/08/24 MR#: [id number] Acct: [id number] Name: Teri VERDIN Rep #: [id number] : 1940 Provider: Dr. Iraj Tucker MD Age/Sex: 84/M Location: [facility] [place].ANDREINA Status: Signed Intake Vital Signs 05/10/2409:20 12/01/2509:22 Height 5 ft 9 in 5 ft 9 in Weight: 220 lb 4 oz BMI 32.5 Intake Visit Reasons: lumbar spine Chief Complaint: Lumbar spine pre-op Accompanied by: and Daughter Is patient in pain?: Yes Pain scale (1-10): 1 Allergies Yyyshak-EGT-WdL Reductase Inhibitor Allergy (Severe, Verified 12/01/24 10:23) Pain in joints Medications ???Medication ???Instructions ???Recorded ???Confirmed ???Type cholecalciferol (vitamin D3) 50 50 mcg PO DAILY supplement 05/17/21 12/01/24 History mcg (2,000 unit) capsule (Vitamin D3) levothyroxine 75 mcg tablet 75 mcg PO DAILY thyroid 05/17/21 12/01/24 History vitamin E 200 unit capsule 200 unit PO DAILY supplement 05/17/21 12/01/24 History fluticasone propionate 50 2 spray intranasal DAILY PRN 08/05/22 12/01/24 History mcg/actuation nasal allergy symptoms spray,suspension lisinopril 20 mg tablet 20 mg PO BID bp 08/05/22 12/01/24 History amlodipine 5 mg tablet 5 mg PO DAILY BP 01/04/24 12/01/24 History fenofibrate nanocrystallized 145 145 mg PO DAILY CHOLESTEROL 01/04/24 12/01/24 History mg tablet coenzyme Q10 100 mg capsule 100 mg PO DAILY SUPPLEMENT 01/13/24 12/01/24 History aspirin 81 mg capsule 81 mg PO DAILY BLOOD THINNER 02/23/24 12/01/24 History Have you fallen in the past year?: No PFSH Medical History Thyroid disease Arthritis High cholesterol Back pain History of pain when walking History of stress test Cardiology follow-up encounter 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 Obesity Hypothyroidism Essential hypertension BPH with obstruction/lower urinary tract symptoms Wears hearing aid Wears glasses Wears dentures Prostate disease Easy bruising Degenerative disc disease Former smoker History of cataract Surgical History History of lumbar fusion History of cardiac catheterization History of coronary artery stent placement (04/08/22) History of bilateral cataract extraction (2011) History of tonsillectomy History of transurethral resection of prostate Family History Mother HypertensionFather Alzheimer's diseaseBrother Lung cancerBrother Hypertension PacemakerSister HypertensionSister HypertensionSister Hypertension Social History household members: spouse Smoking Status: Former smoker alcohol intake: never substance use type: does not use caffeine: No HPI lumbar spine Details: This documentation accurately reflects the service provided and the decisions made by me, Dr. Iraj Tucker MD 12/01/24 1020. Part of today???s visit was documented by Kesha Han ATC, acting as scribe. Teri VERDIN is a 84 year old M here today for pre-op lumbar laminectomy decompression right L4-5 DOS 12/08/2024. Patient rates his pain a /10. Patient states his pain and symptoms have not changed since he was last seen. Patient denies any recent injections. Patient takes baby aspirin for a prior stent placement. No other blood thinners. HPI from 09/24/24: Teri VERDIN is a 84 year old M here today for MRI review of his lumbar spine. He denies any changes. He is still having swelling in the right leg. He continues to use his cane to ambulate. HPI from 09/03/24: Teri VERDIN is a 84 year old M here today for 6 month s/p L2-5 posterior percutaneous pedicle screw instrumented fusion, cement augmentation, prone DOS 03/01/2024. Patient states he is feeling good. Patient states he has pain but its a different pain. Patient does have numbness and pain in his right foot that goes up to his knee and some times he has it is his hip. Right foot is still swollen he thinks its a little worse. Patient right leg is also swollen. Patient hasn't been using the foot drop splint. Patient is still walking with a cane. Says that his right foot strength at improved. He does a home exercise program at home. Ortho Exam General General: Yes no acute (more content not included)... [facility] 03-03-2024 Progress note Note Date/Time March 03, 2024 9:34am [facility] Medical Records Department [address] [place] [address] Progress Note - Orthopedic 03/03/24927 MR#: [id number] Acct: [id number] Name: Teri VERDIN Rep #:[id number] : 1940 84 From: Iraj Tucker MD PCP: Dr. Rashid Camacho MD Status :ADM IN Location: MS3 SI479-5 Subjective Subjective Postop day 2 status post L2-5 fusion. Patient had bad. Pain well-controlled. Mentions that had significant pain through the night but was better than first night. Passed flatus and tolerated solid breakfast this morning. Preoperative radicular symptoms have resolved, with residual numbness and weakness in the right foot. Objective Data Objective Data Vital Signs: Vital Signs Temp Pulse Resp BP Pulse Ox O2 Del Method O2 Flow Rate 97.8 F 88 20 H 126/79 H 93 Nasal Cannula 2 03/03/24 04:25 03/03/24 04:25 03/03/24 04:25 03/03/24 04:25 03/03/24 04:25 03/03/24 08:11 03/03/24 08:11 Oxygen Flow Rate (L/min) 2 Oxygen Delivery Method Nasal Cannula Weight: 216 lb 9.6 oz Body Mass Index (BMI) 31.9 Intake & Output: Intake and Output for Last 24 Hours 03/01/24 03/02/24 03/03/24 23:59 23:59 23:59 Intake Total 3722 / 4122 3194.75 / 3194.75 2680.0 / 2680.0 Output Total 300 / 300 550 / 550 350 / 350 Balance 3422 / 3822 2644.75 / 2644.75 2330.0 / 2330.0 Lab / Micro Data 03/03/24 05:56 03/03/24 05:56 Labs: Laboratory Results - last 24 hr 03/03/24 05:56: WBC 12.1 H, RBC 3.41 L, Hgb 10.7 L, Hct 33.0 L, MCV 96.8 H, MCH 31.4, MCHC 32.4, RDW Std Deviation 49.6 H, RDW Coeff of Sherin 14.0, Plt Count 222,MPV 11.0, Immature Gran % (Auto) 0.400, Neut % (Auto) 87.0 H, Lymph % (Auto) 5.3L, [place] % (Auto) 7.2, Eos % (Auto) 0.0, Baso % (Auto) 0.1, Absolute Neuts (auto)10.5 H, Absolute Lymphs (auto) 0.64 L, Nucleated RBC % 0, Sodium 131 L, Potassium 4.0, Chloride 102, Carbon Dioxide 24.0, Anion Gap 5, BUN 28 H, Creatinine 1.18, Estim Creat Clear Calc 52.90, Est GFR (MDRD) Af Amer 75, Est GFR (MDRD) Non-Af 62, BUN/Creatinine Ratio 23.7 H, Glucose 109 H, Calcium 8.3 L,Phosphorus 2.1 L, Magnesium 2.3 Micro: Microbiology 02/24/24 12:26 Swab (Method) Nasal Screen MRSA/MSSA - Final Radiography Diagnostic Testing: Radiology Impression Lumbar Spine X-Ray 03/02/24 10:40 IMPRESSION: Status post interpedicular screw and tae fixation at the L2-L3, L3-L4 and L4-L5 levels. Electronically Signed: Alejandro Domingo MD at 12:40 EDT , Physical Exam Narrative Dressing?CDI. Abdomen soft, nontender. Neurologic evaluation lower extremity shows 5 x 5 power in all muscle groups, except right EHL and right ankle dorsiflexion which are both grade 1/2. Denies any paresthesias. Sensory exam shows only mild numbness in the right L5 dermatome compared to other dermatomes and other side. Assessment & Plan Assessment/Plan (1) Status post lumbar spinal fusion: PLAN: Plan Postop day 2 status post L2-5 fusion. Spoke at length yesterday with patient and family, and also this morning with the patient regarding the right foot weakness. He had some baseline weakness inthe right foot, but this has now been worse to grade 1 or 2 in both ankle dorsiflexion and EHL. Due to this right foot drop, I recommended foot drop splint, preferably dynamic if possible. Prescription for this was made. Foot drop splint will help with safety to avoid tripping. Encouraged active attemptsat ankle and toe dorsiflexion frequently. May benefit from electrical stimulation or other modalities by PT. For the weakness, I would recommend observation. I will continue to keep follow-up for this. Patient is now passing gas and tolerating solid diet. Okay to discharge home today. Patient will see me back in 2 weeks follow-up. 03/03/24 0934 <Electronically signed by Iraj Tucker MD> Cosigner Signature (if applicable): CC: ~ Signed [facility] Work Phone: 1(189) 847-837605-01-2024 Progress note Author Rei Lizarraga [facility] March 03, 2024 8:31am Note Date/Time March 03, 2024 7:45am [facility] Medical Records Department [address] [place] [address] Progress Note - Hospitalist 03/03/24 0745 MR#: [id number] Acct: [id number] Name: Teir VERDIN Rep #:[id number] : 1940 84 From: Rei Lizarraga MD PCP: Dr. Rashid Camacho MD Status :ADM IN Location: [place] [address]-1 Reason for Visit Reason for Visit: Diagnoses Hypothyroidism, unspecified (03/01/24) Hyperlipidemia, unspecified (03/01/24) Hypo-osmolality and hyponatremia (03/01/24) Essential (primary) hypertension (03/01/24) Spondylolisthesis, lumbar region (03/01/24) Spinal stenosis, lumbar region with neurogenic claudication (03/01/24) Intervertebral disc disorders with radiculopathy, lumbar region (03/01/24) Low back pain, unspecified (03/01/24) Encounter for other preprocedural examination (03/01/24) Presence of coronary angioplasty implant and graft (03/01/24) Arthrodesis status (03/01/24) Subjective Subjective Patient seen had a relatively uneventful night. Objective Data Objective Data Vital Signs: Vital Signs Temp Pulse Resp BP Pulse Ox O2 Del Method O2 Flow Rate 97.8 F 88 20 H 126/79 H 93 Nasal Cannula 2 03/03/24 04:25 03/03/24 04:25 03/03/24 04:25 03/03/24 04:25 03/03/24 04:25 03/03/24 04:38 03/03/24 04:38 Oxygen Flow Rate (L/min) 2 Oxygen Delivery Method Nasal Cannula Weight: 98.248 kg Body Mass Index (BMI) 31.9 Intake & Output: Intake and Output for Last 24 Hours 03/01/24 03/02/24 03/03/24 23:59 23:59 23:59 Intake Total 3722 / 4122 3194.75 / 3194.75 2680.0 / 2680.0 Output Total 300 / 300 550 / 550 350 / 350 Balance 3422 / 3822 2644.75 / 2644.75 2330.0 / 2330.0 Lab / Micro Data 03/03/24 05:56 03/03/24 05:56 Labs: Laboratory Results - last 24 hr 03/03/24 05:56: WBC 12.1 H, RBC 3.41 L, Hgb 10.7 L, Hct 33.0 L, MCV 96.8 H, MCH 31.4, MCHC 32.4, RDW Std Deviation 49.6 H, RDW Coeff of Sherin 14.0, Plt Count 222,MPV 11.0, Immature Gran % (Auto) 0.400, Neut % (Auto) 87.0 H, Lymph % (Auto) 5.3L, [place] % (Auto) 7.2, Eos % (Auto) 0.0, Baso % (Auto) 0.1, Absolute Neuts (auto)10.5 H, Absolute Lymphs (auto) 0.64 L, Nucleated RBC % 0, Sodium 131 L, Potassium 4.0, Chloride 102, Carbon Dioxide 24.0, Anion Gap 5, BUN 28 H, Creatinine 1.18, Estim Creat Clear Calc 52.90, Est GFR (MDRD) Af Amer 75, Est GFR (MDRD) Non-Af 62, BUN/Creatinine Ratio 23.7 H, Glucose 109 H, Calcium 8.3 L,Phosphorus 2.1 L, Magnesium 2.3 Micro: Microbiology 02/24/24 12:26 Swab (Method) Nasal Screen MRSA/MSSA - Final Radiography Diagnostic Testing: Radiology Impression Lumbar Spine X-Ray 03/02/24 10:40 IMPRESSION: Status post interpedicular screw and tae fixation at the L2-L3, L3-L4 and L4-L5 levels. Electronically Signed: Alejandro Domingo MD at 12:40 EDT , Physical Exam Narrative GENERAL: cooperative HEENT: Atraumatic; normocephalic EYES; Anicteric, Normal Conjunctiva NECK; supple, normal thyroid, RESPIRATORY: Diminished to auscultation CARDIOVASCULAR: Regular S1 S2, GI: soft, normoactive bowel sounds, : No Renal angle tenderness; EXTREMITIES: No edema, no clubbing, MUSCULOSKELETAL: no muscle wasting NEURO: Awake; no lateralizing signs. SKIN: No Rash PSYCH; Flat affect Assessment & Plan Assessment/Plan (1) Spondylolisthesis, lumbar region: PLAN: Plan Patient is an 84-year-old gentleman who underwent anterior and posterior L2-L5 fusion by Dr. Iraj Tucker on 03/01/2024. The hospitalist service was consulted to assist with management of patient medical comorbidities 1. Status post anterior and posterior L2-L5 fusion -by Dr. Iraj Tucker on 03/01/2024. Postoperative orders regarding pain management PT OT deferred to primary service ? 03/03/2024 patient pain remains controlled 2. Hypertension - Blood pressure controlled, home medications except for lisinopril continued with dose adjustment as needed 3. Hypothyroidism - Patient is on levothyroxine home dose continued 4. Coronary artery disease ? With previous PCI patient is on aspirin 5. Class I obesity with BMI of 32 ? Weight loss advised 6. Dyslipidemia ? Per history patient apparently did not tolerate statins in the past 7. Acute urinary retention ? Patient was straight cathed x 1 subsequently started on Flomax 9. Acute kidney injury ? Creatinine from 02/24/2024 was 1.14, creatinine on admission was 1.65 did go upto 1.91 started on IV fluids subsequent monitoring of electrolytes ordered. Also discontinue potential nephrotoxic medications including lisinopril 10. Anemia - Secondary to chronic disorder monitoring H&H and transfuse if patient becomes symptomatic or hemoglobin falls below 7 11. DVT prophylaxis ? Will defer to primary Time spent in the patient's overall evaluation,decision-making process, review of diagnostic data, adjustment of management, discussion with other providers, nursing nursing and ancillary staff involved in patient's care documentation, 35 Minutes Charges/Coding Visit Charges Inpatient E&M: 17691 Subs Hosp L2 03/03/24 0831 <Electronically signed by Rei Lizarraga MD> Cosigner Signature (if applicable): CC: ~ Signed [facility] Work Phone: 1(709) 899-313304-30-2024 Progress note Author Iraj Tucker [facility] March 02, 2024 10:41am Note Date/Time March 02, 2024 10: 41am [facility] Medical Records Department [address] [place] [address] Progress Note - Orthopedic 03/02/24 1039 MR#: [id number] Acct: [id number] Name: Teri VERDIN Rep #:[id number] : 1940 84 From: Iraj Tucker MD PCP: Dr. Rashid Camacho MD Status :ADM IN [id number] Subjective Postop day 1 status post L2-5 fusion. Patient in bed. Pain decently controlled. Complains of back pain. Denies any abdominal or leg pain. Preoperative leg symptoms are resolved. No flatus yet. 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 Not voided yet. Not seen PT yet. Attempted standing at bedside last night. Objective Data Objective Data Vital Signs: Vital Signs Temp Pulse Resp BP Pulse Ox O2 Del Method O2 Flow Rate 98.2 F 68 18 123/70 H 93 Room Air 1 03/02/24 08:17 03/02/24 08:17 03/02/24 08:17 03/02/24 08:17 03/02/24 08:17 03/02/24 08:19 03/01/24 21:55 Oxygen Flow Rate (L/min) 1 Oxygen Delivery Method Room Air Weight: 216 lb 9.6 oz Body Mass Index (BMI) 31.9 Intake & Output: Intake and Output for Last 24 Hours 02/29/24 03/01/24 03/02/24 23:59 23:59 23:59 Intake Total 3722 / 4122 1010 / 1010 Output Total 300 / 300 250 / 250 Balance 3422 / 3822 760 / 760 Lab / Micro Data 03/02/24 05:27 03/02/24 05:27 Labs: Laboratory Results - last 24 hr 03/01/24 16:28: WBC 20.1 H, RBC 4.21 L, Hgb 13.2, Hct 40.8, MCV 96.9 H, MCH 31.4, MCHC 32.4, RDW Std Deviation 47.8 H, RDW Coeff of Sherin 13.3, Plt Count 345,MPV 9.9, Immature Gran % (Auto) 0.700, Neut % (Auto) 89.8 H, Lymph % (Auto) 3.9 L, [place] % (Auto) 5.4, Eos % (Auto) 0.1, Baso % (Auto) 0.1, Absolute Neuts (auto)18.1 H, Absolute Lymphs (auto) 0.79 L, Nucleated RBC % 0, Sodium 137, Potassium 3.9, Chloride 105, Carbon Dioxide 20.0 L, Anion Gap 12, BUN 20 H, Creatinine 1.65 H, Estim Creat Clear Calc 37.83, Est GFR (MDRD) Af Amer 51 L, Est GFR (MDRD) Non-Af 42 L, BUN/Creatinine Ratio 12.1, Glucose 206 H, Calcium 8.5, TSH 2.97 03/02/24 03:00: Urine Color Yellow, Urine Clarity Clear, Urine pH 5.0, Ur Specific Wells 1.025, Urine Protein 30 H, Urine Glucose (UA) Normal, Urine Ketones 15 H, Urine Occult Blood 250 H, Urine Nitrite Negative, Urine Bilirubin Negative, Urine Urobilinogen Normal, Ur Leukocyte Esterase 500 H, Urine RBC 25-50 SEEN, Urine WBC 50-100 SEEN, Ur Squamous Epith Cells 10-25 SEEN, Urine Bacteria 4+, Hyaline Casts 10-25 SEEN, Fine Granular Casts 5-10 SEEN, Urine Mucus 1+ 03/02/24 05:27: WBC 11.4 H, RBC 3.58 L, Hgb 11.2 L, Hct 34.8 L, MCV 97.2 H, MCH 31.3, MCHC 32.2, RDW Std Deviation 49.5 H, RDW Coeff of Sherin 13.9, Plt Count 271,MPV 10.8, Sodium 134 L, Potassium 4.5, Chloride 103, Carbon Dioxide 22.0, Anion Gap 9, BUN 28 H, Creatinine 1.91 H, Estim Creat Clear Calc 32.68, Est GFR (MDRD)Af Amer 43 L, Est GFR (MDRD) Non-Af 36 L, BUN/Creatinine Ratio 14.7, Glucose 126H, Calcium 8.2 L, Triglycerides 141, Cholesterol 148, LDL Cholesterol 84, VLDL Cholesterol 28, HDL Cholesterol 36 L Micro: Microbiology 02/24/24 12:26 Swab (Method) Nasal Screen MRSA/MSSA - Final Radiography Diagnostic Testing: Radiology Impression Lumbar Spine X-Ray 03/01/24 06:30 IMPRESSION: Intraoperative imaging provided for L2-L5 posterior fusion and prosthetic disc placement. Electronically Signed: Alejandro Domingo MD at 13:25 EDT , Physical Exam Narrative Dressing CDI. Neurologically stable, baseline right foot weakness. Assessment & Plan Assessment/Plan (1) Status post lumbar spinal fusion: PLAN: Plan Postop day 1 status post L2-5 fusion. PT OT mobilization. Clear diet until passes flatus. Encourage multiple times out of bed mobility. Will obtain upright x-rays today. Discharge pending PT OT and bowel mobility. 03/02/24 1041 <Electronically signed by Iraj Tucker MD> Cosigner Signature (if applicable): CC: ~ Signed [facility] Work Phone: 1(587) 477-478304-30-2024 Progress note Author Rei Lizarraga [facility] March 02, 2024 9:03am Note Date/Time March 02, 2024 7:3 7am [facility] Medical Records Department [address] [place] [address] Progress Note - Hospitalist 03/02/24 0732 MR#: [id number] Acct: [id number] Name: Teri VERDIN Rep #:[id number] : 1940 84 From: Rei Lizarraga MD PCP: Dr. Rashid Camacho MD Status :ADM IN [place]: [facility] [id number] Reason for Visit Reason for Visit: Diagnoses Hypothyroidism, unspecified (03/01/24) Hyperlipidemia, unspecified (03/01/24) Hypo-osmolality and hyponatremia (03/01/24) Essential (primary) hypertension (03/01/24) Spondylolisthesis, lumbar region (03/01/24) Spinal stenosis, lumbar region with neurogenic claudication (03/01/24) Intervertebral disc disorders with radiculopathy, lumbar region (03/01/24) Low back pain, unspecified (03/01/24) Encounter for other preprocedural examination (03/01/24) Presence of coronary angioplasty implant and graft (03/01/24) Subjective Subjective Patient is an 84-year-old gentleman who underwent anterior and posterior L2-L5 fusion by Dr. Iraj Tucker on 03/01/2024. The hospitalist service was consulted to assist with management of patient medical comorbidities Objective Data Objective Data Vital Signs: Vital Signs Temp Pulse Resp BP Pulse Ox O2 Del Method O2 Flow Rate 97.3 F L 89 16 120/71 94 Room Air 1 03/02/24 06:10 03/02/24 06:10 03/02/24 06:10 03/02/24 06:10 03/02/24 06:10 03/02/24 06:10 03/01/24 21:55 Oxygen Flow Rate (L/min) 1 Oxygen Delivery Method Room Air Weight: 98.248 kg Body Mass Index (BMI) 31.9 Intake & Output: Intake and Output for Last 24 Hours 02/29/24 03/01/24 03/02/24 23:59 23:59 23:59 Intake Total 3722 / 4122 1010 / 1010 Output Total 300 / 300 250 / 250 Balance 3422 / 3822 760 / 760 Lab / Micro Data 03/02/24 05:27 03/02/24 05:27 Labs: Laboratory Results - last 24 hr 03/01/24 16:28: WBC 20.1 H, RBC 4.21 L, Hgb 13.2, Hct 40.8, MCV 96.9 H, MCH 31.4, MCHC 32.4, RDW Std Deviation 47.8 H, RDW Coeff of Sherin 13.3, Plt Count 345,MPV 9.9, Immature Gran % (Auto) 0.700, Neut % (Auto) 89.8 H, Lymph % (Auto) 3.9 L, [place] % (Auto) 5.4, Eos % (Auto) 0.1, Baso % (Auto) 0.1, Absolute Neuts (auto)18.1 H, Absolute Lymphs (auto) 0.79 L, Nucleated RBC % 0, Sodium 137, Potassium 3.9, Chloride 105, Carbon Dioxide 20.0 L, Anion Gap 12, BUN 20 H, Creatinine 1.65 H, Estim Creat Clear Calc 37.83, Est GFR (MDRD) Af Amer 51 L, Est GFR (MDRD) Non-Af 42 L, BUN/Creatinine Ratio 12.1, Glucose 206 H, Calcium 8.5, TSH 2.97 03/02/24 03:00: Urine Color Yellow, Urine Clarity Clear, Urine pH 5.0, Ur Specific Wells 1.025, Urine Protein 30 H, Urine Glucose (UA) Normal, Urine Ketones 15 H, Urine Occult Blood 250 H, Urine Nitrite Negative, Urine Bilirubin Negative, Urine Urobilinogen Normal, Ur Leukocyte Esterase 500 H, Urine RBC 25-50 SEEN, Urine WBC 50-100 SEEN, Ur Squamous Epith Cells 10-25 SEEN, Urine Bacteria 4+, Hyaline Casts 10-25 SEEN, Fine Granular Casts 5-10 SEEN, Urine Mucus 1+ 03/02/24 05:27: WBC 11.4 H, RBC 3.58 L, Hgb 11.2 L, Hct 34.8 L, MCV 97.2 H, MCH 31.3, MCHC 32.2, RDW Std Deviation 49.5 H, RDW Coeff of Sherin 13.9, Plt Count 271,MPV 10.8, Sodium 134 L, Potassium 4.5, Chloride 103, Carbon Dioxide 22.0, Anion Gap 9, BUN 28 H, Creatinine 1.91 H, Estim Creat Clear Calc 32.68, Est GFR (MDRD)Af Amer 43 L, Est GFR (MDRD) Non-Af 36 L, BUN/Creatinine Ratio 14.7, Glucose 126H, Calcium 8.2 L, Triglycerides 141, Cholesterol 148, LDL Cholesterol 84, VLDL Cholesterol 28, HDL Cholesterol 36 L Micro: Microbiology 02/24/24 12:26 Swab (Method) Nasal Screen MRSA/MSSA - Final Radiography Diagnostic Testing: Radiology Impression Lumbar Spine X-Ray 03/01/24 06:30 IMPRESSION: Intraoperative imaging provided for L2-L5 posterior fusion and prosthetic disc placement. Electronically Signed: Alejandro Domingo MD at 13:25 EDT , Physical Exam Narrative GENERAL: cooperative HEENT: Atraumatic; normocephalic EYES; Anicteric, Normal Conjunctiva NECK; supple, normal thyroid, RESPIRATORY: Diminished to auscultation CARDIOVASCULAR: Regular S1 S2, GI: soft, normoactive bowel sounds, : No Renal angle tenderness; EXTREMITIES: No edema, no clubbing, MUSCULOSKELETAL: no muscle wasting NEURO: Awake; no lateralizing signs. SKIN: No Rash PSYCH; Flat affect Assessment & Plan Assessment/Plan (1) Spondylolisthesis, lumbar region: PLAN: Plan Patient is an 84-year-old gentleman who underwent anterior and posterior L2-L5 fusion by Dr. Iraj Tucker on 03/01/2024. The hospitalist service was consulted to assist with management of patient medical comorbidities 1. Status post anterior and posterior L2-L5 fusion -by Dr. Iraj Tucker on 03/01/2024. Postoperative orders regarding pain management PT OT deferred to primary service 2. Hypertension - Blood pressure controlled, home medications except for lisinopril continued with dose adjustment as needed 3. Hypothyroidism - Patient is on levothyroxine home dose continued 4. Coronary artery disease ? With previous PCI patient is on aspirin 5. Class I obesity with BMI of 32 ? Weight loss advised 6. Dyslipidemia ? Per history patient apparently did not tolerate statins in the past 7. Acute urinary retention ? Patient was straight cathed x 1 subsequently started on Flomax 9. Acute kidney injury ? Creatinine from 02/24/2024 was 1.14, creatinine on admission was 1.65 did go upto 1.91 started on IV fluids subsequent monitoring of electrolytes ordered. Also discontinue potential nephrotoxic medications including lisinopril 10. Anemia - Secondary to chronic disorder monitoring H&H and transfuse if patient becomes symptomatic or hemoglobin falls below 7 11. DVT prophylaxis ? Will defer to primary Time spent in the patient's overall evaluation,decision-making process, review of diagnostic data, adjustment of management, discussion with other providers, nursing nursing and ancillary staff involved in patient's care documentation, 50 Minutes Charges/Coding Visit Charges Inpatient E&M: 30007 Subs Hosp L3 03/02/24 0903 <Electronically signed by Rei Lizarraga MD> Cosigner Signature (if applicable): CC: ~ Signed [facility] Work Phone: [phone]) 407-101404-29-2024 Consult note Author Rei Irwin [facility] March 01, 2024 7:02pm Note Date/Time March 01, 2024 3:1 7pm [facility] Medical Records Department [address] [place] [address] Consultation - Hospitalist 03/01/24 1513 MR#: [id number] Acct: [id number] Name: Teri VERDIN Rep #:[id number] : 1940 84 From: Rei Callejas DO PCP: Dr. Rashid Camacho MD Status :ADM IN Location: [place] [address]-1 Assessment & Plan Assessment/Plan (1) Spondylolisthesis, lumbar region: (2) Spinal stenosis of lumbar region with neurogenic claudication: (3) Lumbar disc disease with radiculopathy: (4) Low back pain: QUALIFIERS: Back pain laterality: unspecified Chronicity: unspecified Sciatica presence: unspecified whether sciatica present Qualified Code(s): M54.50 - Low back pain, unspecified (5) Hyperlipidemia: QUALIFIERS: Hyperlipidemia type: unspecified Qualified Code(s): E78.5 - Hyperlipidemia, unspecified (6) History of coronary artery stent placement: (7) Essential hypertension: (8) Hypothyroidism: QUALIFIERS: Hypothyroidism type: unspecified Qualified Code(s): E03.9 - Hypothyroidism, unspecified PLAN: Plan 1. History of spinal stenosis with spondylolisthesis of lumbar region with neurogenic claudication and degenerative disc disease with osteoarthritis who recently underwent anterior and posterior L2-L5 fusion by Dr. Iraj Tucker of ortho-spine with patient postoperative day #0 with hospitalist service consultedfor postoperative medical management - Noted. Continue supportive care. Leukocytosis of 20.1 likely due to acute stress response from recent surgery butwill check UA C&S. 2. Essential hypertension - Resume current management plus give as needed IV hydralazine for systolic blood pressure greater than 160 mmHg. 3. Hyperlipidemia; with listed intolerance to statins causing pain in joints - Check lipid profile. 4. Hypothyroidism - Resume Synthroid and check TSH. 5. Obesity; with BMI of 32 this admission - Weight loss will be recommended. 6. CAD; status post stent (2021) - Noted. 7. History of BPH; status post TURP - Noted. 8. DVT prophylaxis - As per ortho-spine team. Total time: Approximately 35 minutes. HPI Consult Data Date of Consult: 03/01/24 HPI Narrative Reason for Consultation: Medical management HPI Narrative: Teri VERDIN, is a 84 M with a past medical history of essential hypertension, hyperlipidemia, hypothyroidism, obesity; with BMI of 32 this admission, coronaryartery disease; status post stent (2021), history of BPH; status post TURP and history of spinal stenosis with spondylolisthesis of lumbar region with neurogenic claudication and degenerative disc disease with osteoarthritis who recently underwent anterior and posterior L2-L5 fusion by Dr. Iarj Tucker of ortho-spine with patient postoperative day #0 with hospitalist service consultedfor postoperative medical management. Patient appears clinically stable and he denies new complaints with pain that is not currently well controlled but he hassince been treated with IV morphine. He denies associated fever, chills, nauseaor vomiting. His family was present at the bedside and helped to augment the history. Thank you for allowing us to participate in the care of your patient. [facility] Medical History Arthritis 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 Back pain BPH with obstruction/lower urinary tract symptoms Cardiology follow-up encounter Degenerative disc disease Easy bruising Essential hypertension Former smoker High cholesterol History of cataract History of pain when walking History of steroid therapy History of stress test Hypothyroidism Loss of hearing Obesity Prostate disease Thyroid disease TIA (transient ischemic attack) Wears dentures Wears glasses Wears hearing aid Home Medications cholecalciferol (vitamin D3) 50 mcg (2,000 unit) capsule (Vitamin D3) 50 mcg PO DAILY supplement 05/17/21 [History Last Taken 02/29/24] levothyroxine 75 mcg tablet 75 mcg PO DAILY thyroid 05/17/21 [History Last Taken 03/01/24 04:00] vitamin E 200 unit capsule 200 unit PO DAILY supplement 05/17/21 [History Last Taken 02/29/24 08:00] fluticasone propionate 50 mcg/actuation nasal spray,suspension 2 spray intranasal DAILY PRN allergy symptoms 08/05/22 [History Last Taken 02/29/24 22:00] lisinopril 20 mg tablet 20 mg PO BID bp 08/05/22 [History Last Taken 03/01/24 04:00] amlodipine 5 mg tablet 5 mg PO DAILY BP 01/04/24 [History Last Taken 03/01/24 04:00] fenofibrate nanocrystallized 145 mg tablet 145 mg PO DAILY CHOLESTEROL 01/04/24 [History Last Taken 02/29/24 22:00] hydrocodone-acetaminophen 5-325mg 5mg-325mg 1 tab PO Q6H PRN PRN Pain 3 days #10TABLETS 01/04/24 [Rx Last Taken 02/29/24 21:00] coenzyme Q10 100 mg capsule 100 mg PO DAILY SUPPLEMENT 01/13/24 [History Last Taken 02/29/24 20:04] acetaminophen 650 mg tablet,extended release (8 Hour Pain Reliever) 1,300 mg PO Q8H PRN pain 02/23/24 [History Last Taken 02/29/24 23:02] aspirin 81 mg capsule 81 mg PO DAILY BLOOD THINNER 02/23/24 [History Last Taken 02/21/24] Allergy/AdvReac Type Severity Reaction Status Date / Time Unszqaq-[id number]-SwZ Reductase Allergy Severe Pain in Verified 03/01/24 06:01 Inhibitor joints Family History Mother Hypertension Father Alzheimer's disease Brother Lung cancer Brother Hypertension Pacemaker Sister Hypertension Sister Hypertension Sister Hypertension Surgical History History of bilateral cataract extraction (2011) History of cardiac catheterization History of coronary artery stent placement (04/08/22) History of tonsillectomy History of transurethral resection of prostate Social History household members: spouse Smoking Status: Former smoker alcohol intake: never substance use type: does not use caffeine: No ROS ROS Narrative Review of systems: General: Patient denies fevers or chills. HENT: Denies headache, denies stuffy nose, denies sore throat EYES: Denies changes in vision or discharge from eyes. Resp: Denies cough, denies shortness of breath Cardiac: Denies chest pain, palpitations or heart racing. GI: Denies abdominal pain, denies changes in bowel, denies nausea or vomiting. : Denies changes in urination Extremity: Denies swelling Musculoskeletal: Feels somewhat generally weak and unwell with persistent back pain as per HPI. Neuro: Patient denies headache, paresthesias or focal neurologic weakness. Heme: Denies any bleeding or bruising Skin: Denies rashes Psychiatric: No complaints voiced related uncontrolled depression or anxiety. Endocrine: No polyuria, polydipsia or polyphagia. The rest of the 14 point ROS was negative except for positives in HPI. Physical Exam Const alert, oriented x3, no apparent distress, average body habitus and healthy appearing General Appearance: cooperative HEENT normocephalic, head/scalp atraumatic, hearing grossly normal bilaterally and moist oral mucous membranes Eyes PERRL and EOMs intact bilaterally Neck no lymphadenopathy and supple Resp normal respiratory effort, no retractions, no use of accessory muscles and clearto auscultation bilaterally Cardio regular rate and regular rhythm GI normal to inspection, nondistended, normoactive bowel sounds, soft to palpation,non-tender and non-distended Extremity normal to inspection Skin Skin Narrative: Patient has no evidence of rash, jaundice or abscess. Neuro oriented x3, CN's II-XII intact bilaterally, moves all extremities, no focal motor deficits and no sensory deficits noted Sensorium / Orientation: awake, alert, oriented to person, oriented to place andoriented to time Speech: speech normal Psych affect normal Medical Records Data Attestation: I reviewed the patient's medical records Lab / Micro Data Attestation: I reviewed the patient's lab results. 03/01/24 16:28 03/01/24 16:28 Labs: Laboratory Results - last 24 hr 03/01/24 06:00: POC Glucose 74 Imaging Radiology Impression Lumbar Spine X-Ray 03/01/24 06:30 IMPRESSION: Intraoperative imaging provided for L2-L5 posterior fusion and prosthetic disc placement. Electronically Signed: Alejandro Domingo MD at 13:25 EDT , Charges/Coding Visit Charges Office Visits / Consults: 41570 IP Consult L2 03/01/24 1902 <Electronically signed by Rei Kunz DO> Cosigner Signature (if applicable): CC: Dr. Iarj Tucker MD; Dr. Rashid Camacho MD~ Signed [facility] Work Phone: 1(810) 752-114104-29-2024 Procedure [facility] 03-01-2024 Procedure [facility]04-29-2024 History and physical note Author Iraj Tucker [facility] March 01, 2024 7:18am Note Date/Time March 01, 2024 7:1 9am [facility] Medical Records Department [address] [place] [address] History & Physical Exam 03/01/24717 MR#: [id number] Acct: [id number] Name: Teri VERDIN Rep #:[id number] : 1940 84 From: Iraj Tucker MD PCP: Dr. Rashid Camacho MD Status :ADM IN Location: [facility] A History and Physical Date of Admission: 03/01/24 MR#: [id number] Acct: [id number] Name: Teri VERDIN Rep #: [id number] : 1940 Provider: Dr. Iraj Tucker MD Age/Sex: 84/M Location: [facility] Status: Signed Intake Vital Signs 02/10/2414:59 Height 5 ft 10 in Intake Visit Reasons: lumbar spine Accompanied by: , daughter Allergies [id number]-[id number]-[id number] Reductase Inhibitor Allergy (Severe, Verified 02/25/24 12:45) Pain in joints Medications cholecalciferol (vitamin D3) 50 mcg (2,000 unit) capsule (Vitamin D3) 50 mcg PO DAILY supplement 05/17/21 [History Confirmed 02/25/24] levothyroxine 75 mcg tablet 75 mcg PO DAILY thyroid 05/17/21 [History Confirmed 02/25/24] vitamin E 200 unit capsule 200 unit PO DAILY supplement 05/17/21 [History Confirmed 02/25/24] fluticasone propionate 50 mcg/actuation nasal spray,suspension 2 spray intranasal DAILY PRN allergy symptoms 08/05/22 [History Confirmed 02/25/24] lisinopril 20 mg tablet 20 mg PO BID bp 08/05/22 [History Confirmed 02/25/24] amlodipine 5 mg tablet 5 mg PO DAILY BP 01/04/24 [History Confirmed 02/25/24] fenofibrate nanocrystallized 145 mg tablet 145 mg PO DAILY CHOLESTEROL 01/04/24 [History Confirmed 02/25/24] hydrocodone-acetaminophen 5-325mg 5mg-325mg 1 tab PO Q6H PRN PRN Pain 3 days #10TABLETS 01/04/24 [Rx Confirmed 02/25/24] coenzyme Q10 100 mg capsule 100 mg PO DAILY SUPPLEMENT 01/13/24 [History Confirmed 02/25/24] acetaminophen 650 mg tablet,extended release (8 Hour Pain Reliever) 1,300 mg PO Q8H PRN pain 02/23/24 [History Confirmed 02/25/24] aspirin 81 mg capsule 81 mg PO DAILY BLOOD THINNER 02/23/24 [History Confirmed 02/25/24] PFSH Medical History Arthritis 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 Back pain BPH with obstruction/lower urinary tract symptoms Cardiology follow-up encounter Degenerative disc disease Easy bruising Essential hypertension Former smoker High cholesterol History of cataract History of pain when walking History of steroid therapy History of stress test Hypothyroidism Loss of hearing Obesity Prostate disease Thyroid disease TIA (transient ischemic attack) Wears dentures Wears glasses Wears hearing aid Surgical History History of bilateral cataract extraction (2011) History of cardiac catheterization History of coronary artery stent placement (04/08/22) History of tonsillectomy History of transurethral resection of prostate Family History Mother HypertensionFather Alzheimer's diseaseBrother Lung cancerBrother Hypertension PacemakerSister HypertensionSister HypertensionSister Hypertension Social History household members: spouse Smoking Status: Former smoker alcohol intake: never substance use type: does not use caffeine: No HPI lumbar spine Details: This documentation accurately reflects the service provided and the decisions made by me, Dr. Iraj Tucker MD 02/25/24 1801. Part of today?s visit was documented by Anu MENDOZA , acting as scribe. Teri VERDIN is a 84 year old M here today for a Pre-0p. D.O.S 03/01/24 Procedure he is getting done is a Anterior and Posterior L2-L5 Fusion. Patient signed the Surgery Consent and was given the drinks and soap. Patient states his pain is about the same from last visit. Patient did stop his low dose aspirin on 02/21/24. Main continues to have severe low back pain radiating down to right lower extremity. His epidural injection last month did not seem to give him relief. Following is his previous history. 02/12/24: Teri VERDIN is a 84 year old M here today for Lumbar spine. Patient states that he saw Dr Petit yesterday and then a month ago and that is when they did the Epidural injection. Patient states after the injection he was numb from the sides down for about 2 hours and he wasn't able to leave Dr Petit office until he was able to move and walk. Patient states that the injection didn't help his back pain. Patient is taking Hydrocodone. Patient isn't using ice or heat. Patient states the pain is about the same. Patient states the numbness and tingling are about the same. Patient states his toes are still numb. Main continues to have low back pain right buttock pain and radiation of pain into the lateral thigh and lateral leg on the right side. He denies any left-sided symptoms. He underwent epidural injection about a month ago but thisdid not give him any relief beyond a day or 2. He says that her back pain and buttock pain are worse than the leg pain. He says that he is no longer able to do the activities that he routinely did in the past and his symptoms are affecting his quality of life. Following his his previous history. 01/13/24: Teri VERDIN is a 83 year old M here today for lumbar spine pain. Patient rates his pain as 10/10 today. He states the lumbar spine pain as been botheringhim for over a month now. Patient denies any specific injury that caused the pain to start. Patient does get pain, numbness and tingling down the right leg into his calf and foot and toes. He does note he has recently noticed his left toes have been a little numb as well. Patient states everything makes his pain worse. Patient was seen in [facility] ER on January 03. Patient was then referred to [facility] where he did have an MRI done. Patient was prescribed hydrocodone-acetaminophen as well as Prednisone. Patient states these pain medications have not given him much relief. He states he has had some back problems when he was in his 40s but most of the pain was in the front of the legs. He denies any physical therapy or injections at all. Flynn is here [facility] opinion after seeing Dr. Hull. He was given an opinion of surgical intervention, which the patient did not feel keen on pursuing with. He says that he has had on and off low back pain for many years but this significantly worsened about 6 weeks ago. He says that he did not have any obvious injury buthe was cutting wood which he normally does about 6 weeks ago which seem to aggravate his pain. His pain starts in the right paraspinal region in the buttock region going into the posterolateral thigh posterior lateral leg and down into the dorsum of the foot into the second to the fourth toes. He denies any left-sided symptoms. He is unable to walk even short distances such as halfa block as he has to find a place to sit down. He has not had any recent physical therapy or epidural injections. He did have oral prednisone in the ER which did not seem to give him persistent relief. Ortho Exam General General: Yes no acute distress Neurologic: Yes alert and Yes oriented x3 Spine SPINE TESTING CERVICAL THORACIC LUMBAR Musculoskeletal Strength 0=absent - 5=normal Details: Examination of the back shows midline and right paraspinal tenderness. Neurologic evaluation of lower extremity shows 5 x 5 power in all muscle except for left ankle dorsiflexion which is graded 4+ today. Passive straight leg raise test is positive on the right. Coding Level of Care Code Off vis,est,level 3 Diagnoses Spinal stenosis of lumbar region with neurogenic claudication M48.062 Spondylolisthesis, lumbar region M43.16 Lumbar disc disease with radiculopathy M51.16 Time Spent (min) 25 Assessment and Plan Assessment and Plan (1) Spinal stenosis of lumbar region with neurogenic claudication: Status: Acute (2) Spondylolisthesis, lumbar region: Status: Acute (3) Lumbar disc disease with radiculopathy: Status: Acute Plan I again reviewed his x-rays and his MRI done last recently. 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 He also has L4-5 right paracentral disc herniation with inferior migration going near the L5 foramen. I explained to him the imaging findings in detail. Explained to him that his longstanding low back pain as well as claudication is arising from the significant stenosis at L3-4 L4-5 which is complicated by the instability at L3-4. His more recent 2-month right lower extremity severe radicular pain is likely from the acute disc herniation with inferior migration at L4-5 on the right. I explained to him options of treatment which include continued nonoperative treat measures versus surgery. Over the last 2 months he says thathe has not gotten any significant relief from the nonsurgical treatment including 1 epidural injection. His symptoms are affecting his quality of life. He has severe difficulty walking even short distances now. He says that his axial back and buttock pain is worse than the leg pain. He wishes to move forward surgical intervention. Surgical options were discussed in detail. L2-5anterior and posterior fusion with direct and indirect decompression was discussed in detail. All risk benefits and alternatives were discussed in detail. The risks include but are not limited to infection, bleeding, injury tonerves and vessels, foot drop, persistent pain, persistent radiculopathy, persistent weakness and numbness, DVT, pulmonary embolism, pneumonia, atelectasis, cardiopulmonary event, pseudoarthrosis, hardware failure, adjacent segment degeneration, need for further surgery. Patient's age, medical comorbidities make him a high risk for surgery. He is however fairly active forhis age and would like to return to his baseline activity level. Patient was inagreement. Consent was signed. 03/01/24 0718 <Electronically signed by Iraj Tucker MD> Cosigner Signature (if applicable): CC: Dr. Iraj Tucker MD; Dr. Rashid Camacho MD~ Signed [facility] Work Phone: 1(659) 589-934506-06-2022 Evaluation note* Diagnosis Onset Date Resolution Status Essential hypertension chron ic Hyperlipidemia chronic Abnormal stress test resolve d History of coronary artery stent placement April 08 022 acute [facility] Work Phone: 1(943) 450-641006-06-2022 Evaluation note* Diagnosis Onset Date Resolution Status Essential hypertension chron ic Hyperlipidemia chronic Abnormal stress test resolve d History of coronary artery stent placement April 08 acute Dyspnea acute Fatigue acute History of coronary artery stent placement April 08 acute Essential hypertension chron ic Hyperlipidemia [facility] Work Phone: 1(303) 956-643706-06-2022 Evaluation note* Diagnosis Onset Date Resolution Status Fatigue acute History of coronary artery stent placement April 08 acute Essential hypertension chron ic Hyperlipidemia [facility] Work Phone: Discharge summary Author Igor Anderson [facility] January 04, 2024 12:17pm Note Date/Time January 04, 2024 11:2 8am [facility] Medical Records Department [address] [place] [address] Emergency Department Summary 01/04/24 MR#: [id number] Acct: [id number] Name: VERDINTeri CARUSOFLYNN Rep #:[id number] : 1940 83 From: Igor Anderson MD PCP: Dr. Liban Camacho MD Status: REG ER Location: ED HPI History of Present Illness Chief Complaint: Back Detail of Chief Complaint: Back pain radiating posteriorly with numbness right lower extremity Informant: patient Onset/Context/Timing Onset: Weeks Context: Sudden Onset Injury: - (Not applicable) Timing: Continuous and Waxes and wanes Quality: Dull Location: Lumbar, Buttock and Right Leg Current Severity: Mild Maximum Severity: Severe Worsened by: improves with Movement and Bending Relieved by: Nothing Associated Symptoms Associated Symptoms: Numbness, Tingling, Radiation to Left Leg and - (Patient had dental work November and December. Patient states he had root canal done. There was no infection.); Negative for Fever, Abdominal Pain, Dysuria, Unable toAmbulate, Unable to Transfer, Urinary Retention, Urinary Incontinence, Constipation or Fecal Incontinence Narrative Narrative: Patient is an elderly 83-year-old male with history of degenerative disc diseasewho presents with low back pain that radiates to his right buttocks posteriorly down his entire right lower extremity with numbness in his toes. He denies footdrop. He has not walked up and down any steps recently. This started several weeks ago. He denies bowel bladder dysfunction. Denies saddle paresthesia or anesthesia. He denies fever, chills night sweats. He does report increased pain with movement. He reports difficulty ambulating because of pain. There isno history of trauma. He denies dysuria, frequency, urgency or hematuria. He denies flank pain. He denies history of renal or ureterolithiasis. He denies joint swelling. 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 Degenerative disc disease Easy bruising Essential hypertension Former smoker History of cataract Hypothyroidism Obesity Prostate disease TIA (transient ischemic attack) Wears dentures Wears glasses Wears hearing aid Home Medications aspirin 81 mg tablet 81 mg PO DAILY heart 05/17/21 [History Last Taken 04/08/22] cholecalciferol (vitamin D3) 50 mcg (2,000 unit) capsule (Vitamin D3) 50 mcg PO DAILY supplement 05/17/21 [History Last Taken Unknown] levothyroxine 75 mcg tablet 75 mcg PO DAILY thyroid 05/17/21 [History Last Taken 04/08/22] vitamin E 200 unit capsule 200 unit PO DAILY supplement 05/17/21 [History Last Taken Unknown] nitroglycerin 0.3 mg sublingual tablet 0.3 mg sublingual Q5-15M PRN chest pain 04/03/22 [History Last Taken Unknown] fluticasone propionate 50 mcg/actuation nasal spray,suspension 2 spray intranasal DAILY PRN allergy symptoms 08/05/22 [History Last Taken Unknown] lisinopril 20 mg tablet 20 mg PO BID bp 08/05/22 [History Last Taken Unknown] hydrochlorothiazide 25 mg tablet 25 mg PO DAILY #90 tabs 11/17/23 [Rx Last Taken Unknown] amlodipine 5 mg tablet mg 01/04/24 [History Last Taken 01/04/24] fenofibrate nanocrystallized 145 mg tablet mg PO 01/04/24 [History Last Taken 01/04/24] hydrocodone-acetaminophen 5-325mg 5mg-325mg 1 tab PO Q6H PRN PRN Pain 3 days #10TABLETS 01/04/24 [Rx Last Taken Unknown] prednisone 20 mg tablet 60 mg (3 x 20 mg) PO DAILY #15 TABLETS 01/04/24 [Rx Last Taken Unknown] Allergy/AdvReac Type Severity Reaction Status Date / Time No Known Allergies Allergy Verified 01/04/24 10:49 Family History Mother Hypertension Father Alzheimer's disease Brother Lung cancer Brother Hypertension Pacemaker Sister Hypertension Sister Hypertension Sister Hypertension Surgical History History of bilateral cataract extraction (2011) History of coronary artery stent placement (04/08/22) History of tonsillectomy History of transurethral resection of prostate Social History (Updated 01/04/24 @ 11:[address] Igor Anderson MD) household members: spouse Smoking Status: Former smoker alcohol intake: never substance use type: does not use caffeine: No ROS ROS ED Constitutional Constitutional ED: Denies chills, fever(s), subjective or sweats Eyes Eyes: Denies blurry vision, change in vision or diplopia ENT ENT ED: Denies ear pain or rhinorrhea Cardiovascular Cardiovascular: Denies chest pain, orthopnea, palpitations or paroxysmal nocturnal dyspnea Respiratory/Chest Respiratory/Chest: Denies dyspnea, dyspnea on exertion, orthopnea or paroxysmal nocturnal dyspnea Gastrointestinal Gastrointestinal: Reports abdominal pain; Denies nausea or vomiting Genitourinary Genitourinary ED: Denies dysuria, hematuria or urinary frequency Musculoskeletal Musculoskeletal: Reports back pain; Denies arthralgias, myalgias or neck pain Integumentary Denies rash Neurologic Neurologic: Reports paresthesias; Denies headache(s) or weakness Psychiatric Psychiatric: Denies anxiety or depression Endocrine Endocrinology: Denies cold intolerance or heat intolerance Hematologic/Lymphatic Hematologic/Lymphatic: Denies easy bleeding or easy bruising EXAM Physical Exam Const Vital Signs: 01/04/24 10:48 Temperature 97.7 F L Temperature Source Temporal Pulse Rate 74 Respiratory Rate 14 Blood Pressure 158/89 H Blood Pressure Mean 112 Pulse Ox 100 Oxygen Delivery Method Room Air Positive well nourished and well developed Constitutional Narrative: Patient appears uncomfortable. General Appearance ED: well developed; Negative for NAD or pallor HEENT Reports moist mucous membranes HEENT Narrative: Head is atraumatic normocephalic. Ears normal. Nares patent. Eyes PERRL and EOMs intact bilaterally General Eye ED: Negative for pale conjunctiva or scleral icterus Neck no lymphadenopathy, supple and no JVD Resp normal respiratory effort and clear to auscultation bilaterally Cardio regular rate, regular rhythm, S1 normal heart sound, S2 normal heart sound and no murmurs GI normal to inspection, nondistended, normoactive bowel sounds, soft to palpation,non-tender, non-distended and no masses GI Narrative: There was no palpable or pulsatile mass. There is no abdominal bruit. Narrative: There is no inguinal lymphadenopathy. Back/Spine normal to inspection and no thoracic nor lumbar tenderness General Back: Negative for CVA tenderness Cervical Spine: Negative for cervical spine tenderness Thoracic Spine / Upper Back: paraspinal muscle tenderness Lumbar Spine / Lower Back: straight leg raise positive right at 40 degrees; Negative for ROM limited Extremity normal to inspection and no clubbing, cyanosis or edema Extremity Narrative: DP and PT pulse are 2+ and symmetric. Neuro oriented x3 and No no sensory deficits noted Neuro Narrative: Patient has abnormal sensation L5-S1 dermatome. Ankle reflex is diminished compared to the left and the patellar reflexes. EHL is intact. Gait was observed and normal. He is able to walk on his heels and toes. He is able to perform 1 legged squat right and left. He does have pain center that radiates down his leg at 30 degrees. He has increased pain with bowstring test. Negative crossover test. Sensorium / Orientation: alert Motor Exam: strength 5/5 throughout Deep Tendon Reflexes: Rt Patellar (L4): 3+, Lt Patellar (L4): 3+, Rt Ankle (S1):1+ and Lt Ankle (S1): 3+ Deep Tendon Reflexes Back: Rt Patellar (L4): 3+, Lt Patellar (L4): 3+, Rt Ankle (S1): 1+ and Lt Ankle (S1): 3+ Plantar Reflex: Downgoing: bilateral (There is no clonus noted.) Psych mental status grossly normal Skin no rashes or lesions noted and no wounds General Skin Exam: Negative for jaundice or pallor MDM MDM MDM Narrative Medical decision making narrative: Patient having recent dental work will obtain blood work to assess for infection. He does not have point tenderness to palpation over the lumbar region nor is he on anticoagulant to suggest a spontaneous epidural hematoma. Suspect patient has sciatica. He does have diminished deep tendon reflex at theankle. Left white count is elevated or inflammatory markers are significantly elevated will perform MRI to assess for possible infection otherwise will treat symptomatically and refer to orthospine for outpatient follow-up. Review of records indicates patient is not on an anticoagulant. History & Record Review Additional record(s) reviewed:: Prior ED visit and Prior labs Lab Data Attestation: I reviewed the patient's lab results. Lab results narrative: CBC is normal. Basic metabolic panel reveals slight elevation of glucose of 114. Sed rate is normal, 2. With symptoms 2 weeks no point tenderness no whitecount or elevated ESR doubt infectious cause. Labs: Laboratory Results - last 24 hr 01/04/24 11:20 WBC 6.8 RBC 4.70 Hgb 14.5 Hct 42.4 MCV 90.2 MCH 30.9 MCHC 34.2 RDW Std Deviation 41.8 RDW Coeff of Sherin 12.7 Plt Count 334 MPV 10.2 Immature Gran % (Auto) 0.600 Neut % (Auto) 66.0 Lymph % (Auto) 20.9 [place] % (Auto) 9.0 Eos % (Auto) 2.2 Baso % (Auto) 1.3 H Absolute Neuts (auto) 4.5 Absolute Lymphs (auto) 1.42 Nucleated RBC % 0 ESR 2 Sodium 133 L Potassium 3.7 Chloride 103 Carbon Dioxide 26.0 Anion Gap 4 L BUN 17 Creatinine 1.12 Estim Creat Clear Calc 58.26 Est GFR (MDRD) Af Amer 80 Est GFR (MDRD) Non-Af 66 BUN/Creatinine Ratio 15.2 Glucose 114 H Calcium 8.9 Management Discussion w/another healthcare provider: Farm [employer] Manager (Spoke with Dr. Hull who is on-call for spine. Agrees with treatment plan. He would like patient to call office tomorrow and will get attempt to get him in tomorrow otherwise earlythis coming week.) Discharge Plan Triage Chief Complaint: Back ED Provider: Igor Anderson Dx/Rx/DC Orders Clinical Impression: Hyperlipidemia, Hypothyroidism, 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, Low back pain with right-sided sciatica, Essential hypertension, Decreased right ankle reflex, Obesity Instructions: ED Sciatica Prescriptions: New hydrocodone-acetaminophen [hydrocodone-acetaminophen] 5-325 mg tablet 1 tab PO Q6H PRN PRN (Reason: Pain) 3 Days Qty: 10 0RF prednisone 20 mg tablet 60 mg PO DAILY Qty: 15 0RF No Action nitroglycerin 0.3 mg tablet, sublingual 0.3 mg sublingual Q5-15M PRN (Reason: chest pain) fluticasone propionate 50 mcg/actuation spray,suspension 2 spray intranasal DAILY PRN (Reason: allergy symptoms) Rx Instructions: administer into each nostril lisinopril 20 mg tablet 20 mg PO BID vitamin E 200 unit Capsule 200 unit PO DAILY levothyroxine 75 mcg tablet 75 mcg PO DAILY aspirin 81 mg Tablet 81 mg PO DAILY Hold Instructions: Resume on 06/06/21. cholecalciferol (vitamin D3) [Vitamin D3] 50 mcg (2,000 unit) Capsule 50 mcg PO DAILY amlodipine 5 mg tablet Patient Comments: TAKE 1 TABLET BY MOUTH ONCE DAILY fenofibrate nanocrystallized 145 mg tablet PO Patient Comments: TAKE 1 TABLET BY MOUTH ONCE DAILY hydrochlorothiazide 25 mg tablet 25 mg PO DAILY Qty: 90 3RF Primary Care Provider: Liban Camacho Referrals: Liban Camacho MD [Primary Care Provider] - Qasim Hull DO [Med Staff - Active Staff] - As soon as possible Disposition Disposition: Home, Self Care What to do if you have Problems For any increased pain, shortness of breath, bleeding, nausea or vomiting, chestpain, or any unexpected problems, contact your Primary Care Provider. Call [facility] ([phone]) or report to the closest Emergency Room. Call 911 if necessary. 01/04/24 1217 <Electronically signed by Igor Anderson MD> Cosigner Signature (if applicable): CC: Dr. Liban Camacho MD ~ Signed [facility] Work Phone: Evaluation noteNo assessment information available [facility] Work Phone: Evaluation note* Diagnosis Onset Date Resolution Status Essential hypertension chron ic Hyperlipidemia chronic Abnormal stress test resolve d [facility] Work Phone: Evaluation note* Diagnosis Onset Date Resolution Status Lumbar disc disease with radiculopathy acute Spinal stenosis of lumbar re gion with neurogenic claudication acute Spondylolisthesis, lumbar region acute Spinal stenosis of lumbar re gion with neurogenic claudication acute Spondylolisthesis, lumbar region acute Lumbar disc disease with radiculopathy acute Spinal stenosis of lumbar re gion with neurogenic claudication acute Spondylolisthesis, lumbar region acute History of coronary artery stent placement April 08 acute Hypothyroidism acute Low back pain acute Lumbar disc disease with radiculopathy acute Spinal stenosis of lumbar re gion with neurogenic claudication acute Spondylolisthesis, lumbar region acute Status post lumbar spinal fusion acute Essential hypertension chron ic Hyperlipidemia chronic [facility] Work Phone: Chief Complaint and Reason for Visit Chief Complaint DECREASED EXERCISE T OLERANCE DECREASED EXERCISE TOLERANCE Chief Complaint DECREASED EXERCISE T OLERANCE DECREASED EXERCISE TOLERANCE Amb Documentation DUE TO STRESS TEST. pre cath labs/xray/eorders abn STRESS abn STRESS Reason for Visit Essential hypertensi on Hyperlipidemia Abnormal stress test Chief Complaint DECREASED EXERCISE T OLERANCE DECREASED EXERCISE TOLERANCE Amb Documentation DUE TO STRESS TEST. pre cath labs/xray/eorders abn STRESS abn STRESS abn STRESS Reason for Visit Essential hypertensi on Hyperlipidemia Abnormal stress test History of coronary artery stent placement Chief Complaint DECREASED EXERCISE T OLERANCE DECREASED EXERCISE TOLERANCE Amb Documentation DUE TO STRESS TEST. pre cath labs/xray/eorders abn STRESS abn STRESS abn STRESS abn STRESS S/P PCU EORDERS Reason for Visit Essential hypertensi on Hyperlipidemia Abnormal stress test History of coronary artery stent placement Dyspnea Fatigue History of coronary artery stent placement Essential hypertension Hyperlipidemia Chief Complaint 4 M FU Reason for Visit Fatigue History of coronary artery stent placement Essential hypertension Hyperlipidemia Chief Complaint SCIATICA Chief Complaint SCIATICA LUMBAR SPINE Room 2 LUMBAR SPINE PREOP lumbar spine S/P LUMBAR FUSION Anterior and posterior lumbar fusion L2-L5 S/P LUMBAR FUSION S/P LUMBAR FUSION S/P LUMBAR FUSION S/P LUMBAR FUSION S/P LUMBAR FUSION Reason for Visit Lumbar disc disease with radiculopathy Spinal stenosis of lumbar region with neurogenic claudication Spondylolisthesis, lumbar region Spinal stenosis of lumbar region with neurogenic claudication Spondylolisthesis, lumbar region Lumbar disc disease with radiculopathy Spinal stenosis of lumbar region with neurogenic claudication Spondylolisthesis, lumbar region History of coronary artery stent placement Hypothyroidism Low back pain Lumbar disc disease with radiculopathy Spinal stenosis of lumbar region with neurogenic claudication Spondylolisthesis, lumbar region Status post lumbar spinal fusion Essential hypertension Hyperlipidemia Advance Directives No Advanced Directives Records Found Advance Directive Response Recorded Date/ Time Living Will No May 17, 2021 9:54am Power of Cna Ltc No May 17 9:54am Advance Directive Response Recorded Date/ Time Advance Directives Yes April 08 9:10am Living Will Yes April 08, 2022 9 :10am Power of Cna Ltc Yes April 08, 2022 9:10am Advance Directive Response Recorded Date/ Time Advance Directives on File No April 08, 2022 9:10am Name of Medical Power of Cna Ltc (Yoly) April 08, 2022 9:10am Advance Directives Yes April 08 9:10am Living Will Yes April 08, 2022 9 :10am Power of Cna Ltc Yes April 08, 2022 9:10am Advance Directive Response Recorded Date/ Time Advance Directives Yes April 08 8:10am Living Will Yes April 08, 2022 8 :10am Power of Cna Ltc Yes April 08, 2022 8:10am Advance Directive Response Recorded Date/ Time Advance Directives Yes April 08 8:10am Living Will No January 04, 2024 12:33pm Power of Cna Ltc No January 03 12:33pm Advance Directive Response Recorded Date/ Time Name of Medical Power of Cna Ltc YOLY VERDIN March 01, 2024 3:33pm Advance Directives Yes February 10 024 2:59pm Living Will Yes March 01, 2024 3:33pm Power of Cna Ltc Yes March 01 24 3:33pm Family History No Family History Records Found Relationship Condition Age at Onset Recorded Date/T fei mother Hypertension Unknown father Alzheimer's disease Unknown brother Malignant neoplasm of lung Unknown brother Hypertension Unknown Presence of cardiac pacemaker Unknown sister Hypertension Unknown Summary Purpose Additional Source Comments Goals (unrecognized section and content) Goals may be documented in a n alternate sectionGoals may be documented in an alternate sectionGoals may be documented in an alternate sectionGoals may be documented in an alternate sectionGoals may be documented in an alternate section Care Teams (unrecognized sec tion and content) Team Status: Active Member Role Status Dates Dr. Liban Camacho MD Family Provider Active Dr. Liban Camacho MD Primary Care Provider Activ e Team Status: Inactive Member Role Status Dates Dr. Liban Camacho MD Primary Care Provider, Atte nding Provider Active Team Status: Inactive Member Role Status Dates Dr. Liban Camacho MD Primary Care Provider Activ e Dr. Igor Anderson MD Emergency Provider Active Team Status: Active Member Role Status Dates Dr. Rashid Camacho MD Family Provider Active Dr. Rashid Camacho MD Primary Care Provider Acti ve Team Status: Inactive Member Role Status Dates Dr. Rashid Camacho MD Primary Care Provider, Ref erring Provider Active Dr. Iraj Tucker MD Attending Provider Active Team Status: Inactive Member Role Status Dates Dr. Rashid Camacho MD Primary Care Provider Acti ve Dr. Rishi Cisneros MD Attending Provider Active Team Status: Active Member Role Status Dates Dr. Rashid Camacho MD Primary Care Provider Acti ve Dr. Iraj Tucker MD Admit Provider, At tending Provider, Referring Provider, Other Provider Active Team Status: Active Member Role Status Dates Dr. Rashid Camacho MD Primary Care Provider Acti ve Dr. Iraj Tucker MD Admit Provider, Re ferring Provider, Other Provider Active Dr. Rei Kunz DO Attending Provider, Other Pr ovider Active Team Status: Active Member Role Status Dates Dr. Rashid Camacho MD Primary Care Provider Acti ve Dr. Iraj Tucker MD Admit Provider, Re ferring Provider, Other Provider Active Dr. Rei Kunz DO Other Provider Active Dr. Rei Lizarraga MD Attending Provider, Other Provid er Active Team Status: Active Member Role Status Dates Dr. Rashid Camacho MD Primary Care Provider Acti ve Dr. Iraj Tucker MD Admit Provider, At tending Provider, Referring Provider, Other Provider Active Dr. Rei Kunz DO Other Provider Active Dr. Rei Lizarraga MD Other Provider Active Team Status: Active Member Role Status Dates Dr. Rashid Camacho MD Primary Care Provider Acti ve Dr. Miguel Angel Talbot MD Attending Provider Activ e Dr. Serjio Flores MD Referring Provider Active Team Status: Inactive Member Role Status Dates Dr. Rashid Camacho MD Primary Care Provider Acti ve Dr. Iraj Tucker MD Admit Provider, Re ferring Provider, Other Provider Active Dr. Rei Kunz DO Other Provider Active Dr. Rei Lizarraga MD Attending Provider Active Team Status: Inactive Member Role Status Dates Dr. Rashid Camacho MD Primary Care Provider Acti hiar Anderson MD Attending Provider, Emergency Provi joe Active (unrecognized sect ion and content) No Status Records Found INFORMATION SOURCE (unrecogn ized section and content) DATE CREATED AUTHOR 03/13/2025 [facility] FOR RECORDS PERTAINING TO PATIENTS WHO ARE OR HAVE BEEN ENROLLED IN A CHEMICAL DEPENDENCY/SUBSTANCEABUSE PROGRAM, SOME INFORMATION MAY BE OMITTED. This clinical summary was aggregated from multiple sources. Caution should be exercised in using it in the provision of clinical care. This summary normalizes information from multiple sources, and as a consequence, information in this document may materially change the coding, format and clinical context of patient data. In addition, data may be omitted in some cases. CLINICAL DECISIONS SHOULD BE BASED ON THE PRIMARY CLINICAL RECORDS. [employer] provides no warranty or guarantee of the accuracy or completeness of information in this document.
--- NOTE | 2025-06-27 22:21 | CASEMGMT ---
Care Management Face to Face with patient for initial transition planning/care coordination assessment in the ED.? This service writer introduced self and role at [facility]. Patient alert and oriented. Patient willing to participate in assessment and is able to answer all questions appropriately.? Care providers, pharmacy, and demographics verified. Admitting Diagnosis:? essential hypertension Other diagnosis history: ?hypothyroidism, arthritis, thyroid disease, BPH PCP: ?Janice Specialists: ?Garrett, Ortho; Blayne, cardio; Kassi, urology Preferred Pharmacy: [facility] Insurance: ?Medicare Prescription Benefit: ?yes Living Will/HPOA: ?completed LNOK: ? Living Arrangements: ?lives with in one story home. Independent with ADLs and IADLs Transportation: ?patient drives DME: ?tub bench, cane, wheeled walker, raised toilet seat HHC: ?none SNF/Rehab: ?none Community Resources: ?none Behavioral Health History: ?none Patient goals: Patient wishes to discharge home, denies need for home health care at this time. Patient denies any further needs or concerns at this time. Disposition Plan: admission to acute; RN CM/SW to follow for discharge planning needs that may arise. Rhea Lanza, TENNIS NET MAKER, TRAFFIC LINE PAINTER
[2025-06-27] MEDS: 0.9% Saline Lock 10 ML Syringe IV (23:42)
[2025-06-28] VITALS (7 sets, daily range): BP systolic 125–136; BP diastolic 75–82; PULSE 60–78; RESP 14–17; TEMP 36.3–36.6; O2SAT 94–98
[2025-06-28 01:47] LABS: Partial Thromboplast Time 137.1 Seconds (24.1-36.2)
--- NOTE | 2025-06-28 05:55 | ECHOD_ITS ---
Reason For Study Reason For Study: Pulmonary Embolism Procedure This was a 2D Doppler, Color Flow transthoracic echocardiogram. Exam performed portable in patient room. Left Ventricle Normal LV size. Left ventricular systolic function is normal. The estimated ejection fraction is 65 %. Stage 1 diastolic dysfunction. Right Ventricle RV is moderate to severely dilated. Moderately severe global right ventricular systolic dysfunction. The RV free wall longitudinal strain was -13.5 % . Atria Normal left atrium. Normal right atrium. Mitral Valve The mitral valve is structurally normal. No prolapse or stenosis seen. Trivial mitral valve insufficiency. Tricuspid Valve Normal tricuspid valve. Mild to moderate (1-2+) tricuspid valve insufficiency. Pulmonary artery systolic pressure is 66 mmHg. Aortic Valve Trisinus/trileaflet aortic valve. Mild focal aortic valve thickening. Mild (1+) aortic valve insufficiency. Pulmonic Valve Normal pulmonic valve. Mild (1+) pulmonic valve insufficiency. Great Vessels Mildly calcified aortic root. and does not collapse. The inferior vena cava is dilated. Pericardium/Pleural No pericardial effusion. MMode/2D Measurements & Calculations LVIDd: 3.9 cm IVSd: 0.96 cm Ao root diam: 3.2 cm LVIDs: 2.5 cm LVPWd: 0.97 cm RVDd: 5.0 cm FS: 36.0 % LAV(MOD-bp): 32.0 ml LVAd ap4: 22.7 cm2 SV(MOD-sp4): 39.2 ml LAV(MOD-bp) Indexed: 15.1 ml/m2 LVLd ap4: 7.6 cm SI(MOD-sp4): 18.5 ml/m2 LAV(MOD-sp2): 32.7 ml EDV(MOD-sp4): 55.2 ml LAV(MOD-sp4): 31.0 ml EDV(sp4-el): 57.0 ml LVAs ap4: 10.8 cm2 LVLs ap4: 6.3 cm ESV(MOD-sp4): 16.0 ml ESV(sp4-el): 15.6 ml EF(MOD-sp4): 71.0 % EF(sp4-el): 72.7 % SV(sp4-el): 41.5 ml LA A4 area: 13.7 cm2 LA dimension(2D): 3.2 cm RA A4 area: 11.7 cm2 Time Measurements MV dec time: 0.28 sec Doppler Measurements & Calculations MV E max andrea: 67.0 cm/sec Lat Peak E' Andrea: 11.0 cm/sec Med Peak E' Andrea: 5.1 cm/sec MV A max andrea: 117.1 cm/sec E/E' lat: 6.1 E/E' med: 13.2 MV E/A: 0.57 Ao V2 max: 126.8 cm/sec AI max andrea: 390.0 cm/sec MV dec slope: 238.3 cm/sec2 Ao max P.4 mmHg AI max P.4 mmHg Ao V2 mean: 85.1 cm/sec Ao mean P.4 mmHg AI dec slope: 193.1 cm/sec2 Ao V2 VTI: 26.6 cm AI P1/2t: 591.6 msec AV (velocity ratio): 0.83 LV V1 max: 104.5 cm/sec PA V2 max: 62.2 cm/sec PI end-d andrea: 102.0 cm/sec LV V1 max P.4 mmHg LV V1 mean P.6 mmHg LV V1 mean: 77.0 cm/sec LV V1 VTI: 22.2 cm TR max andrea: 356.0 cm/sec TR max P.7 mmHg ECHO/Echo Complete Interpretation Summary The estimated ejection fraction is 65 %. Stage 1 diastolic dysfunction. RV is moderate to severely dilated. Moderately severe global right ventricular systolic dysfunction. Mild to moderate (1-2+) tricuspid valve insufficiency. Pulmonary artery systolic pressure is 66 mmHg. Mild (1+) aortic valve insufficiency. No previous study to compare Ordering Physician: Anastacio Guzman Referring Physician: Rashid Camacho Performed By: Chantal Alves, AISHWARYA, RVT
[2025-06-28 06:02] LABS: Hematocrit 41.5 % (40-54); Hemoglobin 13.6 g/dL (13.0-16.5); Immature Granulocytes Count 0.040 X10^3/uL (0.0-0.0); Mean Corp Hgb Conc 32.8 g/dL (32-36); Mean Corpuscular Volume 92.8 fL (80-94); Mean Platelet Vol. 11.8 fl (6.2-12.0); NRBC Flagged by Analyzer 0 % (0-5); Platelet Count 216 K/mm3 (150-450); RBC Distribution Width CV 13.4 % (11.6-14.6); RBC Distribution Width SD 45.0 fl (35.1-43.9); Red Blood Count 4.47 M/mm3 (4.6-6.2); White Blood Count 8.2 K/mm3 (4.4-11.0)
[2025-06-28 06:39] LABS: Anion Gap 10 (5-15); BUN 16 mg/dL (4-19); BUN/Creat Ratio 13.9 RATIO (10-20); Calcium,Total 9.1 mg/dL (7.6-11.0); Carbon Dioxide 21.2 mmol/L (21.0-32.0); Chloride 107 mmol/L (98-108); Estimated Creatinine Clearance 51.44 ml/min (50-250); Glucose 86 mg/dL (70-99); Potassium 4.3 mmol/L (3.3-5.1)
[2025-06-28] MEDS: Cholecalciferol (VIT D3) 25 MCG TABLET (1,000 UNITS) 50 MCG PO (09:05)
--- NOTE | 2025-06-28 09:09 | PCM.PN.HOSP ---
Reason for Visit Chief Complaint: Exertional shortness of breath Subjective Subjective Feeling well. Objective Data Objective Data Vital Signs: Vital Signs Temp Pulse Resp BP Pulse Ox O2 Del Method 36.3 C L 65 17 136/80 H 94 Room Air 06/28/25 04:29 06/28/25 04:29 06/28/25 04:29 06/28/25 04:29 06/28/25 04:29 06/28/25 04:39 Oxygen Delivery Method Room Air Weight: 96.3 kg Body Mass Index (BMI) 31.3 Intake & Output: Intake and Output for Last 24 Hours 06/26/25 06/27/25 06/28/25 23:59 23:59 23:59 Intake Total 33.83 / 33.83 40.99 / 40.99 Balance 33.83 / 33.83 40.99 / 40.99 Lab / Micro Data 06/28/25 05:35 06/28/25 05:35 Labs: Laboratory Results - last 24 hr 06/27/25 14:58: WBC 8.3, RBC 4.65, Hgb 14.3, Hct 42.7, MCV 91.8, MCH 30.8, MCHC 33.5, RDW Std Deviation 44.9 H, RDW Coeff of Sherin 13.3, Plt Count 284, MPV 10.7, Immature Gran % (Auto) 0.700, Neut % (Auto) 70.0, Lymph % (Auto) 19.0, [place] % (Auto) 8.3, Eos % (Auto) 1.3, Baso % (Auto) 0.7, Absolute Neuts (auto) 5.8, Absolute Lymphs (auto) 1.58, Nucleated RBC % 0, PT 13.8, INR 1.0, APTT 31.3, D-Dimer Quant (PE/DVT) 3.27 H*, Sodium 138, Potassium 4.4, Chloride 104, Carbon Dioxide 21.8, Anion Gap 12, BUN 14, Creatinine 1.18, Estim Creat Clear Calc 51.64, Est GFR (MDRD) Non-Af 60, BUN/Creatinine Ratio 11.8, Glucose 90, Calcium 9.2, Troponin T High Sens 48 H 06/27/25 16:55: Troponin T Hi Sens 2 Hr 36 H 06/27/25 18:55: Troponin T Hi Sens 4Hr 38 H 06/27/25 19:21: WBC 8.7, RBC 4.42 L, Hgb 13.5, Hct 40.2, MCV 91.0, MCH 30.5, MCHC 33.6, RDW Std Deviation 44.1 H, RDW Coeff of Sherin 13.2, Plt Count 279, MPV 11.1, Immature Gran % (Auto) 0.500, Neut % (Auto) 67.2, Lymph % (Auto) 21.1, [place] % (Auto) 8.7, Eos % (Auto) 1.8, Baso % (Auto) 0.7, Absolute Neuts (auto) 5.8, Absolute Lymphs (auto) 1.83, Nucleated RBC % 0, PT 13.8, INR 1.0, APTT 31.1 06/28/25 01:15: APTT 137.1 H* 06/28/25 05:35: WBC 8.2, RBC 4.47 L, Hgb 13.6, Hct 41.5, MCV 92.8, MCH 30.4, MCHC 32.8, RDW Std Deviation 45.0 H, RDW Coeff of Sherin 13.4, Plt Count 216, MPV 11.8, Immature Gran % (Auto) 0.500, Neut % (Auto) 61.3, Lymph % (Auto) 26.3, [place] % (Auto) 8.1, Eos % (Auto) 2.7, Baso % (Auto) 1.1 H, Absolute Neuts (auto) 5.0, Absolute Lymphs (auto) 2.15, Nucleated RBC % 0, Sodium 139, Potassium 4.3, Chloride 107, Carbon Dioxide 21.2, Anion Gap 10, BUN 16, Creatinine 1.18, Estim Creat Clear Calc 51.44, Est GFR (MDRD) Non-Af 60, BUN/Creatinine Ratio 13.9, Glucose 86, Calcium 9.1, TSH 2.730 Radiography Diagnostic Testing: Radiology Impression Chest X-Ray 06/27/25 14:42 IMPRESSION: No acute cardiopulmonary process is identified radiographically. Reading Location: [facility] Chest CTA 06/27/25 16:45 IMPRESSION: 1. Extensive bilateral central pulmonary emboli. Associated right heart strain. 2. No pulmonary consolidation/edema or pleural effusions. Moderate emphysema. 3. Ancillary findings as described above. Findings communicated via telephone with provider Taiwo Lauren 06/27/2025 at 6:20 p.m. IN SERVICE EDUCATOR. Reading Location: [facility] Physical Exam Const Constitutional Narrative: Up in bed. On room air. No respiratory distress. No conversational dyspnea Resp normal respiratory effort, no retractions, no use of accessory muscles and clear to auscultation bilaterally Cardio regular rate, regular rhythm, S1 normal heart sound and S2 normal heart sound GI normal to inspection, nondistended, normoactive bowel sounds, soft to palpation, non-tender and non-distended Extremity normal to inspection and full ROM Neuro Sensorium / Orientation: awake, alert, oriented to person, oriented to place and oriented to time Assessment & Plan Assessment/Plan (1) Pulmonary embolism, bilateral: PLAN: CTA showed extensive bilateral central pulmonary emboli and associated right heart strain. On heparin drip. Eventually transition over to DOAC. Patient will need to be treated at least 6 months if not lifelong. He may follow-up with hematology for further hypercoagulable workup and determine length of treatment beyond 6 months if would be necessary. Follow-up echocardiogram (2) Elevated troponin I level: PLAN: Mild elevation secondary to cardiac strain from the pulmonary emboli. Echocardiogram ordered. No additional cardiac workup to be pursued at this time unless there is a change in his overall condition. PLAN: Plan Chronic medical conditions CAD: Continue with aspirin Hypothyroidism: Continue levothyroxine Hypertension: Continue with lisinopril and amlodipine VTE prophylaxis: Not indicated patient is already anticoagulated. Plan to monitor the patient overnight and if no segment arrhythmias and no significant worsening of his condition then would anticipate potential discharge on the . Charges/Coding Visit Charges Inpatient E&M: 89923 Subs Hosp L2
[2025-06-28 09:44] LABS: Partial Thromboplast Time 58.3 Seconds (24.1-36.2)
--- NOTE | 2025-06-28 13:49 | CASEMGMT ---
Social Work- SW met with pt to verify directives. SW introduced self and role. Pt reports Val as primary agent. Daughter Tosin reported as alternate. Documents requested for scan into chart. JEANMARIE Barahona
[2025-06-28 15:17] LABS: Partial Thromboplast Time 55.1 Seconds (24.1-36.2)
[2025-06-28] MEDS: HEPARIN/D5w 25,000 UNITS 25,000 UNITS/250 ML IV.SOLN. 8.6 UNITS CONT INF (23:44)
[2025-06-29 03:00] VITALS: PULSE 62
[2025-06-29 03:10] VITALS: BP 136/82; PULSE 65; RESP 17; TEMP 36.6; O2SAT 95
[2025-06-29 05:52] LABS: Hematocrit 40.2 % (40-54); Hemoglobin 13.4 g/dL (13.0-16.5); Immature Granulocytes Count 0.040 X10^3/uL (0.0-0.0); Mean Corp Hgb Conc 33.3 g/dL (32-36); Mean Corpuscular Volume 91.6 fL (80-94); Mean Platelet Vol. 11.0 fl (6.2-12.0); NRBC Flagged by Analyzer 0 % (0-5); Platelet Count 277 K/mm3 (150-450); RBC Distribution Width CV 13.5 % (11.6-14.6); RBC Distribution Width SD 45.3 fl (35.1-43.9); Red Blood Count 4.39 M/mm3 (4.6-6.2); White Blood Count 8.0 K/mm3 (4.4-11.0)
[2025-06-29 06:05] LABS: Partial Thromboplast Time 60.1 Seconds (24.1-36.2)
[2025-06-29 06:21] LABS: Anion Gap 10 (5-15); BUN 20 mg/dL (4-19); BUN/Creat Ratio 16.0 RATIO (10-20); Calcium,Total 8.7 mg/dL (7.6-11.0); Carbon Dioxide 20.6 mmol/L (21.0-32.0); Chloride 106 mmol/L (98-108); Estimated Creatinine Clearance 48.96 ml/min (50-250); Glucose 90 mg/dL (70-99); Potassium 4.0 mmol/L (3.3-5.1)
--- NOTE | 2025-06-29 08:36 | PCM.PN.HOSP ---
Reason for Visit Chief Complaint: Exertional shortness of breath Subjective Subjective Feeling good. No new events overnight. Objective Data Objective Data Vital Signs: Vital Signs Temp Pulse Resp BP Pulse Ox O2 Del Method 36.6 C 65 17 136/82 H 95 Room Air 06/29/25 03:10 06/29/25 03:10 06/29/25 03:10 06/29/25 03:10 06/29/25 03:10 06/29/25 03:28 Oxygen Delivery Method Room Air Weight: 96.3 kg Body Mass Index (BMI) 31.3 Intake & Output: Intake and Output for Last 24 Hours 06/27/25 06/28/25 06/29/25 23:59 23:59 23:59 Intake Total 33.83 / 33.83 216.17 / 216.17 Balance 33.83 / 33.83 216.17 / 216.17 Lab / Micro Data 06/29/25 05:36 06/29/25 05:36 Labs: Laboratory Results - last 24 hr 06/28/25 09:20: APTT 58.3 H 06/28/25 14:55: APTT 55.1 H 06/29/25 05:36: WBC 8.0, RBC 4.39 L, Hgb 13.4, Hct 40.2, MCV 91.6, MCH 30.5, MCHC 33.3, RDW Std Deviation 45.3 H, RDW Coeff of Sherin 13.5, Plt Count 277, MPV 11.0, Immature Gran % (Auto) 0.500, Neut % (Auto) 60.6, Lymph % (Auto) 26.3, [place] % (Auto) 8.8, Eos % (Auto) 2.9, Baso % (Auto) 0.9, Absolute Neuts (auto) 4.8, Absolute Lymphs (auto) 2.09, Nucleated RBC % 0, APTT 60.1 H, Sodium 137, Potassium 4.0, Chloride 106, Carbon Dioxide 20.6 L, Anion Gap 10, BUN 20 H, Creatinine 1.24 H, Estim Creat Clear Calc 48.96 L, Est GFR (MDRD) Non-Af 57 L, BUN/Creatinine Ratio 16.0, Glucose 90, Calcium 8.7 Radiography Diagnostic Testing: Radiology Impression Echocardiogram 06/28/25 05:55 Interpretation Summary The estimated ejection fraction is 65 %. Stage 1 diastolic dysfunction. RV is moderate to severely dilated. Moderately severe global right ventricular systolic dysfunction. Mild to moderate (1-2+) tricuspid valve insufficiency. Pulmonary artery systolic pressure is 66 mmHg. Mild (1+) aortic valve insufficiency. No previous study to compare Ordering Physician: Anastacio Guzman Referring Physician: Rashid Camacho Performed By: Chantal Alves, AISHWARYA, RVT Physical Exam Const alert and no apparent distress Assessment & Plan Assessment/Plan (1) Pulmonary embolism, bilateral: PLAN: CTA showed extensive bilateral central pulmonary emboli and associated right heart strain. On heparin drip. Eventually transition over to DOAC. Patient will need to be treated at least 6 months if not lifelong. He may follow-up with hematology for further hypercoagulable workup and determine length of treatment beyond 6 months if would be necessary. echocardiogram shows an EF of 55% with stage I diastolic dysfunction. RV moderate to severely dilated. Moderate severe global right RV systolic dysfunction. Mild to moderate tricuspid valve insufficiency. Pulmonary artery systolic pressure 66 mmHg. Will transition patient over to apixaban which she will complete continue for at least 6 months. (2) Elevated troponin I level: PLAN: Mild elevation secondary to cardiac strain from the pulmonary emboli. Echocardiogram ordered. No additional cardiac workup to be pursued at this time unless there is a change in his overall condition. PLAN: Plan Chronic medical conditions CAD: Continue with aspirin Hypothyroidism: Continue levothyroxine Hypertension: Continue with lisinopril and amlodipine VTE prophylaxis: Not indicated patient is already anticoagulated.
[2025-06-29] MEDS: Cholecalciferol (VIT D3) 25 MCG TABLET (1,000 UNITS) 50 MCG PO (08:51)
[2025-06-29 09:00] VITALS: BP 141/85; PULSE 62; RESP 16; TEMP 36.4; O2SAT 97
--- NOTE | 2025-06-29 12:51 | DS.PCM_ITS ---
Providers Date of Admission: 06/27/25 Primary Care Physician: Dr. Rashid Camacho MD Reason For Visit: EXERTIONAL SHORTNESS OF BREATH Diagnosis Discharge Diagnosis (1) Pulmonary embolism, bilateral: Status: Acute Code(s): I26.99 - Other pulmonary embolism without acute cor pulmonale Plan: CTA showed extensive bilateral central pulmonary emboli and associated right heart strain. On heparin drip. Eventually transition over to DOAC. Patient will need to be treated at least 6 months if not lifelong. He may follow-up with hematology for further hypercoagulable workup and determine length of treatment beyond 6 months if would be necessary. echocardiogram shows an EF of 55% with stage I diastolic dysfunction. RV moderate to severely dilated. Moderate severe global right RV systolic dysfunction. Mild to moderate tricuspid valve insufficiency. Pulmonary artery systolic pressure 66 mmHg. Will transition patient over to apixaban which she will complete continue for at least 6 months. (2) Elevated troponin I level: Status: Acute Code(s): R79.89 - Other specified abnormal findings of blood chemistry Plan: Mild elevation secondary to cardiac strain from the pulmonary emboli. Echocardiogram ordered. No additional cardiac workup to be pursued at this time unless there is a change in his overall condition. Plan Chronic medical conditions * CAD: Continue with aspirin * Hypothyroidism: Continue levothyroxine * Hypertension: Continue with lisinopril and amlodipine VTE prophylaxis: Not indicated patient is already anticoagulated. Medications at Discharge Home Medications cholecalciferol (vitamin D3) 50 mcg (2,000 unit) capsule (Vitamin D3) 50 mcg PO DAILY supplement 05/17/21 levothyroxine 75 mcg tablet 75 mcg PO DAILY thyroid 05/17/21 vitamin E 200 unit capsule 200 unit PO DAILY supplement 05/17/21 fluticasone propionate 50 mcg/actuation nasal spray,suspension 2 spray intranasal DAILY PRN allergy symptoms 08/05/22 lisinopril 20 mg tablet 20 mg PO BID bp 08/05/22 amlodipine 5 mg tablet 5 mg PO DAILY BP 01/04/24 fenofibrate nanocrystallized 145 mg tablet 145 mg PO DAILY CHOLESTEROL 01/04/24 coenzyme Q10 100 mg capsule 100 mg PO DAILY SUPPLEMENT 01/13/24 apixaban 5 mg (74 tabs) tablets in a dose pack See Rx Instructions PO .COMPLEX #74 tabs 06/29/25 Hospital Course Operations None Procedures 2-D Echocardiogram Summary of Care Provided Minutes Spent on Discharge: 40 Hospital Course: This is a 85-year-old male presents with several day history of shortness of breath. Patient was found to have bilateral central pulmonary emboli with right heart strain. Echocardiogram confirmed as much with pulmonary artery hypertension. Patient was started on heparin. Patient under workup including echocardiogram. Patient will be transitioned over to apixaban to which she is to complete least a 6-week if not lifelong course of anticoagulation. Recommended that he follow-up with hematology as outpatient. Preference that appears is Dr. Mann as the had seen him in the past. The purpose of seeing hematology is determine if the patient would require lifelong anticoagulation versus just 6 months and if he would require hypercoagulable workup. Weight / BMI Weight Weight: 96.3 kg Body Mass Index (BMI) 31.3 ABG / Lab / Microbiology Data 06/29/25 05:36 06/29/25 05:36 Laboratory: Laboratory Results - last 24 hr 06/28/25 14:55: APTT 55.1 H 06/29/25 05:36: WBC 8.0, RBC 4.39 L, Hgb 13.4, Hct 40.2, MCV 91.6, MCH 30.5, MCHC 33.3, RDW Std Deviation 45.3 H, RDW Coeff of Sherin 13.5, Plt Count 277, MPV 11.0, Immature Gran % (Auto) 0.500, Neut % (Auto) 60.6, Lymph % (Auto) 26.3, [place] % (Auto) 8.8, Eos % (Auto) 2.9, Baso % (Auto) 0.9, Absolute Neuts (auto) 4.8, Absolute Lymphs (auto) 2.09, Nucleated RBC % 0, APTT 60.1 H, Sodium 137, Potassium 4.0, Chloride 106, Carbon Dioxide 20.6 L, Anion Gap 10, BUN 20 H, C reatinine 1.24 H, Estim Creat Clear Calc 48.96 L, Est GFR (MDRD) Non-Af 57 L, BUN/Creatinine Ratio 16.0, Glucose 90, Calcium 8.7 Radiography Diagnostic Testing: Radiology Impression Echocardiogram 06/28/25 05:55 Interpretation Summary The estimated ejection fraction is 65 %. Stage 1 diastolic dysfunction. RV is moderate to severely dilated. Moderately severe global right ventricular systolic dysfunction. Mild to moderate (1-2+) tricuspid valve insufficiency. Pulmonary artery systolic pressure is 66 mmHg. Mild (1+) aortic valve insufficiency. No previous study to compare Ordering Physician: Anastacio Guzman Referring Physician: Rashid Camacho Performed By: Chantal Alves, AISHWARYA, RVT D/C Instructions DC O2, CPAP, BIPAP Needs Home O2 Discharge instructions: No Meaningful Use Info Meaningful Use Meaningful Use Diagnoses (Choose all that apply): VTE VTE Anticoag overlap given w/in hospital stay or rx'd at dc?: No Reason overlap not ordered, prescribed, or given for 5 days: Treatment Not Indicated Discharge Plan Admission Admit Date/Time: 06/27/25 19:51 Primary Reason for Your Visit: pulmonary emboli Attending Provider: Buzz Fabian Primary Care Provider: Rashid Camacho Consulting Providers: Anastacio Guzman Instructions Additional Instructions / Restrictions: You have a blood clots in your lungs specifically in your pulmonary arteries. That is prohibiting you from picking up oxygen to bring to the rest your body so your activity will need to be limited because she will be physically able to do as much as you were previously because of this. Over time which could be weeks, this will get better. So slowly ease back into your routine. You will be on blood thinners. If you do have any issues regards to bleeding, notify your physician or return to the emergency room. As possible with these blood clots that they could migrate further out into the small vessels along the lining of your lungs that could cause some chest pain. If you are certainly concerned return to the emergency room for evaluation. Discharge Orders/Prescriptions Prescriptions: New apixaban 5 mg (74 tabs) tablets,dose pack See Rx Instructions .ROUTE .COMPLEX Qty: 74 0RF Rx Instructions: orally per package directions Continued fluticasone propionate 50 mcg/actuation spray,suspension 2 spray intranasal DAILY PRN (Reason: allergy symptoms) Rx Instructions: administer into each nostril lisinopril 20 mg tablet 20 mg PO BID coenzyme Q10 100 mg capsule 100 mg PO DAILY vitamin E 200 unit Capsule 200 unit PO DAILY levothyroxine 75 mcg tablet 75 mcg PO DAILY cholecalciferol (vitamin D3) [Vitamin D3] 50 mcg (2,000 unit) Capsule 50 mcg PO DAILY amlodipine 5 mg tablet 5 mg PO DAILY Patient Comments: TAKE 1 TABLET BY MOUTH ONCE DAILY fenofibrate nanocrystallized 145 mg tablet 145 mg PO DAILY Patient Comments: TAKE 1 TABLET BY MOUTH ONCE DAILY Discontinued aspirin 81 mg capsule 81 mg PO DAILY Referrals / Follow Up: Rashid Camacho MD [Primary Care Provider] - Within 2 Weeks Anastacio Mann DO [Med Staff - Active Staff] - Within 3 Months Disposition Disposition (needs filled in before D/C Order can be placed): Home, Self Care Charges/Coding Visit Charges Inpatient E&M: 69969 Disch Hosp >30min
[2025-06-29 14:09] VITALS: O2SAT 85; O2SAT 91; O2SAT 94
[2025-06-29 15:00] VITALS: BP 138/75; PULSE 65; RESP 16; TEMP 36.6; O2SAT 96
--- NOTE | 2025-06-29 15:05 | CASEMGMT ---
Patient has order for discharge. Patient qualifies for home oxygen. RN CM in to discuss needs at discharge. RN CM discuss home oxygen at discharge, reviewed DME agencies and patient prefers [employer]. Patient discharging on Eliquis, BART JONES called [facility] [employer], copay is $47. Patient updated regarding Eliquis copay and would like to utilize free trial card. Patient denied further needs or concerns at discharge. BART JONES called [facility] [employer] and requested savings card. Script received for home oxygen and referal sent to [facility] via [facility] with arrangements for tank to be delivered to patient's room. RN ROBERT updated discharge plan.
--- NOTE | 2025-06-29 15:37 | PHA.DC.MC.R ---
Pharmacy [facility] Counseling Pharmacy Service has performed discharge medication reconciliation and counseling for this patient. 1. APIXABAN 10MG PO BID X 7 DAYS, THEN 5MG BID THEREAFTER The patient's discharge medication list was reviewed for discrepancies and discrepancies were resolved. The patient was counseled on the following discharge medications and changes in medications for homegoing were reviewed. The Reason for Use, instructions for use, and potential side effects were reviewed for all new medications. The patient's questions regarding all of their medications were answered. The patient was able to verbally demonstrate an understanding of their discharge medications. Medications at Discharge Home Medications cholecalciferol (vitamin D3) 50 mcg (2,000 unit) capsule (Vitamin D3) 50 mcg PO DAILY supplement 05/17/21 levothyroxine 75 mcg tablet 75 mcg PO DAILY thyroid 05/17/21 vitamin E 200 unit capsule 200 unit PO DAILY supplement 05/17/21 fluticasone propionate 50 mcg/actuation nasal spray,suspension 2 spray intranasal DAILY PRN allergy symptoms 08/05/22 lisinopril 20 mg tablet 20 mg PO BID bp 08/05/22 amlodipine 5 mg tablet 5 mg PO DAILY BP 01/04/24 fenofibrate nanocrystallized 145 mg tablet 145 mg PO DAILY CHOLESTEROL 01/04/24 coenzyme Q10 100 mg capsule 100 mg PO DAILY SUPPLEMENT 01/13/24 apixaban 5 mg (74 tabs) tablets in a dose pack See Rx Instructions PO .COMPLEX #74 tabs 06/29/25
== END 2025-06-29 16:21 | disposition home or self-care (01) | DRG 175 ==
LOC: ED 20:05 → PCU 21:34
PROVIDERS: Admitting Provider Family Medicine; Emergency Provider Emergency Medicine; PCP Family Medicine
DX: I26.99 Other pulmonary embolism without acute cor pulmonale (principal); I21.A1 Myocardial infarction type 2; I27.20 Pulmonary hypertension, unspecified; E03.9 Hypothyroidism, unspecified; I10 Essential (primary) hypertension; I07.1 Rheumatic tricuspid insufficiency; E78.00 Pure hypercholesterolemia, unspecified; I25.10 Atherosclerotic heart disease of native coronary artery without angina pectoris; Z95.5 Presence of coronary angioplasty implant and graft; Z87.891 Personal history of nicotine dependence; Z79.82 Long term (current) use of aspirin; Z79.890 Hormone replacement therapy; Z98.1 Arthrodesis status
CPT/HCPCS: 36415; 71045; 71275; 80048; 84443; 84484; 85025; 85379; 85610; 85730; 93005; 93306; 99285; Q9967; A4216

== ENCOUNTER → 2025-09-21 | Outpatient (CLI) | payer MEDICARE, OTHER, SELFPAY ==
--- NOTE | 2025-09-21 10:49 | ECHOD_ITS ---
Reason For Study Reason For Study: PULMONARY EMBOLISM Procedure This was a 2D Doppler, Color Flow transthoracic echocardiogram. Myocardial strain analysis was performed in this exam to aid in the assessment of cardiac function. Exam performed in department. Left Ventricle Normal LV size. Left ventricular systolic function is normal. The left ventricular ejection fraction is 65 %. Stage 1 diastolic dysfunction. No regional wall motion abnormalities noted. Right Ventricle Normal RV size. The RV free wall longitudinal strain was -19.0 % . Normal systolic function. Atria Normal left atrium. Normal right atrium. Tricuspid Valve Normal tricuspid valve. Mild (1+) tricuspid valve insufficiency. Pulmonary artery systolic pressure is 20 mmHg. Aortic Valve Trisinus/trileaflet aortic valve. Mild (1+) eccentric aortic valve insufficiency. Pulmonic Valve The pulmonic valve is not well visualized. Great Vessels Normal aortic root. The pulmonary artery is normal size. Inferior vena cava collapse with respiration. Pericardium/Pleural No pericardial effusion. MMode/2D Measurements & Calculations LVIDd: 4.7 cm IVSd: 0.96 cm Ao root diam: 3.6 cm LVIDs: 2.8 cm LVPWd: 0.89 cm RVDd: 3.7 cm FS: 41.3 % LAV(MOD-bp): 37.2 ml LVAd ap4: 25.5 cm2 LVAd ap2: 28.3 cm2 LAV(MOD-bp) Indexed: 17.4 ml/m2 LVLd ap4: 8.1 cm LVLd ap2: 8.0 cm LAV(MOD-sp2): 42.7 ml EDV(MOD-sp4): 65.8 ml EDV(MOD-sp2): 82.1 ml LAV(MOD-sp4): 31.0 ml EDV(sp4-el): 68.3 ml EDV(sp2-el): 85.1 ml LVAs ap4: 12.3 cm2 LVAs ap2: 14.4 cm2 LVLs ap4: 6.4 cm LVLs ap2: 6.1 cm ESV(MOD-sp4): 19.9 ml ESV(MOD-sp2): 28.1 ml ESV(sp4-el): 20.2 ml ESV(sp2-el): 29.0 ml EF(MOD-sp4): 69.8 % EF(MOD-sp2): 65.8 % EF(sp4-el): 70.5 % SV(MOD-sp4): 46.0 ml SV(MOD-sp2): 54.0 ml SV(sp4-el): 48.1 ml SI(MOD-sp4): 21.5 ml/m2 SI(MOD-sp2): 25.3 ml/m2 LA A4 area: 13.5 cm2 LA dimension(2D): 3.0 cm RA A4 area: 15.0 cm2 TAPSE: 1.8 cm Time Measurements MV dec time: 0.31 sec Doppler Measurements & Calculations MV E max andrea: 70.8 cm/sec Lat Peak E' Andrea: 5.7 cm/sec Med Peak E' Andrea: 3.6 cm/sec MV A max andrea: 106.8 cm/sec E/E' lat: 12.5 E/E' med: 19.6 MV E/A: 0.66 Ao V2 max: 138.6 cm/sec AI max andrea: 440.6 cm/sec MV dec slope: 225.9 cm/sec2 Ao max P.7 mmHg AI max P.6 mmHg Ao V2 mean: 95.7 cm/sec Ao mean P.2 mmHg AI dec slope: 234.8 cm/sec2 Ao V2 VTI: 32.1 cm AI P1/2t: 549.6 msec AV (velocity ratio): 0.83 LV V1 max: 114.5 cm/sec PA V2 max: 79.6 cm/sec TR max andrea: 204.2 cm/sec LV V1 max P.2 mmHg TR max P.7 mmHg LV V1 mean P.9 mmHg LV V1 mean: 79.9 cm/sec LV V1 VTI: 26.8 cm ECHO/Echo Complete Interpretation Summary Normal LV size. Left ventricular systolic function is normal. The left ventricular ejection fraction is 65 %. The RV free wall longitudinal strain was -19.0 % . Normal systolic function. Stage 1 diastolic dysfunction. Trisinus/trileaflet aortic valve. Ordering Physician: Mohan Clements Referring Physician: Rashid Camacho Performed By: Lexie Moreno RDCS
== END | disposition home or self-care (01) ==
LOC: CVS 10:46
PROVIDERS: PCP Family Medicine; Referring Provider Student in an Organized Health Care Education/Training Program; Visit Provider Student in an Organized Health Care Education/Training Program
DX: I26.99 Other pulmonary embolism without acute cor pulmonale (principal)
CPT/HCPCS: 93306